=== PATIENT | female | born 1965 | race Hispanic/Latino ===

== ENCOUNTER 2016-11-02 17:01 | Emergency (ER) | payer BC ==
[2016-11-02 17:02] VITALS: BMI 17.7
[2016-11-02] MEDS ORDERED: Sodium Chloride 0.9% 1,000 ML IV ONE (18:03)
--- NOTE | 2016-11-02 18:15 | C.PDOC ---
History Of Present Illness Patient is a 50 y/o female, with PMHx of gastritis, pancreatitis, HIV cd4 550 vl undetectable, that presents to the ED for evaluation of abdominal pain with rectal bleeding that developed last night. Pt states rectal bleeding has resolved, but her abdominal pain still continues. Denies taking pain meds. Patient has been seen here multiple times for recurrent abdominal pain. Pt reports having endoscopy done 3 months ago which showed gastric ulcers, but states she has not followed up with surgical aide since. Otherwise, denies any n/v/d, fever, chills, or any other associated symptoms at this time. Time Seen by Provider: 11/02/16 17:40 Chief Complaint (Nursing): GI Problem History Per: Patient History/Exam Limitations: no limitations Onset/Duration Of Symptoms: Days (1) Current Symptoms Are (Timing): Still Present Amount of Blood Loss: Large Quality Of Discomfort: "Pain" Associated Symptoms: Rectal Bleeding. denies: Nausea, Vomiting, Diarrhea, Hematemesis, Lightheadedness Modifying Factors: None Recent travel outside of the [place]: No Additional History Per: Patient Past Medical History Reviewed: Historical Data, Nursing Documentation, Vital Signs Vital Signs: Last Vital Signs Temp 97.9 F 11/02/16 21:03 Pulse 88 11/02/16 21:03 Resp 20 11/02/16 21:03 BP 152/93 H 11/02/16 21:03 Pulse Ox 100 11/03/16 13:40 - Medical History PMH: Anemia, Anxiety, Bipolar Disorder, Depression, Gastritis, Gastrointestinal Ulcer, Hepatitis (C), HIV, Pancreatitis, Personality Disorder, Chronic Pain ( back pain) Family History: States: Diabetes (grandmother) - Social History Hx Tobacco Use: Yes Hx Alcohol Use: No Hx Substance Use: Yes - Immunization History Hx Tetanus Toxoid Vaccination: Yes Hx Influenza Vaccination: Yes Hx Pneumococcal Vaccination: Yes Review Of Systems Except As Marked, All Systems Reviewed And Found Negative. Constitutional: Negative for: Fever, Chills Gastrointestinal: Positive for: Abdominal Pain, Other (rectal bleeding). Negative for: Nausea, Vomiting, Diarrhea, Constipation Genitourinary: Negative for: Dysuria, Frequency, Hematuria Musculoskeletal: Negative for: Back Pain Physical Exam - Physical Exam Appears: Non-toxic, No Acute Distress Skin: Normal Color, Warm, Dry Head: Atraumatic, Normacephalic Eye(s): bilateral: Normal Inspection, EOMI Neck: Normal ROM, Supple Chest: Symmetrical Cardiovascular: Rhythm Regular Respiratory: Normal Breath Sounds, No Rales, No Rhonchi, No Wheezing Gastrointestinal/Abdominal: Soft, Tenderness (minimal abdominal tenderness), No Guarding, No Rebound Rectal: No Tenderness, No Other (no stool, no blood) Extremity: Normal ROM Neurological/Psych: Oriented x3, Normal Speech, Normal Cognition ED Course And Treatment - Laboratory Results Result Diagrams: 11/02/16 18:46 11/02/16 18:46 O2 Sat by Pulse Oximetry: 100 (on RA) Pulse Ox Interpretation: Normal Progress Note: Labs ordered and reviewed. Patient was treated with IV fluids, Morphine, and Ativan. Medical Decision Making Medical Decision Making: Hgb normal, no active bleeding, abd continues soft / non surgical Pt feeling better but anxious Results and plan discussed with pt dc home donatol, early gi f/u Disposition Counseled Patient/Family Regarding: Diagnosis, Need For Followup - Disposition Referrals: Remy Carrera MD [Medical Doctor] - Disposition: HOME/ ROUTINE Disposition Time: 20:54 Condition: GOOD Additional Instructions: Follow up with your GI doctor this wk Prescriptions: Atropine/Hyoscyamine [] 1 tab PO TID PRN #30 tab PRN Reason: .abd pain Instructions: Abdominal Pain (ED) - Clinical Impression Clinical Impression: Abdominal pain - Scribe Statement The provider has reviewed the documentation as recorded by the Will Boles Provider Attestation: All medical record entries made by the Deepikaibbenita were at my direction and personally dictated by me. I have reviewed the chart and agree that the record accurately reflects my personal performance of the history, physical exam, medical decision making, and the department course for this patient. I have also personally directed, reviewed, and agree with the discharge instructions and disposition.
[2016-11-02 18:50] LABS: BASO % 0.7 % (0.0-2.0); EOS # 0.1 K/uL (0.0-0.7); EOS % 1.7 % (0.0-4.0); HEMATOCRIT 39.5 % (34.0-47.0); LYMPH # 1.6 K/uL (1.0-4.3); LYMPH % 23.8 % (20.0-40.0); MEAN CELL VOLUME 88.2 fL (81.0-99.0); MEAN CORPUSCULAR HGB CONC 31.7 g/dL (33.0-37.0); MEAN PLATELET VOLUME 7.6 fL (7.2-11.7); MONO # 0.6 K/uL (0.0-0.8); MONO % 9.3 % (0.0-10.0); RED CELL DISTRIBUTION WIDTH 19.6 % (11.5-14.5); WHITE BLOOD COUNT 6.7 K/uL (4.8-10.8)
[2016-11-02] MEDS ORDERED: Sodium Chloride 0.9% 1,000 ML ONE (18:50)
[2016-11-02 19:00] LABS: CHLORIDE 102 mmol/L (98-107); POTASSIUM 3.6 mmol/L (3.6-5.2); SODIUM 142 mmol/L (132-148)
[2016-11-02 19:02] LABS: BILIRUBIN,TOTAL 0.3 mg/dL (0.2-1.3); GFR AFRICAN-AMERICAN > 60
[2016-11-02 19:03] LABS: ALB/GLOB RATIO 1.3 (1.0-2.1); ALKALINE PHOSPHATASE 72 U/L (38-126); ALT/SGPT 17 U/L (9-52); AST/SGOT 35 U/L (14-36); BLOOD UREA NITROGEN 11 mg/dL (7-17); CALCIUM 9.6 mg/dl (8.6-10.4); CARBON DIOXIDE 26 mmol/L (22-30); GLUCOSE,RANDOM 87 mg/dL (65-105); TOTAL PROTEIN 8.3 g/dL (6.3-8.3)
[2016-11-02] MEDS ORDERED: Belladonna-Phenobarbital ONE (19:57)
[2016-11-02] MEDS ORDERED: Aluminum Hydroxide/Magnesium Hydroxide Susp (30 mL) ONE (19:57)
[2016-11-02] MEDS ORDERED: Aluminum Hydroxide/Magnesium Hydroxide Susp (30 mL) PO STA (20:04)
[2016-11-02] MEDS ORDERED: Belladonna-Phenobarbital PO STA (20:05)
[2016-11-02 21:05] VITALS: BP 152/93; PULSE 88; RESP 20; TEMP 97.9
[2016-11-03 13:39] VITALS: O2SAT 100
== END 2016-11-02 21:03 | disposition home or self-care (01) ==
LOC: C.ER 17:01
DX: R10.9 Unspecified abdominal pain (principal)
CPT/HCPCS: 80053; 83690; 85025; 86850; 86900; 87040; 96361; 96374; 96375; 99285; G0328; J2060; J2270; J7040

== ENCOUNTER 2016-12-30 15:24 | Emergency (ER) | payer BC ==
[2016-12-30 15:25] VITALS: BMI 17.7
[2016-12-30 15:30] VITALS: BP 127/85; PULSE 97; RESP 18; TEMP 97.4; O2SAT 99
[2016-12-30 16:02] LABS: BASO % 0.4 % (0.0-2.0); EOS # 0.1 K/uL (0.0-0.7); EOS % 0.9 % (0.0-4.0); HEMATOCRIT 37.9 % (34.0-47.0); LYMPH # 1.2 K/uL (1.0-4.3); MEAN CELL VOLUME 88.7 fL (81.0-99.0); MEAN CORPUSCULAR HEMOGLOBIN 29.2 pg (27.0-31.0); MEAN CORPUSCULAR HGB CONC 32.9 g/dL (33.0-37.0); MEAN PLATELET VOLUME 7.2 fL (7.2-11.7); MONO # 0.7 K/uL (0.0-0.8); MONO % 8.7 % (0.0-10.0); NRBC % 0.1 % (0.0-2.0); RED CELL DISTRIBUTION WIDTH 17.6 % (11.5-14.5); WHITE BLOOD COUNT 7.7 K/uL (4.8-10.8)
--- NOTE | 2016-12-30 16:28 | C.PDOC ---
History Of Present Illness 51 year old female presents to the ED with complaints of severe stomach pain and suicidal ideations. Patient notes a history of HIV, Hepatitis C, IBS, stomach ulcers and is using Lexapro. She mentions her stomach pains and symtpoms of vomiting and diarrhea are the typical symptoms experienced with IBS. Patient denies suicidal plan or homicidal ideations. Time Seen by Provider: 12/30/16 15:29 Chief Complaint (Nursing): Psychiatric Evaluation History Per: Patient History/Exam Limitations: no limitations Onset/Duration Of Symptoms: Hrs Current Symptoms Are (Timing): Still Present Suicide/Self Injury Attempted (Context): None Associated Symptoms: Anxiety, Depression, Suicidal Thoughts Involuntary Hold By: None Recent travel outside of the [place]: No Past Medical History Reviewed: Historical Data, Nursing Documentation, Vital Signs Vital Signs: Last Vital Signs Temp 97.4 F L 12/30/16 15:30 Pulse 97 H 12/30/16 15:30 Resp 18 12/30/16 15:30 BP 127/85 12/30/16 15:30 Pulse Ox 99 12/30/16 17:25 - Medical History PMH: Anemia, Anxiety, Bipolar Disorder, Depression, Gastritis, Gastrointestinal Ulcer, Hepatitis (C), HIV, Pancreatitis, Personality Disorder, Chronic Pain ( back pain) Family History: States: Diabetes (grandmother) - Social History Hx Tobacco Use: Yes Hx Alcohol Use: No Hx Substance Use: Yes - Immunization History Hx Tetanus Toxoid Vaccination: Yes Hx Influenza Vaccination: Yes Hx Pneumococcal Vaccination: Yes Review Of Systems Except As Marked, All Systems Reviewed And Found Negative. Constitutional: Negative for: Fever, Chills, Sweats Cardiovascular: Negative for: Chest Pain, Palpitations Respiratory: Negative for: Cough, Shortness of Breath Gastrointestinal: Positive for: Vomiting, Abdominal Pain, Diarrhea Neurological: Negative for: Headache Physical Exam - Physical Exam Additional Physical Exam Comments: Constitutional: No acute distress. Patient is anxious appearing. Head: Normocephalic. Atraumatic. Eyes: PERRL. ENT: Moist mucous membranes. Neck: Supple. Cardiovascular: Regular rate. Radial pulse 2+ bilaterally. Chest: No tenderness. Respiratory: Clear to auscultation bilaterally. GI: Soft. Diffuse abdominal tenderness. Nondistended. Back: No CVA tenderness. Musculoskeletal: No tenderness or swelling of extremities. Left tibia deformity from previous fracture. Skin: No rash. Neurologic: Alert, no focal deficit. ED Course And Treatment - Laboratory Results Result Diagrams: 12/30/16 15:57 12/30/16 15:57 O2 Sat by Pulse Oximetry: 99 (room air ) Medical Decision Making Medical Decision Making: Labs unremarkable. Abdomen remains soft. Abd XR shows nonspecific bowel gas pattern, no obstruction. Dr. Nunn recommends discharge. Disposition - Disposition Disposition: HOME/ ROUTINE Disposition Time: 18:00 Condition: STABLE Prescriptions: Acetaminophen [Tylenol 325mg tab] 2 tab PO Q4H #30 tab Instructions: Irritable Bowel Syndrome (ED) - Clinical Impression Clinical Impression: IBS (irritable bowel syndrome) - Scribe Statement The provider has reviewed the documentation as recorded by the Scribe Yany Nogueira All medical record entries made by the Deepikaibe were at my direction and personally dictated by me. I have reviewed the chart and agree that the record accurately reflects my personal performance of the history, physical exam, medical decision making, and the department course for this patient. I have also personally directed, reviewed, and agree with the discharge instructions and disposition.
[2016-12-30 16:33] LABS: ALCOHOL SERUM < 10 mg/dl (0-10); ALKALINE PHOSPHATASE 91 U/L (38-126); ALT/SGPT 12 U/L (9-52); AST/SGOT 26 U/L (14-36); BILIRUBIN,TOTAL 0.4 mg/dL (0.2-1.3); BLOOD UREA NITROGEN 10 mg/dL (7-17); CALCIUM 9.3 mg/dl (8.6-10.4); CARBON DIOXIDE 28 mmol/L (22-30); CHLORIDE 105 mmol/L (98-107); GFR AFRICAN-AMERICAN > 60; GLUCOSE,RANDOM 71 mg/dL (65-105); POTASSIUM 3.6 mmol/L (3.6-5.2); SODIUM 143 mmol/L (132-148); TOTAL PROTEIN 7.6 g/dL (6.3-8.3)
[2016-12-30 16:57] LABS: RBC URINE 1 /hpf (0-3); URINE BACTERIA RARE (<OCC); URINE BILIRUBIN NEGATIVE (NEGATIVE); URINE BLOOD NEGATIVE (NEGATIVE); URINE COLOR Yellow (YELLOW); URINE GLUCOSE (UA) NORMAL (Normal); URINE KETONE NEGATIVE (NEGATIVE); URINE LEUKOCYTE ESTERASE NEG Leu/uL (Negative); URINE PROTEIN NEGATIVE (NEGATIVE); URINE UROBILINOGEN NORMAL mg/dL (0.2-1.0); WBC URINE 3 /hpf (0-5)
--- NOTE | 2016-12-31 08:37 | RAD ---
HISTORY: abdominal pain COMPARISON: No prior. FINDINGS: BOWEL: Normal. No obstruction. No free air. Inferior vena caval filter noted. BONES: Gross deformity of right hemipelvis with fractures of indeterminate age. Please correlate clinically. Also fracture left inferior pubic ramus and left pubic symphysis. Again, correlate clinically. OTHER FINDINGS: None. IMPRESSION: No evidence of bowel obstruction. Multiple pelvic fractures of age indeterminate. Please correlate clinically.
== END 2016-12-30 18:41 | disposition home or self-care (01) ==
LOC: C.ER 15:24
DX: K58.9 Irritable bowel syndrome, unspecified (principal)
CPT/HCPCS: 74020; 80053; 81001; 83690; 84703; 85025; 99283; G0480

== ENCOUNTER 2017-04-02 11:38 | Emergency (ER) | payer BC ==
[2017-04-02 11:38] VITALS: BMI 17.7
[2017-04-02 11:46] VITALS: TEMP 97.9
[2017-04-02] MEDS ORDERED: Sodium Chloride 0.9% 1,000 ML IV ONE (12:45)
[2017-04-02] MEDS ORDERED: Sodium Chloride 0.9% 1,000 ML ONE (13:04)
[2017-04-02 13:27] LABS: BASO % 0.6 % (0.0-2.0); EOS % 0.2 % (0.0-4.0); HEMATOCRIT 38.2 % (34.0-47.0); LYMPH # 0.8 K/uL (1.0-4.3); LYMPH % 13.9 % (20.0-40.0); MEAN CELL VOLUME 85.6 fL (81.0-99.0); MEAN CORPUSCULAR HGB CONC 32.6 g/dL (33.0-37.0); MEAN PLATELET VOLUME 8.4 fL (7.2-11.7); MONO # 0.3 K/uL (0.0-0.8); MONO % 4.4 % (0.0-10.0); NRBC % 0.1 % (0.0-2.0); RED CELL DISTRIBUTION WIDTH 17.7 % (11.5-14.5)
[2017-04-02 13:34] LABS: CHLORIDE 98 mmol/L (98-107); POTASSIUM 3.4 mmol/L (3.6-5.2); SODIUM 147 mmol/L (132-148)
[2017-04-02 13:36] LABS: BILIRUBIN,TOTAL 0.6 mg/dL (0.2-1.3); GFR AFRICAN-AMERICAN > 60
[2017-04-02 13:37] LABS: ALB/GLOB RATIO 1.2 (1.0-2.1); ALKALINE PHOSPHATASE 88 U/L (38-126); ALT/SGPT 28 U/L (9-52); AST/SGOT 37 U/L (14-36); BLOOD UREA NITROGEN 17 mg/dL (7-17); CALCIUM 10.1 mg/dl (8.6-10.4); CARBON DIOXIDE 31 mmol/L (22-30); GLUCOSE,RANDOM 106 mg/dL (65-105); TOTAL PROTEIN 8.6 g/dL (6.3-8.3)
[2017-04-02 14:06] LABS: RBC URINE 6 /hpf (0-3); URINE BACTERIA RARE (<OCC); URINE BILIRUBIN NEGATIVE (NEGATIVE); URINE BLOOD NEGATIVE (NEGATIVE); URINE COLOR Amber (YELLOW); URINE GLUCOSE (UA) NORMAL (Normal); URINE KETONE TRACE mg/dL (NEGATIVE); URINE LEUKOCYTE ESTERASE NEG Leu/uL (Negative); URINE PROTEIN 2+ mg/dL (NEGATIVE); WBC URINE 2 /hpf (0-5)
--- NOTE | 2017-04-02 14:44 | C.PDOC ---
History Of Present Illness 51 year old female, with PMHx of irritable bowel syndrome, presents to ED for evaluation of crampy abdominal pain associated with nausea, vomiting, and diarrhea which developed today. Notes having similar symptoms in the past. Pt denies fever/chills, rectal bleeding, chest pain, or shortness of breath. Pt is requesting Ativan, notes that she normally takes Xanax for her anxiety. Pt denies feeling depressed, or having SI/HI. Time Seen by Provider: 04/02/17 12:23 Chief Complaint (Nursing): Abdominal Pain History Per: Patient History/Exam Limitations: no limitations Onset/Duration Of Symptoms: Hrs Current Symptoms Are (Timing): Still Present Severity: Moderate Location Of Pain/Discomfort: Diffuse Radiation Of Pain To:: None Quality Of Discomfort: Cramping Associated Symptoms: Nausea, Vomiting, Diarrhea. denies: Loss Of Appetite, Back Pain, Chest Pain, Constipation, Urinary Symptoms Exacerbating Factors: None Alleviating Factors: None Additional History Per: Patient Abnormal Vaginal Bleeding: No Past Medical History Reviewed: Historical Data, Nursing Documentation, Vital Signs Vital Signs: Last Vital Signs Temp 97.9 F 04/02/17 11:43 Pulse 92 H 04/02/17 15:10 Resp 18 04/02/17 15:10 BP 148/92 H 04/02/17 15:10 Pulse Ox 95 04/02/17 15:37 - Medical History PMH: Anemia, Anxiety, Bipolar Disorder, Depression, Gastritis, Gastrointestinal Ulcer, Hepatitis (C), HIV, Pancreatitis, Personality Disorder, Chronic Pain ( back pain) Family History: States: Diabetes (grandmother) - Social History Hx Tobacco Use: Yes Hx Alcohol Use: No Hx Substance Use: Yes - Immunization History Hx Tetanus Toxoid Vaccination: Yes Hx Influenza Vaccination: Yes Hx Pneumococcal Vaccination: Yes Review Of Systems Except As Marked, All Systems Reviewed And Found Negative. Constitutional: Negative for: Fever, Chills Cardiovascular: Negative for: Chest Pain, Palpitations Respiratory: Negative for: Cough, Shortness of Breath Gastrointestinal: Positive for: Nausea, Vomiting, Abdominal Pain, Diarrhea. Negative for: Constipation, Melena, Hematochezia, Hematemesis Genitourinary: Negative for: Dysuria, Frequency, Hematuria Musculoskeletal: Negative for: Back Pain Neurological: Negative for: Headache, Dizziness Psych: Positive for: Anxiety. Negative for: Depression, Suicidal ideation Physical Exam - Physical Exam Appears: Well, Non-toxic, Other (In mild pain, anxious appearing ) Skin: Normal Color, Warm, Dry, No Rash Head: Normacephalic Eye(s): bilateral: Normal Inspection, EOMI Oral Mucosa: Moist Neck: Supple Cardiovascular: Rhythm Regular (mildly tachycardic), No Murmur Respiratory: Normal Breath Sounds, No Rales, No Rhonchi, No Wheezing Gastrointestinal/Abdominal: Bowel Sounds, Soft, Tenderness (mild diffuse TTP), No Guarding, No Rebound, No Other ((-)Norris's (-)McBurney's ) Back: No CVA Tenderness Extremity: Normal ROM Neurological/Psych: Oriented x3 ED Course And Treatment - Laboratory Results Result Diagrams: 04/02/17 13:20 04/02/17 13:20 O2 Sat by Pulse Oximetry: 95 (on RA) Pulse Ox Interpretation: Normal Progress Note: Blood work, UA ordered and reviewed. Pt was given Pepcid IVP, Toradol IVP, Zofran IVP, Ativan IVP, and IV NS bolus. Reevaluation Time: 14:45 Reassessment Condition: Improved (On reassessment, pt reports feeling better and is comfortable being discharged home. On exam, abdomen is soft and nontender. Blood work and UA are WNL, and patient's vitals have improved. She was given Rxs for zofran, bentyl and pepcid, and instructed to follow up with GI within 1 week. Patient understands she should return to ED if symtpoms worsen.) Disposition Counseled Patient/Family Regarding: Studies Performed, Diagnosis, Need For Followup, Rx Given - Disposition Referrals: Remy Carrera MD [Medical Doctor] - Disposition: HOME/ ROUTINE Disposition Time: 14:50 Condition: STABLE Additional Instructions: FOLLOW UP WITH YOUR DOCTOR IN 1-2 DAYS USE MEDICATIONS NEEDED DRINK PLENTY OF CLEAR FLUIDS RETURN TO ER IF SYMPTOMS WORSEN Prescriptions: Dicyclomine [Bentyl] 20 mg PO Q6 PRN #12 tab PRN Reason: ABDOMINAL CRAMPING Famotidine [Pepcid] 20 mg PO BID PRN #15 tab PRN Reason: abdominal Ondansetron [Zofran Odt] 4 mg PO Q8 PRN #15 odt PRN Reason: Nausea/Vomiting Instructions: Acute Nausea and Vomiting (ED), Abdominal Pain (ED) Forms: [facility] (Australian) Print Language: INDONESIAN - Clinical Impression Clinical Impression: Nausea, Vomiting, Diarrhea, Chronic abdominal pain, IBS (irritable bowel syndrome) - Scribe Statement The provider has reviewed the documentation as recorded by the Will Boles All medical record entries made by the Deepikaibbenita were at my direction and personally dictated by me. I have reviewed the chart and agree that the record accurately reflects my personal performance of the history, physical exam, medical decision making, and the department course for this patient. I have also personally directed, reviewed, and agree with the discharge instructions and disposition.
[2017-04-02 15:23] VITALS: BP 148/92; PULSE 92; RESP 18
[2017-04-02 15:29] VITALS: O2SAT 95
== END 2017-04-02 15:10 | disposition home or self-care (01) ==
LOC: C.ER 11:38
DX: K58.0 Irritable bowel syndrome with diarrhea (principal); G89.29 Other chronic pain; R10.9 Unspecified abdominal pain; R11.2 Nausea with vomiting, unspecified; F41.9 Anxiety disorder, unspecified
CPT/HCPCS: 80053; 81001; 83690; 84703; 85025; 96361; 96374; 96375; 99284; G0480; J1885; J2060; J2405; J7040

== ENCOUNTER 2017-04-10 06:44 | Inpatient (IN) | payer BC ==
[2017-04-10 06:44] VITALS: BMI 17.7
--- NOTE | 2017-04-10 07:30 | C.PDOC ---
History Of Present Illness 51 y/o female with PMHx of gastritis and irritable bowel syndrome, presents to ED for evaluation of diffuse abdominal pain associated with nausea and several episodes of diarrhea for the last 3 days. Patient has been here multiple times in the past for similar complaints. She denies vomiting, chest pain, shortness of breath, fever, dysuria/hematurias. Pt also reports feeling anxious, but denies SI/HI. Time Seen by Provider: 04/10/17 07:06 Chief Complaint (Nursing): Abdominal Pain History Per: Patient History/Exam Limitations: no limitations Onset/Duration Of Symptoms: Days (3) Current Symptoms Are (Timing): Still Present Location Of Pain/Discomfort: Diffuse Radiation Of Pain To:: None Quality Of Discomfort: "Pain" Associated Symptoms: Nausea, Diarrhea. denies: Vomiting, Loss Of Appetite, Back Pain, Chest Pain, Constipation, Urinary Symptoms Exacerbating Factors: None Alleviating Factors: None Additional History Per: Patient Abnormal Vaginal Bleeding: No Past Medical History Reviewed: Historical Data, Nursing Documentation, Vital Signs Vital Signs: Last Vital Signs Temp 98.1 F 04/10/17 23:10 Pulse 75 04/11/17 07:30 Resp 22 04/10/17 23:10 BP 132/79 04/10/17 23:10 Pulse Ox 97 04/10/17 23:10 - Medical History PMH: Anemia, Anxiety, Bipolar Disorder, Depression, Gastritis, Gastrointestinal Ulcer, Hepatitis (C), HIV, Pancreatitis, Personality Disorder, Chronic Pain ( back pain) Family History: States: Diabetes (grandmother) - Social History Hx Tobacco Use: Yes Hx Alcohol Use: No Hx Substance Use: Yes - Immunization History Hx Tetanus Toxoid Vaccination: Yes Hx Influenza Vaccination: Yes Hx Pneumococcal Vaccination: Yes Review Of Systems Except As Marked, All Systems Reviewed And Found Negative. Constitutional: Negative for: Fever, Chills Cardiovascular: Negative for: Chest Pain, Palpitations Respiratory: Negative for: Cough, Shortness of Breath Gastrointestinal: Positive for: Nausea, Abdominal Pain, Diarrhea. Negative for : Vomiting Genitourinary: Negative for: Dysuria, Frequency Musculoskeletal: Negative for: Back Pain Neurological: Negative for: Headache Psych: Positive for: Anxiety. Negative for: Suicidal ideation Physical Exam - Physical Exam Appears: Well, Non-toxic, Other (mildly uncomfortable, belching loudly) Skin: Warm, Dry Head: Normacephalic Eye(s): bilateral: Normal Inspection Oral Mucosa: Moist Neck: Supple Cardiovascular: Rhythm Regular Respiratory: Normal Breath Sounds, No Rales, No Rhonchi, No Wheezing Gastrointestinal/Abdominal: Bowel Sounds, Soft, Tenderness (mildly diffuse TTP, greatest in epigastric area ), No Guarding, No Rebound, Other ((-)Norris's, (-) McBurney's) Back: Normal Inspection, No CVA Tenderness Extremity: Normal ROM, No Pedal Edema Neurological/Psych: Oriented x3 ED Course And Treatment - Laboratory Results Result Diagrams: 04/10/17 07:42 04/10/17 07:42 O2 Sat by Pulse Oximetry: 100 (RA) Pulse Ox Interpretation: Normal - CT Scan/US CT ABD/PELVIS Other Rad Studies (CT/US): Read By Radiologist, Radiology Report Reviewed CT/US Interpretation: Accession No. : [id number]. Patient Name / ID : DANIEL HUMPHRIES / [id number]. Exam Date : 04/10/2017 09:36:36 ( Approved ). Study Comment : Sex / Age : F / 51Y. Creator : Syed Koenig. Dictator : Syed Koenig. 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 Approver2 : Report Date : 04/10/2017 11:03:03. My Comment : . PROCEDURE: CT Abdomen and Pelvis with contrast. HISTORY: elevated lipase r/o pancreatitis. COMPARISON: Comparison is made to the previous study dated 01/01/2016. TECHNIQUE: Contrast dose: 100 mL Visipaque 320. Axial and reformatted coronal and sagittal CT images of the abdomen and pelvis were obtained after IV contrast administration. Radiation dose: Total exam DLP = 215.58 mGy-cm. This CT exam was performed using one or more of the following dose reduction techniques: Automated exposure control, adjustment of the mA and/or kV according to patient size, and/or use of iterative reconstruction technique. FINDINGS: LOWER THORAX: There is approximately 1.8 centimeter enhancing structure protruding from the apex of the left ventricle suspicious for aneurysm or pseudoaneurysm of the left ventricle of the heart. This abnormality best seen on image 18 series 3. Otherwise no evidence of acute pathology in the lung bases. LIVER: Mild cardiomegaly is again noted. Mild intrahepatic biliary ductal dilatation is noted. There is low-attenuation lesion at the liver apex measures 5 millimeter again seen. No evidence of mass lesion in the liver. The portal vein is patent. GALLBLADDER AND BILE DUCTS: The gallbladder is mildly distended without evidence of radiodense gallstones or cholecystitis. The common bile duct is normal in size. PANCREAS: There is no evidence of significant peripancreatic inflammatory changes to suggest acute pancreatitis. SPLEEN: Unremarkable. ADRENALS: Unremarkable. No mass. KIDNEYS AND URETERS: Unremarkable. No hydronephrosis. No solid mass. VASCULATURE: IVC filter is seen in place. . No aortic aneurysm. BOWEL: Unremarkable. No obstruction. No gross mural thickening. APPENDIX: Normal appendix. PERITONEUM: Unremarkable. No free fluid. No free air. LYMPH NODES: Unremarkable. No enlarged lymph nodes. BLADDER: Unremarkable. REPRODUCTIVE : Unremarkable. BONES: No acute fracture. OTHER FINDINGS: None. IMPRESSION : No CT evidence of acute pancreatitis. Incidental finding is 1.8 centimeter either aneurysm or pseudoaneurysm protruding from the apex of the left ventricle of the heart. Further assessment is suggested. No CT evidence of acute pathology in the abdomen and pelvis. The above findings were reported to and discussed with the emergency room referring physician at 10:55 a.m. on 04/10/2017 . Progress Note: Blood work, UA, Upreg ordered and reviewed. Patient was given IV Ativan, IV Pepcid, IV Toradol, IV Zofran and IV NS bolus. Patient continued to have pain, IV Morphine ordered. Lipase also elevated- CT scan abd/pelvis ordered and reviewed. - Physician Consult Information Physician Contacted: Jose Augustin Outcome Of Conversation: Discussed patient with Dr. Nancy augustin, he agrees with admission to his service for pancreatitis, intractable abdominal pain/vomiting, and incidental findings on CT scan of ventricular anheurysm/pseudoanheurysm. CT surgeon Dr. Cabrera consult and echo orders entered. Critical Care Time - Critical Care Note Total Time (in mins): 35 Documented critical care: time excludes all time spent performing seperately billable procedures. 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 01/31/2017 1 01/30/2017 ALPRAZOLAM 2 MG TABLET 14.0 7 AP FULLER [id number] [facility] P (5322) 0 [facility] [place] 01/12/2017 1 01/12/2017 ALPRAZOLAM 2 MG TABLET 6.0 3 RE HARMONY [id number] UMR P (5322) 0 [facility] [place] 08/18/2016 1 06/13/2016 CARISOPRODOL 350 MG TABLET 60.0 30 RE [place] [id number] [facility] ( 1969) 2 [facility] [place] 07/22/2016 1 06/13/2016 CARISOPRODOL 350 MG TABLET 60.0 30 RE [place] [id number] [facility] ( 1969) 1 [facility] [place] 06/25/2016 1 06/13/2016 CARISOPRODOL 350 MG TABLET 60.0 30 RE [place] [id number] [facility] ( 1969) 0 [facility] [place] *Pharmacy is created using a combination of pharmacy name and the last four digits of the pharmacy license number. Prescribers 1 / 2 Name Address [facility] Zip Phone MD CARLOS, ARSLAN [address] [facility] [address] [phone] MD MISTY, SOFIA Zambrano [address] [place] [phone] [facility] Zip Phone [facility] [phone] [facility] [address] [phone] [facility] [phone] [facility] [id number] [phone] Disposition - Disposition Disposition: HOSPITALIZED Disposition Time: 11:25 Condition: STABLE - Clinical Impression Clinical Impression: Pancreatitis, Intractable abdominal pain, Intractable vomiting with nausea, Ventricular aneurysm - Scribe Statement The provider has reviewed the documentation as recorded by the Will Augustin All medical record entries made by the Deepikaibbenita were at my direction and personally dictated by me. I have reviewed the chart and agree that the record accurately reflects my personal performance of the history, physical exam, medical decision making, and the department course for this patient. I have also personally directed, reviewed, and agree with the discharge instructions and disposition. Decision To Admit - Pt Status Changed To: Hospital Disposition Of: Inpatient - Admit Certification Admit to Inpatient:: After my assessment, the patient will require hospitalization for at least two midnights. This is because of the severity of symptoms shown, intensity of services needed, and/or the medical risk in this patient being treated as an outpatient. - InPatient: Physician Admission Certification:: see notes - . Bed Request Type: Telemetry Admitting Physician: Jose Augustin Patient Diagnosis: Pancreatitis, Intractable abdominal pain, Intractable vomiting with nausea, Ventricular aneurysm
[2017-04-10] MEDS ORDERED: Sodium Chloride 0.9% 1,000 ML IV ONE (07:34)
[2017-04-10] MEDS ORDERED: Sodium Chloride 0.9% 1,000 ML ONE (07:45)
[2017-04-10 07:48] LABS: BASO % 0.8 % (0.0-2.0); EOS # 0.3 K/uL (0.0-0.7); EOS % 5.7 % (0.0-4.0); HEMATOCRIT 35.5 % (34.0-47.0); LYMPH # 1.4 K/uL (1.0-4.3); LYMPH % 23.1 % (20.0-40.0); MEAN CELL VOLUME 86.5 fL (81.0-99.0); MEAN CORPUSCULAR HEMOGLOBIN 28.4 pg (27.0-31.0); MEAN CORPUSCULAR HGB CONC 32.8 g/dL (33.0-37.0); MEAN PLATELET VOLUME 7.6 fL (7.2-11.7); MONO # 0.5 K/uL (0.0-0.8); MONO % 7.9 % (0.0-10.0); NRBC % 0.1 % (0.0-2.0); RED CELL DISTRIBUTION WIDTH 17.9 % (11.5-14.5)
[2017-04-10 07:56] LABS: CHLORIDE 100 mmol/L (98-107); POTASSIUM 3.4 mmol/L (3.6-5.2); SODIUM 141 mmol/L (132-148)
[2017-04-10 07:58] LABS: BILIRUBIN,TOTAL 0.5 mg/dL (0.2-1.3); GFR AFRICAN-AMERICAN > 60
[2017-04-10 07:59] LABS: ALB/GLOB RATIO 1.3 (1.0-2.1); ALKALINE PHOSPHATASE 66 U/L (38-126); ALT/SGPT 23 U/L (9-52); AST/SGOT 20 U/L (14-36); BLOOD UREA NITROGEN 11 mg/dL (7-17); CALCIUM 8.5 mg/dl (8.6-10.4); CARBON DIOXIDE 23 mmol/L (22-30); GLUCOSE,RANDOM 100 mg/dL (65-105); TOTAL PROTEIN 7.7 g/dL (6.3-8.3)
[2017-04-10 08:11] LABS: RBC URINE 1 /hpf (0-3); URINE BILIRUBIN NEGATIVE (NEGATIVE); URINE BLOOD NEGATIVE (NEGATIVE); URINE COLOR Yellow (YELLOW); URINE GLUCOSE (UA) NORMAL (Normal); URINE KETONE NEGATIVE (NEGATIVE); URINE LEUKOCYTE ESTERASE NEG Leu/uL (Negative); URINE PROTEIN NEGATIVE (NEGATIVE); URINE UROBILINOGEN NORMAL mg/dL (0.2-1.0); WBC URINE 1 /hpf (0-5)
[2017-04-10] MEDS ORDERED: Morphine 4 MG/ML VIAL IV STA (08:35)
[2017-04-10] MEDS ORDERED: Morphine 4 MG/ML VIAL ONE ×2 (08:37→11:33)
[2017-04-10] MEDS ORDERED: Iodixanol 320 mg/ml 150 ml Bottle IV ONE (09:30)
--- NOTE | 2017-04-10 11:04 | CT ---
PROCEDURE: CT Abdomen and Pelvis with contrast HISTORY: elevated lipase r/o pancreatitis COMPARISON: Comparison is made to the previous study dated 01/01/2016 TECHNIQUE: Contrast dose: 100 mL Visipaque 320. Axial and reformatted coronal and sagittal CT images of the abdomen and pelvis were obtained after IV contrast administration. Radiation dose: Total exam DLP = 215.58 mGy-cm. This CT exam was performed using one or more of the following dose reduction techniques: Automated exposure control, adjustment of the mA and/or kV according to patient size, and/or use of iterative reconstruction technique. FINDINGS: LOWER THORAX: There is approximately 1.8 centimeter enhancing structure protruding from the apex of the left ventricle suspicious for aneurysm or pseudoaneurysm of the left ventricle of the heart. This abnormality best seen on image 18 series 3. Otherwise no evidence of acute pathology in the lung bases. LIVER: Mild cardiomegaly is again noted. Mild intrahepatic biliary ductal dilatation is noted. There is low-attenuation lesion at the liver apex measures 5 millimeter again seen. No evidence of mass lesion in the liver. The portal vein is patent. GALLBLADDER AND BILE DUCTS: The gallbladder is mildly distended without evidence of radiodense gallstones or cholecystitis. The common bile duct is normal in size. PANCREAS: There is no evidence of significant peripancreatic inflammatory changes to suggest acute pancreatitis. SPLEEN: Unremarkable. ADRENALS: Unremarkable. No mass. KIDNEYS AND URETERS: Unremarkable. No hydronephrosis. No solid mass. VASCULATURE: IVC filter is seen in place. . No aortic aneurysm. BOWEL: Unremarkable. No obstruction. No gross mural thickening. APPENDIX: Normal appendix. PERITONEUM: Unremarkable. No free fluid. No free air. LYMPH NODES: Unremarkable. No enlarged lymph nodes. BLADDER: Unremarkable. REPRODUCTIVE: Unremarkable. BONES: No acute fracture. OTHER FINDINGS: None. IMPRESSION: No CT evidence of acute pancreatitis. Incidental finding is 1.8 centimeter either aneurysm or pseudoaneurysm protruding from the apex of the left ventricle of the heart. Further assessment is suggested. No CT evidence of acute pathology in the abdomen and pelvis. The above findings were reported to and discussed with the emergency room referring physician at 10:55 a.m. on 04/10/2017 .
--- NOTE | 2017-04-10 12:14 | CP.PCM.CON ---
<John Carbone - Last Filed: 04/10/17 13:03> History of Present Illness - History of Present Illness History of Present Illness: PGY5 GI Fellow Consult Note Patient is a 51yo female with PMHx significant for HIV on Truvada, HCV with undetectable viral load, gallstones, PUD, IBS, COPD, questionable PE/DVT, anxiety, depression with numerous previous suicide attempts, polysubstance abuse history and drug seeking behavior who presented to the ED with abdominal pain. The patient is a very poor historian and unable to provide most of her medical history without prompting. The patient has been seen in the ED for this complaint a number of times, most recently 04/02/17, 8 days [employer]. Patient began to have diffuse, cramping abdominal pains last and this has continued until today when she presented to the ED. When present, pain is 10/10, stabbing/ cramping discomfort lasting for about an hour and resolving spontaneously. Patient cannot recall if symptoms are related to or exacerbated by meals and denies alleviation of pain with defecation. She is unable to tell me if she is currently having diarrhea or constipation, stating her bowel habits seem to fluctuate from day to day. She also admits to a 10lb weight loss in last two months due to poor intake though her weight, as documented, is nearly identical to all previous weights in our EMR. Patient has often had complained of weight loss which seems unsubstantiated by our records. She, too, complains of frequent eructation. She is not using any medications for any of these issues. Denies any melena, hematochezia, fever, chills. She does claim to have had an EGD 6 months ago at [facility] with an ulcer being found but cannot recall a repeat EGD to check healing. She has been using Pantoprazole 40mg PO QAMAC and Carafate daily. At the time of interview, patient is eating a sandwich with cold cuts without issue. PMHx: See HPI PSHx: Tubal ligation, IVC filter placement FHx: Mother - Heroin use Social: H/O polypsubstance abuse - cocaine, PCP, current cannabis use, daily xanax use; 1ppd tobacco use; denies EtOH use Endo: Reports EGD at [facility] 6 months [employer]; EGD/colonoscopy 06/2015 *Primary GI is Dr Jeronimo at [facility] 12 system ROS performed and negative except where stated in HPI Past Patient History - Infectious Disease Hx of Infectious Diseases: None - Past Social History Smoking Status: Heavy Smoker > 10 Cigarettes Daily - CARDIAC Hx Hypertension: No - PULMONARY Hx Asthma: No - NEUROLOGICAL Hx Seizures: No - HEMATOLOGICAL/ONCOLOGICAL Hx Anemia: Yes Hx Human Immunodeficiency Virus (HIV): Yes - MUSCULOSKELETAL/RHEUMATOLOGICAL Hx Falls: No - GASTROINTESTINAL Hx Gastritis: Yes Hx Pancreatitis: Yes - GENITOURINARY/GYNECOLOGICAL Hx Sexually Transmitted Disorders: No - PSYCHIATRIC Hx Anxiety: Yes Hx Bipolar Disorder: Yes Hx Depression: Yes Hx Substance Use: Yes - SURGICAL HISTORY Hx Surgeries: Yes Other/Comment: leg left surgery - ANESTHESIA Hx Anesthesia: Yes Hx Anesthesia Reactions: No Hx Malignant Hyperthermia: No Meds Allergies/Adverse Reactions: Allergies Allergy/AdvReac Type Severity Reaction Status Date / Time No Known Allergies Allergy Verified 04/10/17 07:24 Physical Exam - Constitutional Appears: Non-toxic, No Acute Distress - Eye Exam Eye Exam: EOMI, PERRL - ENT Exam ENT Exam: Mucous Membranes Moist - Respiratory Exam Respiratory Exam: Clear to Auscultation Bilateral. absent: Rales, Rhonchi, Wheezes - Cardiovascular Exam Cardiovascular Exam: RRR, +S1, +S2 - GI/Abdominal Exam GI & Abdominal Exam: Normal Bowel Sounds, Soft. absent: Distended, Firm, Guarding, Organomegaly, Rigid, Tenderness Additional comments: negative Norris sign - Extremities Exam Extremities exam: Positive for: normal inspection. Negative for: pedal edema - Neurological Exam Neurological exam: Alert, Oriented x3 - Psychiatric Exam Psychiatric exam: Anxious, Normal Affect - Skin Skin Exam: Dry, Warm Results - Vital Signs Recent Vital Signs: Last Vital Signs Temp 98.1 F 04/10/17 10:37 Pulse 74 04/10/17 10:37 Resp 20 04/10/17 10:37 BP 145/90 04/10/17 10:37 Pulse Ox 100 04/10/17 11:17 - Labs Result Diagrams: 04/10/17 07:42 04/10/17 07:42 Labs: Laboratory Results - last 24 hr 04/10/17 04/10/17 04/10/17 07:42 07:42 07:50 WBC 6.0 RBC 4.10 Hgb 11.6 Hct 35.5 MCV 86.5 MCH 28.4 MCHC 32.8 L RDW 17.9 H Plt Count 323 MPV 7.6 Neut % (Auto) 62.5 Lymph % (Auto) 23.1 [place] % (Auto) 7.9 Eos % (Auto) 5.7 H Baso % (Auto) 0.8 Neut # 3.8 Lymph # 1.4 [place] # 0.5 Eos # 0.3 Baso # 0.0 Sodium 141 Potassium 3.4 L Chloride 100 Carbon Dioxide 23 Anion Gap 22 H BUN 11 Creatinine 0.6 L Est GFR ( Amer) > 60 Est GFR (Non-Af Amer) > 60 Random Glucose 100 Calcium 8.5 L Total Bilirubin 0.5 AST 20 ALT 23 Alkaline Phosphatase 66 Total Protein 7.7 Albumin 4.4 Globulin 3.3 Albumin/Globulin Ratio 1.3 Lipase 558 H Urine Color Yellow Urine Clarity Hazy Urine pH 7.0 Ur Specific [place] 1.011 Urine Protein Negative Urine Glucose (UA) Normal Urine Ketones Negative Urine Blood Negative Urine Nitrate Negative Urine Bilirubin Negative Urine Urobilinogen Normal Ur Leukocyte Esterase Neg Urine WBC (Auto) 1 Urine RBC (Auto) 1 Ur Squamous Epith Cells 5 Amorphous Sediment Rare H Urine HCG, Qual Negative Assessment & Plan - Assessment and Plan (Free Text) Assessment: Patient is a 51yo female with PMHx significant for HIV on Truvada, HCV with undetectable viral load, gallstones, PUD, IBS, COPD, questionable PE/DVT, anxiety, depression with numerous previous suicide attempts, polysubstance abuse history and drug seeking behavior who presented to the ED with abdominal pain. 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 -Polysubstance abuse -H/O PUD -H/O Gallstones -HIV on HAART -H/O HCV per pt -Anxiety/Depression/Bipolar Plan: -Continue PPI with protonix 40mg PO QAMAC -Add simethicone PRN -Would not check stool for infectious work up at this time as there is no evidence of acute infection and diarrhea seems intermittent at best -Given patient's HIV history, if diarrhea persists, could consider sending for culture and to R/O opportunistic infections -Check Hepatitis serologies for documentation -D/C carafate -Avoid NSAIDs -Isolated elevation in lipase noted - no evidence for acute pancreatitis on examination, history or imaging (CT) -Consider U/S abdomen, R/O gallstones - pain possibly 2/2 biliary colic - questionable if lipasemia could be downtrending from prior obstructive event -Patient eating cold cut sandwich at time of interview - OK to continue diet - recommend low fat diet -Echocardiogram pending given finding on CT scan - woudl benefit from cardiology consultation -Strongly encourage illicit drug use cessation along with tobacco cessation -Patient has had recent endoscopy at [facility] -Will follow clinical course - Date & Time Date: 04/10/17 Time: 13:23 <Kris Pardo - Last Filed: 04/10/17 13:27> Results - Vital Signs Recent Vital Signs: Last Vital Signs Temp 98.1 F 04/10/17 10:37 Pulse 74 04/10/17 10:37 Resp 20 04/10/17 10:37 BP 145/90 04/10/17 10:37 Pulse Ox 100 04/10/17 11:17 - Labs Result Diagrams: 04/10/17 07:42 04/10/17 07:42 Labs: Laboratory Results - last 24 hr 04/10/17 04/10/17 04/10/17 07:42 07:42 07:50 WBC 6.0 RBC 4.10 Hgb 11.6 Hct 35.5 MCV 86.5 MCH 28.4 MCHC 32.8 L RDW 17.9 H Plt Count 323 MPV 7.6 Neut % (Auto) 62.5 Lymph % (Auto) 23.1 [place] % (Auto) 7.9 Eos % (Auto) 5.7 H Baso % (Auto) 0.8 Neut # 3.8 Lymph # 1.4 [place] # 0.5 Eos # 0.3 Baso # 0.0 Sodium 141 Potassium 3.4 L Chloride 100 Carbon Dioxide 23 Anion Gap 22 H BUN 11 Creatinine 0.6 L Est GFR ( Amer) > 60 Est GFR (Non-Af Amer) > 60 Random Glucose 100 Calcium 8.5 L Total Bilirubin 0.5 AST 20 ALT 23 Alkaline Phosphatase 66 Total Protein 7.7 Albumin 4.4 Globulin 3.3 Albumin/Globulin Ratio 1.3 Lipase 558 H Urine Color Yellow Urine Clarity Hazy Urine pH 7.0 Ur Specific [place] 1.011 Urine Protein Negative Urine Glucose (UA) Normal Urine Ketones Negative Urine Blood Negative Urine Nitrate Negative Urine Bilirubin Negative Urine Urobilinogen Normal Ur Leukocyte Esterase Neg Urine WBC (Auto) 1 Urine RBC (Auto) 1 Ur Squamous Epith Cells 5 Amorphous Sediment Rare H Urine HCG, Qual Negative Attending/Attestation - Attestation I have personally seen and examined this patient.: Yes I have fully participated in the care of the patient.: Yes I have reviewed all pertinent clinical information: Yes Notes (Text): 04/10/17 13:24 51 year old female with h/o HIV, HCV, Cholelithiasis, PUD, IBS, COPD, anxiety/ depression admitted with abdominal pain. 1. Abdominal pain 2. Cholelithiasis 3. IBS 4. History of PUD Plan: -labs and CT reviewed -no evidence of pancreatitis on CT, lipase is only mildly elevated, not significant -pain does not appear to be consistent with biliary colic, though prior US showed gallstones -recommend protonix 40 mg daily -supportive measures / pain control / hydration -advance diet as tolerated -await echo re: possibly ventricular aneursym
--- NOTE | 2017-04-10 13:27 | CP.PCM.CON ---
History of Present Illness - History of Present Illness History of Present Illness: General Surgery Consult Note for Dr. Cabrera Consulted for: ventricular aneurysm v psuedoanuerysm on CT Patient is a 51 year old female with pmhx of HIV, Hepatitis C, IBS, PUD, gallstones, COPD, questionable PE/DVT, anxiety, depression with numerous previous suicide attempts, polysubstance abuse history who presented to the ED with abdominal pain. Patient says she has been having this abdominal pain for the past few months, but the pain increased in severity in the last day. The patient says the pain is in the epigastric region of the abdomen and is a cramping pain that comes and goes. At its worst she says the pain is a 10/10. She does not know if the pain is associated with food. Patient says she had about 7 episodes of diarrhea overnight with no blood in the stool. Patient had no episodes of vomiting, but did feel slightly nauseous. Patient says she was diagnosed with an ulcer by EGD she had about 6 months ago at [place]. Patient admits to having lost about 10 pounds in the last two months due to decreased appetite. Patient denies any fevers, chills, shortness of breath, chest pain or palpitations. Currently she says her abdominal pain is very minimal. She is hungry and eating a sandwich. She has not had any diarrhea since this morning. PMHx: HIV, Hepatitis C, IBS, PUD, gallstones, COPD, questionable PE/DVT, anxiety , depression with numerous previous suicide attempts Psurg: tubal ligation, IVC filter, colonscopy in 2014, endoscopy in 2017 Famhx: grandmother- Crohn's disease and breast CA Social: hx of PCP and cocaine, currently admits to marijuana 2 blunts per day and 1/2 pack of cigarettes per day. Denies alcohol use Allergies: NKDA home medications: Xanax 2mg BID, Soma 350 mg BID, HIV medications, Pantoprazole 40 mg dialy, Carafate Review of Systems - Constitutional Constitutional: Weight Loss. absent: Chills, Fever - EENT Eyes: absent: Blurred Vision, Change in Vision Nose/Mouth/Throat: absent: Hoarsness, Sore Throat - Cardiovascular Cardiovascular: absent: Chest Pain, Dyspnea, Leg Edema, Palpitations - Respiratory Respiratory: absent: Cough - Gastrointestinal Gastrointestinal: Abdominal Pain, Belching, Constipation, Cramping, Diarrhea, Nausea. absent: Hematochezia, Vomiting - Genitourinary Genitourinary: absent: Difficulty Urinating - Musculoskeletal Musculoskeletal: absent: Muscle Weakness - Neurological Neurological: absent: Dizziness - Hematologic/Lymphatic Hematologic: absent: Easy Bleeding, Easy Bruising Past Patient History - Infectious Disease Hx of Infectious Diseases: None - Past Social History Smoking Status: Heavy Smoker > 10 Cigarettes Daily - CARDIAC Hx Hypertension: No - PULMONARY Hx Asthma: No - NEUROLOGICAL Hx Seizures: No - HEMATOLOGICAL/ONCOLOGICAL Hx Anemia: Yes Hx Human Immunodeficiency Virus (HIV): Yes - MUSCULOSKELETAL/RHEUMATOLOGICAL Hx Falls: No - GASTROINTESTINAL Hx Gastritis: Yes Hx Pancreatitis: Yes - GENITOURINARY/GYNECOLOGICAL Hx Sexually Transmitted Disorders: No - PSYCHIATRIC Hx Anxiety: Yes Hx Bipolar Disorder: Yes Hx Depression: Yes Hx Substance Use: Yes - SURGICAL HISTORY Hx Surgeries: Yes Other/Comment: leg left surgery - ANESTHESIA Hx Anesthesia: Yes Hx Anesthesia Reactions: No Hx Malignant Hyperthermia: No Meds Allergies/Adverse Reactions: Allergies Allergy/AdvReac Type Severity Reaction Status Date / Time No Known Allergies Allergy Verified 04/10/17 07:24 Physical Exam - Constitutional Appears: Non-toxic, No Acute Distress - Head Exam Head Exam: ATRAUMATIC, NORMAL INSPECTION, NORMOCEPHALIC - Eye Exam Eye Exam: EOMI, Normal appearance - ENT Exam ENT Exam: Mucous Membranes Moist - Respiratory Exam Respiratory Exam: Clear to Auscultation Bilateral, NORMAL BREATHING PATTERN. absent: Rales, Rhonchi, Wheezes, Respiratory Distress, Stridor - Cardiovascular Exam Cardiovascular Exam: REGULAR RHYTHM, RRR. absent: Gallop, Rubs, Systolic Murmur - GI/Abdominal Exam GI & Abdominal Exam: Hyperactive Bowel Sounds, Soft. absent: Distended, Firm, Guarding, Tenderness - Extremities Exam Extremities exam: Positive for: normal inspection. Negative for: pedal edema - Neurological Exam Neurological exam: Alert, Oriented x3 - Psychiatric Exam Psychiatric exam: Normal Affect, Normal Mood Results - Vital Signs Recent Vital Signs: Last Vital Signs Temp 98.1 F 04/10/17 10:37 Pulse 74 04/10/17 10:37 Resp 20 04/10/17 10:37 BP 145/90 04/10/17 10:37 Pulse Ox 100 04/10/17 11:17 - Labs Result Diagrams: 04/10/17 07:42 04/10/17 07:42 Labs: Laboratory Results - last 24 hr 04/10/17 04/10/17 04/10/17 07:42 07:42 07:50 WBC 6.0 RBC 4.10 Hgb 11.6 Hct 35.5 MCV 86.5 MCH 28.4 MCHC 32.8 L RDW 17.9 H Plt Count 323 MPV 7.6 Neut % (Auto) 62.5 Lymph % (Auto) 23.1 [place] % (Auto) 7.9 Eos % (Auto) 5.7 H Baso % (Auto) 0.8 Neut # 3.8 Lymph # 1.4 [place] # 0.5 Eos # 0.3 Baso # 0.0 Sodium 141 Potassium 3.4 L Chloride 100 Carbon Dioxide 23 Anion Gap 22 H BUN 11 Creatinine 0.6 L Est GFR ( Amer) > 60 Est GFR (Non-Af Amer) > 60 Random Glucose 100 Calcium 8.5 L Total Bilirubin 0.5 AST 20 ALT 23 Alkaline Phosphatase 66 Total Protein 7.7 Albumin 4.4 Globulin 3.3 Albumin/Globulin Ratio 1.3 Lipase 558 H Urine Color Yellow Urine Clarity Hazy Urine pH 7.0 Ur Specific [place] 1.011 Urine Protein Negative Urine Glucose (UA) Normal Urine Ketones Negative Urine Blood Negative Urine Nitrate Negative Urine Bilirubin Negative Urine Urobilinogen Normal Ur Leukocyte Esterase Neg Urine WBC (Auto) 1 Urine RBC (Auto) 1 Ur Squamous Epith Cells 5 Amorphous Sediment Rare H Urine HCG, Qual Negative Assessment & Plan - Assessment and Plan (Free Text) Assessment: 51 y/o female with extensive past medical history presents with abdominal pain and diarrhea Plan: -Abdomen/pelvis CT: 1.8 cm either aneurysm or pseudoaneurysm protruding from apex of the left ventricle of the heart -Echo done -no surgical intervention at this time -blood pressure control -avoid exertional activities -follow up with cardiothoracic surgeon as outpatient -continue medical management as per primary d/w Dr. Cabrera
[2017-04-10] MEDS ORDERED: Simethicone 80 mg Chewtab PO PRN (14:20)
--- NOTE | 2017-04-10 15:06 | US ---
HISTORY: abdominal pain - R/O cholelithiasis COMPARISON: None. TECHNIQUE: Sonographic evaluation of the abdomen. FINDINGS: LIVER: Measures cm. Normal echogenicity of the liver parenchyma. No mass. No intrahepatic bile duct dilatation. GALLBLADDER: Mild cholelithiasis. No wall thickening. COMMON BILE DUCT: Measures mm. No stones. No dilatation. PANCREAS: Unremarkable as visualized. No mass. No ductal dilatation. RIGHT KIDNEY: Measures cm. Normal echogenicity. No calculus, mass, or hydronephrosis. LEFT KIDNEY: Measures cm. Normal echogenicity. No calculus, mass, or hydronephrosis. 1 centimeter left interpolar renal cyst. SPLEEN: Normal in size and contour. No mass. AORTA: No aneurysmal dilatation. IVC: Unremarkable. OTHER FINDINGS: None. IMPRESSION: Mild cholelithiasis. No wall thickening. 1 centimeter left renal cyst.
[2017-04-10] MEDS: Simethicone 80 mg Chewtab PO PRN (16:12)
[2017-04-10] MEDS: HYDROmorphone 0.5 mg/0.5 ml ISec IVP PRN (19:38)
[2017-04-10] MEDS ORDERED: Potassium Chloride 20 mEq ER Tab PO STA (19:55)
--- NOTE | 2017-04-10 20:31 | CP.PCM.HP ---
Past Patient History - Infectious Disease Hx of Infectious Diseases: None - Past Medical History & Family History Past Medical History?: Yes - Past Social History Smoking Status: Heavy Smoker > 10 Cigarettes Daily - CARDIAC Hx Hypertension: No - PULMONARY Hx Asthma: No - NEUROLOGICAL Hx Seizures: No - HEMATOLOGICAL/ONCOLOGICAL Hx Anemia: Yes Hx Human Immunodeficiency Virus (HIV): Yes - MUSCULOSKELETAL/RHEUMATOLOGICAL Hx Falls: No - GASTROINTESTINAL Hx Gastritis: Yes Hx Pancreatitis: Yes - GENITOURINARY/GYNECOLOGICAL Hx Sexually Transmitted Disorders: No - PSYCHIATRIC Hx Anxiety: Yes Hx Bipolar Disorder: Yes Hx Depression: Yes Hx Substance Use: Yes - SURGICAL HISTORY Hx Surgeries: Yes Other/Comment: leg left surgery - ANESTHESIA Hx Anesthesia: Yes Hx Anesthesia Reactions: No Hx Malignant Hyperthermia: No Meds Allergies/Adverse Reactions: Allergies Allergy/AdvReac Type Severity Reaction Status Date / Time No Known Allergies Allergy Verified 04/10/17 07:24 Physical Exam - Constitutional Appears: Well - Head Exam Head Exam: ATRAUMATIC, NORMAL INSPECTION, NORMOCEPHALIC - Eye Exam Eye Exam: EOMI, Normal appearance, PERRL Pupil Exam: NORMAL ACCOMODATION, PERRL - ENT Exam ENT Exam: Mucous Membranes Moist, Normal Exam - Neck Exam Neck exam: Positive for: Normal Inspection - Respiratory Exam Respiratory Exam: Decreased Breath Sounds - Cardiovascular Exam Cardiovascular Exam: REGULAR RHYTHM, +S1, +S2 - GI/Abdominal Exam GI & Abdominal Exam: Diminished Bowel Sounds, Soft - Rectal Exam Rectal Exam: Deferred Results - Vital Signs Recent Vital Signs: Last Vital Signs Temp 97.9 F 04/10/17 15:32 Pulse 68 04/10/17 15:32 Resp 20 04/10/17 15:32 BP 147/95 H 04/10/17 15:32 Pulse Ox 97 04/10/17 15:32 - Labs Result Diagrams: 04/10/17 07:42 04/10/17 07:42 Labs: Laboratory Results - last 24 hr 04/10/17 04/10/17 04/10/17 07:42 07:42 07:50 WBC 6.0 RBC 4.10 Hgb 11.6 Hct 35.5 MCV 86.5 MCH 28.4 MCHC 32.8 L RDW 17.9 H Plt Count 323 MPV 7.6 Neut % (Auto) 62.5 Lymph % (Auto) 23.1 [place] % (Auto) 7.9 Eos % (Auto) 5.7 H Baso % (Auto) 0.8 Neut # 3.8 Lymph # 1.4 [place] # 0.5 Eos # 0.3 Baso # 0.0 Sodium 141 Potassium 3.4 L Chloride 100 Carbon Dioxide 23 Anion Gap 22 H BUN 11 Creatinine 0.6 L Est GFR ( Amer) > 60 Est GFR (Non-Af Amer) > 60 Random Glucose 100 Calcium 8.5 L Total Bilirubin 0.5 AST 20 ALT 23 Alkaline Phosphatase 66 Total Protein 7.7 Albumin 4.4 Globulin 3.3 Albumin/Globulin Ratio 1.3 Lipase 558 H Urine Color Yellow Urine Clarity Hazy Urine pH 7.0 Ur Specific [place] 1.011 Urine Protein Negative Urine Glucose (UA) Normal Urine Ketones Negative Urine Blood Negative Urine Nitrate Negative Urine Bilirubin Negative Urine Urobilinogen Normal Ur Leukocyte Esterase Neg Urine WBC (Auto) 1 Urine RBC (Auto) 1 Ur Squamous Epith Cells 5 Amorphous Sediment Rare H Urine HCG, Qual Negative
[2017-04-11 00:49] VITALS: BP 132/79; RESP 22; TEMP 98.1
[2017-04-11] MEDS: HYDROmorphone 0.5 mg/0.5 ml ISec IVP PRN ×2 (02:20→10:00)
[2017-04-11] MEDS: Simethicone 80 mg Chewtab PO PRN ×2 (04:28→10:50)
[2017-04-11] MEDS ORDERED: Pantoprazole 40 mg EC Tab PO SCH (07:30)
[2017-04-11 07:55] VITALS: PULSE 75
--- NOTE | 2017-04-11 14:29 | CP.PCM.PN ---
Subjective - Date & Time of Evaluation Date of Evaluation: 04/11/17 Time of Evaluation: 12:40 - Subjective Subjective: clinically same Objective - Vital Signs/Intake and Output Vital Signs (last 24 hours): Temp Pulse Resp BP Pulse Ox 98.1 F 75 22 132/79 97 04/10/17 23:10 04/11/17 07:30 04/10/17 23:10 04/10/17 23:10 04/10/17 23:10 - Labs Labs: 04/10/17 07:42 04/10/17 07:42 - Constitutional Appears: Well - Head Exam Head Exam: ATRAUMATIC, NORMAL INSPECTION, NORMOCEPHALIC - Eye Exam Eye Exam: EOMI, Normal appearance, PERRL Pupil Exam: NORMAL ACCOMODATION, PERRL - ENT Exam ENT Exam: Mucous Membranes Moist, Normal Exam - Neck Exam Neck Exam: Full ROM, Normal Inspection. absent: Lymphadenopathy - Respiratory Exam Respiratory Exam: Decreased Breath Sounds - Cardiovascular Exam Cardiovascular Exam: REGULAR RHYTHM, +S1, +S2 - GI/Abdominal Exam GI & Abdominal Exam: Soft, Diminished Bowel Sounds - Rectal Exam Rectal Exam: Deferred
--- NOTE | 2017-04-11 14:44 | CP.PCM.PN ---
<RamanaFrederick - Last Filed: 04/11/17 14:40> Subjective - Date & Time of Evaluation Date of Evaluation: 04/11/17 Time of Evaluation: 08:30 - Subjective Subjective: PGY 4 GI fellow Patient seen and examined bedside. Abdominal pain improved significantly. Able to tolerate diet. Patient feels constipated. Labs and diagnostics reviewed. 10 point ROS negative Objective - Vital Signs/Intake and Output Vital Signs (last 24 hours): Temp Pulse Resp BP Pulse Ox 98.1 F 75 22 132/79 97 04/10/17 23:10 04/11/17 07:30 04/10/17 23:10 04/10/17 23:10 04/10/17 23:10 - Labs Labs: 04/10/17 07:42 04/10/17 07:42 - Constitutional Appears: Well, No Acute Distress - Head Exam Head Exam: ATRAUMATIC, NORMOCEPHALIC - Eye Exam Eye Exam: Normal appearance. absent: Periorbital tenderness - ENT Exam ENT Exam: Mucous Membranes Moist, Normal Exam - Neck Exam Neck Exam: Normal Inspection - Respiratory Exam Respiratory Exam: Clear to Ausculation Bilateral, NORMAL BREATHING PATTERN. absent: Rales, Rhonchi, Wheezes, Respiratory Distress - Cardiovascular Exam Cardiovascular Exam: REGULAR RHYTHM, +S1, +S2 - GI/Abdominal Exam GI & Abdominal Exam: Soft, Normal Bowel Sounds. absent: Guarding, Rigid, Tenderness - Extremities Exam Extremities Exam: absent: Joint Swelling, Pedal Edema - Neurological Exam Neurological Exam: Alert, Awake, Oriented x3 - Psychiatric Exam Psychiatric exam: Normal Affect, Normal Mood - Skin Skin Exam: Dry, Intact, Normal Color, Warm Assessment and Plan - Assessment and Plan (Free Text) Assessment: Patient is a 51yo female with PMHx significant for HIV on Truvada, HCV with undetectable viral load, gallstones, PUD, IBS, COPD, questionable PE/DVT, anxiety, depression with numerous previous suicide attempts, polysubstance abuse history and drug seeking behavior who presented to the ED with abdominal pain. 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 -Polysubstance abuse -H/O PUD -H/O Gallstones -HIV on HAART -H/O HCV per pt -Anxiety/Depression/Bipolar Plan: -Continue PPI with protonix 40mg PO QAMAC -Add simethicone PRN -Miralax daily -Would not check stool for infectious work up at this time as there is no evidence of acute infection and diarrhea seems intermittent at best -Given patient's HIV history, if diarrhea persists, could consider sending for culture and to R/O opportunistic infections -Hepatitis serologies negative -OK to continue diet - recommend low fat diet -Strongly encourage illicit drug use cessation along with tobacco cessation, Avoid narcotics -Patient has had recent endoscopy at [facility] -If patient here on thursday, will consider doing EGD but no urgent need D/W Dr. Tripathi <Jagdish Tripathi MD - Last Filed: 04/11/17 18:52> Objective - Vital Signs/Intake and Output Vital Signs (last 24 hours): Temp Pulse Resp BP Pulse Ox 98.1 F 75 22 132/79 97 04/10/17 23:10 04/11/17 07:30 04/10/17 23:10 04/10/17 23:10 04/10/17 23:10 - Medications Medications: Current Medications Polyethylene Glycol (Miralax) 17 gm PO DAILY OSMAR - Labs Labs: 04/10/17 07:42 04/10/17 07:42 Attending/Attestation - Attestation I have personally seen and examined this patient.: Yes I have fully participated in the care of the patient.: Yes I have reviewed all pertinent clinical information, including history, physical exam and plan: Yes Notes (Text): 04/11/17 18:47 Patient seen and examined at bedside. This is a 51 year old female with PMHx significant for HIV on Truvada, HCV with undetectable viral load, gallstones, PUD, IBS, COPD, questionable PE/DVT not on AC, anxiety, depression with numerous previous suicide attempts, polysubstance abuse history and drug seeking behavior who presented to the ED with abdominal pain which is chronic. 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 Continue PPI with protonix 40mg PO QAMAC. Hepatitis serologies negative. Recommend low fat diet as tolerated. Strongly encourage illicit drug use cessation along with tobacco cessation.
[2017-04-11] MEDS ORDERED: POLYETHYLENE GLYCOL 3350 17 GM/Dose PACKET PO SCH (14:45)
--- NOTE | 2017-04-11 14:47 | CARD ---
APPROVED REPORT EXAM: Two-dimensional and M-mode echocardiogram with Doppler and color Doppler. Other Information Quality : GoodRhythm : INDICATION HIV 2D DIMENSIONS IVSd1.0 (0.7-1.1cm)LVDd4.2 (3.9-5.9cm) PWd1.0 (0.7-1.1cm)LVDs2.5 (2.5-4.0cm) FS (%) 40.8 %LVEF (%)72.0 (>50%) M-Mode DIMENSIONS Left Atrium (MM)3.11 (2.5-4.0cm)Aortic Root2.85 (2.2-3.7cm) Aortic Cusp Exc.2.05 (1.5-2.0cm) Mitral Valve MV E Tfqsxqsz05.0cm/sMV A Dvzgpdvm31.3cm/sE/A ratio0.9 TDI E/Lateral E'0.0E/Medial E'0.0 Tricuspid Valve TR Peak Suqkbnmr636pq/sTR Peak Gr.[id number] LEFT VENTRICLE The left ventricle is normal size. There is normal left ventricular wall thickness. The left ventricular function is normal. The left ventricular ejection fraction is within the normal range. No regional wall motion abnormalities noted. The left ventricular diastolic function is normal. No left ventricle thrombus noted on this study. There is no ventricular septal defect visualized. There is no left ventricular aneurysm. There is no mass noted in the left ventricle. RIGHT VENTRICLE The right ventricle is normal size. There is normal right ventricular wall thickness. The right ventricular systolic function is normal. ATRIA The left atrium size is normal. The right atrium size is normal. The interatrial septum is intact with no evidence for an atrial septal defect. AORTIC VALVE The aortic valve is normal in structure and function. No aortic regurgitation is present. There is no aortic valvular stenosis. There is no aortic valvular vegetation. MITRAL VALVE The mitral valve is normal in structure and function. There is no evidence of mitral valve prolapse. There is no mitral valve stenosis. Mitral regurgitation is mild. TRICUSPID VALVE The tricuspid valve is normal in structure and function. There is mild tricuspid regurgitation. Right ventricular systolic pressure is estimated at less than 30 mmHg. There is no tricuspid valve prolapse or vegetation. There is no tricuspid valve stenosis. PULMONIC VALVE The pulmonary valve is normal in structure and function. There is no pulmonic valvular regurgitation. There is no pulmonic valvular stenosis. GREAT VESSELS The aortic root is normal in size. The ascending aorta is normal in size. The pulmonary artery is normal. The IVC is normal in size and collapses >50% with inspiration. PERICARDIAL EFFUSION The pericardium appears normal. There is no pleural effusion. <Conclusion> The left ventricular function is normal. The left ventricular ejection fraction is within the normal range. Mitral regurgitation is mild.
[2017-04-11 22:43] VITALS: O2SAT 100
== END 2017-04-11 14:00 | disposition left against medical advice (07) | DRG 391 ==
LOC: C.ER 06:44 → C.9E 11:25 → C.6T 13:31
PROVIDERS: ADMIT Internal Medicine Nephrology; ATTEND Internal Medicine Nephrology
DX: K29.70 Gastritis, unspecified, without bleeding (principal); B20 Human immunodeficiency virus [HIV] disease; J44.9 Chronic obstructive pulmonary disease, unspecified; F41.9 Anxiety disorder, unspecified; F60.9 Personality disorder, unspecified; G89.29 Other chronic pain; K58.9 Irritable bowel syndrome, unspecified; Z87.11 Personal history of peptic ulcer disease; Z91.5 Personal history of self-harm; F17.210 Nicotine dependence, cigarettes, uncomplicated

== ENCOUNTER 2017-04-16 10:02 | Observation (INO) | payer BC ==
[2017-04-16 10:03] VITALS: BMI 17.7
[2017-04-16 10:07] VITALS: RESP 18
--- NOTE | 2017-04-16 10:20 | C.PDOC ---
History Of Present Illness 51 yo female w/PMHx of HIV ( undetectable viral loads), HCV, Cholelithiasis, PUD , IBS, COPD, anxiety/depression return to ED for re-evaluation of epigastric pain for past few weeks. Pt sts, pain is localized, worse with food intake, (+) nausea. Pt was evaluated in ED multiple times for past 2 weeks, admitted on 04/10 and sign out AMA 1 week ago. Pt sts, had oatmeal today at 5 AM, worsening of pain. Otherwise, pt denies fever, chills, CP, SOB, dyspnea, diaphoresis, palpitation, vomiting, melena, back pain, UTI sx. At the time of evaluation, pt appears anxious, request Ativan " I ran out of my xanax few days ago". Pt was caught smoking multiple times in patient's bathroom. Time Seen by Provider: 04/16/17 10:12 Chief Complaint (Nursing): Abdominal Pain History Per: Patient History/Exam Limitations: no limitations Onset/Duration Of Symptoms: Days Current Symptoms Are (Timing): Still Present Location Of Pain/Discomfort: Epigastric Radiation Of Pain To:: None Quality Of Discomfort: "Pain" Associated Symptoms: Nausea. denies: Fever, Vomiting, Diarrhea Recent travel outside of the [place]: No Past Medical History Reviewed: Historical Data, Nursing Documentation, Vital Signs Vital Signs: Last Vital Signs Temp 97.3 F L 04/16/17 14:06 Pulse 92 H 04/16/17 14:06 Resp 18 04/16/17 14:06 BP 128/87 04/16/17 14:06 Pulse Ox 97 04/16/17 14:06 - Medical History PMH: Anemia, Anxiety, Bipolar Disorder, Depression, Gastritis, Gastrointestinal Ulcer, Hepatitis (C), HIV, Pancreatitis, Personality Disorder, Chronic Pain ( back pain) Family History: States: Diabetes (grandmother) - Social History Hx Tobacco Use: Yes Hx Alcohol Use: No Hx Substance Use: Yes - Immunization History Hx Tetanus Toxoid Vaccination: Yes Hx Influenza Vaccination: Yes Hx Pneumococcal Vaccination: Yes Review Of Systems Except As Marked, All Systems Reviewed And Found Negative. Constitutional: Negative for: Fever, Chills Cardiovascular: Negative for: Chest Pain Respiratory: Negative for: Cough, Shortness of Breath, Wheezing Gastrointestinal: Positive for: Nausea, Abdominal Pain. Negative for: Vomiting , Diarrhea Genitourinary: Negative for: Dysuria Skin: Negative for: Rash Neurological: Negative for: Headache, Dizziness Physical Exam - Physical Exam Appears: Well, Non-toxic, Agitated Skin: Normal Color, Warm, Dry, No Rash Head: Normacephalic Eye(s): bilateral: PERRL Nose: No Flaring, No Discharge Throat: No Drooling Neck: Supple Cardiovascular: Rhythm Regular Respiratory: No Decreased Breath Sounds, No Accessory Muscle Use, No Stridor, No Wheezing Gastrointestinal/Abdominal: Soft, Tenderness (epigastric, moderate), No Distention, No Guarding, No Rebound Back: No CVA Tenderness Extremity: Normal ROM, No Pedal Edema, No Deformity, No Swelling Neurological/Psych: Oriented x3, Normal Speech ED Course And Treatment - Laboratory Results Result Diagrams: 04/16/17 11:22 04/16/17 11:22 ECG: Interpreted By Me, Viewed By Me (and ED attending) ECG Interpretation: No Changes From Prior Interpretation Of ECG: SR@81/min, NAD, no acute T wave or ST-T changes. O2 Sat by Pulse Oximetry: 100 Pulse Ox Interpretation: Normal ED OBSERVATION Discharge: Yes Date of observation admission: 04/16/17 Time of observation admission: 11:00 - Observation admission statement Patient is placed on observation because of need: for additional diagnostics to rule-out acute/life threatening conditio - Goals of Observation Goals of Observation: Resolution of symptoms - Progress Note Progress Note: 04/16/17 records from multiple previous records review, pt had multiple imaging of abdomen and pelvis, last one was 04/07/17 without acute intra-abdominal pathology. AT 12:40, pt still c/o epigastric pain. Blood work review and appears baseline compare to previous visit. EKG- normal. Case discussed with ED attending, recommend Dilaudid PO now with re-eval. At 13:46, as per RN, "pt pulled her IV out and request discharge papers". Pt is ambulatory in Ed with stable gait, not in any apparent distress. Afebrile, hemodynamicalys table. non-toxic. Abd: benign, (-) guarding, (-) rebound, (-) localized tenderness. Neuorlogicaly intact. On discharge pt request Rx: Xanax. Pt has clinical findings c/w abdominal pain, likely chronic, drug seeking behaviour. Pt ref. to fu with PMD, GI, Pain management in 1-2 days for re-eavl and further tx. Disposition - Disposition Disposition: HOME/ ROUTINE Disposition Time: 13:53 Condition: STABLE - Clinical Impression Clinical Impression: Chronic abdominal pain - PA / PATIENT CARE SPECIALIST / Resident Statement / has reviewed & agrees with the documentation as recorded.
[2017-04-16] MEDS ORDERED: Sodium Chloride 0.9% 1,000 ML IV ONE (10:49)
[2017-04-16 11:30] LABS: BASO % 0.4 % (0.0-2.0); EOS # 0.2 K/uL (0.0-0.7); EOS % 3.6 % (0.0-4.0); HEMATOCRIT 33.6 % (34.0-47.0); LYMPH # 1.1 K/uL (1.0-4.3); LYMPH % 15.4 % (20.0-40.0); MEAN CELL VOLUME 86.6 fL (81.0-99.0); MEAN CORPUSCULAR HEMOGLOBIN 27.9 pg (27.0-31.0); MEAN CORPUSCULAR HGB CONC 32.2 g/dL (33.0-37.0); MEAN PLATELET VOLUME 7.5 fL (7.2-11.7); MONO # 0.4 K/uL (0.0-0.8); MONO % 6.2 % (0.0-10.0); RED CELL DISTRIBUTION WIDTH 18.3 % (11.5-14.5); WHITE BLOOD COUNT 6.9 K/uL (4.8-10.8)
[2017-04-16 11:37] LABS: CHLORIDE 103 mmol/L (98-107)
[2017-04-16 11:38] LABS: POTASSIUM 4.1 mmol/L (3.6-5.2); SODIUM 138 mmol/L (132-148)
[2017-04-16 11:39] LABS: AMYLASE 99 U/L (30-110); GFR AFRICAN-AMERICAN > 60
[2017-04-16 11:40] LABS: ALB/GLOB RATIO 1.2 (1.0-2.1); ALKALINE PHOSPHATASE 67 U/L (38-126); ALT/SGPT 23 U/L (9-52); AST/SGOT 22 U/L (14-36); BILIRUBIN,TOTAL 0.5 mg/dL (0.2-1.3); BLOOD UREA NITROGEN 23 mg/dL (7-17); CALCIUM 8.9 mg/dl (8.6-10.4); CARBON DIOXIDE 25 mmol/L (22-30); GLUCOSE,RANDOM 73 mg/dL (65-105)
[2017-04-16 11:44] LABS: RBC URINE 1 /hpf (0-3); URINE BACTERIA RARE (<OCC); URINE BILIRUBIN NEGATIVE (NEGATIVE); URINE BLOOD NEGATIVE (NEGATIVE); URINE COLOR Yellow (YELLOW); URINE GLUCOSE (UA) NORMAL (Normal); URINE KETONE TRACE mg/dL (NEGATIVE); URINE LEUKOCYTE ESTERASE NEG Leu/uL (Negative); URINE PROTEIN NEGATIVE (NEGATIVE); URINE UROBILINOGEN NORMAL mg/dL (0.2-1.0); WBC URINE 1 /hpf (0-5)
[2017-04-16 14:07] VITALS: BP 128/87; PULSE 92; TEMP 97.3
[2017-04-16 17:52] VITALS: O2SAT 100
--- NOTE | 2017-04-18 10:50 | CARD ---
APPROVED REPORT EKG Measurement Heart [id number] PA [id number] <Conclusion> Normal sinus rhythm Normal ECG
== END 2017-04-16 13:53 | disposition home or self-care (01) ==
LOC: C.ER 10:02 → C.9OBSV 11:00
PROVIDERS: ADMIT Emergency Medicine; ATTEND Emergency Medicine
DX: K58.9 Irritable bowel syndrome, unspecified (principal); F60.9 Personality disorder, unspecified; F31.9 Bipolar disorder, unspecified; B20 Human immunodeficiency virus [HIV] disease; J44.9 Chronic obstructive pulmonary disease, unspecified; F17.210 Nicotine dependence, cigarettes, uncomplicated
CPT/HCPCS: 80053; 81001; 82150; 83690; 84703; 85025; 96360; 96374; C9113; G0378; J1885; J2060; J2405; J7040

== ENCOUNTER 2017-05-10 10:16 | Emergency (ER) | payer BC ==
[2017-05-10 10:17] VITALS: BMI 17.7
[2017-05-10 10:27] VITALS: TEMP 98.2
[2017-05-10] MEDS ORDERED: Sodium Chloride 0.9% 1,000 ML IV ONE (10:49)
[2017-05-10] MEDS ORDERED: Sodium Chloride 0.9% 1,000 ML ONE (11:04)
[2017-05-10 11:15] LABS: CHLORIDE 102 mmol/L (98-107)
[2017-05-10 11:16] LABS: POTASSIUM 3.8 mmol/L (3.6-5.2); SODIUM 137 mmol/L (132-148)
[2017-05-10 11:17] LABS: RBC URINE 1 /hpf (0-3); URINE BILIRUBIN NEGATIVE (NEGATIVE); URINE BLOOD NEGATIVE (NEGATIVE); URINE COLOR Yellow (YELLOW); URINE GLUCOSE (UA) NORMAL (Normal); URINE KETONE NEGATIVE (NEGATIVE); URINE LEUKOCYTE ESTERASE NEG Leu/uL (Negative); URINE PROTEIN NEGATIVE (NEGATIVE); URINE UROBILINOGEN NORMAL mg/dL (0.2-1.0); WBC URINE < 1 /hpf (0-5)
[2017-05-10 11:18] LABS: BASO % 0.5 % (0.0-2.0); EOS # 0.2 K/uL (0.0-0.7); EOS % 4.1 % (0.0-4.0); HEMATOCRIT 34.4 % (34.0-47.0); LYMPH # 1.7 K/uL (1.0-4.3); LYMPH % 29.8 % (20.0-40.0); MEAN CELL VOLUME 84.8 fL (81.0-99.0); MEAN CORPUSCULAR HEMOGLOBIN 26.9 pg (27.0-31.0); MEAN CORPUSCULAR HGB CONC 31.7 g/dL (33.0-37.0); MEAN PLATELET VOLUME 7.8 fL (7.2-11.7); MONO # 0.5 K/uL (0.0-0.8); MONO % 8.3 % (0.0-10.0); RED CELL DISTRIBUTION WIDTH 19.1 % (11.5-14.5); WHITE BLOOD COUNT 5.7 K/uL (4.8-10.8)
[2017-05-10 11:19] LABS: ALB/GLOB RATIO 1.4 (1.0-2.1); ALKALINE PHOSPHATASE 69 U/L (38-126); ALT/SGPT 27 U/L (9-52); AMYLASE 95 U/L (30-110); AST/SGOT 29 U/L (14-36); BILIRUBIN,TOTAL 0.7 mg/dL (0.2-1.3); BLOOD UREA NITROGEN 20 mg/dL (7-17); CALCIUM 9.3 mg/dl (8.6-10.4); CARBON DIOXIDE 23 mmol/L (22-30); GFR AFRICAN-AMERICAN > 60; GLUCOSE,RANDOM 129 mg/dL (65-105); TOTAL PROTEIN 7.4 g/dL (6.3-8.3)
[2017-05-10] MEDS ORDERED: Iohexol 350mg/ml 100 ML ONE (11:35)
--- NOTE | 2017-05-10 12:48 | C.PDOC ---
History Of Present Illness 51 year old female, whose PMHx includes pancreatitis, gastritis,and gastrointestinal ulcers, presents to the ED for evaluation of abdominal pain which began around 3 days ago. Patient states she was admitted on 04/10 for similar complaints and states she signed out against medical advice. Patient also reports increased anxiety, stating she did not take her Xanax this morning. Patient is requesting Ativan and denies fever, chills, nausea. Time Seen by Provider: 05/10/17 10:31 Chief Complaint (Nursing): Abdominal Pain History Per: Patient History/Exam Limitations: no limitations Onset/Duration Of Symptoms: Days Current Symptoms Are (Timing): Still Present Location Of Pain/Discomfort: Epigastric Quality Of Discomfort: "Pain" Associated Symptoms: denies: Fever, Chills, Nausea Additional History Per: Patient Abnormal Vaginal Bleeding: No Past Medical History Reviewed: Historical Data, Nursing Documentation, Vital Signs Vital Signs: Last Vital Signs Temp 98.2 F 05/10/17 10:23 Pulse 92 H 05/10/17 12:45 Resp 18 05/10/17 12:45 BP 118/78 05/10/17 12:45 Pulse Ox 99 05/10/17 13:36 - Medical History PMH: Anemia, Anxiety, Bipolar Disorder, Depression, Gastritis, Gastrointestinal Ulcer, Hepatitis (C), HIV, Pancreatitis, Personality Disorder, Chronic Pain ( back pain) Denies: Asthma, Diabetes, HTN, Seizures, Sexually Transmitted Disease Surgical History: No Surg Hx Family History: States: Diabetes (grandmother) - Social History Hx Tobacco Use: Yes Hx Alcohol Use: No Hx Substance Use: Yes - Immunization History Hx Tetanus Toxoid Vaccination: Yes Hx Influenza Vaccination: Yes Hx Pneumococcal Vaccination: Yes Review Of Systems Constitutional: Negative for: Fever, Chills Physical Exam - Physical Exam Appears: Non-toxic, Other (anxious, uncomfortable ) Skin: Normal Color, Warm, Dry Head: Atraumatic, Normacephalic Eye(s): bilateral: Normal Inspection Oral Mucosa: Moist Neck: Supple Chest: Symmetrical, No Deformity, No Tenderness Cardiovascular: Rhythm Regular, No Murmur Respiratory: Normal Breath Sounds, No Rales, No Rhonchi, No Wheezing Gastrointestinal/Abdominal: Soft, Tenderness (epigastric ), No Guarding, No Rebound Extremity: Normal ROM, Capillary Refill (less than 2 seconds ) Neurological/Psych: Oriented x3, Normal Speech, Normal Cognition ED Course And Treatment - Laboratory Results Result Diagrams: 05/10/17 11:04 05/10/17 11:04 O2 Sat by Pulse Oximetry: 99 (on RA) Pulse Ox Interpretation: Normal - CT Scan/US CT A/P Other Rad Studies (CT/US): Interpreted By Me, Read By Radiologist, Radiology Report Reviewed CT/US Interpretation: CT abdomen and pelvis. History: Epigastric abdominal pain. History of pancreatitis. Comparison: CT dated 04/10/2017. Technique: Multiple contiguous axial images were performed through the abdomen and pelvis with the use of intravenous contrast. Subsequently, sagittal and coronal reformatted images were obtained. This CT exam was performed using one or more of the following dose reduction techniques: Automated exposure control, adjustment of the mA and/or kV according to patient size, and/or use of iterative reconstruction technique. Findings: Atelectasis at the lung bases. 2 millimeter subpleural nodule at the lateral aspect of the left lower lobe. Again identified is a 1.8 centimeter enhancing structure protruding from the apex of the left ventricle concerning for an aneurysm or pseudoaneurysm of the left ventricle of the heart. This abnormality is best seen end series 3, image 24. Mild cardiomegaly. Punctate hypodensity at the dome of the liver measuring 6 millimeters, too small to adequately characterize. Mild intrahepatic biliary ductal dilatation. Prominent common bile duct. Cholelithiasis. IVC filter in place. Heterogeneous pancreas with some mild prominence of the pancreatic duct. No gross peripancreatic fat stranding or fluid. Spleen and adrenals are preserved. Bilateral kidneys and urinary bladder grossly preserved. Small 1.1 centimeter hypoattenuated lesion in the midpole of the right kidney, indeterminate. Heterogeneous uterus and bilateral adnexa. Fecal retention in the right hemicolon. Underdistention and or mild thickening of the sigmoid colon. Mild gastric wall thickening. Appendix not well identified. Calcification and plaque within the aorta. Few shotty para- aortic and mesenteric lymph nodes. Degenerative changes in the visualized osseous structures. Chronic fracture deformity of the right iliac bone. Chronic fracture deformity of the right superior and inferior pubic bones with prominent heterotopic bone formation. Chronic fracture deformity of the left inferior pubic bone. Impression: 1. Cholelithiasis. Mild intrahepatic biliary ductal dilatation. Prominent common bile duct. 2. Heterogeneous pancreas with some mild prominence of the pancreatic duct. No gross peripancreatic fat stranding or fluid. 3. Incidental note is made of in a 1.8 centimeter aneurysm or pseudoaneurysm protruding from the apex of the heart. Further assessment is suggested. 4. Small 1.1 centimeter hypoattenuated lesion in the midpole of the right kidney, indeterminate. 5. Fecal retention in the right hemicolon. Underdistention and or mild thickening of the sigmoid colon. Mild gastric wall thickening. 6. Degenerative changes in the visualized osseous structures. Chronic fracture deformity of the right iliac bone. Chronic fracture deformity of the right superior and inferior pubic bones with prominent heterotopic bone formation. Chronic fracture deformity of the left inferior pubic bone. Additional findings as above. Medical Decision Making Medical Decision Making: Impression: 51 year old female with epigastric abdominal pain Plan: * bloodwork * urinalysis * CT A/P * Ativan IVP * Benadrly IVP * Morphine IVp * Pepcid IVP * Toradol IVP * IV Fluids * reassess and disposition Prior Records Reviewed: Patient has been evaluated in this ED several times for similar complaints. Patient underwent hospital admission on 04/10/17. Progress: Ativan IVP, Pepcid IVP, Toradol IVP, and IV Fluids administered. Bloodwork, UA, and CT A/P ordered and reviewed. No acute changes, no acute pancreatitis. Labs unchanged, no leukocytosis or other sig abnormality. UDS positive for PCP, benzo , cannabis. Patient continued to complain of pain, Morphine and Benadryl ordered. On re-eval patient was resting comfortably in no distress. She is requesting more pain meds and Rx for ativan. I explained to patient her pain is chronic and have treated her acute symptoms. She does not meet admission criteria. She is stable for discharge. Patient instructed to follow up with GI. Disposition Counseled Patient/Family Regarding: Diagnosis, Need For Followup, Rx Given - Disposition Disposition: HOME/ ROUTINE Disposition Time: 13:34 Condition: STABLE Additional Instructions: Please follow up with your GI doctor for further evaluation Instructions: Acute Abdominal Pain (DC) Forms: [employer] (Paraguayan) - POA Present On Arrival: None - Clinical Impression Clinical Impression: Chronic abdominal pain - PA / TATTOOER / Resident Statement MD/DO has reviewed & agrees with the documentation as recorded. - Scribe Statement The provider has reviewed the documentation as recorded by the Scribe (Yasmin Boles) All medical record entries made by the Scribe were at my direction and personally dictated by me. I have reviewed the chart and agree that the record accurately reflects my personal performance of the history, physical exam, medical decision making, and the department course for this patient. I have also personally directed, reviewed, and agree with the discharge instructions and disposition.
[2017-05-10 12:53] VITALS: BP 118/78; PULSE 92; RESP 18; O2SAT 99
[2017-05-10] MEDS ORDERED: DiphenhydrAMINE 50 mg/ml Inj IVP STA (12:54)
[2017-05-10] MEDS ORDERED: DiphenhydrAMINE 50 mg/ml Inj ONE (13:03)
[2017-05-10] MEDS ORDERED: Morphine 4 MG/ML VIAL ONE (13:03)
--- NOTE | 2017-05-10 13:13 | CT ---
CT abdomen and pelvis History: Epigastric abdominal pain. History of pancreatitis. Comparison: CT dated 04/10/2017 Technique: Multiple contiguous axial images were performed through the abdomen and pelvis with the use of intravenous contrast. Subsequently, sagittal and coronal reformatted images were obtained. This CT exam was performed using one or more of the following dose reduction techniques: Automated exposure control, adjustment of the mA and/or kV according to patient size, and/or use of iterative reconstruction technique. Findings: Atelectasis at the lung bases. 2 millimeter subpleural nodule at the lateral aspect of the left lower lobe. Again identified is a 1.8 centimeter enhancing structure protruding from the apex of the left ventricle concerning for an aneurysm or pseudoaneurysm of the left ventricle of the heart. This abnormality is best seen end series 3, image 24. Mild cardiomegaly. Punctate hypodensity at the dome of the liver measuring 6 millimeters, too small to adequately characterize. Mild intrahepatic biliary ductal dilatation. Prominent common bile duct. Cholelithiasis. IVC filter in place. Heterogeneous pancreas with some mild prominence of the pancreatic duct. No gross peripancreatic fat stranding or fluid. Spleen and adrenals are preserved. Bilateral kidneys and urinary bladder grossly preserved. Small 1.1 centimeter hypoattenuated lesion in the midpole of the right kidney, indeterminate. Heterogeneous uterus and bilateral adnexa. Fecal retention in the right hemicolon. Underdistention and or mild thickening of the sigmoid colon. Mild gastric wall thickening. Appendix not well identified. Calcification and plaque within the aorta. Few shotty para-aortic and mesenteric lymph nodes. Degenerative changes in the visualized osseous structures. Chronic fracture deformity of the right iliac bone. Chronic fracture deformity of the right superior and inferior pubic bones with prominent heterotopic bone formation. Chronic fracture deformity of the left inferior pubic bone. Impression: 1. Cholelithiasis. Mild intrahepatic biliary ductal dilatation. Prominent common bile duct. 2. Heterogeneous pancreas with some mild prominence of the pancreatic duct. No gross peripancreatic fat stranding or fluid. 3. Incidental note is made of in a 1.8 centimeter aneurysm or pseudoaneurysm protruding from the apex of the heart. Further assessment is suggested. 4. Small 1.1 centimeter hypoattenuated lesion in the midpole of the right kidney, indeterminate. 5. Fecal retention in the right hemicolon. Underdistention and or mild thickening of the sigmoid colon. Mild gastric wall thickening. 6. Degenerative changes in the visualized osseous structures. Chronic fracture deformity of the right iliac bone. Chronic fracture deformity of the right superior and inferior pubic bones with prominent heterotopic bone formation. Chronic fracture deformity of the left inferior pubic bone. Additional findings as above.
== END 2017-05-10 13:51 | disposition home or self-care (01) ==
LOC: C.ER 10:16
DX: G89.29 Other chronic pain (principal); R10.13 Epigastric pain
CPT/HCPCS: 74177; 80053; 81001; 82150; 83690; 85025; 87086; 96361; 96374; 96375; 99284; G0480; J1200; J1885; J2060; J2270; J7040; Q9967

== ENCOUNTER 2017-06-06 06:38 | Inpatient (IN) | payer BC ==
[2017-06-06 06:38] VITALS: BMI 17.7
--- NOTE | 2017-06-06 07:29 | C.PDOC ---
History Of Present Illness 51 y/o female presents to ED with complaints of recurrent low abdominal pain with associated diarrhea and constipation since last night. Patient states " Just like last time" and reports she is compliant with medication. Patient denies fever, nausea, vomiting or any other complaints at this time. Patient is requesting medication for anxiety and pain. RECUR ABD PAIN SINCE LAST NIGHT. LOWER ABD "JUST LIKE LAST TIME". DENIES NV FEVER. +DIARRHEA AND CONSTIPATION DUE TO IBS. COMPLIANT W MEDS. REQUESTING MEDS FOR ANXIETY AND PAIN. PMHx significant for CHOLELITHIASIS, HIV on Truvada, HCV with undetectable viral load, gallstones, PUD, IBS, COPD, questionable PE/DVT, anxiety, depression with numerous previous suicide attempts, polysubstance abuse history and drug seeking behavior EXAM NONTOXIC NAD HEENT ANICTERIC MMM ABD SOFT NT NO R/G NO JAUNDICE GOOD TURGOR PSYCH NOTED TO HAVE LABILE AFFECT FROM ANXIOUS AND CRYING TO CALM, COOPERATIVE. NO ACUTE INTOX REMAINDER NEG MDM PT WELL KNOWN TO THIS HOSPITAL, MULT PRIOR SX AND ADMISSION FOR SIM SX. PRIOR RECORDS REVIEWED, SP CT 03/2017 AND 04/2017. PT ADVISED WILL BE GIVEN PO PAIN MEDS ONLY IN ACCORDANCE W DEPT PAIN POLICY. Time Seen by Provider: 06/06/17 07:24 Chief Complaint (Nursing): Abdominal Pain History Per: Patient History/Exam Limitations: no limitations Onset/Duration Of Symptoms: Days Current Symptoms Are (Timing): Still Present Location Of Pain/Discomfort: Suprapubic Past Medical History Reviewed: Historical Data, Nursing Documentation, Vital Signs Vital Signs: Last Vital Signs Temp 98.6 F 06/06/17 11:19 Pulse 89 06/06/17 11:19 Resp 16 06/06/17 11:19 BP 139/95 H 06/06/17 11:19 Pulse Ox 100 06/06/17 12:08 - Medical History PMH: Anemia, Anxiety, Bipolar Disorder, Depression, Gastritis, Gastrointestinal Ulcer, Hepatitis (C), HIV, Pancreatitis, Personality Disorder, Chronic Pain ( back pain) Surgical History: No Surg Hx Family History: States: Diabetes (grandmother) - Social History Hx Tobacco Use: Yes Hx Alcohol Use: No Hx Substance Use: Yes - Immunization History Hx Tetanus Toxoid Vaccination: Yes Hx Influenza Vaccination: Yes Hx Pneumococcal Vaccination: Yes Review Of Systems Constitutional: Negative for: Fever, Chills Gastrointestinal: Positive for: Abdominal Pain, Diarrhea, Constipation. Negative for: Nausea, Vomiting Musculoskeletal: Negative for: Back Pain Skin: Negative for: Rash Physical Exam - Physical Exam Appears: Non-toxic, No Acute Distress Skin: Warm, Dry, No Rash, No Jaundice, Other (Good Turgor) Head: Atraumatic, Normacephalic Eye(s): bilateral: Normal Inspection Oral Mucosa: Moist Neck: Normal ROM, Supple Chest: Symmetrical Cardiovascular: Rhythm Regular Gastrointestinal/Abdominal: Soft, No Tenderness, No Guarding, No Rebound Extremity: Normal ROM, Capillary Refill (<2 seconds) Neurological/Psych: Oriented x3, Normal Speech, Other (Labile affect from anxious and crying to calm, Cooperative (-)acute intoxication ) ED Course And Treatment - Laboratory Results Result Diagrams: 06/06/17 07:59 06/06/17 07:59 Lab Interpretation: Abnormal Interpretation Of Abnormal: ELEV LIPASE COMPARED TO PRIOR O2 Sat by Pulse Oximetry: 100 (RA) Pulse Ox Interpretation: Normal Progress - Re-Evaluation Re-evaluation Note: 06/06/17 10:04 PT ARRIVED FROM US SLEEPING NAD. NOW CO RECUR ABD PAIN, VOMITING. US REPORT PENDING. WILL DOSE ANTIEMETIC 06/06/17 10:56 NONCPH PMD D/W DR CINDY L[address] GRANT WRITER WILL ADMIT. CONSULT SURG GRANT WRITER 06/06/17 10:57 D/W DR HUGHES SURG RES WILL EVAL 06/06/17 12:09 PER SURGERY PATIENT IS ALLOWED TO BE ON LOW FAT DIET - Data Reviewed Data Reviewed: Lab, Diagnostic imaging, Old records Medical Decision Making Medical Decision Making: Prior Records Reviewed: PT WELL KNOWN TO THIS HOSPITAL, MULT PRIOR SX AND ADMISSION FOR SIM SX. PRIOR RECORDS REVIEWED, SP CT 03/2017 AND 04/2017. PT ADVISED WILL BE GIVEN PO PAIN MEDS ONLY IN ACCORDANCE W DEPT PAIN POLICY. Disposition Counseled Patient/Family Regarding: Studies Performed, Diagnosis - Disposition Disposition: HOSPITALIZED Disposition Time: 10:56 Condition: STABLE - POA Present On Arrival: None - Clinical Impression Clinical Impression: Intractable abdominal pain, Chronic abdominal pain, Pancreatitis - Scribe Statement The provider has reviewed the documentation as recorded by the Will Hall All medical record entries made by the Will were at my direction and personally dictated by me. I have reviewed the chart and agree that the record accurately reflects my personal performance of the history, physical exam, medical decision making, and the department course for this patient. I have also personally directed, reviewed, and agree with the discharge instructions and disposition. Decision To Admit - Pt Status Changed To: Hospital Disposition Of: Inpatient - Admit Certification Admit to Inpatient:: After my assessment, the patient will require hospitalization for at least two midnights. This is because of the severity of symptoms shown, intensity of services needed, and/or the medical risk in this patient being treated as an outpatient. - InPatient: Physician Admission Certification:: SEE NOTE - . Bed Request Type: Regular Admitting Physician: Karoline Mcclain Patient Diagnosis: Intractable abdominal pain, Chronic abdominal pain, Pancreatitis
[2017-06-06] MEDS ORDERED: Lactated Ringer's 1,000 ML IV STA (07:52)
[2017-06-06] MEDS ORDERED: Lactated Ringer's 1,000 ML ONE (07:58)
[2017-06-06 08:14] LABS: BASO % 0.5 % (0.0-2.0); EOS # 0.1 K/uL (0.0-0.7); EOS % 1.6 % (0.0-4.0); HEMATOCRIT 40.5 % (34.0-47.0); LYMPH % 18.7 % (20.0-40.0); MEAN CELL VOLUME 83.2 fL (81.0-99.0); MEAN CORPUSCULAR HEMOGLOBIN 26.4 pg (27.0-31.0); MEAN CORPUSCULAR HGB CONC 31.7 g/dL (33.0-37.0); MEAN PLATELET VOLUME 8.5 fL (7.2-11.7); MONO # 0.2 K/uL (0.0-0.8); MONO % 3.6 % (0.0-10.0); NRBC % 0.1 % (0.0-2.0); RED CELL DISTRIBUTION WIDTH 19.1 % (11.5-14.5); WHITE BLOOD COUNT 5.2 K/uL (4.8-10.8)
[2017-06-06 08:19] LABS: BILIRUBIN,TOTAL 1.1 mg/dL (0.2-1.3); CALCIUM 8.9 mg/dl (8.6-10.4); GFR AFRICAN-AMERICAN > 60; GLUCOSE,RANDOM 100 mg/dL (65-105)
[2017-06-06 08:20] LABS: ALB/GLOB RATIO 1.2 (1.0-2.1); ALKALINE PHOSPHATASE 77 U/L (38-126); ALT/SGPT 31 U/L (9-52); AST/SGOT 46 U/L (14-36); BLOOD UREA NITROGEN 17 mg/dL (7-17); CARBON DIOXIDE 24 mmol/L (22-30); CHLORIDE 101 mmol/L (98-107); POTASSIUM 5.1 mmol/L (3.6-5.2); SODIUM 138 mmol/L (132-148); TOTAL PROTEIN 9.5 g/dL (6.3-8.3)
--- NOTE | 2017-06-06 10:21 | US ---
HISTORY: Abdominal pain. Rule out acute cholecystitis. COMPARISON: Comparison made with prior study 04/10/2017. TECHNIQUE: Sonographic evaluation of the right upper quadrant of the abdomen. FINDINGS: LIVER: The liver measures approximately 17 cm cm in length. Liver demonstrates smooth contour and normal echogenicity of the liver parenchyma. No mass. No intrahepatic bile duct dilatation. GALLBLADDER: Re- demonstrated is a shadowing intraluminal gallbladder calculus. . Questionable additional gallbladder polyp No evidence of wall edema or pericholecystic fluid collection. Sonographic Onrris's sign elicited by the technologist a during this procedure. COMMON BILE DUCT: Measures 5.6 mm. No stones. No dilatation. PANCREAS: Unremarkable as visualized. No mass. No ductal dilatation. RIGHT KIDNEY: Measures 10.7 x 3.9 x 4.6 cm in length. Normal echogenicity. No calculus, mass, or hydronephrosis. AORTA: No aneurysmal dilatation. IVC: Unremarkable. OTHER FINDINGS: None . IMPRESSION: Cholelithiasis. Questionable intraluminal gallbladder polyp. Positive sonographic Norris sign not as per technologist notation. The
--- NOTE | 2017-06-06 11:17 | CP.PCM.CON ---
History of Present Illness - History of Present Illness History of Present Illness: General Sx: Dr Cavanaugh Pt is a 51F with PMHx of gallstones, HIV on Truvada, HCV with undetectable viral load, PUD, IBS, COPD, anxiety, and depression with numerous previous suicide attempts, polysubstance abuse history and drug seeking behavior as per EMR. Pt presents to ED with ~24 hours of lower quadrant pain accompanied by alternating diarrhea and constipation. Pt reports she has been increasingly constipated and has been taking Miralax for the past 48 hours. Her pain is consistent with previous IBS exacerbations. She denies any nausea or vomiting, fevers or chills. Abdominal pain has never been present in the RUQ. Pt denies any post-prandial association. Pt reports she continues to use Xanax as prescribed and smokes marijuana daily. Review of Systems - Review of Systems All systems: reviewed and no additional remarkable complaints except (as per hpi ) Past Patient History - Infectious Disease Hx of Infectious Diseases: None - Past Medical History & Family History Past Medical History?: Yes - Past Social History Smoking Status: Heavy Smoker > 10 Cigarettes Daily - CARDIAC Hx Hypertension: No - PULMONARY Hx Asthma: No - NEUROLOGICAL Hx Seizures: No - HEMATOLOGICAL/ONCOLOGICAL Hx Anemia: Yes Hx Human Immunodeficiency Virus (HIV): Yes - MUSCULOSKELETAL/RHEUMATOLOGICAL Hx Falls: No - GASTROINTESTINAL Hx Gastritis: Yes Hx Pancreatitis: Yes - GENITOURINARY/GYNECOLOGICAL Hx Sexually Transmitted Disorders: No - PSYCHIATRIC Hx Anxiety: Yes Hx Bipolar Disorder: Yes Hx Depression: Yes Hx Substance Use: Yes - SURGICAL HISTORY Hx Surgeries: Yes Other/Comment: leg left surgery - ANESTHESIA Hx Anesthesia: Yes Hx Anesthesia Reactions: No Hx Malignant Hyperthermia: No Meds Allergies/Adverse Reactions: Allergies Allergy/AdvReac Type Severity Reaction Status Date / Time No Known Allergies Allergy Verified 05/10/17 10:22 - Medications Medications: Current Medications Lactated Ringer's (Lactated Ringer's) 1,000 mls @ 250 mls/hr IV .Q4H STA Stop: 06/06/17 11:51 Last Admin: 06/06/17 08:01 Dose: 250 mls/hr Physical Exam - Constitutional Appears: Non-toxic, No Acute Distress - ENT Exam ENT Exam: Mucous Membranes Moist - Respiratory Exam Respiratory Exam: absent: Accessory Muscle Use, Respiratory Distress - Cardiovascular Exam Cardiovascular Exam: REGULAR RHYTHM. absent: Tachycardia - GI/Abdominal Exam GI & Abdominal Exam: Normal Bowel Sounds, Soft, Tenderness (LLQ but minimal). absent: Distended, Firm, Guarding, Hernia, Rigid Additional comments: -Norris's, no RUQ pain noted - Extremities Exam Extremities exam: Negative for: pedal edema - Neurological Exam Neurological exam: Alert, Oriented x3 - Psychiatric Exam Psychiatric exam: Flat Affect - Skin Skin Exam: Normal Color Additional comments: no jaundice Results - Vital Signs Recent Vital Signs: Last Vital Signs Temp 97 F L 06/06/17 06:49 Pulse 87 06/06/17 06:49 Resp 16 06/06/17 06:49 BP 146/93 H 06/06/17 06:49 Pulse Ox 100 06/06/17 10:58 - Labs Result Diagrams: 06/06/17 07:59 06/06/17 07:59 Labs: Laboratory Results - last 24 hr 06/06/17 06/06/17 07:59 07:59 WBC 5.2 RBC 4.86 Hgb 12.8 Hct 40.5 MCV 83.2 MCH 26.4 L MCHC 31.7 L RDW 19.1 H Plt Count 370 MPV 8.5 Neut % (Auto) 75.6 H Lymph % (Auto) 18.7 L Meeker % (Auto) 3.6 Eos % (Auto) 1.6 Baso % (Auto) 0.5 Neut # 3.9 Lymph # 1.0 Meeker # 0.2 Eos # 0.1 Baso # 0.0 Sodium 138 Potassium 5.1 Chloride 101 Carbon Dioxide 24 Anion Gap 18 BUN 17 Creatinine 0.6 L Est GFR ( Amer) > 60 Est GFR (Non-Af Amer) > 60 Random Glucose 100 Calcium 8.9 Total Bilirubin 1.1 AST 46 H D ALT 31 Alkaline Phosphatase 77 Total Protein 9.5 H Albumin 5.1 H Globulin 4.4 H Albumin/Globulin Ratio 1.2 Lipase 427 H Assessment & Plan - Assessment and Plan (Free Text) Assessment: 51F with abdominal pain likely 2/2 IBS Plan: pain unlikely biliary in nature OK to trial on low-fat diet recommend GI counseling on IBS diet will cont to follow d/w Dr Mao Portillo, PGY3
[2017-06-06] MEDS: Dextrose 5%/0.45% NS 1,000 ML IV SCH (17:30)
[2017-06-06] MEDS: Pantoprazole 40 mg EC Tab PO SCH (17:33)
[2017-06-06] MEDS: EXCEDRIN PO SCH (18:48)
[2017-06-07] MEDS: Dextrose 5%/0.45% NS 1,000 ML IV SCH ×3 (03:00→15:04)
[2017-06-07] MEDS: EXCEDRIN PO SCH ×2 (06:49→06:52)
[2017-06-07] MEDS: EXCEDRIN PO PRN ×2 (06:53→17:35)
[2017-06-07] MEDS: Pantoprazole 40 mg EC Tab PO SCH (09:16)
[2017-06-07] MEDS ORDERED: Emtricitabine-Tenofovir 200 mg-300 mg Tab PO SCH (10:00)
[2017-06-07 10:09] LABS: BASO % 0.6 % (0.0-2.0); EOS # 0.2 K/uL (0.0-0.7); EOS % 4.1 % (0.0-4.0); HEMATOCRIT 29.1 % (34.0-47.0); LYMPH # 1.7 K/uL (1.0-4.3); LYMPH % 38.4 % (20.0-40.0); MEAN CELL VOLUME 82.5 fL (81.0-99.0); MEAN CORPUSCULAR HEMOGLOBIN 26.6 pg (27.0-31.0); MEAN CORPUSCULAR HGB CONC 32.2 g/dL (33.0-37.0); MEAN PLATELET VOLUME 7.5 fL (7.2-11.7); MONO # 0.5 K/uL (0.0-0.8); MONO % 10.4 % (0.0-10.0); RED CELL DISTRIBUTION WIDTH 18.7 % (11.5-14.5); WHITE BLOOD COUNT 4.3 K/uL (4.8-10.8)
[2017-06-07 10:18] LABS: INR 1.2
[2017-06-07 10:40] LABS: ALB/GLOB RATIO 1.3 (1.0-2.1); ALKALINE PHOSPHATASE 52 U/L (38-126); ALT/SGPT 24 U/L (9-52); AMYLASE 134 U/L (30-110); AST/SGOT 28 U/L (14-36); BILIRUBIN,TOTAL 0.5 mg/dL (0.2-1.3); BLOOD UREA NITROGEN 13 mg/dL (7-17); CALCIUM 8.1 mg/dl (8.6-10.4); CARBON DIOXIDE 26 mmol/L (22-30); CHLORIDE 102 mmol/L (98-107); GFR AFRICAN-AMERICAN > 60; GLUCOSE,RANDOM 92 mg/dL (65-105); POTASSIUM 4.1 mmol/L (3.6-5.2); SODIUM 133 mmol/L (132-148); TOTAL PROTEIN 5.9 g/dL (6.3-8.3)
[2017-06-07 10:53] LABS: CARCINOEMBRYONIC ANTIGEN 3.4 ng/mL (0-3.0)
--- NOTE | 2017-06-07 12:48 | PN ---
LOCATION: [facility], bed A. SUBJECTIVE: This is a 51-year-old female, seen and examined initially for GI consultation on 06/06/2017, re-examined again today with recurrent abdominal pain but no reported active bleeding. The patient also have history of cholelithiasis as well as HIV with reported hepatitis C viral infection before. Yesterday ultrasound done, report seen, indicative of cholelithiasis with possible gallbladder polyp. The entire chart is reviewed including but not limited to the most recent lab and radiology study results, current and the previous medication list, current and the previous medical events as well as allergy to medication list and today's lab is still pending. PHYSICAL EXAMINATION: GENERAL: A 51-year-old female. VITAL SIGNS: Afebrile with pulse of 74, respiratory rate 20 to 22, blood pressure 134/86. HEENT: Showed pale, dry oral mucoid membrane. Nonicteric sclerae. LUNGS: Few scattered crepitation, decreased air entry at bases. HEART: Positive S1 and S2. ABDOMEN: Soft. Bowel sounds are present. No mass or organomegaly. No rebound tenderness or guarding, but mid epigastric as well as slight right upper quadrant tenderness. EXTREMITIES: Without edema, clubbing or cyanosis. NEUROLOGIC: No reported new neurological focal deficits, sensory or motor. IMPRESSION: 1. Cholelithiasis. 2. Known history of human immunodeficiency virus. 3. Known history of hepatitis C viral infection by history. 4. Recurrent pancreatitis before. 5. Depression with bipolar disorder by history. 6. Peptic ulcer disease by history. SUGGESTIONS: 1. Continue current management. 2. MRCP. 3. Surgical evaluation. Bibi He MD cc: Bibi He MD
[2017-06-08] MEDS: Dextrose 5%/0.45% NS 1,000 ML IV SCH ×4 (01:04→21:32)
[2017-06-08] MEDS: EXCEDRIN PO PRN ×2 (06:23→21:06)
[2017-06-08] MEDS: Pantoprazole 40 mg EC Tab PO SCH (09:32)
--- NOTE | 2017-06-08 09:38 | CON ---
DATE: 06/06/2017 LOCATION: 651, bed Marsha Steve was called for GI consultation by the admitting medical team. The patient was seen and examined on 06/06/2017 as requested by the admitting medical staff. The entire chart was reviewed including but not limited to the most recent lab and radiology study results, current and the previous medication list, current and the previous medical events, allergies to medication list as well as all the available current and previous medical records. Case discussed with the staff at length. HISTORY OF PRESENT ILLNESS: This is a 51-year-old female who has previous past medical history who was admitted to the hospital with main complaint of recurrent abdominal pain with period of constipation and diarrhea, dyspepsia was intermittent. Nausea and vomiting, rare. No reported active bleeding, chest pain or significant episodes of shortness of breath. PAST MEDICAL HISTORY: Including, but not limited to, 1. Cholelithiasis. 2. HIV. 3. Peptic ulcer disease. 4. Hepatitis C virus infection. 5. COPD with bronchitis. 6. Severe anxiety syndrome with depression before and reported attempted suicides. 7. Substance abuse and drug seeking behavior by history. CURRENT MEDICATIONS: Medication lists were reviewed. ALLERGIES TO MEDICATION: UNCLEAR. SOCIAL HISTORY: Positive for cigarette smoking substance abuse. FAMILY HISTORY: Unrelated to specific GI disorder. Apparently, the patient had been admitted to the hospital before and previous times was almost with the same complaint. After being admitted to the hospital, blood workup showed normal CBC, normal SMA-7, but low creatinine. Radiology study from previous admission showed evidence of cholelithiasis. PHYSICAL EXAMINATION GENERAL: A 51-year-old female. VITAL SIGNS: Afebrile with pulse of 92, respiratory rate of 18-20, blood pressure 30/82. HEENT: Showed pale, dry oral mucous membrane. Mildly, nonicteric sclerae. LYMPH NODES: No lymphadenitis or lymphadenopathy. LUNGS: Few scattered crepitation with decreased air entry at the bases. HEART: Positive S1 and S2 with increased rate. ABDOMEN: Soft. Bowel sounds are present with mid epigastric and right upper quadrant tenderness. No mass or organomegaly. No rebound tenderness or guarding. RECTAL: The patient refused. EXTREMITIES: Without significant edema, clubbing or cyanosis. NEUROLOGIC: No reported new neurological deficits, sensory or motor. IMPRESSION: 1. Cholelithiasis with recurrent episodes of cholecystitis. 2. Multiple complicated past medical history including, but not limited to hepatitis C viral infection, drug abuse, bipolar disorder, depression with severe anxiety syndrome. 3. Human immunodeficiency virus by history with chronic obstructive pulmonary disease and peptic ulcer disease. SUGGESTIONS: 1. Agree with your plan. 2. Proton pump inhibitor. 3. Flagyl IV. 4. Surgical evaluation for potential cholecystectomy. 5. Further recommendations to follow. Thank you for letting me participate in your patient's case management. Bibi He MD cc: Bibi He MD
[2017-06-08 12:02] LABS: BASO % 0.6 % (0.0-2.0); EOS # 0.2 K/uL (0.0-0.7); EOS % 4.2 % (0.0-4.0); HEMATOCRIT 31.1 % (34.0-47.0); LYMPH # 1.3 K/uL (1.0-4.3); LYMPH % 31.5 % (20.0-40.0); MEAN CELL VOLUME 82.8 fL (81.0-99.0); MEAN CORPUSCULAR HEMOGLOBIN 25.7 pg (27.0-31.0); MEAN PLATELET VOLUME 8.2 fL (7.2-11.7); MONO # 0.5 K/uL (0.0-0.8); MONO % 12.7 % (0.0-10.0); RED CELL DISTRIBUTION WIDTH 18.7 % (11.5-14.5)
[2017-06-08 12:48] LABS: ALKALINE PHOSPHATASE 53 U/L (38-126); ALT/SGPT 28 U/L (9-52); AST/SGOT 23 U/L (14-36); BILIRUBIN,TOTAL 0.6 mg/dL (0.2-1.3); BLOOD UREA NITROGEN 15 mg/dL (7-17); CALCIUM 7.9 mg/dl (8.6-10.4); CARBON DIOXIDE 25 mmol/L (22-30); CHLORIDE 101 mmol/L (98-107); GFR AFRICAN-AMERICAN > 60; GLUCOSE,RANDOM 82 mg/dL (65-105); POTASSIUM 3.8 mmol/L (3.6-5.2); SODIUM 134 mmol/L (132-148); TOTAL PROTEIN 6.1 g/dL (6.3-8.3)
[2017-06-08 13:13] LABS: ALB/GLOB RATIO 1.3 (1.0-2.1)
--- NOTE | 2017-06-08 14:30 | PN ---
LOCATION: [facility], bed A. SUBJECTIVE: This is a 51-year-old female with intermittent period of complaint of abdominal pain without reported active bleeding. The entire chart is reviewed including but not limited to the most recent lab and radiology study results, current and the previous medication list, current and the previous medical events. Case discussed with the staff on the floor at length. Most recent lab results showed mild elevation of PT to 12.9 with low BUN and low calcium as per yesterday with low total protein and low albumin. Her amylase is still elevated to 134. Lipase improved to 320 with increase CEA level to 3.4. The patient was previously seen by Dr. Cavanaugh for possible cholecystectomy. PHYSICAL EXAMINATION: GENERAL: A 51-year-old female. VITAL SIGNS: Afebrile with pulse of 70, respiratory rate 20 to 22, blood pressure 106/62. HEENT: Showed pale, dry oral mucoid membrane. Nonicteric sclerae. LUNGS: Few scattered crepitation, decreased air entry at bases. HEART: Positive S1 and S2. ABDOMEN: Soft. Bowel sounds are present. No mass or organomegaly. No rebound tenderness or guarding, but slight midepigastric and right upper quadrant tenderness. EXTREMITIES: Without significant clubbing, cyanosis, or edema. NEUROLOGIC: No reported new focal neurological deficits, sensory or motor. IMPRESSION: 1. Cholelithiasis. 2. Known history of hepatitis C viral infection. 3. Recurrent acute pancreatitis, slightly improving, no evidence of biliary pancreatitis. 4. Known history of bipolar disorder and depression. 5. Re-exacerbation of peptic ulcer disease. 6. Known history of human immunodeficiency virus. SUGGESTIONS: 1. Again, the patient may need MRCP. 2. Surgical followup for potential cholecystectomy. 3. Further recommendation to follow. Bibi He MD cc: Bibi He MD
[2017-06-08] MEDS ORDERED: Magnesium Hydroxide Susp 30 ml UD PO ONE (15:54)
--- NOTE | 2017-06-08 16:48 | CP.PCM.PN ---
Subjective - Date & Time of Evaluation Date of Evaluation: 06/08/17 Time of Evaluation: 10:00 - Subjective Subjective: PGY3 on medicine Dr. Mcclain service: Pt seen and examined at bedside this morning. Pt complains of constipation for 3 days and LLQ pain. Pt has been taking Miralax without relief. No other complaints at this time. Per chart review pt had history of drug seeking behavior. Objective - Vital Signs/Intake and Output Vital Signs (last 24 hours): Temp Pulse Resp BP Pulse Ox 98.1 F 72 20 110/77 98 06/08/17 15:16 06/08/17 15:16 06/08/17 15:16 06/08/17 15:16 06/08/17 15:16 Intake and Output: 06/08/17 06/08/17 06:59 18:59 Intake Total 1050 Balance 1050 - Medications Medications: Current Medications Alprazolam (Xanax) 2 mg PO Q12 [facility] Last Admin: 06/08/17 09:33 Dose: 2 mg Baclofen (Lioresal) 10 mg PO Q12 [facility] Last Admin: 06/08/17 09:32 Dose: 10 mg Emtricitabine/Tenofovir (Truvada 200 Mg-300 Mg) 1 tab PO DAILY [facility] Fosamprenavir Calcium (Lexiva) 1,400 mg PO Q12 [facility] Last Admin: 06/08/17 09:32 Dose: 1,400 mg Home Med (Patient's Own Medication) 1 tab PO Q6 PRN PRN Reason: Headache Last Admin: 06/08/17 06:23 Dose: 1 tab Hydromorphone HCl (Dilaudid) 2 mg PO Q4 PRN Last Admin: 06/08/17 04:46 Dose: 2 mg Dextrose/Sodium Chloride (Dextrose 5%/0.45% Ns 1000 Ml) 1,000 mls @ 100 mls/hr IV .Q10H [facility] Last Admin: 06/08/17 09:35 Dose: Not Given Metoclopramide HCl (Reglan) 10 mg IVP Q6 PRN PRN Reason: Nausea/Vomiting Last Admin: 06/07/17 17:34 Dose: 10 mg Pantoprazole Sodium (Protonix Ec Tab) 40 mg PO DAILY [facility] Last Admin: 06/08/17 09:32 Dose: 40 mg - Labs Labs: 06/08/17 11:49 06/08/17 11:49 PT 12.9 SECONDS (9.7-12.2) H 06/07/17 10:03 INR 1.2 06/07/17 10:03 APTT 29 SECONDS (21-34) 06/07/17 10:03 - Constitutional Appears: Non-toxic, No Acute Distress - Head Exam Head Exam: NORMOCEPHALIC - Eye Exam Eye Exam: Normal appearance Pupil Exam: NORMAL ACCOMODATION - ENT Exam ENT Exam: Mucous Membranes Moist - Respiratory Exam Respiratory Exam: Clear to Ausculation Bilateral, NORMAL BREATHING PATTERN. absent: Wheezes - Cardiovascular Exam Cardiovascular Exam: REGULAR RHYTHM, +S1, +S2. absent: Gallop, Rubs - GI/Abdominal Exam GI & Abdominal Exam: Soft, Tenderness (LLQ, +Norris), Normal Bowel Sounds - Neurological Exam Neurological Exam: Alert, Awake, Oriented x3 - Psychiatric Exam Psychiatric exam: Normal Mood - Skin Skin Exam: Intact Assessment and Plan - Assessment and Plan (Free Text) Assessment: Abdominal pain Pt has known hx of cholelithiasis and IBS. GI Dr. Sidhu consulted, help appreciated. Surgery Dr. Cavanaugh consulted, help appreciated. Ultrasound abdomen showed cholelithiasis with quesitonalbe gallbladder polyp with +ultrasound Norris's. LFT and lipase trending down. Dilaudid 2mg PO q4 PRN. Reglan 10mg IV q6 PRN. Milk of mag given once for constipation. F/U recommendations. HIV Continue home med Truvada. Prophylactic measure Protonix, SCD. Management as per Dr. Mcclain
--- NOTE | 2017-06-08 18:09 | CP.PCM.PN ---
Subjective - Date & Time of Evaluation Date of Evaluation: 06/08/17 Time of Evaluation: 18:07 - Subjective Subjective: Surgery: Dr. Cavanaugh Pt seen and examined. Pt has complaints of diffuse intermittent abd pain. Accompanied w. occasional N/V. Objective - Vital Signs/Intake and Output Vital Signs (last 24 hours): Temp Pulse Resp BP Pulse Ox 98.1 F 72 20 110/77 98 06/08/17 15:16 06/08/17 15:16 06/08/17 15:16 06/08/17 15:16 06/08/17 15:16 Intake and Output: 06/08/17 06/08/17 06:59 18:59 Intake Total 1050 Balance 1050 - Medications Medications: Current Medications Alprazolam (Xanax) 2 mg PO Q12 [facility] Last Admin: 06/08/17 09:33 Dose: 2 mg Baclofen (Lioresal) 10 mg PO Q12 [facility] Last Admin: 06/08/17 09:32 Dose: 10 mg Emtricitabine/Tenofovir (Truvada 200 Mg-300 Mg) 1 tab PO DAILY [facility] Fosamprenavir Calcium (Lexiva) 1,400 mg PO Q12 [facility] Last Admin: 06/08/17 09:32 Dose: 1,400 mg Home Med (Patient's Own Medication) 1 tab PO Q6 PRN PRN Reason: Headache Last Admin: 06/08/17 06:23 Dose: 1 tab Hydromorphone HCl (Dilaudid) 2 mg PO Q4 PRN Last Admin: 06/08/17 17:48 Dose: 2 mg Dextrose/Sodium Chloride (Dextrose 5%/0.45% Ns 1000 Ml) 1,000 mls @ 100 mls/hr IV .Q10H [facility] Last Admin: 06/08/17 09:35 Dose: Not Given Metoclopramide HCl (Reglan) 10 mg IVP Q6 PRN PRN Reason: Nausea/Vomiting Last Admin: 06/07/17 17:34 Dose: 10 mg Pantoprazole Sodium (Protonix Ec Tab) 40 mg PO DAILY [facility] Last Admin: 06/08/17 09:32 Dose: 40 mg - Labs Labs: 06/08/17 11:49 06/08/17 11:49 PT 12.9 SECONDS (9.7-12.2) H 06/07/17 10:03 INR 1.2 06/07/17 10:03 APTT 29 SECONDS (21-34) 06/07/17 10:03 - Constitutional Appears: Non-toxic, No Acute Distress - Head Exam Head Exam: ATRAUMATIC, NORMOCEPHALIC - Eye Exam Eye Exam: EOMI - ENT Exam ENT Exam: Mucous Membranes Moist - Neck Exam Neck Exam: Full ROM - Respiratory Exam Respiratory Exam: NORMAL BREATHING PATTERN. absent: Accessory Muscle Use, Respiratory Distress - GI/Abdominal Exam GI & Abdominal Exam: Soft, Tenderness (diffuse). absent: Distended, Firm, Guarding, Rigid, Rebound - Extremities Exam Extremities Exam: absent: Calf Tenderness, Pedal Edema - Neurological Exam Neurological Exam: Alert, Awake, Oriented x3 Assessment and Plan - Assessment and Plan (Free Text) Assessment: 51F w. abd pain -U/S: gallstones and gallbladder polyp -LFTs WNL -c/w pain meds -c/w low fat diet -further recommendations per Dr. Cavanaugh -adrian d/w attending Zemaitis PGY3
[2017-06-09 07:18] LABS: BASO % 0.6 % (0.0-2.0); EOS # 0.3 K/uL (0.0-0.7); EOS % 5.6 % (0.0-4.0); HEMATOCRIT 32.2 % (34.0-47.0); LYMPH # 1.3 K/uL (1.0-4.3); LYMPH % 28.2 % (20.0-40.0); MEAN CELL VOLUME 82.6 fL (81.0-99.0); MEAN CORPUSCULAR HEMOGLOBIN 26.5 pg (27.0-31.0); MEAN CORPUSCULAR HGB CONC 32.1 g/dL (33.0-37.0); MEAN PLATELET VOLUME 7.8 fL (7.2-11.7); MONO # 0.5 K/uL (0.0-0.8); RED CELL DISTRIBUTION WIDTH 18.4 % (11.5-14.5); WHITE BLOOD COUNT 4.7 K/uL (4.8-10.8)
[2017-06-09 07:50] LABS: ALB/GLOB RATIO 1.4 (1.0-2.1); ALKALINE PHOSPHATASE 63 U/L (38-126); ALT/SGPT 27 U/L (9-52); AST/SGOT 25 U/L (14-36); BILIRUBIN,TOTAL 0.5 mg/dL (0.2-1.3); BLOOD UREA NITROGEN 17 mg/dL (7-17); CALCIUM 8.1 mg/dl (8.6-10.4); CARBON DIOXIDE 28 mmol/L (22-30); CHLORIDE 101 mmol/L (98-107); GFR AFRICAN-AMERICAN > 60; GLUCOSE,RANDOM 89 mg/dL (65-105); POTASSIUM 4.2 mmol/L (3.6-5.2); SODIUM 136 mmol/L (132-148); TOTAL PROTEIN 6.5 g/dL (6.3-8.3)
[2017-06-09] MEDS: Dextrose 5%/0.45% NS 1,000 ML IV SCH (08:30)
--- NOTE | 2017-06-09 10:03 | CP.PCM.PN ---
Subjective - Date & Time of Evaluation Date of Evaluation: 06/09/17 Time of Evaluation: 10:00 - Subjective Subjective: PGY3 on medicine Dr. Mcclain service: Pt not seen. Currently in OR for lap irish. Objective - Vital Signs/Intake and Output Vital Signs (last 24 hours): Temp Pulse Resp BP Pulse Ox 98.6 F 85 20 127/80 97 06/09/17 08:10 06/09/17 08:10 06/09/17 08:10 06/09/17 08:10 06/09/17 08:10 - Medications Medications: Current Medications Alprazolam (Xanax) 2 mg PO Q12 [facility] Last Admin: 06/09/17 08:30 Dose: 2 mg Baclofen (Lioresal) 10 mg PO Q12 [facility] Last Admin: 06/08/17 21:07 Dose: 10 mg Emtricitabine/Tenofovir (Truvada 200 Mg-300 Mg) 1 tab PO DAILY [facility] Fosamprenavir Calcium (Lexiva) 1,400 mg PO Q12 [facility] Last Admin: 06/08/17 21:07 Dose: 1,400 mg Home Med (Patient's Own Medication) 1 tab PO Q6 PRN PRN Reason: Headache Last Admin: 06/08/17 21:06 Dose: 1 tab Hydromorphone HCl (Dilaudid) 2 mg PO Q4 PRN Last Admin: 06/09/17 04:46 Dose: 2 mg Dextrose/Sodium Chloride (Dextrose 5%/0.45% Ns 1000 Ml) 1,000 mls @ 100 mls/hr IV .Q10H [facility] Last Admin: 06/09/17 08:30 Dose: 100 mls/hr Metoclopramide HCl (Reglan) 10 mg IVP Q6 PRN PRN Reason: Nausea/Vomiting Last Admin: 06/07/17 17:34 Dose: 10 mg Pantoprazole Sodium (Protonix Ec Tab) 40 mg PO DAILY [facility] Last Admin: 06/08/17 09:32 Dose: 40 mg - Labs Labs: 06/09/17 07:08 06/09/17 07:08 PT 12.9 SECONDS (9.7-12.2) H 06/07/17 10:03 INR 1.2 06/07/17 10:03 APTT 29 SECONDS (21-34) 11/26/17 10:03 Assessment and Plan - Assessment and Plan (Free Text) Assessment: Abdominal pain Pt has known hx of cholelithiasis and IBS. GI Dr. Sidhu consulted, help appreciated, no intervention at this point. Surgery Dr. Cavanaugh consulted, help appreciated. Ultrasound abdomen showed cholelithiasis with questionable gallbladder polyp with +ultrasound Norris's. LFT and lipase trending down. Dilaudid 2mg PO q4 PRN. Reglan 10mg IV q6 PRN. Milk of mag given once for constipation. Cholelithiasis POD#0 lap irish. Management as per surgery. HIV Continue home med Truvada. Prophylactic measure Protonix, SCD. Management as per Dr. Mcclain
[2017-06-09] MEDS ORDERED: ceFAZolin IV 1 gm in Dextrose 1 GM/50 ML BAG IVPB ONE (10:38)
[2017-06-09] MEDS ORDERED: Propofol 10 mg/ml Inj (20 ML) ONE (10:50)
[2017-06-09] MEDS ORDERED: Lactated Ringer's 1,000 ML IV ONE ×2 (10:50→15:00)
[2017-06-09] MEDS ORDERED: Midazolam 2 MG/2 ML VIAL ONE (10:50)
[2017-06-09] MEDS ORDERED: Rocuronium 10 mg/ml (5 ml) ONE (10:53)
[2017-06-09] MEDS ORDERED: Succinylcholine Chloride 20 mg/ml Syr (5 ml) IV ONE (10:53)
--- NOTE | 2017-06-09 10:58 | RAD ---
HISTORY: pre-op COMPARISON: Chest radiograph dated 04/23/2016. FINDINGS: LUNGS: No active pulmonary disease. PLEURA: No significant pleural effusion identified, no pneumothorax apparent. CARDIOVASCULAR: Normal. OSSEOUS STRUCTURES: Stable mild dextro convex thoracic spinal curvature. VISUALIZED UPPER ABDOMEN: Normal. OTHER FINDINGS: Partially imaged inferior vena cava filter. IMPRESSION: No active disease.
[2017-06-09] MEDS ORDERED: Neostigmine Methylsulfate 3mg/3ml Syringe IV ONE (11:31)
[2017-06-09] MEDS ORDERED: Morphine 4 MG/ML VIAL ONE ×2 (11:57→12:22)
--- NOTE | 2017-06-09 12:26 | PCM.SURG1 ---
Surgeon's Initial Post Op Note - Surgeon's Notes Surgeon: Dr. Cavanaugh Parking Line Painter: Edu WOODSONY1, Link HSIEH Type of Anesthesia: General Endo Pre-Operative Diagnosis: Biliary colic, Cholecystitis Operative Findings: see operative report Post-Operative Diagnosis: Biliary colic, Cholecystitis Operation Performed: Laparoscopic cholecystectomy Specimen/Specimens Removed: Gallbladder Estimated Blood Loss: EBL {In ML}: 5 Blood Products Given: N/A Drains Used: No Drains Post-Op Condition: Good Date of Surgery/Procedure: 06/09/17 Time of Surgery/Procedure: 10:45
[2017-06-09] MEDS: HYDROmorphone 0.5 mg/0.5 ml ISec IVP PRN ×4 (12:45→14:32)
[2017-06-09] MEDS ORDERED: Midazolam 2 MG/2 ML VIAL IVP ONE (14:56)
[2017-06-09] MEDS: EXCEDRIN PO PRN (16:45)
[2017-06-09] MEDS: Pantoprazole 40 mg EC Tab PO SCH (16:49)
[2017-06-09 16:56] VITALS: RESP 20
--- NOTE | 2017-06-09 17:39 | PN ---
LOCATION: [facility], bed A. SUBJECTIVE: This is a 51-year-old female, seen and examined in rounds without significant reported nausea and vomiting. The patient is scheduled for lap cholecystectomy today. Most recent lab results showed low hemoglobin 10.3, low hematocrit 32.2, low white blood cells 4.7 with normal platelet count with low calcium 8.1 with reported elevated lipase and amylase before. PHYSICAL EXAMINATION: GENERAL: A 51-year-old female. VITAL SIGNS: Afebrile with pulse of 82, respiratory rate 20 to 22 with blood pressure of 130/76. HEENT: Showed pale, dry oral mucoid membrane. Nonicteric sclerae. LUNGS: Few scattered crepitation, decreased air entry at bases. HEART: Positive S1 and S2. ABDOMEN: Soft. Bowel sounds are present. No mass or organomegaly. No rebound tenderness or guarding. EXTREMITIES: Without edema, clubbing or cyanosis. NEUROLOGIC: No reported new focal neurological deficits, sensory or motor. IMPRESSION: 1. Cholelithiasis. 2. Known history of hepatitis C viral infection. 3. Human immunodeficiency virus by history. 4. Known history of depression with bipolar disorder. 5. Peptic ulcer disease by history. SUGGESTIONS: 1. Agree with your plan. 2. We will follow up with you post-surgically as the patient is scheduled for lap cholecystectomy. Bibi He MD cc: Bibi He MD
[2017-06-10] MEDS: Dextrose 5%/0.45% NS 1,000 ML IV SCH (05:04)
[2017-06-10 08:28] LABS: BASO % 0.2 % (0.0-2.0); EOS % 0.3 % (0.0-4.0); MONO # 0.8 K/uL (0.0-0.8); RED CELL DISTRIBUTION WIDTH 18.9 % (11.5-14.5)
[2017-06-10 08:35] LABS: HEMATOCRIT 31.9 % (34.0-47.0); LYMPH # 1.4 K/uL (1.0-4.3); LYMPH % 16.6 % (20.0-40.0); MEAN CORPUSCULAR HEMOGLOBIN 26.1 pg (27.0-31.0); MEAN CORPUSCULAR HGB CONC 31.5 g/dL (33.0-37.0); MEAN PLATELET VOLUME 8.3 fL (7.2-11.7); MONO % 9.5 % (0.0-10.0)
[2017-06-10 08:38] LABS: ALB/GLOB RATIO 1.2 (1.0-2.1); ALKALINE PHOSPHATASE 68 U/L (38-126); ALT/SGPT 64 U/L (9-52); AST/SGOT 70 U/L (14-36); BILIRUBIN,TOTAL 0.6 mg/dL (0.2-1.3); BLOOD UREA NITROGEN 16 mg/dL (7-17); CALCIUM 8.3 mg/dl (8.6-10.4); CARBON DIOXIDE 26 mmol/L (22-30); CHLORIDE 101 mmol/L (98-107); GFR AFRICAN-AMERICAN > 60; GLUCOSE,RANDOM 96 mg/dL (65-105); POTASSIUM 3.7 mmol/L (3.6-5.2); SODIUM 136 mmol/L (132-148); TOTAL PROTEIN 6.9 g/dL (6.3-8.3); WHITE BLOOD COUNT 8.3 K/uL (4.8-10.8)
--- NOTE | 2017-06-10 08:55 | CP.PCM.PN ---
Subjective - Date & Time of Evaluation Date of Evaluation: 06/10/17 Time of Evaluation: 09:40 - Subjective Subjective: Dr. Mcclain note: Patient is a 51 year old female with a history of HIV is here s/p cholecystectomy that was preformed yesterday. Patient is complaining of abdominal pain and reports no bowel movement or passing gas. She is able to walk well but says her pain is not controlled. She denies fever or chills. Objective - Vital Signs/Intake and Output Vital Signs (last 24 hours): Temp Pulse Resp BP Pulse Ox 97.7 F 71 20 124/72 99 06/10/17 07:00 06/10/17 07:00 06/10/17 07:00 06/10/17 07:00 06/10/17 07:00 Intake and Output: 06/10/17 06/10/17 06:59 18:59 Intake Total 1000 Balance 1000 - Medications Medications: Current Medications Alprazolam (Xanax) 2 mg PO Q12 [facility] Last Admin: 06/09/17 19:48 Dose: 2 mg Baclofen (Lioresal) 10 mg PO Q12 [facility] Last Admin: 06/09/17 21:44 Dose: 10 mg Emtricitabine/Tenofovir (Truvada 200 Mg-300 Mg) 1 tab PO DAILY [facility] Fosamprenavir Calcium (Lexiva) 1,400 mg PO Q12 [facility] Last Admin: 06/09/17 21:44 Dose: 1,400 mg Home Med (Patient's Own Medication) 1 tab PO Q6 PRN PRN Reason: Headache Last Admin: 06/09/17 16:45 Dose: 1 tab Hydromorphone HCl (Dilaudid) 2 mg PO Q4 PRN Last Admin: 06/10/17 08:40 Dose: 2 mg Metoclopramide HCl (Reglan) 10 mg IVP Q6 PRN PRN Reason: Nausea/Vomiting Last Admin: 06/07/17 17:34 Dose: 10 mg Pantoprazole Sodium (Protonix Ec Tab) 40 mg PO DAILY [facility] Last Admin: 06/09/17 16:49 Dose: 40 mg - Labs Labs: 06/10/17 08:03 06/10/17 08:03 PT 12.9 SECONDS (9.7-12.2) H 06/07/17 10:03 INR 1.2 06/07/17 10:03 APTT 29 SECONDS (21-34) 06/07/17 10:03 - Constitutional Appears: Non-toxic, No Acute Distress - Respiratory Exam Respiratory Exam: Clear to Ausculation Bilateral. absent: Rales, Rhonchi, Wheezes - Cardiovascular Exam Cardiovascular Exam: REGULAR RHYTHM, RRR, +S1, +S2. absent: Gallop, Rubs - GI/Abdominal Exam GI & Abdominal Exam: Soft, Tenderness, Normal Bowel Sounds Additional comments: no signs of infection, dressing over where the laporscopic procedure was preformed. - Extremities Exam Extremities Exam: Normal Inspection. absent: Pedal Edema - Back Exam Back Exam: NORMAL INSPECTION - Psychiatric Exam Psychiatric exam: Normal Affect, Normal Mood - Skin Skin Exam: Normal Color Assessment and Plan - Assessment and Plan (Free Text) Assessment: Abdominal pain 06/10: S/P cholecystectomy, continue Dilauded, Toradol added as well Reglan as needed for nausea, will most likely discharge tomorrow if stable and able to tolerate diet. Pt has known hx of cholelithiasis and IBS. GI Dr. Sidhu consulted, help appreciated, no intervention at this point. Surgery Dr. Cavanaugh consulted, help appreciated. Ultrasound abdomen showed cholelithiasis with questionable gallbladder polyp with +ultrasound Norris's. LFT and lipase trending down. Dilaudid 2mg PO q4 PRN. Reglan 10mg IV q6 PRN. Milk of mag given once for constipation. Cholelithiasis 06/10: POD day 1, management per Surgery team. POD#0 lap irish. Management as per surgery. HIV Continue home med Truvada. Prophylactic measure Protonix, SCD. Management as per Dr. Mcclain
[2017-06-10] MEDS: Pantoprazole 40 mg EC Tab PO SCH (09:45)
--- NOTE | 2017-06-10 12:08 | CP.PCM.PN ---
Subjective - Date & Time of Evaluation Date of Evaluation: 06/10/17 Time of Evaluation: 12:05 - Subjective Subjective: Surgery: Dr. Cavanaugh Pt seen and examined. She states that last night following surgery, her pain was significantly improved. However, this morning she states that the pain was much worse. She has decreased appetite, but denies N/V. No F/C. Objective - Vital Signs/Intake and Output Vital Signs (last 24 hours): Temp Pulse Resp BP Pulse Ox 97.7 F 71 20 124/72 99 06/10/17 07:00 06/10/17 07:00 06/10/17 07:00 06/10/17 07:00 06/10/17 07:00 Intake and Output: 06/10/17 06/10/17 06:59 18:59 Intake Total 1000 Balance 1000 - Medications Medications: Current Medications Alprazolam (Xanax) [address] [facility] Last Admin: 06/10/17 09:45 Dose: 2 mg Baclofen (Lioresal) [address] [facility] Last Admin: 06/10/17 09:45 Dose: 10 mg Emtricitabine/Tenofovir (Truvada 200 Mg-300 Mg) [address] [facility] Fosamprenavir Calcium (Lexiva) 1,[address] [facility] Last Admin: 06/10/17 10:07 Dose: 1,400 mg Home Med (Patient's Own Medication) 1 tab PO Q6 PRN PRN Reason: Headache Last Admin: 06/09/17 16:45 Dose: 1 tab Hydromorphone HCl (Dilaudid) 2 mg PO Q4 PRN Last Admin: 06/10/17 08:40 Dose: 2 mg Metoclopramide HCl (Reglan) 10 mg IVP Q6 PRN PRN Reason: Nausea/Vomiting Last Admin: 06/07/17 17:34 Dose: 10 mg Pantoprazole Sodium (Protonix Ec Tab) 40 mg PO DAILY [facility] Last Admin: 06/10/17 09:45 Dose: 40 mg - Labs Labs: 06/10/17 08:03 06/10/17 08:03 PT 12.9 SECONDS (9.7-12.2) H 06/07/17 10:03 INR 1.2 06/07/17 10:03 APTT 29 SECONDS (21-34) 06/07/17 10:03 - Constitutional Appears: Non-toxic, No Acute Distress - Head Exam Head Exam: ATRAUMATIC, NORMOCEPHALIC - Eye Exam Eye Exam: EOMI. absent: Scleral icterus - ENT Exam ENT Exam: Mucous Membranes Moist - Neck Exam Neck Exam: Full ROM - Respiratory Exam Respiratory Exam: NORMAL BREATHING PATTERN. absent: Accessory Muscle Use, Respiratory Distress - GI/Abdominal Exam GI & Abdominal Exam: Soft, Tenderness (willian-incisional ). absent: Distended, Firm, Guarding, Rigid, Rebound - Extremities Exam Extremities Exam: absent: Calf Tenderness, Pedal Edema - Neurological Exam Neurological Exam: Alert, Awake, Oriented x3 - Psychiatric Exam Psychiatric exam: Normal Affect, Normal Mood - Skin Skin Exam: Dry, Normal Color, Warm Assessment and Plan - Assessment and Plan (Free Text) Assessment: 51F w. biliary colic, s/p lap irish, POD#1 -continue w. pain management, will start toradol in addition to dilaudid -PT ordered -encourage OOB to chair and IS use -DVT prophylaxis -if tolerating diet and pain improved, pt clear for D/C from surgical standpoint -d/w attending Zemaitis PGY3
--- NOTE | 2017-06-10 12:15 | PN ---
DATE: LOCATION: [facility], bed A. SUBJECTIVE: This is a 51 years old female, seen and examined in rounds without significant clinical changes or reported active bleeding, was status post lap cholecystectomy done by Dr. Cavanaugh yesterday. The patient is awake, alert, oriented. The entire chart is reviewed including but not limited to the most recent lab and radiology study results, current and the previous medication list, current and the previous medical events. Case discussed with the staff at length. Today's labs showed hemoglobin of 10.1, hematocrit 31.9 with low indices with increased AST to 70, ALT increased to 64 post surgically. PHYSICAL EXAMINATION: GENERAL: A 51 years old female. VITAL SIGNS: Afebrile with pulse of 70, respiratory rate 20 to 22, blood pressure 180/70. The patient is ambulating. HEENT: Showed pale dry oral mucous membrane. Nonicteric sclerae. HEART: Positive S1 and S2. LUNGS: Few scattered mild crepitation. Breathing sounds are present bilaterally. ABDOMEN: Soft with clean dressing. Bowel sounds are present, but hypoactive with slight generalized tenderness. No mass or organomegaly. EXTREMITIES: Without significant clubbing, cyanosis or edema. NEUROLOGIC: No reported new neurological deficits, sensory or motor. IMPRESSION: 1. Cholelithiasis with status post cholecystitis with mildly elevated liver function test. 2. Known history of hepatitis C viral infection. 3. Human immunodeficiency virus by history. 4. Peptic ulcer disease by history. 5. Known history of bipolar disorder with depression. SUGGESTION: 1. Continue current management. 2. Repeat H and H with blood transfusion only as needed. Keep hemoglobin around 10 gram percent. 3. IV antibiotics. 4. Further recommendation to follow. Bibi He MD
[2017-06-10] MEDS: Enoxaparin 30 mg Syringe SC SCH (13:15)
--- NOTE | 2017-06-10 14:50 | CP.PCM.PN ---
Objective - Vital Signs/Intake and Output Vital Signs (last 24 hours): Temp Pulse Resp BP Pulse Ox 97.7 F 71 20 124/72 99 06/10/17 07:00 06/10/17 07:00 06/10/17 07:00 06/10/17 07:00 06/10/17 07:00 Intake and Output: 06/10/17 06/10/17 06:59 18:59 Intake Total 1000 Balance 1000 - Medications Medications: Current Medications Alprazolam (Xanax) 2 mg PO Q12 [facility] Last Admin: 06/10/17 09:45 Dose: 2 mg Baclofen (Lioresal) 10 mg PO Q12 [facility] Last Admin: 06/10/17 09:45 Dose: 10 mg Emtricitabine/Tenofovir (Truvada 200 Mg-300 Mg) 1 tab PO DAILY [facility] Enoxaparin Sodium (Lovenox) 30 mg SC DAILY [facility] Last Admin: 06/10/17 13:15 Dose: 30 mg Fosamprenavir Calcium (Lexiva) 1,400 mg PO Q12 [facility] Last Admin: 06/10/17 10:07 Dose: 1,400 mg Home Med (Patient's Own Medication) 1 tab PO Q6 PRN PRN Reason: Headache Last Admin: 06/09/17 16:45 Dose: 1 tab Hydromorphone HCl (Dilaudid) 2 mg PO Q4 PRN PRN Reason: Pain, severe (8-10) Last Admin: 06/10/17 14:10 Dose: 2 mg Ketorolac Tromethamine (Toradol) 30 mg IVP Q6 PRN PRN Reason: Pain, moderate (4-7) Last Admin: 06/10/17 12:31 Dose: 30 mg Metoclopramide HCl (Reglan) 10 mg IVP Q6 PRN PRN Reason: Nausea/Vomiting Last Admin: 06/07/17 17:34 Dose: 10 mg Pantoprazole Sodium (Protonix Ec Tab) 40 mg PO DAILY [facility] Last Admin: 06/10/17 09:45 Dose: 40 mg - Labs Labs: 06/10/17 08:03 06/10/17 08:03 PT 12.9 SECONDS (9.7-12.2) H 06/07/17 10:03 INR 1.2 06/07/17 10:03 APTT 29 SECONDS (21-34) 06/07/17 10:03
--- NOTE | 2017-06-10 18:17 | CP.PCM.CON ---
History of Present Illness - History of Present Illness History of Present Illness: INFECTIOUS DISEASE CONSULT; HPI; 51-year-old female with past medical history off HIV for more than 15 years, on Truvada 200/300MG ONE TABLET DAILY and Lexiva 700 MG, 2 TABLETS TWICE A DAY, hepatitis C with undetectable viral load, history of gallstones, IBS, PUD, COPD , anxiety and depression with history of polysubstance abuse and numerous previous suicide attempts and drug seeking behavior who presented to [facility] with abdominal pains. Patient was found to have acute cholecystitis and presently postop s/p laparoscopic cholecystectomy on 06/09/17. Infectious disease consultation requested by Dr. VALENTINO FOR HAART therapy. Patient is well-known to me from my office.her last viral load was < 20 copies per mL/and her CD4 count is more than 700.Patient is very noncompliant ABOUT HER APPOINTMENTS AT THE OFFICE. Patient C/O POST OPTIVE abdominal pain.patient presently on Toradol IV and Xanax 2 mg by mouth twice a day for anxiety problems. PATIENT DENIES ANY SHORTNESS OF BREATH OR COUGH. DENIES ANY NAUSEA VOMITING AT PRESENT.PATIENT DENIES ANY FEVER OR CHILLS. PMH: Anemia, Anxiety, Bipolar Disorder, Depression, Gastritis, Gastrointestinal Ulcer, Hepatitis (C), HIV, Pancreatitis, Personality Disorder, Chronic Pain ( back pain) Surgical History: No Surg Hx Family History: States: Diabetes (grandmother) - Social History Hx Tobacco Use: Yes Hx Alcohol Use: No Hx Substance Use: Yes,USES MARIJUANA EVERY DAY - Immunization History Hx Tetanus Toxoid Vaccination: Yes Hx Influenza Vaccination: Yes Hx Pneumococcal Vaccination: Yes ALLERGY; NKA. MEDS; SEE MARS. ON TRUVADA 200/300 MG 1 TABLET EVERY 24 HOURLY. ON LEXIVA 700 MG, 2 CAPSULES BY MOUTH TWICE A DAY. Review of Systems - Constitutional Constitutional: absent: Chills, Fever - EENT Eyes: absent: Change in Vision, Floaters Nose/Mouth/Throat: absent: Mouth Lesions, Mouth Pain - Breasts Breasts: absent: Mass, Nipple Discharge - Cardiovascular Cardiovascular: absent: Chest Pain, Dyspnea, Pedal Edema - Respiratory Respiratory: absent: Cough, Hemoptysis - Gastrointestinal Gastrointestinal: Abdominal Pain (POSTOPERATIVE LAPAROSCOPIC CHOLECYSTECTOMY.), Constipation. absent: Diarrhea, Nausea, Vomiting - Genitourinary Genitourinary: absent: Dysuria, Hematuria, Urinary Hesitance - Neurological Neurological: absent: Dizziness, Headaches - Psychiatric Psychiatric: Anxiety, Depression - Hematologic/Lymphatic Hematologic: As Per HPI. absent: Easy Bleeding, Easy Bruising, Lymphadenopathy Past Patient History - Infectious Disease Hx of Infectious Diseases: None - Past Medical History & Family History Past Medical History?: Yes - Past Social History Smoking Status: Light Smoker < 10 Cigarettes Daily - CARDIAC Hx Cardiac Disorders: Yes Hx Hypertension: Yes Other/Comment: "Aneurism on my heart" - PULMONARY Hx Respiratory Disorders: Yes Hx Asthma: No Hx Chronic Obstructive Pulmonary Disease (COPD): Yes - NEUROLOGICAL Hx Neurological Disorder: Yes Hx Migraine: Yes Hx Seizures: No - HEENT Hx HEENT Problems: No - RENAL Hx Chronic Kidney Disease: No - ENDOCRINE/METABOLIC Hx Endocrine Disorders: No - HEMATOLOGICAL/ONCOLOGICAL Hx Blood Disorders: Yes Hx Anemia: Yes Hx Hepatitis C: Yes Hx Human Immunodeficiency Virus (HIV): Yes - INTEGUMENTARY Hx Dermatological Problems: No - MUSCULOSKELETAL/RHEUMATOLOGICAL Hx Musculoskeletal Disorders: Yes Hx Falls: Yes (1 fall in the last 3 mos) Hx Fractures: Yes (2009 Left hip, pelvis, leg) - GASTROINTESTINAL Hx Gastrointestinal Disorders: Yes Hx Gastritis: Yes Hx Irritable Bowel: Yes Hx Pancreatitis: Yes Hx Ulcer: Yes (stomach ulcer) - GENITOURINARY/GYNECOLOGICAL Hx Genitourinary Disorders: No Hx Sexually Transmitted Disorders: No - PSYCHIATRIC Hx Substance Use: Yes - SURGICAL HISTORY Hx Surgeries: Yes Other/Comment: leg left surgery - ANESTHESIA Hx Anesthesia: Yes Hx Anesthesia Reactions: No Hx Malignant Hyperthermia: No Meds Home Medications: Home Medication List Medication Instructions Recorded Confirmed Type ALPRAZolam [Xanax] 2 mg PO Q12 tab 06/10/17 Rx Emtricitabine/Tenofovir Diso 1 tab PO DAILY tab 06/10/17 Rx [Truvada 200 MG-300 MG] Allergies/Adverse Reactions: Allergies Allergy/AdvReac Type Severity Reaction Status Date / Time No Known Allergies Allergy Verified 05/10/17 10:22 - Medications Medications: Current Medications Alprazolam (Xanax) 2 mg PO Q12 [facility] Last Admin: 06/10/17 09:45 Dose: 2 mg Baclofen (Lioresal) 10 mg PO Q12 [facility] Last Admin: 06/10/17 09:45 Dose: 10 mg Emtricitabine/Tenofovir (Truvada 200 Mg-300 Mg) 1 tab PO DAILY [facility] Enoxaparin Sodium (Lovenox) 30 mg SC DAILY [facility] Last Admin: 06/10/17 13:15 Dose: 30 mg Fosamprenavir Calcium (Lexiva) 1,400 mg PO Q12 [facility] Last Admin: 06/10/17 10:07 Dose: 1,400 mg Home Med (Patient's Own Medication) 1 tab PO Q6 PRN PRN Reason: Headache Last Admin: 06/09/17 16:45 Dose: 1 tab Hydromorphone HCl (Dilaudid) 2 mg PO Q4 PRN PRN Reason: Pain, severe (8-10) Last Admin: 06/10/17 14:10 Dose: 2 mg Ketorolac Tromethamine (Toradol) 30 mg IVP Q6 PRN PRN Reason: Pain, moderate (4-7) Last Admin: 06/10/17 12:31 Dose: 30 mg Metoclopramide HCl (Reglan) 10 mg IVP Q6 PRN PRN Reason: Nausea/Vomiting Last Admin: 06/07/17 17:34 Dose: 10 mg Pantoprazole Sodium (Protonix Ec Tab) 40 mg PO DAILY [facility] Last Admin: 06/10/17 09:45 Dose: 40 mg Physical Exam - Constitutional Appears: No Acute Distress - Head Exam Head Exam: NORMAL INSPECTION - Eye Exam Eye Exam: EOMI, PERRL - ENT Exam ENT Exam: Normal Oropharynx - Neck Exam Neck exam: Positive for: Normal Inspection - Respiratory Exam Respiratory Exam: Clear to Auscultation Bilateral - Cardiovascular Exam Cardiovascular Exam: REGULAR RHYTHM, +S1, +S2 - GI/Abdominal Exam GI & Abdominal Exam: Hyperactive Bowel Sounds, Soft, Tenderness (RIGHT UPPER QUADRANT/EPIGASTRIC.) - Extremities Exam Extremities exam: Positive for: normal capillary refill, pedal pulses present. Negative for: calf tenderness, pedal edema - Neurological Exam Neurological exam: Alert, CN II-XII Intact, Oriented x3 - Psychiatric Exam Psychiatric exam: Normal Mood - Skin Skin Exam: Normal Color, Warm Results - Vital Signs Recent Vital Signs: Last Vital Signs Temp 97.7 F 06/10/17 07:00 Pulse 71 06/10/17 07:00 Resp 20 06/10/17 07:00 BP 124/72 06/10/17 07:00 Pulse Ox 99 06/10/17 07:00 - Labs Result Diagrams: 06/10/17 08:03 06/10/17 08:03 Labs: Laboratory Results - last 24 hr 06/10/17 06/10/17 08:03 08:03 WBC 8.3 D RBC 3.85 Hgb 10.1 L Hct 31.9 L MCV 83.0 MCH 26.1 L MCHC 31.5 L RDW 18.9 H Plt Count 292 MPV 8.3 Neut % (Auto) 73.4 Lymph % (Auto) 16.6 L Grand % (Auto) 9.5 Eos % (Auto) 0.3 Baso % (Auto) 0.2 Neut # 6.1 Lymph # 1.4 Grand # 0.8 Eos # 0.0 Baso # 0.0 Sodium 136 Potassium 3.7 Chloride 101 Carbon Dioxide 26 Anion Gap 13 BUN 16 Creatinine 0.7 Est GFR ( Amer) > 60 Est GFR (Non-Af Amer) > 60 Random Glucose 96 Calcium 8.3 L Total Bilirubin 0.6 AST 70 H D ALT 64 H D Alkaline Phosphatase 68 Total Protein 6.9 Albumin 3.8 Globulin 3.1 Albumin/Globulin Ratio 1.2 - Imaging and Cardiology Chest x-ray Status: Report reviewed by me (06/09/17 NO ACTIVE DISEASE.) Assessment & Plan (1) Status post laparoscopic cholecystectomy Assessment and Plan: POSTOP DAY 1; LAPAROSCOPIC CHOLECYSTECTOMY 06/09/17. DR VASQUES SURGEON ON THE CASE. ANALGESICS PER ATTENDING. Status: Acute (2) Abdominal pain Assessment and Plan: C/O POSTOPERATIVE PAIN. PATIENT ON TORADOL IV Status: Acute (3) HIV positive Assessment and Plan: PATIENT TO CONTINUE ON TRUVADA 200/300MG ,ONE TABLET BY MOUTH ONCE DAILY. PATIENT ON LEXIVA 700 MG 2 TABLETS BY MOUTH TWICE A DAY. WILL FOLLOW HIV-1-RNA QUANTITATIVE LEVELS. LYMPOCYTES SUBSET STUDIES. Status: Acute (4) Hepatitis C Assessment and Plan: CHECK HCV -RNA PCR QUANTITATIVE LEVELS. F/U LFTS . Status: Acute (5) Anxiety Assessment and Plan: PER PMD . PATIENT ON XANAX 2 MG BY MOUTH TWICE A DAY Status: Acute
[2017-06-10] MEDS: Emtricitabine-Tenofovir 200 mg-300 mg Tab PO SCH (18:27)
[2017-06-10] MEDS: EXCEDRIN PO PRN (21:05)
--- NOTE | 2017-06-11 00:27 | OP ---
PROCEDURE DATE: 06/09/2017 SURGEON: Rose Mary Cavanaugh MD MORTGAGE LOAN ASSISTANT: Dr. Sorensen. TYPE OF ANESTHESIA: General. PREOPERATIVE DIAGNOSES: Cholelithiasis and biliary colic. POSTOPERATIVE DIAGNOSES: Cholelithiasis and biliary colic. PROCEDURE: Laparoscopic cholecystectomy. DESCRIPTION OF PROCEDURE: With the patient in the supine position under adequate general anesthesia, the abdomen was prepped and draped in the usual sterile manner. Veress needle puncture was performed at the umbilicus with insufflation to 15 cm water pressure of CO2, and a 10 mm laparoscopic trocar was inserted via an infraumbilical incision. Under direct vision, additional trocars were inserted in the epigastrium and right costal margin. The gallbladder was visualized. It was not acutely inflamed. The gallbladder fundus was grasped and elevated. Omental adhesions to the body of the gallbladder were taken down to expose the infundibulum, which was grasped and retracted laterally. The cystic duct was dissected and cleared down towards the junction with the common bile duct. The cystic duct was then triply clipped and divided. The cystic artery was similarly identified and anterior and posterior branches were dissected and then triply clipped and divided. The gallbladder was dissected free of the liver bed using electrocautery. The liver bed was inspected for hemostasis and the dissection was completed. The gallbladder was placed in a specimen retrieval bag and removed via the umbilical port site. The right upper quadrant was irrigated and suctioned. Pneumoperitoneum was released and the trocars were removed. The umbilical port site was closed with a [id number] fascial suture of 0 Vicryl. All incisions were closed with 4-0 Monocryl subcuticular sutures and Steri-Strips. Dry sterile dressings were applied. The patient tolerated the procedure well and transferred to the recovery room in stable condition. Estimated blood loss for the procedure was 10 mL. Rose Mary Cavanaugh MD [facility]
[2017-06-11 07:38] LABS: BASO % 0.9 % (0.0-2.0); EOS # 0.1 K/uL (0.0-0.7); EOS % 2.7 % (0.0-4.0); LYMPH # 0.9 K/uL (1.0-4.3); LYMPH % 25.7 % (20.0-40.0); MEAN PLATELET VOLUME 8.1 fL (7.2-11.7); MONO # 0.2 K/uL (0.0-0.8); MONO % 5.4 % (0.0-10.0); RED CELL DISTRIBUTION WIDTH 18.8 % (11.5-14.5)
[2017-06-11 07:46] LABS: HEMATOCRIT 30.9 % (34.0-47.0); MEAN CELL VOLUME 82.7 fL (81.0-99.0); MEAN CORPUSCULAR HEMOGLOBIN 26.3 pg (27.0-31.0); MEAN CORPUSCULAR HGB CONC 31.9 g/dL (33.0-37.0); WHITE BLOOD COUNT 3.5 K/uL (4.8-10.8)
[2017-06-11 08:28] VITALS: BP 136/95; PULSE 86; TEMP 97.7; O2SAT 100
[2017-06-11 08:28] LABS: ALB/GLOB RATIO 1.3 (1.0-2.1); ALKALINE PHOSPHATASE 61 U/L (38-126); ALT/SGPT 65 U/L (9-52); AST/SGOT 52 U/L (14-36); BILIRUBIN,DIRECT 0.5 mg/dL (0.0-0.4); BILIRUBIN,TOTAL 0.5 mg/dL (0.2-1.3); BLOOD UREA NITROGEN 20 mg/dL (7-17); CALCIUM 8.1 mg/dl (8.6-10.4); CARBON DIOXIDE 27 mmol/L (22-30); CHLORIDE 101 mmol/L (98-107); GFR AFRICAN-AMERICAN > 60; GLUCOSE,RANDOM 77 mg/dL (65-105); POTASSIUM 4.5 mmol/L (3.6-5.2); SODIUM 139 mmol/L (132-148); TOTAL PROTEIN 6.4 g/dL (6.3-8.3)
--- NOTE | 2017-06-11 09:02 | CP.PCM.PN ---
Subjective - Date & Time of Evaluation Date of Evaluation: 06/11/17 Time of Evaluation: 06:55 - Subjective Subjective: General Surgery Note for Dr. Cavanaugh Patient seen and examined at bedside. no acute event overnight. Patient complaining of pain but states it has improved. Patient tolerating diet and having BM. Patient denies fever/chills, nausea/vomiting. Patient clear to go home. Objective - Vital Signs/Intake and Output Vital Signs (last 24 hours): Temp Pulse Resp BP Pulse Ox 97.7 F 86 20 136/95 H 100 06/11/17 08:27 06/11/17 08:27 06/11/17 08:27 06/11/17 08:27 06/11/17 08:27 Intake and Output: 06/11/17 06/11/17 06:59 18:59 Intake Total 800 Balance 800 - Medications Medications: Current Medications Alprazolam (Xanax) 2 mg PO Q12 [facility] Last Admin: 06/10/17 21:05 Dose: 2 mg Baclofen (Lioresal) 10 mg PO Q12 [facility] Last Admin: 06/10/17 21:05 Dose: 10 mg Emtricitabine/Tenofovir (Truvada 200 Mg-300 Mg) 1 tab PO DAILY [facility] Last Admin: 06/10/17 18:27 Dose: 1 tab Enoxaparin Sodium (Lovenox) 30 mg SC DAILY [facility] Last Admin: 06/10/17 13:15 Dose: 30 mg Fosamprenavir Calcium (Lexiva) 1,400 mg PO Q12 [facility] Last Admin: 06/10/17 21:05 Dose: 1,400 mg Home Med (Patient's Own Medication) 1 tab PO Q6 PRN PRN Reason: Headache Last Admin: 06/10/17 21:05 Dose: 1 tab Hydromorphone HCl (Dilaudid) 2 mg PO Q4 PRN PRN Reason: Pain, severe (8-10) Last Admin: 06/11/17 04:09 Dose: 2 mg Ketorolac Tromethamine (Toradol) 30 mg IVP Q6 PRN PRN Reason: Pain, moderate (4-7) Last Admin: 06/11/17 07:40 Dose: 30 mg Metoclopramide HCl (Reglan) 10 mg IVP Q6 PRN PRN Reason: Nausea/Vomiting Last Admin: 06/07/17 17:34 Dose: 10 mg Pantoprazole Sodium (Protonix Ec Tab) 40 mg PO DAILY [facility] Last Admin: 06/10/17 09:45 Dose: 40 mg - Labs Labs: 06/11/17 07:07 06/11/17 07:07 PT 12.9 SECONDS (9.7-12.2) H 06/07/17 10:03 INR 1.2 06/07/17 10:03 APTT 29 SECONDS (21-34) 06/07/17 10:03 - Constitutional Appears: No Acute Distress - Head Exam Head Exam: ATRAUMATIC, NORMOCEPHALIC - Eye Exam Eye Exam: Normal appearance - ENT Exam ENT Exam: Mucous Membranes Moist - Respiratory Exam Respiratory Exam: NORMAL BREATHING PATTERN - Cardiovascular Exam Cardiovascular Exam: REGULAR RHYTHM - GI/Abdominal Exam GI & Abdominal Exam: Soft, Tenderness (incision sites). absent: Distended, Firm , Guarding, Rigid, Rebound - Neurological Exam Neurological Exam: Alert, Awake, Oriented x3 - Psychiatric Exam Psychiatric exam: Normal Affect, Normal Mood - Skin Skin Exam: Dry, Intact, Normal Color, Warm Assessment and Plan - Assessment and Plan (Free Text) Plan: 51F with biliary colic s/p laparoscopic cholecystectomy POD#2 -Patient clear to go home from surgical standpoint -Follow-up as outpatient with Dr. Cavanaugh in 1-2 weeks -Discussed with Dr. Mao Sorensen PGY1
[2017-06-11] MEDS: Pantoprazole 40 mg EC Tab PO SCH (09:11)
[2017-06-11] MEDS: Emtricitabine-Tenofovir 200 mg-300 mg Tab PO SCH (09:12)
[2017-06-11] MEDS: Enoxaparin 30 mg Syringe SC SCH (09:12)
[2017-06-11] MEDS: EXCEDRIN PO PRN (09:12)
--- NOTE | 2017-06-11 13:07 | PN ---
DATE: LOCATION: [facility] bed A. SUBJECTIVE: This is a 51 years old female seen early in rounds with complaint of post-surgical abdominal pain. The entire chart is reviewed including, but not limited to the most recent lab and radiology study results, current and the previous medication list, current and the previous medical events. No reported active bleeding. The most recent lab results today showed white blood cells low of 3.5 with dropped hemoglobin to 9.9, hematocrit 30.9 with low indices, but normal platelet count with increased BUN 20, normal creatinine, low calcium 8.1 with slightly elevated AST 52, ALT 65. PHYSICAL EXAMINATION: GENERAL: A 51 years old female, still complaining of abdominal pain. VITAL SIGNS: Afebrile with pulse of 82, respiratory rate 20 to 22, blood pressure 132/88. HEENT: Show mildly pale, dry oral mucous membrane. Nonicteric sclerae. LUNGS: Few scattered crepitation. Decreased air entry at bases. HEART: Positive S1 and S2. ABDOMEN: Soft, bowel sounds are present. No mass or organomegaly, no rebound tenderness or guarding. Bowel sounds are hypoactive. EXTREMITIES: Without significant edema, clubbing, or cyanosis. NEUROLOGIC: No reported new neurological deficits, sensory or motor. IMPRESSION: 1. Cholelithiasis with status post laparoscopic cholecystectomy. 2. Re-exacerbation of peptic ulcer disease. 3. Known history of, but not limited to human immunodeficiency virus positive, hepatitis C viral infection, severe anxiety syndrome as well as bipolar disorder with depression. SUGGESTIONS: 1. Continue current management. 2. Pain management consultation. 3. No aggressive GI workup in the meantime. Further recommendations to follow. Bibi He MD
--- NOTE | 2017-06-11 15:15 | CP.PCM.PN ---
Subjective - Date & Time of Evaluation Date of Evaluation: 06/11/17 Time of Evaluation: 10:00 - Subjective Subjective: PGY3 on medicine Dr. Mcclain service: Pt seen and examined at bedside this morning. Pt reports passing gas and tolerating diet. Will DC today and instructed her to follow up with ID, surgery as well as her PMD. Objective - Vital Signs/Intake and Output Vital Signs (last 24 hours): Temp Pulse Resp BP Pulse Ox 97.7 F 86 20 136/95 H 100 06/11/17 08:27 06/11/17 08:27 06/11/17 08:27 06/11/17 08:27 06/11/17 08:27 Intake and Output: 06/11/17 06/11/17 06:59 18:59 Intake Total 800 350 Balance 800 350 - Labs Labs: 06/11/17 07:07 06/11/17 07:07 PT 12.9 SECONDS (9.7-12.2) H 06/07/17 10:03 INR 1.2 06/07/17 10:03 APTT 29 SECONDS (21-34) 06/07/17 10:03 - Constitutional Appears: Non-toxic, No Acute Distress - Head Exam Head Exam: NORMOCEPHALIC - Eye Exam Eye Exam: Normal appearance - ENT Exam ENT Exam: Mucous Membranes Moist - Respiratory Exam Respiratory Exam: Clear to Ausculation Bilateral, NORMAL BREATHING PATTERN. absent: Wheezes - Cardiovascular Exam Cardiovascular Exam: REGULAR RHYTHM, +S1, +S2. absent: Gallop, Rubs - GI/Abdominal Exam GI & Abdominal Exam: Soft, Normal Bowel Sounds Additional comments: abdominal dressing c/d/i - Neurological Exam Neurological Exam: Alert, Awake - Psychiatric Exam Psychiatric exam: Normal Mood - Skin Skin Exam: Intact Assessment and Plan - Assessment and Plan (Free Text) Assessment: Abdominal pain 06/11: POD#2 s/p cholecystectomy. Will DC home today with Percocet 5/325mg PO q4 PRN for severe pain #10. Pt instructed to make appointment and follow up with the specialists and PMD within 1-2 weeks after DC. Pt verbalized understanding. 06/10: S/P cholecystectomy, continue Dilauded, Toradol added as well Reglan as needed for nausea, will most likely discharge tomorrow if stable and able to tolerate diet. Pt has known hx of cholelithiasis and IBS. GI Dr. Sidhu consulted, help appreciated, no intervention at this point. Surgery Dr. Cavanaugh consulted, help appreciated. Ultrasound abdomen showed cholelithiasis with questionable gallbladder polyp with +ultrasound Norris's. LFT and lipase trending down. Dilaudid 2mg PO q4 PRN. Reglan 10mg IV q6 PRN. Milk of mag given once for constipation. Cholelithiasis See above. HIV Continue home med Truvada. Outpatient follow up with Dr. Rangel.
== END 2017-06-11 12:13 | disposition home or self-care (01) | DRG 417 ==
LOC: C.ER 06:38 → C.9E 10:58 → C.6T 14:46
PROVIDERS: ADMIT Internal Medicine Pulmonary Disease; ATTEND Internal Medicine Pulmonary Disease
PROC: 0FT44ZZ Resection of Gallbladder, Percutaneous Endoscopic Approach (ICD-10-PCS; principal; 2017-06-09 17:15)
DX: K80.12 Calculus of gallbladder with acute and chronic cholecystitis without obstruction (principal); K85.90 Acute pancreatitis without necrosis or infection, unspecified; B20 Human immunodeficiency virus [HIV] disease; K86.1 Other chronic pancreatitis; F12.90 Cannabis use, unspecified, uncomplicated; B19.20 Unspecified viral hepatitis C without hepatic coma; F31.9 Bipolar disorder, unspecified; F41.9 Anxiety disorder, unspecified; F60.9 Personality disorder, unspecified; G89.18 Other acute postprocedural pain; G89.29 Other chronic pain; I10 Essential (primary) hypertension; J44.9 Chronic obstructive pulmonary disease, unspecified; K27.9 Peptic ulcer, site unspecified, unspecified as acute or chronic, without hemorrhage or perforation; K58.2 Mixed irritable bowel syndrome; K82.4 Cholesterolosis of gallbladder; F17.210 Nicotine dependence, cigarettes, uncomplicated; Z87.11 Personal history of peptic ulcer disease; Z91.19 Patient's noncompliance with other medical treatment and regimen; Z91.5 Personal history of self-harm

== ENCOUNTER 2017-08-23 14:52 | Emergency (ER) | payer BC ==
[2017-08-23 14:52] VITALS: BMI 17.7
[2017-08-23] MEDS ORDERED: Sodium Chloride 0.9% 1,000 ML IV ONE (18:21)
--- NOTE | 2017-08-23 18:30 | C.PDOC ---
History Of Present Illness Kristel Sanchez is a 51 year old female, whose past medical history includes HTN, HIV, COPD, depression, substance abuse, and bowel removal (4 months ago) , who presents to the emergency department complaining of diffuse lower abdominal pain since two days ago. Patient reports having episodes of vomiting and diarrhea. She states that she is s/p cholecystectomy 05/2017 and is unsure if this pain is related. Additionally, she reports not being able to tolerate her Ativan PO and it was last taken today at 6AM. she normally takes it TID and is concerned that she may be withdrawing. Patient denies chest pain, shortness of breath, headache, fever, chills, cough, dysuria, hematuria, frequency, flank pain, or other complaints. Time Seen by Provider: 08/23/17 18:15 Chief Complaint (Nursing): Abdominal Pain History Per: Patient History/Exam Limitations: no limitations Onset/Duration Of Symptoms: Days (2) Current Symptoms Are (Timing): Still Present Location Of Pain/Discomfort: Diffuse (lower abdomen ) Radiation Of Pain To:: None Quality Of Discomfort: Unable To Describe Associated Symptoms: Nausea, Vomiting, Diarrhea. denies: Fever, Chills Exacerbating Factors: None Recent travel outside of the [place]: No Past Medical History Reviewed: Historical Data, Nursing Documentation, Vital Signs Vital Signs: Last Vital Signs Temp 98.4 F 08/23/17 19:30 Pulse 76 08/23/17 23:04 Resp 19 08/23/17 23:04 BP 131/85 08/23/17 23:04 Pulse Ox 99 08/23/17 23:04 - Medical History PMH: Anemia, Anxiety, Bipolar Disorder, COPD, Depression, Fractures (2009 Left hip, pelvis, leg), Gastritis, Gastrointestinal Ulcer, Hepatitis (C), HIV, HTN, Migraine, Pancreatitis, Personality Disorder, Chronic Pain (back pain) Denies: Asthma, Diabetes, Chronic Kidney Disease, Seizures, Sexually Transmitted Disease Surgical History: Cholecystectomy - [facility] Procedures RESECTION OF GALLBLADDER, PERCUTANEOUS ENDOSCOPIC APPROACH (06/06/17) Family History: States: Diabetes (grandmother) - Social History Hx Tobacco Use: Yes Hx Alcohol Use: Yes Hx Substance Use: Yes - Immunization History Hx Tetanus Toxoid Vaccination: Yes Hx Influenza Vaccination: Yes Hx Pneumococcal Vaccination: Yes Review Of Systems Constitutional: Negative for: Fever, Chills Cardiovascular: Negative for: Chest Pain Respiratory: Negative for: Cough, Shortness of Breath Gastrointestinal: Positive for: Nausea, Vomiting, Abdominal Pain, Diarrhea Genitourinary: Negative for: Dysuria, Frequency Skin: Negative for: Rash Neurological: Negative for: Weakness, Headache, Dizziness Psych: Negative for: Anxiety Physical Exam - Physical Exam Appears: Well, Non-toxic, In Acute Distress Skin: Normal Color, Warm, Dry Head: Atraumatic, Normacephalic Eye(s): bilateral: Normal Inspection, PERRL, EOMI Nose: Normal Oral Mucosa: Dry Cardiovascular: Rhythm Regular, No Murmur Respiratory: Normal Breath Sounds, No Decreased Breath Sounds, No Rales, No Rhonchi, No Wheezing Gastrointestinal/Abdominal: No Normal Exam, Bowel Sounds (quiet), No Tenderness , Distention (mildly), No Guarding, No Rebound Extremity: Normal ROM Neurological/Psych: Oriented x3, Normal Speech, Normal Cognition, Normal Cranial Nerves, Normal Motor, Normal Sensation, Normal Reflexes ED Course And Treatment - Laboratory Results Result Diagrams: 08/23/17 19:30 08/23/17 19:30 Lab Interpretation: Abnormal (Lipase 370) O2 Sat by Pulse Oximetry: 97 (room air) Pulse Ox Interpretation: Normal - CT Scan/US CT abdomen and pelvis Other Rad Studies (CT/US): Read By Radiologist, Radiology Report Reviewed CT/US Interpretation: Accession No. : [id number]. Patient Name / ID : DANIEL HUMPHRIES / [id number]. Exam Date : 08/23/2017 23:49:33 ( Approved ). Study Comment : Sex / Age : F / 51Y. Creator : SHANTA LINARES. Dictator : Senior Warehouse Clerk : Network Security Engineer : SHANTA LINARES. Approver2 : Report Date : 08/24/2017 00:37:00. My Comment : . [facility] Division of Radiology. [address] [place] [address]. Tel. no. . . . Patient Name: KRISTEL SANCHEZ . Pt. Address: [address] [place] [address] Rec # : [id number]. [place] [address]: Lizandro PANIAGUA,Selene Guzmán. Pt Order Location: [facility] : 1965 Female Age: 51 Order #: [id number]. Reason for exam: abdominal pain. . . . . . CT Scan. . . ABD PELVIS PO IV CONTRAST Exam Date: . . This imaging exam was performed at [facility]. EXAM: CT Abdomen and Pelvis With Intravenous Contrast. . EXAM DATE/TIME: 08/23/2017 9:45 PM. . CLINICAL HISTORY: 51 years old, female; Pain; Abdominal pain; Prior surgery ; Surgery type: Gallbladder removable; Patient HX: 05-10-17 images sent. . TECHNIQUE: Axial computed tomography images of the abdomen and pelvis with intravenous. contrast. All CT scans at this facility use one or more dose reduction. techniques, viz.: automated exposure control; ma/kV adjustment per patient size. (including targeted exams where dose is matched to indication; i.e. head); or. iterative reconstruction technique. Coronal and sagittal reformatted images were created and reviewed. . CONTRAST: 100 mL of [id number] administered intravenously. . COMPARISON: CT - ABD PELVIS IV CONTRAST ONLY 2017-05-10 11:51. . FINDINGS: Lower thorax: Heart size is normal. 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 There is a small hiatal hernia. There is no focal. consolidation. There tiny nodular opacities at the right base. There is minimal. nodular pleural thickening. . ABDOMEN: Liver: There continues to be a tiny low attenuation lesion in the dome of. the liver too small to characterize. Gallbladder and bile ducts: Gallbladder is absent. Common duct is dilated. There is mild intrahepatic biliary ductal dilatation. Pancreas: unremarkable. Spleen: unremarkable. Adrenals: unremarkable. Kidneys and ureters: There are tiny low-attenuation renal lesions too small. to accurately characterize, possibly cysts.Kidneys and ureters are otherwise. unremarkable. Stomach and bowel: Stomach is partially distended with contrast and air. Rotation is normal. There is contrast throughout the small bowel. There is no. obstruction. Terminal ileum is unremarkable. Appendix is not visualized. There. is no pericecal inflammation. There is contrast air and stool in much of the. colon. Appendix: See stomach and bowel. . PELVIS: Bladder: Bladder is almost empty. Reproductive: Uterus is unremarkable There are no adnexal masses. . ABDOMEN and PELVIS: Intraperitoneal space: There is no free air or free fluid. Bones/joints: There are old bilateral ischial and pubic fractures. There is. an old right iliac fracture. There are old healed rib fractures. Soft tissues: There is a small umbilical hernia. Vasculature: An IVC filter is in place.There are vascular calcifications. There are multiple phleboliths. Lymph nodes: There is no pathologic adenopathy. . IMPRESSION: Interval cholecystectomy with continued mild intra-and extrahepatic biliary. ductal dilatation; no acute solid visceral abnormality; multiple old pelvic. 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 but no CT findings to suggest acute appendicitis. . . . . . . . Dictated By: Shanta Linares MD., MD. Dictated Date/Time: 08/24/1736. Signed By: Shanta Linares MD. Date Signed: 08/24/1736. Transcribed By: [facility]. Transcribe Date/Time: 08/24/1736. EUNICE/JUAN DAVID Progress Note: Patient treated with IV Morphine and PO Ativan. 9:00 She continues to c/o diffuse abdominal pain. She has not been vomiting. IV Toradol ordered and hospitalist paged. Reevaluation Time: 00:50 Reassessment Condition: Improved - Physician Consult Information Time Consulting Physician Contacted: 21:06 Medical Decision Making Medical Decision Making: Impression: 51 y/o female with mildly distended abdomen and quiet bowel sounds c/o of diffused lower abdomen pain with n/v/d for 2 days Plan: -- Labs -- Ativan, Zofran, and Sodium Chloride -- Reassess and disposition Disposition Counseled Patient/Family Regarding: Studies Performed, Diagnosis, Need For Followup, Rx Given - Disposition Referrals: Remy Carrera MD [Medical Doctor] - Disposition: HOME/ ROUTINE Disposition Time: 00:51 Condition: IMPROVED Prescriptions: Dicyclomine [Bentyl] 20 mg PO QID PRN #20 tab PRN Reason: Pain, Moderate (4-7) Instructions: Abdominal Pain (ED) Forms: [employer] ([place]) - Clinical Impression Clinical Impression: Abdominal pain, IBS (irritable bowel syndrome), Hepatitis C - Scribe Statement The provider has reviewed the documentation as recorded by the Scribe Scribe Attestation: uJana Gifford MD Scribe Attestation: All medical record entries made by the Scribe were at my direction and personally dictated by me. I have reviewed the chart and agree that the record accurately reflects my personal performance of the history, physical exam, medical decision making, and the department course for this patient. I have also personally directed, reviewed, and agree with the discharge instructions and disposition.
[2017-08-23] MEDS ORDERED: Sodium Chloride 0.9% 1,000 ML ONE (19:20)
[2017-08-23 19:51] LABS: BASO % 0.7 % (0.0-2.0); EOS % 0.7 % (0.0-4.0); HEMOGLOBIN 10.9 g/dL (11.0-16.0); LYMPH # 1.7 K/uL (1.0-4.3); LYMPH % 31.6 % (20.0-40.0); MEAN CELL VOLUME 79.7 fL (81.0-99.0); MEAN CORPUSCULAR HEMOGLOBIN 25.1 pg (27.0-31.0); MEAN CORPUSCULAR HGB CONC 31.5 g/dL (33.0-37.0); MEAN PLATELET VOLUME 8.2 fL (7.2-11.7); MONO # 0.5 K/uL (0.0-0.8); MONO % 8.8 % (0.0-10.0); NEUT # 3.2 K/uL (1.8-7.0); NEUT % 58.2 % (50.0-75.0); RBC 4.35 Mil/uL (3.80-5.20); RED CELL DISTRIBUTION WIDTH 21.1 % (11.5-14.5); WHITE BLOOD COUNT 5.5 K/uL (4.8-10.8)
[2017-08-23 19:53] LABS: ALBUMIN 4.3 g/dL (3.5-5.0); ALT/SGPT 19 U/L (9-52); AST/SGOT 28 U/L (14-36); BLOOD UREA NITROGEN 17 mg/dL (7-17); CALCIUM 8.7 mg/dl (8.6-10.4); GFR AFRICAN-AMERICAN > 60; GFR NON-AFRICAN AMERICAN > 60; LIPASE 370 U/L (23-300)
[2017-08-23 20:59] LABS: SQUAMOUS EPITHIAL 3 /hpf (0-5); URINE BILIRUBIN NEGATIVE (NEGATIVE); URINE BLOOD NEGATIVE (NEGATIVE); URINE CLARITY Clear (Clear); URINE COLOR Yellow (YELLOW); URINE GLUCOSE (UA) NORMAL (Normal); URINE LEUKOCYTE ESTERASE NEG Leu/uL (Negative); URINE NITRATE NEGATIVE (NEGATIVE); URINE PROTEIN NEGATIVE (NEGATIVE); URINE UROBILINOGEN NORMAL mg/dL (0.2-1.0)
[2017-08-23] MEDS ORDERED: Iohexol 240 (50 ml) PO ONE (21:47)
[2017-08-23] MEDS ORDERED: Iohexol 240 (50 ml) ONE (22:06)
--- NOTE | 2017-08-24 00:38 | CT ---
EXAM: CT Abdomen and Pelvis With Intravenous Contrast EXAM DATE/TIME: 08/23/2017 9:45 PM CLINICAL HISTORY: 51 years old, female; Pain; Abdominal pain; Prior surgery; Surgery type: Gallbladder removable; Patient HX: 05-10-17 images sent TECHNIQUE: Axial computed tomography images of the abdomen and pelvis with intravenous contrast. All CT scans at this facility use one or more dose reduction techniques, viz.: automated exposure control; ma/kV adjustment per patient size (including targeted exams where dose is matched to indication; i.e. head); or iterative reconstruction technique. Coronal and sagittal reformatted images were created and reviewed. CONTRAST: 100 mL of [id number] administered intravenously. COMPARISON: CT - ABD PELVIS IV CONTRAST ONLY 2017-05-10 11:51 FINDINGS: Lower thorax: Heart size is normal. There is a left apical aneurysm versus pseudoaneurysm, unchanged. There is a small hiatal hernia. There is no focal consolidation. There tiny nodular opacities at the right base. There is minimal nodular pleural thickening. ABDOMEN: Liver: There continues to be a tiny low attenuation lesion in the dome of the liver too small to characterize. Gallbladder and bile ducts: Gallbladder is absent. Common duct is dilated. There is mild intrahepatic biliary ductal dilatation. Pancreas: unremarkable Spleen: unremarkable Adrenals: unremarkable Kidneys and ureters: There are tiny low-attenuation renal lesions too small to accurately characterize, possibly cysts.Kidneys and ureters are otherwise unremarkable. Stomach and bowel: Stomach is partially distended with contrast and air. Rotation is normal. There is contrast throughout the small bowel. There is no obstruction. Terminal ileum is unremarkable. Appendix is not visualized. There is no pericecal inflammation. There is contrast air and stool in much of the colon. Appendix: See stomach and bowel PELVIS: Bladder: Bladder is almost empty. Reproductive: Uterus is unremarkable There are no adnexal masses. ABDOMEN and PELVIS: Intraperitoneal space: There is no free air or free fluid. Bones/joints: There are old bilateral ischial and pubic fractures. There is an old right iliac fracture. There are old healed rib fractures Soft tissues: There is a small umbilical hernia Vasculature: An IVC filter is in place.There are vascular calcifications. There are multiple phleboliths. Lymph nodes: There is no pathologic adenopathy. 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
[2017-08-24 00:52] VITALS: O2SAT 97
[2017-08-24 01:08] VITALS: BP 112/66; PULSE 99; RESP 20; TEMP 98
== END 2017-08-24 01:09 | disposition home or self-care (01) ==
LOC: C.ER 14:52
DX: K58.9 Irritable bowel syndrome, unspecified (principal); B19.20 Unspecified viral hepatitis C without hepatic coma; R10.30 Lower abdominal pain, unspecified; I10 Essential (primary) hypertension; J44.9 Chronic obstructive pulmonary disease, unspecified; Z87.891 Personal history of nicotine dependence
CPT/HCPCS: 74177; 80053; 81001; 83690; 85025; 96374; 96375; 99285; J1885; J2270; J2405; J7040; Q9966

== ENCOUNTER 2017-08-26 16:40 | Emergency (ER) | payer BC ==
[2017-08-26 16:41] VITALS: BMI 17.7
[2017-08-26 16:57] VITALS: O2SAT 100
[2017-08-26] MEDS ORDERED: Sodium Chloride 0.9% 1,000 ML IV ONE (17:29)
[2017-08-26] MEDS ORDERED: Sodium Chloride 0.9% 1,000 ML ONE (17:53)
--- NOTE | 2017-08-26 18:09 | C.PDOC ---
History Of Present Illness 51 y/o female with history of chronic abdominal pain, IBS, chronic pancreatitis presents to ED with complaints of persistent abdominal pain with associated decreased appetite. Patient was seen 3 days ago for similar symptoms. Patient was seen at [facility] comfortable on her phone and when physician or nurse walk by patient begins to cry and say she is in pain. Patient admits to no follow up as she was instructed and denies fever, chills, nausea, vomiting or any other complaints at this time. She states that she did not take her Xanax this morning and is requesting medication for anxiety and pain. She has had multiple ED visits with similar complaints. Time Seen by Provider: 08/26/17 17:04 Chief Complaint (Nursing): Abdominal Pain History Per: Patient History/Exam Limitations: no limitations Onset/Duration Of Symptoms: Days Current Symptoms Are (Timing): Still Present Location Of Pain/Discomfort: Diffuse Past Medical History Reviewed: Historical Data, Nursing Documentation, Vital Signs Vital Signs: Last Vital Signs Temp 97.4 F L 08/26/17 16:56 Pulse 84 08/26/17 16:56 Resp 18 08/26/17 16:56 BP 145/90 08/26/17 16:56 Pulse Ox 100 08/26/17 19:17 - Medical History PMH: Anemia, Anxiety, Bipolar Disorder, COPD, Depression, Fractures (2010 Left hip, pelvis, leg), Gastritis, Gastrointestinal Ulcer, Hepatitis (C), HIV, HTN, Migraine, Pancreatitis, Personality Disorder, Chronic Pain (back pain) Surgical History: Cholecystectomy - [facility] Procedures RESECTION OF GALLBLADDER, PERCUTANEOUS ENDOSCOPIC APPROACH (06/06/17) Family History: States: Diabetes (grandmother) - Social History Hx Tobacco Use: Yes Hx Alcohol Use: Yes Hx Substance Use: Yes - Immunization History Hx Tetanus Toxoid Vaccination: Yes Hx Influenza Vaccination: Yes Hx Pneumococcal Vaccination: Yes Review Of Systems Constitutional: Negative for: Fever, Chills Gastrointestinal: Positive for: Abdominal Pain. Negative for: Nausea, Vomiting Musculoskeletal: Negative for: Back Pain Skin: Negative for: Rash Physical Exam - Physical Exam Appears: Non-toxic, Other (Patient crying in pain and requesting medication but is seen lying quietly when passing the room.) Skin: Warm, Dry, No Rash Head: Atraumatic, Normacephalic Oral Mucosa: Moist Neck: Normal ROM, Supple Chest: Symmetrical Cardiovascular: Rhythm Regular Respiratory: Normal Breath Sounds, No Rales, No Rhonchi, No Wheezing Gastrointestinal/Abdominal: Bowel Sounds, Soft, No Tenderness, No Guarding, No Rebound Back: No CVA Tenderness Neurological/Psych: Oriented x3 ED Course And Treatment - Laboratory Results Result Diagrams: 08/26/17 18:13 08/26/17 18:13 Lab Interpretation: No Changes Compared To Prior Results (except that lipase is now normal) O2 Sat by Pulse Oximetry: 100 (RA) Pulse Ox Interpretation: Normal Reevaluation Time: 19:23 Reassessment Condition: Improved (Patient is still asking for medication but appears comfortable.) Disposition Counseled Patient/Family Regarding: Studies Performed, Diagnosis, Need For Followup - Disposition Referrals: Remy Carrera MD [Medical Doctor] - Disposition: HOME/ ROUTINE Disposition Time: 19:33 Condition: STABLE Instructions: Chronic Pain (ED) Forms: [employer] (Citizen Of [place]) - Clinical Impression Clinical Impression: Chronic abdominal pain - Scribe Statement The provider has reviewed the documentation as recorded by the Deepikaibbenita Hall All medical record entries made by the Deepikaibbenita were at my direction and personally dictated by me. I have reviewed the chart and agree that the record accurately reflects my personal performance of the history, physical exam, medical decision making, and the department course for this patient. I have also personally directed, reviewed, and agree with the discharge instructions and disposition.
[2017-08-26 18:16] LABS: BASO # 0.1 K/uL (0.0-0.2); BASO % 1.4 % (0.0-2.0); EOS # 0.1 K/uL (0.0-0.7); EOS % 1.9 % (0.0-4.0); HEMOGLOBIN 9.8 g/dL (11.0-16.0); LYMPH # 1.6 K/uL (1.0-4.3); LYMPH % 27.9 % (20.0-40.0); MEAN CELL VOLUME 81.1 fL (81.0-99.0); MEAN CORPUSCULAR HEMOGLOBIN 25.4 pg (27.0-31.0); MEAN CORPUSCULAR HGB CONC 31.3 g/dL (33.0-37.0); MEAN PLATELET VOLUME 8.1 fL (7.2-11.7); MONO # 0.5 K/uL (0.0-0.8); MONO % 8.4 % (0.0-10.0); NEUT # 3.5 K/uL (1.8-7.0); NEUT % 60.4 % (50.0-75.0); NRBC % 0.1 % (0.0-2.0); RBC 3.85 Mil/uL (3.80-5.20); RED CELL DISTRIBUTION WIDTH 21.5 % (11.5-14.5); WHITE BLOOD COUNT 5.8 K/uL (4.8-10.8)
[2017-08-26 18:29] LABS: ALB/GLOB RATIO 1.1 (1.0-2.1); ALT/SGPT 20 U/L (9-52); AST/SGOT 24 U/L (14-36); BLOOD UREA NITROGEN 21 mg/dL (7-17); CALCIUM 8.5 mg/dl (8.6-10.4); GFR AFRICAN-AMERICAN > 60; GFR NON-AFRICAN AMERICAN > 60; LIPASE 140 U/L (23-300)
[2017-08-26 19:44] VITALS: BP 99/67; PULSE 85; RESP 20; TEMP 97.8
[2017-08-26 20:13] LABS: SQUAMOUS EPITHIAL 11 /hpf (0-5); URINE BACTERIA RARE (<OCC); URINE BILIRUBIN NEGATIVE (NEGATIVE); URINE BLOOD NEGATIVE (NEGATIVE); URINE CALCIUM OXALATE CRYSTALS MOD /hpf (<OCC); URINE CLARITY Hazy (Clear); URINE COLOR Yellow (YELLOW); URINE GLUCOSE (UA) NORMAL (Normal); URINE LEUKOCYTE ESTERASE NEG Leu/uL (Negative); URINE NITRATE NEGATIVE (NEGATIVE); URINE PROTEIN NEGATIVE (NEGATIVE)
== END 2017-08-26 19:40 | disposition home or self-care (01) ==
LOC: C.ER 16:40
DX: G89.29 Other chronic pain (principal); R10.9 Unspecified abdominal pain; I10 Essential (primary) hypertension; Z87.891 Personal history of nicotine dependence
CPT/HCPCS: 80053; 81001; 83690; 85025; 96361; 96372; 96374; 96375; 99284; J0500; J1885; J2405; J7040

== ENCOUNTER 2017-08-29 14:56 | Inpatient (IN) | payer BC ==
[2017-08-29 14:56] VITALS: BMI 17.7
--- NOTE | 2017-08-29 15:32 | C.PDOC ---
History Of Present Illness 51 years old female presents to ED with complaints of reoccurring abdominal pain associated with nausea and vomiting that began 2 days ago. Patient states last bowel movement was today. Patient states the symptoms "came back like last time." She has had multiple recent ER visits for abdominal pain, benzodiazepines, and narcotic seeking behavior. Patient had a CT done 08/23 with no acute findings. Patient's PMHx is significant for Cholelithiasis, HIV on Truvada, HCV, with undetectable viral load, gallstones, PUD, IBS, COPD, questionable PE/DVT, anxiety, depression with neumerous previous suicide attempts, polysubstance abuse history and drug seeking behavior. CO RECUR ABD PAIN X 2 DAYS. +NV. LAST BM TODAY. "CAME BACK LIKE LAST TIME". MULT RECENT ER VISITS FOR ABD PAIN, BZ AND NARCOTIC SEEKING BEHAVIOR. CT 08/23 NO ACTUTE FINDINGS. PMHx significant for CHOLELITHIASIS, HIV on Truvada, HCV with undetectable viral load, gallstones, PUD, IBS, COPD, questionable PE/DVT, anxiety, depression with numerous previous suicide attempts, polysubstance abuse history and drug seeking behavior EXAM NAD APPEARS COMFORTABLE NAD WHEN PT UNAWARE OF BEING OBSERVED HEENT ANICTERIC MMM ABD SOFT NT NO R/G NO JAUNDICE GOOD TURGOR PSYCH NOTED TO HAVE LABILE AFFECT FROM ANXIOUS AND CRYING TO CALM, COOPERATIVE. NO ACUTE INTOX REMAINDER NEG MDM PT WELL KNOWN TO THIS HOSPITAL, MULT PRIOR SX AND ADMISSION FOR SIM SX. PRIOR RECORDS REVIEWED, SP CT 03/2017 AND 04/2017. PT ADVISED WILL BE GIVEN PO PAIN MEDS ONLY IN ACCORDANCE W DEPT PAIN POLICY. Time Seen by Provider: 08/29/17 15:28 Chief Complaint (Nursing): Abdominal Pain History Per: Patient History/Exam Limitations: no limitations Onset/Duration Of Symptoms: Days (2) Current Symptoms Are (Timing): Still Present Location Of Pain/Discomfort: Diffuse Quality Of Discomfort: Unable To Describe Associated Symptoms: Nausea, Vomiting. denies: Fever, Chills Exacerbating Factors: None Alleviating Factors: None Recent travel outside of the [place]: No Abnormal Vaginal Bleeding: No Past Medical History Reviewed: Historical Data, Nursing Documentation, Vital Signs Vital Signs: Last Vital Signs Temp 97.8 F 08/29/17 15:10 Pulse 76 02/17/18 16:58 Resp 16 08/29/17 16:58 BP 155/92 H 08/29/17 16:58 Pulse Ox 99 08/29/17 16:58 - Medical History PMH: Anemia, Anxiety, Bipolar Disorder, COPD, Depression, Fractures (2010 Left hip, pelvis, leg), Gastritis, Gastrointestinal Ulcer, Hepatitis (C), HIV, HTN, Migraine, Pancreatitis, Personality Disorder, Chronic Pain (back pain) Surgical History: Cholecystectomy - [facility] Procedures RESECTION OF GALLBLADDER, PERCUTANEOUS ENDOSCOPIC APPROACH (06/06/17) Family History: States: Diabetes (grandmother) - Social History Hx Tobacco Use: Yes Hx Alcohol Use: Yes Hx Substance Use: Yes - Immunization History Hx Tetanus Toxoid Vaccination: Yes Hx Influenza Vaccination: Yes Hx Pneumococcal Vaccination: Yes Review Of Systems Constitutional: Negative for: Fever, Chills Cardiovascular: Negative for: Chest Pain Respiratory: Negative for: Cough Gastrointestinal: Positive for: Nausea, Vomiting, Abdominal Pain Genitourinary: Negative for: Dysuria, Frequency, Hematuria Neurological: Negative for: Weakness, Numbness Physical Exam - Physical Exam Appears: Well, Non-toxic, No Acute Distress, Other (Comfortable; no acute distress when patient is unaware of being observed ) Skin: Normal Color, Warm, Dry, No Jaundice, Other (good turgor) Head: Atraumatic, Normacephalic Eye(s): bilateral: Normal Inspection, PERRL Ear(s): Bilateral: Normal Nose: Normal Oral Mucosa: Moist Neck: Supple Chest: Symmetrical, No Tenderness Cardiovascular: Rhythm Regular Respiratory: Normal Breath Sounds, No Decreased Breath Sounds, No Rales, No Rhonchi, No Wheezing Gastrointestinal/Abdominal: Soft, No Tenderness, No Guarding, No Rebound Extremity: Normal ROM, No Pedal Edema Neurological/Psych: Oriented x3, Normal Speech, Normal Cognition ED Course And Treatment - Laboratory Results Result Diagrams: 08/29/17 16:00 08/29/17 16:00 O2 Sat by Pulse Oximetry: 100 (RA) Pulse Ox Interpretation: Normal Progress - Re-Evaluation Re-evaluation Note: 08/29/17 17:24 REQUESTING ADDL PAIN MEDS. 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 Ordered blood work. Psych noted to have labile affect from anxious and crying to calm, cooperative. No acute intoxication. Disposition Counseled Patient/Family Regarding: Studies Performed, Diagnosis - Disposition Disposition: HOSPITALIZED Disposition Time: 17:25 Condition: STABLE Forms: [employer] ([place]) - POA Present On Arrival: None - Clinical Impression Clinical Impression: HIV positive, Intractable abdominal pain, Pancreatitis, Chronic abdominal pain - Scribe Statement The provider has reviewed the documentation as recorded by the Deepikaibbenita Stoddard All medical record entries made by the Scribe were at my direction and personally dictated by me. I have reviewed the chart and agree that the record accurately reflects my personal performance of the history, physical exam, medical decision making, and the department course for this patient. I have also personally directed, reviewed, and agree with the discharge instructions and disposition. Decision To Admit - Pt Status Changed To: Hospital Disposition Of: Inpatient - Admit Certification Admit to Inpatient:: After my assessment, the patient will require hospitalization for at least two midnights. This is because of the severity of symptoms shown, intensity of services needed, and/or the medical risk in this patient being treated as an outpatient. - InPatient: Physician Admission Certification:: SEE NOTE - . Bed Request Type: Regular Admitting Physician: Jose Boles Patient Diagnosis: HIV positive, Intractable abdominal pain, Pancreatitis, Chronic abdominal pain
[2017-08-29 16:04] LABS: BASO # 0.1 K/uL (0.0-0.2); BASO % 1.1 % (0.0-2.0); EOS # 0.1 K/uL (0.0-0.7); EOS % 0.8 % (0.0-4.0); LYMPH # 1.8 K/uL (1.0-4.3); LYMPH % 26.1 % (20.0-40.0); MEAN CELL VOLUME 81.2 fL (81.0-99.0); MEAN CORPUSCULAR HEMOGLOBIN 25.6 pg (27.0-31.0); MEAN CORPUSCULAR HGB CONC 31.6 g/dL (33.0-37.0); MEAN PLATELET VOLUME 8.3 fL (7.2-11.7); MONO # 0.5 K/uL (0.0-0.8); MONO % 7.5 % (0.0-10.0); NEUT # 4.5 K/uL (1.8-7.0); NEUT % 64.5 % (50.0-75.0); NRBC % 0.1 % (0.0-2.0); RBC 4.68 Mil/uL (3.80-5.20); RED CELL DISTRIBUTION WIDTH 22.1 % (11.5-14.5)
[2017-08-29 16:19] LABS: ALB/GLOB RATIO 1.1 (1.0-2.1); ALBUMIN 4.9 g/dL (3.5-5.0); ALT/SGPT 26 U/L (9-52); AST/SGOT 50 U/L (14-36); BLOOD UREA NITROGEN 15 mg/dL (7-17); CALCIUM 10.4 mg/dl (8.6-10.4); GFR AFRICAN-AMERICAN > 60; GFR NON-AFRICAN AMERICAN > 60; LIPASE 578 U/L (23-300)
[2017-08-29] MEDS: Sodium Chloride 0.9% 1,000 ML IV SCH (17:46)
--- NOTE | 2017-08-29 18:12 | CP.PCM.HP ---
Past Patient History - Infectious Disease Hx of Infectious Diseases: None - Past Medical History & Family History Past Medical History?: Yes - Past Social History Smoking Status: Light Smoker < 10 Cigarettes Daily - CARDIAC Hx Hypertension: Yes - PULMONARY Hx Chronic Obstructive Pulmonary Disease (COPD): Yes - NEUROLOGICAL Hx Migraine: Yes - HEENT Hx HEENT Problems: No - RENAL Hx Chronic Kidney Disease: No - ENDOCRINE/METABOLIC Hx Endocrine Disorders: No - HEMATOLOGICAL/ONCOLOGICAL Hx Anemia: Yes Hx Human Immunodeficiency Virus (HIV): Yes - INTEGUMENTARY Hx Dermatological Problems: No - MUSCULOSKELETAL/RHEUMATOLOGICAL Hx Fractures: Yes (2009 Left hip, pelvis, leg) - GASTROINTESTINAL Hx Gastritis: Yes Hx Pancreatitis: Yes - GENITOURINARY/GYNECOLOGICAL Hx Sexually Transmitted Disorders: No - PSYCHIATRIC Hx Anxiety: Yes Hx Bipolar Disorder: Yes Hx Depression: Yes Hx Substance Use: Yes - SURGICAL HISTORY Hx Cholecystectomy: Yes - ANESTHESIA Hx Anesthesia: Yes Hx Anesthesia Reactions: No Hx Malignant Hyperthermia: No Meds Allergies/Adverse Reactions: Allergies Allergy/AdvReac Type Severity Reaction Status Date / Time No Known Allergies Allergy Verified 08/29/17 15:14 Physical Exam - Constitutional Appears: Well - Head Exam Head Exam: ATRAUMATIC, NORMAL INSPECTION, NORMOCEPHALIC - Eye Exam Eye Exam: EOMI, Normal appearance, PERRL Pupil Exam: NORMAL ACCOMODATION, PERRL - ENT Exam ENT Exam: Mucous Membranes Moist, Normal Exam - Neck Exam Neck exam: Positive for: Normal Inspection - Respiratory Exam Respiratory Exam: Decreased Breath Sounds - Cardiovascular Exam Cardiovascular Exam: REGULAR RHYTHM, +S1, +S2 - GI/Abdominal Exam GI & Abdominal Exam: Diminished Bowel Sounds, Soft - Rectal Exam Rectal Exam: Deferred Results - Vital Signs Recent Vital Signs: Last Vital Signs Temp 97.8 F 08/29/17 15:10 Pulse 81 08/29/17 17:54 Resp 16 08/29/17 17:54 BP 137/102 H 08/29/17 17:54 Pulse Ox 98 08/29/17 17:54 - Labs Result Diagrams: 08/29/17 16:00 08/29/17 16:00 Labs: Laboratory Results - last 24 hr 08/29/17 08/29/17 16:00 16:00 WBC 7.0 RBC 4.68 Hgb 12.0 D Hct 38.0 MCV 81.2 MCH 25.6 L MCHC 31.6 L RDW 22.1 H Plt Count 363 MPV 8.3 Neut % (Auto) 64.5 Lymph % (Auto) 26.1 [place] % (Auto) 7.5 Eos % (Auto) 0.8 Baso % (Auto) 1.1 Neut # (Auto) 4.5 Lymph # (Auto) 1.8 [place] # (Auto) 0.5 Eos # (Auto) 0.1 Baso # (Auto) 0.1 Sodium 139 Potassium 3.3 L Chloride 96 L Carbon Dioxide 29 Anion Gap 17 BUN 15 Creatinine 0.8 Est GFR ( Amer) > 60 Est GFR (Non-Af Amer) > 60 Random Glucose 93 Calcium 10.4 Total Bilirubin 0.6 AST 50 H D ALT 26 Alkaline Phosphatase 87 Total Protein 9.4 H Albumin 4.9 Globulin 4.5 H Albumin/Globulin Ratio 1.1 Lipase 578 H
[2017-08-29 19:16] LABS: AMYLASE 141 U/L (30-110)
[2017-08-29] MEDS ORDERED: Morphine 4 MG/ML VIAL ONE (19:53)
[2017-08-30] MEDS ORDERED: ACETAMINOPHEN PO SCH
[2017-08-30] MEDS ORDERED: [UNRECOGNIZED DRUG - OTHER] PO SCH
[2017-08-30] MEDS ORDERED: CAFFEINE PO SCH
[2017-08-30] MEDS ORDERED: ASPIRIN PO SCH
[2017-08-30] MEDS: Sodium Chloride 0.9% 1,000 ML IV SCH ×3 (04:19→13:05)
[2017-08-30 04:21] VITALS: RESP 20
[2017-08-30 08:54] LABS: BASO % 0.7 % (0.0-2.0); EOS # 0.2 K/uL (0.0-0.7); EOS % 3.4 % (0.0-4.0); HEMOGLOBIN 10.7 g/dL (11.0-16.0); LYMPH # 1.5 K/uL (1.0-4.3); LYMPH % 33.2 % (20.0-40.0); MEAN CELL VOLUME 80.9 fL (81.0-99.0); MEAN CORPUSCULAR HEMOGLOBIN 25.9 pg (27.0-31.0); MEAN PLATELET VOLUME 8.4 fL (7.2-11.7); MONO # 0.5 K/uL (0.0-0.8); MONO % 10.7 % (0.0-10.0); NEUT # 2.3 K/uL (1.8-7.0); RBC 4.11 Mil/uL (3.80-5.20); RED CELL DISTRIBUTION WIDTH 21.1 % (11.5-14.5); WHITE BLOOD COUNT 4.4 K/uL (4.8-10.8)
[2017-08-30 09:18] LABS: ALB/GLOB RATIO 1.1 (1.0-2.1); ALBUMIN 4.2 g/dL (3.5-5.0); ALT/SGPT 40 U/L (9-52); AMYLASE 407 U/L (30-110); AST/SGOT 58 U/L (14-36); BLOOD UREA NITROGEN 16 mg/dL (7-17); CALCIUM 8.8 mg/dl (8.6-10.4); GFR AFRICAN-AMERICAN > 60; GFR NON-AFRICAN AMERICAN > 60
[2017-08-30 09:42] LABS: LIPASE 3452 U/L (23-300)
[2017-08-30] MEDS ORDERED: Home Med 1 UNIT (Emtricitabine/Tenofovir (Tdf) [Truvada 100 Mg-150 Mg Tablet] 1 EACH) PO SCH (10:00)
[2017-08-30] MEDS ORDERED: Emtricitabine-Tenofovir 200 mg-300 mg Tab PO SCH (10:00)
[2017-08-30] MEDS: Enoxaparin 40 mg Syringe SC SCH (10:47)
[2017-08-30] MEDS: Morphine 4 MG/ML VIAL IVP PRN ×2 (12:35→21:49)
--- NOTE | 2017-08-30 13:03 | CP.PCM.CON ---
<Claudia Randle - Last Filed: 08/30/17 13:06> History of Present Illness - History of Present Illness History of Present Illness: PGY4 GI Fellow Consult Note Patient is a 51yo female with PMHx significant for HIV on Truvada, HCV with undetectable viral load, PUD, IBS, COPD, anxiety, depression with numerous previous suicide attempts, polysubstance abuse history and drug seeking behavior who presented to the ED with abdominal pain. The patient has been seen in the ED for this complaint a number of times, she reports diffuse, cramping abdominal pain 04/21, stabbing/cramping discomfort lasting for about an hour and resolving spontaneously. On prior visits pt was found to have gallstones and had a cholecystectomy 05/2017. Denies any melena, hematochezia, fever, chills. Pt reports he would like to eat regular food today. ROS: A 12pt ROS was negative except as above PMHx: See HPI PSHx: Tubal ligation, IVC filter placement FHx: Mother - Heroin use Social: H/O polypsubstance abuse - cocaine, PCP, current cannabis use, daily xanax use; 1ppd tobacco use; denies EtOH use Endo: Reports EGD at [facility] 12 months [employer]; EGD/colonoscopy 06/2015 *Primary GI is Dr Jeronimo at [facility] Past Patient History - Infectious Disease Hx of Infectious Diseases: None - Past Medical History & Family History Past Medical History?: Yes - Past Social History Smoking Status: Light Smoker < 10 Cigarettes Daily - CARDIAC Hx Hypertension: Yes - PULMONARY Hx Chronic Obstructive Pulmonary Disease (COPD): Yes - NEUROLOGICAL Hx Migraine: Yes - HEENT Hx HEENT Problems: No - RENAL Hx Chronic Kidney Disease: No - ENDOCRINE/METABOLIC Hx Endocrine Disorders: No - HEMATOLOGICAL/ONCOLOGICAL Hx Anemia: Yes Hx Human Immunodeficiency Virus (HIV): Yes - INTEGUMENTARY Hx Dermatological Problems: No - MUSCULOSKELETAL/RHEUMATOLOGICAL Hx Falls: No Hx Fractures: Yes (2009 Left hip, pelvis, leg) - GASTROINTESTINAL Hx Gastritis: Yes Hx Pancreatitis: Yes - GENITOURINARY/GYNECOLOGICAL Hx Sexually Transmitted Disorders: No - PSYCHIATRIC Hx Anxiety: Yes Hx Bipolar Disorder: Yes Hx Depression: Yes Hx Substance Use: Yes - SURGICAL HISTORY Hx Cholecystectomy: Yes - ANESTHESIA Hx Anesthesia: Yes Hx Anesthesia Reactions: No Hx Malignant Hyperthermia: No Meds Allergies/Adverse Reactions: Allergies Allergy/AdvReac Type Severity Reaction Status Date / Time No Known Allergies Allergy Verified 08/29/17 15:14 - Medications Medications: Current Medications Enoxaparin Sodium (Lovenox) 40 mg SC DAILY [facility] Last Admin: 08/30/17 10:47 Dose: 40 mg Sodium Chloride (Sodium Chloride 0.9%) 1,000 mls @ 100 mls/hr IV .Q10H [facility] Last Admin: 08/30/17 10:48 Dose: 100 mls/hr Ketorolac Tromethamine (Toradol) 30 mg IVP Q4 PRN PRN Reason: Pain, moderate (4-7) Last Admin: 08/30/17 10:46 Dose: 30 mg Lorazepam (Ativan) 1 mg IVP Q8H PRN PRN Reason: Anxiety Last Admin: 08/30/17 12:36 Dose: 1 mg Morphine Sulfate (Morphine) 2 mg IVP Q8 PRN PRN Reason: Pain, severe (8-10) Last Admin: 08/30/17 12:35 Dose: 2 mg Ondansetron HCl (Zofran Inj) 4 mg IVP Q8 PRN PRN Reason: Nausea/Vomiting Pantoprazole Sodium (Protonix Inj) 40 mg IVP DAILY [facility] Last Admin: 08/30/17 10:46 Dose: 40 mg Physical Exam - Constitutional Appears: Non-toxic, No Acute Distress - Head Exam Head Exam: ATRAUMATIC, NORMAL INSPECTION, NORMOCEPHALIC - Eye Exam Eye Exam: EOMI, Normal appearance - ENT Exam ENT Exam: Mucous Membranes Moist, Normal Exam - Neck Exam Neck exam: Positive for: Normal Inspection - Respiratory Exam Respiratory Exam: Clear to Auscultation Bilateral, NORMAL BREATHING PATTERN - Cardiovascular Exam Cardiovascular Exam: REGULAR RHYTHM - GI/Abdominal Exam GI & Abdominal Exam: Normal Bowel Sounds, Soft, Tenderness. absent: Distended, Firm, Organomegaly - Extremities Exam Extremities exam: Positive for: full ROM, normal inspection - Neurological Exam Neurological exam: Alert, Oriented x3 - Psychiatric Exam Psychiatric exam: Anxious - Skin Skin Exam: Cyanosis, Dry, Intact, Normal Color, Warm Results - Vital Signs Recent Vital Signs: Last Vital Signs Temp 97.5 F L 08/30/17 08:34 Pulse 84 08/30/17 08:34 Resp 20 08/30/17 08:34 BP 137/89 08/30/17 08:34 Pulse Ox 100 08/30/17 08:34 - Labs Result Diagrams: 08/30/17 08:34 08/30/17 08:34 Labs: Laboratory Results - last 24 hr 08/29/17 08/29/17 08/30/17 16:00 16:00 08:34 WBC 7.0 4.4 L RBC 4.68 4.11 Hgb 12.0 D 10.7 L Hct 38.0 33.3 L MCV 81.2 80.9 L MCH 25.6 L 25.9 L MCHC 31.6 L 32.0 L RDW 22.1 H 21.1 H Plt Count 363 336 MPV 8.3 8.4 Neut % (Auto) 64.5 52.0 Lymph % (Auto) 26.1 33.2 [place] % (Auto) 7.5 10.7 H Eos % (Auto) 0.8 3.4 Baso % (Auto) 1.1 0.7 Neut # (Auto) 4.5 2.3 Lymph # (Auto) 1.8 1.5 [place] # (Auto) 0.5 0.5 Eos # (Auto) 0.1 0.2 Baso # (Auto) 0.1 0.0 Sodium 139 Potassium 3.3 L Chloride 96 L Carbon Dioxide 29 Anion Gap 17 BUN 15 Creatinine 0.8 Est GFR ( Amer) > 60 Est GFR (Non-Af Amer) > 60 Random Glucose 93 Calcium 10.4 Total Bilirubin 0.6 AST 50 H D ALT 26 Alkaline Phosphatase 87 Total Protein 9.4 H Albumin 4.9 Globulin 4.5 H Albumin/Globulin Ratio 1.1 Amylase 141 H Lipase 578 H 08/30/17 08:34 WBC RBC Hgb Hct MCV MCH MCHC RDW Plt Count MPV Neut % (Auto) Lymph % (Auto) [place] % (Auto) Eos % (Auto) Baso % (Auto) Neut # (Auto) Lymph # (Auto) [place] # (Auto) Eos # (Auto) Baso # (Auto) Sodium 139 Potassium 3.1 L Chloride 101 Carbon Dioxide 25 Anion Gap 16 BUN 16 Creatinine 0.7 Est GFR ( Amer) > 60 Est GFR (Non-Af Amer) > 60 Random Glucose 92 Calcium 8.8 Total Bilirubin 0.3 AST 58 H ALT 40 Alkaline Phosphatase 127 H D Total Protein 8.0 Albumin 4.2 Globulin 3.8 Albumin/Globulin Ratio 1.1 Amylase 407 H D Lipase 3452 H Assessment & Plan - Assessment and Plan (Free Text) Assessment: 51 year old female with pmhx of HIV, HCV, Cholelithiasis s/p cholecystectomy, PUD, IBS, COPD, anxiety/depression admitted with abdominal pain. 1. Abdominal pain 2. IBS 3. History of PUD Plan: -Continue supportive care with anti-emetics, avoid narcotics with hx of drug seeking behavior -labs and CT reviewed with no evidence of pancreatitis on CT, lipase mildly elevated -s/p cholecystectomy -protonix 40 mg daily -IVF hydration -advance diet as tolerated -Please call with any questions or concerns <Kris Pardo - Last Filed: 08/30/17 14:38> Meds - Medications Medications: Current Medications Enoxaparin Sodium (Lovenox) 40 mg SC DAILY [facility] Last Admin: 08/30/17 10:47 Dose: 40 mg Sodium Chloride (Sodium Chloride 0.9%) 1,000 mls @ 100 mls/hr IV .Q10H [facility] Last Admin: 08/30/17 13:05 Dose: Not Given Ketorolac Tromethamine (Toradol) 30 mg IVP Q4 PRN PRN Reason: Pain, moderate (4-7) Last Admin: 08/30/17 10:46 Dose: 30 mg Lorazepam (Ativan) 1 mg IVP Q8H PRN PRN Reason: Anxiety Last Admin: 08/30/17 12:36 Dose: 1 mg Morphine Sulfate (Morphine) 2 mg IVP Q8 PRN PRN Reason: Pain, severe (8-10) Last Admin: 08/30/17 12:35 Dose: 2 mg Ondansetron HCl (Zofran Inj) 4 mg IVP Q8 PRN PRN Reason: Nausea/Vomiting Pantoprazole Sodium (Protonix Inj) 40 mg IVP DAILY [facility] Last Admin: 08/30/17 10:46 Dose: 40 mg Results - Vital Signs Recent Vital Signs: Last Vital Signs Temp 97.5 F L 08/30/17 08:34 Pulse 84 08/30/17 08:34 Resp 20 08/30/17 08:34 BP 137/89 08/30/17 08:34 Pulse Ox 100 08/30/17 08:34 - Labs Result Diagrams: 08/30/17 08:34 08/30/17 08:34 Labs: Laboratory Results - last 24 hr 08/29/17 08/29/17 08/30/17 16:00 16:00 08:34 WBC 7.0 4.4 L RBC 4.68 4.11 Hgb 12.0 D 10.7 L Hct 38.0 33.3 L MCV 81.2 80.9 L MCH 25.6 L 25.9 L MCHC 31.6 L 32.0 L RDW 22.1 H 21.1 H Plt Count 363 336 MPV 8.3 8.4 Neut % (Auto) 64.5 52.0 Lymph % (Auto) 26.1 33.2 [place] % (Auto) 7.5 10.7 H Eos % (Auto) 0.8 3.4 Baso % (Auto) 1.1 0.7 Neut # (Auto) 4.5 2.3 Lymph # (Auto) 1.8 1.5 [place] # (Auto) 0.5 0.5 Eos # (Auto) 0.1 0.2 Baso # (Auto) 0.1 0.0 Sodium 139 Potassium 3.3 L Chloride 96 L Carbon Dioxide 29 Anion Gap 17 BUN 15 Creatinine 0.8 Est GFR ( Amer) > 60 Est GFR (Non-Af Amer) > 60 Random Glucose 93 Calcium 10.4 Total Bilirubin 0.6 AST 50 H D ALT 26 Alkaline Phosphatase 87 Total Protein 9.4 H Albumin 4.9 Globulin 4.5 H Albumin/Globulin Ratio 1.1 Amylase 141 H Lipase 578 H 08/30/17 08:34 WBC RBC Hgb Hct MCV MCH MCHC RDW Plt Count MPV Neut % (Auto) Lymph % (Auto) [place] % (Auto) Eos % (Auto) Baso % (Auto) Neut # (Auto) Lymph # (Auto) [place] # (Auto) Eos # (Auto) Baso # (Auto) Sodium 139 Potassium 3.1 L Chloride 101 Carbon Dioxide 25 Anion Gap 16 BUN 16 Creatinine 0.7 Est GFR ( Amer) > 60 Est GFR (Non-Af Amer) > 60 Random Glucose 92 Calcium 8.8 Total Bilirubin 0.3 AST 58 H ALT 40 Alkaline Phosphatase 127 H D Total Protein 8.0 Albumin 4.2 Globulin 3.8 Albumin/Globulin Ratio 1.1 Amylase 407 H D Lipase 3452 H Attending/Attestation - Attestation I have personally seen and examined this patient.: Yes I have fully participated in the care of the patient.: Yes I have reviewed all pertinent clinical information: Yes Notes (Text): 08/30/17 14:37 51 year old female with h/o HIV, HCV, PUD, IBS, COPD admitted with abdominal pain. 1. Abdominal pain 2. Irritable bowel syndrome Plan: -patient doesn't really meet criteria for acute pancreatitis -in addition, she has demonstrated some drug seeking behavior -would avoid narcotics -labs/CT otherwise unremarkable -diet as tolerated -continue daily PPI will sign off
--- NOTE | 2017-08-30 13:47 | CP.PCM.PN ---
Subjective - Date & Time of Evaluation Date of Evaluation: 08/30/17 Time of Evaluation: 09:20 - Subjective Subjective: clinically same Objective - Vital Signs/Intake and Output Vital Signs (last 24 hours): Temp Pulse Resp BP Pulse Ox 97.5 F L 84 20 137/89 100 08/30/17 08:34 08/30/17 08:34 08/30/17 08:34 08/30/17 08:34 08/30/17 08:34 Intake and Output: 08/30/17 08/30/17 06:59 18:59 Intake Total 500 Balance 500 - Medications Medications: Current Medications Enoxaparin Sodium (Lovenox) 40 mg SC DAILY [facility] Last Admin: 08/30/17 10:47 Dose: 40 mg Sodium Chloride (Sodium Chloride 0.9%) 1,000 mls @ 100 mls/hr IV .Q10H [facility] Last Admin: 08/30/17 13:05 Dose: Not Given Ketorolac Tromethamine (Toradol) 30 mg IVP Q4 PRN PRN Reason: Pain, moderate (4-7) Last Admin: 08/30/17 10:46 Dose: 30 mg Lorazepam (Ativan) 1 mg IVP Q8H PRN PRN Reason: Anxiety Last Admin: 08/30/17 12:36 Dose: 1 mg Morphine Sulfate (Morphine) 2 mg IVP Q8 PRN PRN Reason: Pain, severe (8-10) Last Admin: 08/30/17 12:35 Dose: 2 mg Ondansetron HCl (Zofran Inj) 4 mg IVP Q8 PRN PRN Reason: Nausea/Vomiting Pantoprazole Sodium (Protonix Inj) 40 mg IVP DAILY [facility] Last Admin: 08/30/17 10:46 Dose: 40 mg - Labs Labs: 08/30/17 08:34 08/30/17 08:34 - Constitutional Appears: Well - Head Exam Head Exam: ATRAUMATIC, NORMAL INSPECTION, NORMOCEPHALIC - Eye Exam Eye Exam: EOMI, Normal appearance, PERRL Pupil Exam: NORMAL ACCOMODATION, PERRL - ENT Exam ENT Exam: Mucous Membranes Moist, Normal Exam - Neck Exam Neck Exam: Full ROM, Normal Inspection. absent: Lymphadenopathy - Respiratory Exam Respiratory Exam: Decreased Breath Sounds - Cardiovascular Exam Cardiovascular Exam: REGULAR RHYTHM, +S1, +S2 - GI/Abdominal Exam GI & Abdominal Exam: Soft, Diminished Bowel Sounds - Rectal Exam Rectal Exam: Deferred
[2017-08-30] MEDS: Potassium Chloride 20 mEq ER Tab PO SCH ×2 (19:19→21:48)
[2017-08-31] MEDS: Sodium Chloride 0.9% 1,000 ML IV SCH ×2 (04:35→11:13)
[2017-08-31 08:38] VITALS: BP 134/77; PULSE 98; TEMP 97.4; O2SAT 97
[2017-08-31] MEDS: Morphine 4 MG/ML VIAL IVP PRN (09:01)
--- NOTE | 2017-08-31 11:21 | CP.PCM.PN ---
Subjective - Date & Time of Evaluation Date of Evaluation: 08/31/17 Time of Evaluation: 11:00 - Subjective Subjective: PROGRESS NOTE. Attending: DR ALFARO Pt seen and examined at bedside. Pt asking for xanax. Psych consulted. No fevers, chills, vomiting, some diarrhea. Some minimal pain. Objective - Vital Signs/Intake and Output Vital Signs (last 24 hours): Temp Pulse Resp BP Pulse Ox 97.4 F L 98 H 20 134/77 97 08/31/17 08:37 08/31/17 08:37 08/31/17 08:37 08/31/17 08:37 08/31/17 08:37 Intake and Output: 08/31/17 08/31/17 06:59 18:59 Intake Total 1650 Balance 1650 - Medications Medications: Current Medications Enoxaparin Sodium (Lovenox) 40 mg SC DAILY [facility] Last Admin: 08/30/17 10:47 Dose: 40 mg Sodium Chloride (Sodium Chloride 0.9%) 1,000 mls @ 100 mls/hr IV .Q10H [facility] Last Admin: 08/31/17 11:13 Dose: Not Given Ketorolac Tromethamine (Toradol) 30 mg IVP Q4 PRN PRN Reason: Pain, moderate (4-7) Last Admin: 08/31/17 11:12 Dose: 30 mg Lactulose (Enulose) 20 gm PO Q8H PRN PRN Reason: Constipation Last Admin: 08/30/17 17:48 Dose: 20 gm Lorazepam (Ativan) 1 mg IVP Q8H PRN PRN Reason: Anxiety Last Admin: 08/31/17 06:41 Dose: 1 mg Morphine Sulfate (Morphine) 2 mg IVP Q8 PRN PRN Reason: Pain, severe (8-10) Last Admin: 08/31/17 09:01 Dose: 2 mg Ondansetron HCl (Zofran Inj) 4 mg IVP Q8 PRN PRN Reason: Nausea/Vomiting Last Admin: 08/30/17 19:19 Dose: 4 mg Pantoprazole Sodium (Protonix Inj) 40 mg IVP DAILY [facility] Last Admin: 08/31/17 11:12 Dose: 40 mg - Labs Labs: 08/30/17 08:34 08/30/17 08:34 - Constitutional Appears: Non-toxic, No Acute Distress - Head Exam Head Exam: ATRAUMATIC, NORMAL INSPECTION, NORMOCEPHALIC - Eye Exam Eye Exam: EOMI - ENT Exam ENT Exam: Mucous Membranes Moist - Neck Exam Neck Exam: Full ROM, Normal Inspection - Respiratory Exam Respiratory Exam: NORMAL BREATHING PATTERN - Cardiovascular Exam Cardiovascular Exam: +S1, +S2 - GI/Abdominal Exam GI & Abdominal Exam: Soft, Normal Bowel Sounds. absent: Tenderness - Extremities Exam Extremities Exam: Full ROM, Normal Inspection - Neurological Exam Neurological Exam: Alert, Awake, Oriented x3 - Psychiatric Exam Psychiatric exam: Flat Affect - Skin Skin Exam: Dry, Intact, Normal Color, Warm Assessment and Plan - Assessment and Plan (Free Text) Assessment: This is a 51 yo female with 1. Abdominal pain -does not meet criteria for acute pancreatitis -GI consult. recs appreciated. -toradol for pain -morphine for pain -continue zofran for nausea -IV NS -imaging does not show acute panc. 2. Xanax addiction -psych consult. recs appreciated. -avoid narcotics if possible 3. hx of HIV -continue to monitor 4. hx of hep C -continue to monitor -GI consult. recs appreciated 5. hx of anxiety/depression -psych consult. recs appreciated. 3. GI/DVT ppx -continue lovenox -continue protonix discussed with DR. Alfaro
[2017-08-31] MEDS ORDERED: Enoxaparin 60 mg Syringe SC SCH (11:30)
[2017-08-31] MEDS: Enoxaparin 40 mg Syringe SC SCH (12:24)
--- NOTE | 2017-08-31 17:11 | CP.PCM.PN ---
Subjective - Date & Time of Evaluation Date of Evaluation: 08/31/17 Time of Evaluation: 09:20 - Subjective Subjective: clinically same Objective - Vital Signs/Intake and Output Vital Signs (last 24 hours): Temp Pulse Resp BP Pulse Ox 97.4 F L 98 H 20 134/77 97 08/31/17 08:37 08/31/17 08:37 08/31/17 08:37 08/31/17 08:37 08/31/17 08:37 Intake and Output: 08/31/17 08/31/17 06:59 18:59 Intake Total 1650 500 Balance 1650 500 - Medications Medications: Current Medications Enoxaparin Sodium (Lovenox) 40 mg SC DAILY [facility] Last Admin: 08/31/17 12:02 Dose: 40 mg Sodium Chloride (Sodium Chloride 0.9%) 1,000 mls @ 100 mls/hr IV .Q10H [facility] Last Admin: 08/31/17 11:13 Dose: Not Given Ketorolac Tromethamine (Toradol) 30 mg IVP Q4 PRN PRN Reason: Pain, moderate (4-7) Last Admin: 08/31/17 11:12 Dose: 30 mg Lactulose (Enulose) 20 gm PO Q8H PRN PRN Reason: Constipation Last Admin: 08/30/17 17:48 Dose: 20 gm Lorazepam (Ativan) 1 mg IVP Q8H PRN PRN Reason: Anxiety Last Admin: 08/31/17 16:22 Dose: 1 mg Morphine Sulfate (Morphine) 2 mg IVP Q8 PRN PRN Reason: Pain, severe (8-10) Last Admin: 08/31/17 09:01 Dose: 2 mg Ondansetron HCl (Zofran Inj) 4 mg IVP Q8 PRN PRN Reason: Nausea/Vomiting Last Admin: 08/30/17 19:19 Dose: 4 mg Pantoprazole Sodium (Protonix Inj) 40 mg IVP DAILY [facility] Last Admin: 08/31/17 11:12 Dose: 40 mg - Labs Labs: 08/30/17 08:34 08/30/17 08:34 - Constitutional Appears: Well - Head Exam Head Exam: ATRAUMATIC, NORMAL INSPECTION, NORMOCEPHALIC - Eye Exam Eye Exam: EOMI, Normal appearance, PERRL Pupil Exam: NORMAL ACCOMODATION, PERRL - ENT Exam ENT Exam: Mucous Membranes Moist, Normal Exam - Neck Exam Neck Exam: Full ROM, Normal Inspection. absent: Lymphadenopathy - Respiratory Exam Respiratory Exam: Decreased Breath Sounds - Cardiovascular Exam Cardiovascular Exam: REGULAR RHYTHM, +S1, +S2 - GI/Abdominal Exam GI & Abdominal Exam: Soft, Diminished Bowel Sounds - Rectal Exam Rectal Exam: Deferred
--- NOTE | 2017-08-31 18:12 | CP.PCM.PN ---
Subjective - Date & Time of Evaluation Date of Evaluation: 08/31/17 Time of Evaluation: 18:12 - Subjective Subjective: Alert, ambulating, no acute pain, NAD. Objective - Vital Signs/Intake and Output Vital Signs (last 24 hours): Temp Pulse Resp BP Pulse Ox 97.4 F L 98 H 20 134/77 97 08/31/17 08:37 08/31/17 08:37 08/31/17 08:37 08/31/17 08:37 08/31/17 08:37 Intake and Output: 08/31/17 08/31/17 06:59 18:59 Intake Total 1650 500 Balance 1650 500 - Labs Labs: 08/30/17 08:34 08/30/17 08:34 Assessment and Plan - Assessment and Plan (Free Text) Assessment: Patient admitted with pancreatitis, alert, oriented, able to tolerate diet now. Patient demanding to be discharged today. Discussed with DR Nancy Boles, plan to discharge home today. Advised to follow up with PMD as needed.
[2017-09-01] MEDS ORDERED: Enoxaparin 40 mg Syringe SC SCH (10:00)
== END 2017-08-31 17:43 | disposition home or self-care (01) | DRG 391 ==
LOC: C.ER 14:56 → C.9E 17:26 → C.3T 08-30 01:53
PROVIDERS: ADMIT Internal Medicine Nephrology; ATTEND Internal Medicine Nephrology
DX: R10.9 Unspecified abdominal pain (principal); F13.20 Sedative, hypnotic or anxiolytic dependence, uncomplicated; B20 Human immunodeficiency virus [HIV] disease; G89.29 Other chronic pain; K58.9 Irritable bowel syndrome, unspecified; F12.90 Cannabis use, unspecified, uncomplicated; I10 Essential (primary) hypertension; J44.9 Chronic obstructive pulmonary disease, unspecified; F31.9 Bipolar disorder, unspecified; F41.9 Anxiety disorder, unspecified; F60.9 Personality disorder, unspecified; F17.210 Nicotine dependence, cigarettes, uncomplicated; Z76.5 Malingerer [conscious simulation]; Z87.11 Personal history of peptic ulcer disease; Z90.49 Acquired absence of other specified parts of digestive tract; Z91.5 Personal history of self-harm

== ENCOUNTER 2017-09-15 01:04 | Inpatient (IN) | payer BC ==
[2017-09-15 01:26] VITALS: BMI 19.7
[2017-09-15] MEDS ORDERED: Dextrose 50% VIAL Inj (50 ml) IV ONE ×3 (01:27→04:20)
[2017-09-15] MEDS ORDERED: Iodixanol 320 mg/ml 150 ml Bottle IV ONE (01:37)
[2017-09-15] MEDS ORDERED: Dextrose 50% SYRINGE Inj (50 ml) IV STA ×3 (01:40→07:36)
--- NOTE | 2017-09-15 01:43 | C.PDOC ---
History Of Present Illness 51 year old female brought in to the ER by family member after being found lethargic and with slurred speech since 16:00. Patient's checked up on her again at 23:00 and found her to have increased slurred speech. Patient currently complaining of a headache and dizziness; denies ETOH intake, nausea, or vomiting. Chief Complaint (Nursing): Altered Mental Status History Per: Patient, Family History/Exam Limitations: None Onset/Duration Of Symptoms: Hrs Onset Of Symptoms: Other (16:00) Current Symptoms Are (Timing): Still Present Exacerbating Factor(s): Unknown Speech Is: Slurred Recent travel outside of the [facility]: No Associated Symptoms: Headache, Other (Dizziness). denies: Fever, Chills, Chest Pain, Neck Pain, Back Pain Past Medical History Reviewed: Historical Data, Nursing Documentation, Vital Signs Vital Signs: Last Vital Signs Temp 98.4 F 09/15/17 01:26 Pulse 62 09/15/17 01:26 Resp 18 09/15/17 01:26 BP 113/53 L 09/15/17 01:26 Pulse Ox 99 09/15/17 01:42 - Medical History PMH: Anemia, Anxiety, Bipolar Disorder, COPD, Depression, Fractures (2010 Left hip, pelvis, leg), Gastritis, Gastrointestinal Ulcer, Hepatitis (C), HIV, HTN, Migraine, Pancreatitis, Personality Disorder, Chronic Pain (back pain) Surgical History: Cholecystectomy - [facility] Procedures RESECTION OF GALLBLADDER, PERCUTANEOUS ENDOSCOPIC APPROACH (06/06/17) Family History: States: Diabetes (grandmother) - Social History Hx Tobacco Use: Yes Hx Alcohol Use: Yes Hx Substance Use: Yes - Immunization History Hx Tetanus Toxoid Vaccination: Yes Hx Influenza Vaccination: Yes Hx Pneumococcal Vaccination: Yes Review Of Systems Constitutional: Negative for: Fever, Chills Cardiovascular: Negative for: Chest Pain, Palpitations Respiratory: Negative for: Shortness of Breath Gastrointestinal: Negative for: Nausea, Vomiting Genitourinary: Negative for: Dysuria, Hematuria Musculoskeletal: Negative for: Neck Pain, Shoulder Pain, Arm Pain Neurological: Positive for: Headache, Dizziness, Other (Slurred speech). Negative for: Weakness, Numbness Physical Exam - Physical Exam Appears: Other (Alert, conscious) Skin: Normal Color, Warm, Dry Head: Atraumatic, Normacephalic Eye(s): bilateral: Normal Inspection, PERRL, EOMI Oral Mucosa: Moist Neck: Normal, Supple Chest: Symmetrical, No Tenderness Cardiovascular: Rhythm Regular Respiratory: Normal Breath Sounds, No Rales, No Rhonchi, No Wheezing Gastrointestinal/Abdominal: Soft, No Tenderness Extremity: Normal ROM (x4) Neurological/Psych: Oriented x3, Normal Speech, Normal Motor, Normal Sensation ED Course And Treatment O2 Sat by Pulse Oximetry: 99 (Room air) Pulse Ox Interpretation: Normal Progress Note: Blood work, EKG, CXR, CT head ordered. D50 administered. Disposition - Disposition Referrals: Non [facility] Provider, [Primary Care Provider] - Forms: [employer] (Spanish) - Scribe Statement The provider has reviewed the documentation as recorded by the Scribbenita Lewis All medical record entries made by the Scribe were at my direction and personally dictated by me. I have reviewed the chart and agree that the record accurately reflects my personal performance of the history, physical exam, medical decision making, and the department course for this patient. I have also personally directed, reviewed, and agree with the discharge instructions and disposition.
--- NOTE | 2017-09-15 01:44 | C.PDOC ---
History Of Present Illness 51 year old female brought in to the ER by family member after being found lethargic and with slurred speech since 16:00. Patient's checked up on her again at 23:00 and found her to have increased slurred speech. Patient currently complaining of a headache and dizziness; denies ETOH intake, nausea, or vomiting. Chief Complaint (Nursing): Altered Mental Status History Per: Patient, Family History/Exam Limitations: None Onset/Duration Of Symptoms: Hrs Onset Of Symptoms: Other (16:00) Current Symptoms Are (Timing): Still Present Exacerbating Factor(s): Unknown Speech Is: Slurred Recent travel outside of the [facility]: No Associated Symptoms: Headache, Other (Dizziness). denies: Fever, Chills, Chest Pain, Neck Pain, Back Pain, Vomiting Past Medical History Reviewed: Historical Data, Nursing Documentation, Vital Signs Vital Signs: Last Vital Signs Temp 98.4 F 09/15/17 01:26 Pulse 60 09/15/17 03:26 Resp 20 09/15/17 03:26 BP 94/61 L 09/15/17 03:26 Pulse Ox 99 09/15/17 04:33 - Medical History PMH: Anemia, Anxiety, Bipolar Disorder, COPD, Depression, Fractures (2010 Left hip, pelvis, leg), Gastritis, Gastrointestinal Ulcer, Hepatitis (C), HIV, HTN, Migraine, Pancreatitis, Personality Disorder, Chronic Pain (back pain) Surgical History: Cholecystectomy - [facility] Procedures RESECTION OF GALLBLADDER, PERCUTANEOUS ENDOSCOPIC APPROACH (06/06/17) Family History: States: Diabetes (grandmother) - Social History Hx Tobacco Use: Yes Hx Alcohol Use: Yes Hx Substance Use: Yes - Immunization History Hx Tetanus Toxoid Vaccination: Yes Hx Influenza Vaccination: Yes Hx Pneumococcal Vaccination: Yes Review Of Systems Constitutional: Negative for: Fever, Chills Cardiovascular: Negative for: Chest Pain, Palpitations Respiratory: Negative for: Shortness of Breath Gastrointestinal: Negative for: Nausea, Vomiting Genitourinary: Negative for: Dysuria, Hematuria Musculoskeletal: Negative for: Neck Pain, Shoulder Pain, Arm Pain Neurological: Positive for: Change in Speech, Headache, Dizziness Physical Exam - Physical Exam Appears: Non-toxic, No Acute Distress Skin: Normal Color, Warm, Dry Head: Atraumatic, Normacephalic Eye(s): bilateral: Normal Inspection, PERRL, EOMI Oral Mucosa: Moist Neck: Normal, Supple Chest: Symmetrical, No Tenderness Cardiovascular: Rhythm Regular Respiratory: Normal Breath Sounds, No Rales, No Rhonchi, No Wheezing Gastrointestinal/Abdominal: Soft, No Tenderness Back: No CVA Tenderness, No Vertebral Tenderness, No Paraspinal Tenderness Extremity: Normal ROM (x4) Neurological/Psych: Oriented x3, Normal Speech, Normal Motor, Normal Sensation Gait: Steady ED Course And Treatment - Laboratory Results Result Diagrams: 09/15/17 01:40 09/15/17 03:17 ECG: Interpreted By Me, Viewed By Me ECG Rhythm: Sinus Rhythm ECG Interpretation: No Acute Changes Interpretation Of ECG: Sinus rhythm, prolonged QT interval, abnormal tracings Rate From EC O2 Sat by Pulse Oximetry: 99 (Room air) Pulse Ox Interpretation: Normal - Radiology CXR: Interpreted by Me, Viewed By Me CXR Interpretation: Yes: No Acute Disease. No: Infiltrates, Cardiomegaly Progress Note: Blood work, EKG, CXR, CT head ordered. D50 administered. NIHSS Stroke Scale - Date/Time Evaluation Performed Date Performed: 09/15/17 Time Performed: 01:44 When Was NIHSS Performed: Baseline - How Severe is the Stoke Level of Consciousness: 0=Alert LOC to Questions: 0=Both comments correct LOC to commands: 0=Obeys both correctly Best Gaze: 0=Normal Visual: 0=No visual loss Facial: 0=Normal Motor Arm - Left: 0=No drift Motor Arm - Right: 0=No drift Motor Leg - Left: 0=No drift Motor Leg - Right: 0=No drift Limb Ataxia: 0=Absent Sensory: 0=Normal Best Language: 0=No aphasia Dysarthia: 0=Normal articulation (alert, conscious after iv dextrose) Extinction & Inattention (Neglect): 0=Normal, no object Score: 0 Severity Of Stroke: 0= No Stroke Disposition Discussed With : Jose Boles Counseled Patient/Family Regarding: Studies Performed, Diagnosis - Disposition Referrals: Non [facility] Provider, [Primary Care Provider] - Disposition: HOSPITALIZED Disposition Time: 04:28 Condition: STABLE Forms: [facility] ([place] Islander) - POA Present On Arrival: None - Clinical Impression Clinical Impression: Nondiabetic hypoglycemia, Multiple episodes of hypoglycemia - Scribe Statement The provider has reviewed the documentation as recorded by the Scribe Hussein Lewis All medical record entries made by the Scribe were at my direction and personally dictated by me. I have reviewed the chart and agree that the record accurately reflects my personal performance of the history, physical exam, medical decision making, and the department course for this patient. I have also personally directed, reviewed, and agree with the discharge instructions and disposition.
[2017-09-15 01:45] LABS: BASO % 0.5 % (0.0-2.0); EOS # 0.1 K/uL (0.0-0.7); EOS % 0.8 % (0.0-4.0); HEMOGLOBIN 11.3 g/dL (11.0-16.0); LYMPH # 0.9 K/uL (1.0-4.3); MEAN CELL VOLUME 80.1 fL (81.0-99.0); MEAN CORPUSCULAR HGB CONC 32.5 g/dL (33.0-37.0); MEAN PLATELET VOLUME 7.8 fL (7.2-11.7); MONO # 0.5 K/uL (0.0-0.8); MONO % 6.2 % (0.0-10.0); NEUT % 80.5 % (50.0-75.0); NRBC % 0.1 % (0.0-2.0); RBC 4.36 Mil/uL (3.80-5.20); RED CELL DISTRIBUTION WIDTH 21.2 % (11.5-14.5); WHITE BLOOD COUNT 7.5 K/uL (4.8-10.8)
[2017-09-15] MEDS ORDERED: Dextrose 50% SYRINGE Inj (50 ml) IVP STA ×2 (02:22→08:12)
[2017-09-15] MEDS ORDERED: Dextrose 5%/0.9% NS 1,000 ML IV ONE ×3 (02:23→11:30)
--- NOTE | 2017-09-15 02:34 | CT ---
EXAM: CT Head Without Intravenous Contrast EXAM DATE/TIME: 09/15/2017 1:26 AM CLINICAL HISTORY: 51 years old, female; Pain; Headache and other: Possible overdose; Additional info: Code stroke TECHNIQUE: Axial computed tomography images of the head/brain without intravenous contrast. All CT scans at this facility use one or more dose reduction techniques, viz.: automated exposure control; ma/kV adjustment per patient size (including targeted exams where dose is matched to indication; i.e. head); or iterative reconstruction technique. Coronal and sagittal reformatted images were created and reviewed. COMPARISON: No relevant prior studies available. FINDINGS: BRAIN: Focal areas of low density in the basal ganglia bilaterally, most compatible with old/chronic lacunar infarcts. Areas of low density in the periventricular white matter bilaterally, most likely representing mild chronic small vessel ischemic changes. No significant acute abnormality identified. No acute hemorrhage seen within the brain. No acute extra-axial fluid collections visualized. No evidence of significant mass effect within the brain. No CT findings to suggest an acute, large territorial infarct, however, small or early acute infarcts may not be visible on CT. VENTRICLES: No evidence of significant hydrocephalus. BONES/JOINTS: No acute fractures or other acute bony abnormality noted. SOFT TISSUES: No acute abnormality of the visualized soft tissues is seen. SINUSES: Visualized paranasal sinuses appear clear. MASTOID AIR CELLS: Mastoid air cells appear clear. IMPRESSION: - No acute findings seen within the brain. - See above for remaining findings.
[2017-09-15 02:48] LABS: PROTHROMBIN TIME 11.6 SECONDS (9.7-12.2)
--- NOTE | 2017-09-15 03:02 | CT ---
EXAM: CT Head With Intravenous Contrast CT Neck With Intravenous Contrast EXAM DATE/TIME: 09/15/2017 1:58 AM CLINICAL HISTORY: 51 years old, female; Signs and symptoms; Speech disturbance; Additional info: Slurred speech TECHNIQUE: Axial computed tomography images of the head and neck with intravenous contrast during the arterial phase of contrast enhancement. All CT scans at this facility use one or more dose reduction techniques, viz.: automated exposure control; ma/kV adjustment per patient size (including targeted exams where dose is matched to indication; i.e. head); or iterative reconstruction technique. All CT scans at this facility use one or more dose reduction techniques, viz.: automated exposure control; ma/kV adjustment per patient size (including targeted exams where dose is matched to indication; i.e. head); or iterative reconstruction technique. Coronal and sagittal reformatted images were created and reviewed. CONTRAST: 100 mL of [id number] administered intravenously. COMPARISON: Recent head CT. FINDINGS: HEAD: RIGHT ANTERIOR CEREBRAL ARTERY: No evidence of occlusion. No aneurysm visualized. RIGHT MIDDLE CEREBRAL ARTERY: No evidence of occlusion. No aneurysm visualized. RIGHT POSTERIOR CEREBRAL ARTERY: No evidence of occlusion. No aneurysm visualized. LEFT ANTERIOR CEREBRAL ARTERY: No evidence of occlusion. No aneurysm visualized. LEFT MIDDLE CEREBRAL ARTERY: No evidence of occlusion. No aneurysm visualized. 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 No evidence of occlusion. BASILAR ARTERY: Basilar artery is small in size. No evidence of occlusion. No aneurysm visualized. NECK: RIGHT COMMON CAROTID ARTERY: No evidence of occlusion or significant stenosis. No evidence of dissection. RIGHT INTERNAL CAROTID ARTERY: Small amount of calcified plaque in the right proximal internal carotid artery, causing a less than 10% stenosis. No evidence of occlusion. No evidence of aortic dissection. Negative. RIGHT EXTERNAL CAROTID ARTERY: No evidence of occlusion. RIGHT VERTEBRAL ARTERY: Right vertebral artery is not seen in the neck diffusely, below the C1-2 level. Above the C1-2 level, there is enhancement of the right vertebral artery, but the vessel is tiny/diminutive in size. LEFT COMMON CAROTID ARTERY: No evidence of occlusion or significant stenosis. No evidence of dissection. LEFT INTERNAL CAROTID ARTERY: Atherosclerotic calcification of the cavernous segment of the intracranial left internal carotid artery. No evidence of occlusion. No evidence of significant left internal carotid artery stenosis in the neck. LEFT EXTERNAL CAROTID ARTERY: No evidence of occlusion. LEFT VERTEBRAL ARTERY: No evidence of occlusion or significant stenosis. No evidence of dissection. HEAD and NECK: BONES/JOINTS: No acute bony abnormality identified. SOFT TISSUES: No acute abnormality of the visualized soft tissues seen. CAROTID STENOSIS REFERENCE USING NASCET CRITERIA: % ICA stenosis = (1 - narrowest ICA diameter/diameter of distal cervical ICA) x 100. Mild - <50% stenosis. Moderate - 50-69% stenosis. Severe - 70-94% stenosis. Near occlusion - 95-99% stenosis. Occluded - 100% stenosis. IMPRESSION: - Absent enhancement of the right vertebral artery diffusely in the neck, below the C1-2 level. This could could be due to congenital aplasia/hypoplasia versus chronic diffuse occlusion. There is enhancement of the distal right vertebral artery, above the C1-2 level, although this vessel is tiny in size. - Findings compatible with a mild (less than 50%) stenosis of the right internal carotid artery. - No evidence of occlusion of the major intracranial arteries. - See above for remaining findings.
[2017-09-15 03:03] LABS: HDL CHOLESTEROL 42 mg/dL (30-70); LIPASE 157 U/L (23-300)
[2017-09-15 03:11] LABS: ALB/GLOB RATIO 1.3 (1.0-2.1); ALBUMIN 3.9 g/dL (3.5-5.0); ALT/SGPT 45 U/L (9-52); AST/SGOT 33 U/L (14-36); BLOOD UREA NITROGEN 22 mg/dL (7-17); CALCIUM 8.4 mg/dl (8.6-10.4); GFR AFRICAN-AMERICAN > 60; GFR NON-AFRICAN AMERICAN > 60
[2017-09-15 03:13] LABS: LDL CHOLESTEROL 46 mg/dL (0-129)
[2017-09-15 04:29] LABS: SQUAMOUS EPITHIAL 5 /hpf (0-5); URINE BILIRUBIN NEGATIVE (NEGATIVE); URINE BLOOD NEGATIVE (NEGATIVE); URINE CLARITY Hazy (Clear); URINE COLOR Yellow (YELLOW); URINE GLUCOSE (UA) 2+ mg/dL (Normal); URINE LEUKOCYTE ESTERASE NEG Leu/uL (Negative); URINE PROTEIN NEGATIVE (NEGATIVE); URINE UROBILINOGEN NORMAL mg/dL (0.2-1.0)
[2017-09-15] MEDS ORDERED: ASPIRIN PO SCH ×2 (06:00→12:00)
[2017-09-15] MEDS ORDERED: [UNRECOGNIZED DRUG - OTHER] PO SCH ×2 (06:00→12:00)
[2017-09-15] MEDS ORDERED: CAFFEINE PO SCH ×2 (06:00→12:00)
[2017-09-15] MEDS ORDERED: ACETAMINOPHEN PO SCH ×2 (06:00→12:00)
--- NOTE | 2017-09-15 08:17 | RAD ---
HISTORY: Code Stroke COMPARISON: 06/09/2017. FINDINGS: LUNGS: The lungs are well inflated and clear. PLEURA: No significant pleural effusion identified, no pneumothorax apparent. CARDIOVASCULAR: Normal. OSSEOUS STRUCTURES: No significant abnormalities. VISUALIZED UPPER ABDOMEN: Normal. OTHER FINDINGS: None. IMPRESSION: No active pulmonary disease.
[2017-09-15] MEDS ORDERED: HYDROmorphone 1 mg/ml ISec IVP STA (09:16)
[2017-09-15] MEDS ORDERED: HYDROmorphone 1 mg/ml ISec ONE (09:22)
[2017-09-15] MEDS ORDERED: Glucagon Recombinant 1 mg Inj IV STA (09:31)
[2017-09-15] MEDS ORDERED: Home Med 1 UNIT (Emtricitabine/Tenofovir (Tdf) [Truvada 100 Mg-150 Mg Tablet] 1 EACH) PO SCH ×2 (10:00)
[2017-09-15] MEDS: Pantoprazole 40 mg EC Tab PO SCH (11:06)
[2017-09-15] MEDS: Enoxaparin 40 mg Syringe SC SCH (11:10)
[2017-09-15] MEDS: Emtricitabine-Tenofovir 200 mg-300 mg Tab PO SCH (11:10)
--- NOTE | 2017-09-15 14:24 | CP.PCM.CON ---
History of Present Illness - History of Present Illness History of Present Illness: 51 y/o female with pmx of multiple suicide ideation presents to [facility] found to be drowsy and hypoglycemic. Patient stated that she took her 's diabetic medications. Patient denies any abdominal pain, denies any chest pain , denies any blurri vision. Past Patient History - Infectious Disease Hx of Infectious Diseases: None - Past Medical History & Family History Past Medical History?: Yes - Past Social History Smoking Status: Light Smoker < 10 Cigarettes Daily - CARDIAC Hx Hypertension: No - PULMONARY Hx Chronic Obstructive Pulmonary Disease (COPD): Yes - NEUROLOGICAL Hx Migraine: Yes - HEENT Hx HEENT Problems: No - RENAL Hx Chronic Kidney Disease: No - ENDOCRINE/METABOLIC Hx Endocrine Disorders: No - HEMATOLOGICAL/ONCOLOGICAL Hx Anemia: Yes Hx Hepatitis C: Yes Hx Human Immunodeficiency Virus (HIV): Yes - INTEGUMENTARY Hx Dermatological Problems: No - MUSCULOSKELETAL/RHEUMATOLOGICAL Hx Falls: Yes Hx Fractures: Yes (2009 Left hip, pelvis, leg) - GASTROINTESTINAL Hx Gastritis: Yes Hx Pancreatitis: Yes - GENITOURINARY/GYNECOLOGICAL Hx Sexually Transmitted Disorders: No - PSYCHIATRIC Hx Anxiety: Yes Hx Bipolar Disorder: Yes Hx Depression: Yes Hx Substance Use: Yes - SURGICAL HISTORY Hx Cholecystectomy: Yes - ANESTHESIA Hx Anesthesia: Yes Hx Anesthesia Reactions: No Hx Malignant Hyperthermia: No Has any member of the family had a problem w/ anesthesia?: No Meds Allergies/Adverse Reactions: Allergies Allergy/AdvReac Type Severity Reaction Status Date / Time No Known Allergies Allergy Verified 09/15/17 01:25 - Medications Medications: Current Medications Alprazolam (Xanax) 2 mg PO Q12 [facility] Last Admin: 09/15/17 10:37 Dose: 2 mg Aspirin (Ecotrin) 81 mg PO DAILY [facility] Last Admin: 09/15/17 11:00 Dose: 81 mg Emtricitabine/Tenofovir (Truvada 200 Mg-300 Mg) 1 tab PO DAILY [facility] PRN Reason: Protocol Last Admin: 09/15/17 11:10 Dose: 1 tab Enoxaparin Sodium (Lovenox) 40 mg SC DAILY [facility] Last Admin: 09/15/17 11:10 Dose: 40 mg Fosamprenavir Calcium (Lexiva) 1,400 mg PO Q12 [facility] PRN Reason: Protocol Last Admin: 09/15/17 11:02 Dose: 1,400 mg Hydrocortisone Sodium Succinate (Solu-Cortef) 100 mg IV Q8H [facility] Last Admin: 09/15/17 13:15 Dose: 100 mg Dextrose (Dextrose 10% In Water) 1,000 mls @ 50 mls/hr IV .Q20H ONE Stop: 09/15/17 23:45 Last Admin: 09/15/17 03:51 Dose: 50 mls/hr Dextrose/Sodium Chloride (Dextrose 5%/0.9% Ns 1000 Ml) 1,000 mls @ 150 mls/hr IV .Q6H40M ONE Stop: 09/15/17 18:09 Last Admin: 09/15/17 11:35 Dose: 150 mls/hr Ketorolac Tromethamine (Toradol) 30 mg IM Q8 PRN PRN Reason: Pain, Mild (1-3) Last Admin: 09/15/17 13:27 Dose: 30 mg Octreotide Acetate (Sandostatin) 100 mcg IV Q6H [facility] Last Admin: 09/15/17 12:31 Dose: 100 mcg Pantoprazole Sodium (Protonix Ec Tab) 40 mg PO DAILY [facility] Last Admin: 09/15/17 11:06 Dose: 40 mg Physical Exam - Head Exam Head Exam: ATRAUMATIC, NORMAL INSPECTION, NORMOCEPHALIC - Eye Exam Eye Exam: EOMI - ENT Exam ENT Exam: Mucous Membranes Moist - Neck Exam Neck exam: Positive for: Normal Inspection - Respiratory Exam Respiratory Exam: Clear to Auscultation Bilateral, NORMAL BREATHING PATTERN - Cardiovascular Exam Cardiovascular Exam: REGULAR RHYTHM, +S1, +S2 - GI/Abdominal Exam GI & Abdominal Exam: Normal Bowel Sounds - Extremities Exam Extremities exam: Positive for: normal inspection Results - Vital Signs Recent Vital Signs: Last Vital Signs Temp 98 F 09/15/17 06:43 Pulse 105 H 09/15/17 09:39 Resp 18 09/15/17 09:39 BP 136/91 H 09/15/17 09:39 Pulse Ox 100 09/15/17 09:39 - Labs Result Diagrams: 09/15/17 01:40 09/15/17 03:17 Labs: Laboratory Results - last 24 hr 09/15/17 09/15/17 09/15/17 01:22 01:26 01:40 WBC 7.5 D RBC 4.36 Hgb 11.3 Hct 34.9 MCV 80.1 L MCH 26.0 L MCHC 32.5 L RDW 21.2 H Plt Count 286 MPV 7.8 Neut % (Auto) 80.5 H Lymph % (Auto) 12.0 L [place] % (Auto) 6.2 Eos % (Auto) 0.8 Baso % (Auto) 0.5 Neut # (Auto) 6.0 Lymph # (Auto) 0.9 L [place] # (Auto) 0.5 Eos # (Auto) 0.1 Baso # (Auto) 0.0 PT INR APTT Sodium Potassium Chloride Carbon Dioxide Anion Gap BUN Creatinine Est GFR ( Amer) Est GFR (Non-Af Amer) POC Glucose (mg/dL) < 20 L* < 20 L* Random Glucose Hemoglobin A1c Calcium Total Bilirubin AST ALT Alkaline Phosphatase Troponin I Total Protein Albumin Globulin Albumin/Globulin Ratio Triglycerides Cholesterol LDL Cholesterol Direct HDL Cholesterol Lipase Urine Color Urine Clarity Urine pH Ur Specific [place] Urine Protein Urine Glucose (UA) Urine Ketones Urine Blood Urine Nitrate Urine Bilirubin Urine Urobilinogen Ur Leukocyte Esterase Urine WBC (Auto) Urine RBC (Auto) Ur Squamous Epith Cells Urine HCG, Qual Alcohol, Quantitative Blood Type Antibody Screen 09/15/17 09/15/17 09/15/17 01:40 02:21 02:36 WBC RBC Hgb Hct MCV MCH MCHC RDW Plt Count MPV Neut % (Auto) Lymph % (Auto) [place] % (Auto) Eos % (Auto) Baso % (Auto) Neut # (Auto) Lymph # (Auto) [place] # (Auto) Eos # (Auto) Baso # (Auto) PT 11.6 INR 1.0 APTT 27 Sodium Potassium Chloride Carbon Dioxide Anion Gap BUN Creatinine Est GFR ( Amer) Est GFR (Non-Af Amer) POC Glucose (mg/dL) 40 L Random Glucose Hemoglobin A1c 5.4 Calcium Total Bilirubin AST ALT Alkaline Phosphatase Troponin I Total Protein Albumin Globulin Albumin/Globulin Ratio Triglycerides Cholesterol LDL Cholesterol Direct HDL Cholesterol Lipase Urine Color Urine Clarity Urine pH Ur Specific [place] Urine Protein Urine Glucose (UA) Urine Ketones Urine Blood Urine Nitrate Urine Bilirubin Urine Urobilinogen Ur Leukocyte Esterase Urine WBC (Auto) Urine RBC (Auto) Ur Squamous Epith Cells Urine HCG, Qual Alcohol, Quantitative Blood Type Antibody Screen 09/15/17 09/15/17 09/15/17 02:36 02:36 02:36 WBC RBC Hgb Hct MCV MCH MCHC RDW Plt Count MPV Neut % (Auto) Lymph % (Auto) [place] % (Auto) Eos % (Auto) Baso % (Auto) Neut # (Auto) Lymph # (Auto) [place] # (Auto) Eos # (Auto) Baso # (Auto) PT INR APTT Sodium 138 Potassium 3.4 L Chloride 99 Carbon Dioxide 24 Anion Gap 19 BUN 22 H Creatinine 0.7 Est GFR ( Amer) > 60 Est GFR (Non-Af Amer) > 60 POC Glucose (mg/dL) Random Glucose 481 H* D Hemoglobin A1c Calcium 8.4 L Total Bilirubin 0.2 AST 33 ALT 45 Alkaline Phosphatase 104 Troponin I < 0.0120 Total Protein 6.8 Albumin 3.9 Globulin 2.9 Albumin/Globulin Ratio 1.3 Triglycerides 75 Cholesterol 110 LDL Cholesterol Direct 46 HDL Cholesterol 42 Lipase 157 Urine Color Urine Clarity Urine pH Ur Specific [place] Urine Protein Urine Glucose (UA) Urine Ketones Urine Blood Urine Nitrate Urine Bilirubin Urine Urobilinogen Ur Leukocyte Esterase Urine WBC (Auto) Urine RBC (Auto) Ur Squamous Epith Cells Urine HCG, Qual Alcohol, Quantitative < 10 Blood Type O POSITIVE Antibody Screen Negative 09/15/17 09/15/17 09/15/17 02:57 03:17 03:44 WBC RBC Hgb Hct MCV MCH MCHC RDW Plt Count MPV Neut % (Auto) Lymph % (Auto) [place] % (Auto) Eos % (Auto) Baso % (Auto) Neut # (Auto) Lymph # (Auto) [place] # (Auto) Eos # (Auto) Baso # (Auto) PT INR APTT Sodium Potassium Chloride Carbon Dioxide Anion Gap BUN Creatinine Est GFR ( Amer) Est GFR (Non-Af Amer) POC Glucose (mg/dL) 74 31 L* Random Glucose 27 L* D Hemoglobin A1c Calcium Total Bilirubin AST ALT Alkaline Phosphatase Troponin I Total Protein Albumin Globulin Albumin/Globulin Ratio Triglycerides Cholesterol LDL Cholesterol Direct HDL Cholesterol Lipase Urine Color Urine Clarity Urine pH Ur Specific [place] Urine Protein Urine Glucose (UA) Urine Ketones Urine Blood Urine Nitrate Urine Bilirubin Urine Urobilinogen Ur Leukocyte Esterase Urine WBC (Auto) Urine RBC (Auto) Ur Squamous Epith Cells Urine HCG, Qual Alcohol, Quantitative Blood Type Antibody Screen 09/15/17 09/15/17 09/15/17 04:16 04:19 04:20 WBC RBC Hgb Hct MCV MCH MCHC RDW Plt Count MPV Neut % (Auto) Lymph % (Auto) [place] % (Auto) Eos % (Auto) Baso % (Auto) Neut # (Auto) Lymph # (Auto) [place] # (Auto) Eos # (Auto) Baso # (Auto) PT INR APTT Sodium Potassium Chloride Carbon Dioxide Anion Gap BUN Creatinine Est GFR ( Amer) Est GFR (Non-Af Amer) POC Glucose (mg/dL) < 20 L* Random Glucose Hemoglobin A1c Calcium Total Bilirubin AST ALT Alkaline Phosphatase Troponin I Total Protein Albumin Globulin Albumin/Globulin Ratio Triglycerides Cholesterol LDL Cholesterol Direct HDL Cholesterol Lipase Urine Color Yellow Urine Clarity Hazy Urine pH 6.0 Ur Specific [place] > 1.060 H Urine Protein Negative Urine Glucose (UA) 2+ H Urine Ketones Negative Urine Blood Negative Urine Nitrate Negative Urine Bilirubin Negative Urine Urobilinogen Normal Ur Leukocyte Esterase Neg Urine WBC (Auto) 1 Urine RBC (Auto) 2 Ur Squamous Epith Cells 5 Urine HCG, Qual Negative Alcohol, Quantitative Blood Type Antibody Screen 09/15/17 09/15/17 09/15/17 04:20 05:04 06:03 WBC RBC Hgb Hct MCV MCH MCHC RDW Plt Count MPV Neut % (Auto) Lymph % (Auto) [place] % (Auto) Eos % (Auto) Baso % (Auto) Neut # (Auto) Lymph # (Auto) [place] # (Auto) Eos # (Auto) Baso # (Auto) PT INR APTT Sodium Potassium Chloride Carbon Dioxide Anion Gap BUN Creatinine Est GFR ( Amer) Est GFR (Non-Af Amer) POC Glucose (mg/dL) 72 71 34 L* Random Glucose Hemoglobin A1c Calcium Total Bilirubin AST ALT Alkaline Phosphatase Troponin I Total Protein Albumin Globulin Albumin/Globulin Ratio Triglycerides Cholesterol LDL Cholesterol Direct HDL Cholesterol Lipase Urine Color Urine Clarity Urine pH Ur Specific [place] Urine Protein Urine Glucose (UA) Urine Ketones Urine Blood Urine Nitrate Urine Bilirubin Urine Urobilinogen Ur Leukocyte Esterase Urine WBC (Auto) Urine RBC (Auto) Ur Squamous Epith Cells Urine HCG, Qual Alcohol, Quantitative Blood Type Antibody Screen 09/15/17 09/15/17 09/15/17 07:30 07:30 08:03 WBC RBC Hgb Hct MCV MCH MCHC RDW Plt Count MPV Neut % (Auto) Lymph % (Auto) [place] % (Auto) Eos % (Auto) Baso % (Auto) Neut # (Auto) Lymph # (Auto) [place] # (Auto) Eos # (Auto) Baso # (Auto) PT INR APTT Sodium Potassium Chloride Carbon Dioxide Anion Gap BUN Creatinine Est GFR ( Amer) Est GFR (Non-Af Amer) POC Glucose (mg/dL) 24 L* 23 L* 42 L Random Glucose Hemoglobin A1c Calcium Total Bilirubin AST ALT Alkaline Phosphatase Troponin I Total Protein Albumin Globulin Albumin/Globulin Ratio Triglycerides Cholesterol LDL Cholesterol Direct HDL Cholesterol Lipase Urine Color Urine Clarity Urine pH Ur Specific [place] Urine Protein Urine Glucose (UA) Urine Ketones Urine Blood Urine Nitrate Urine Bilirubin Urine Urobilinogen Ur Leukocyte Esterase Urine WBC (Auto) Urine RBC (Auto) Ur Squamous Epith Cells Urine HCG, Qual Alcohol, Quantitative Blood Type Antibody Screen 09/15/17 09/15/17 09/15/17 08:06 09:01 09:03 WBC RBC Hgb Hct MCV MCH MCHC RDW Plt Count MPV Neut % (Auto) Lymph % (Auto) [place] % (Auto) Eos % (Auto) Baso % (Auto) Neut # (Auto) Lymph # (Auto) [place] # (Auto) Eos # (Auto) Baso # (Auto) PT INR APTT Sodium Potassium Chloride Carbon Dioxide Anion Gap BUN Creatinine Est GFR ( Amer) Est GFR (Non-Af Amer) POC Glucose (mg/dL) 40 L 59 L 54 L Random Glucose Hemoglobin A1c Calcium Total Bilirubin AST ALT Alkaline Phosphatase Troponin I Total Protein Albumin Globulin Albumin/Globulin Ratio Triglycerides Cholesterol LDL Cholesterol Direct HDL Cholesterol Lipase Urine Color Urine Clarity Urine pH Ur Specific [place] Urine Protein Urine Glucose (UA) Urine Ketones Urine Blood Urine Nitrate Urine Bilirubin Urine Urobilinogen Ur Leukocyte Esterase Urine WBC (Auto) Urine RBC (Auto) Ur Squamous Epith Cells Urine HCG, Qual Alcohol, Quantitative Blood Type Antibody Screen 09/15/17 09/15/17 09/15/17 09:36 11:00 11:25 WBC RBC Hgb Hct MCV MCH MCHC RDW Plt Count MPV Neut % (Auto) Lymph % (Auto) [place] % (Auto) Eos % (Auto) Baso % (Auto) Neut # (Auto) Lymph # (Auto) [place] # (Auto) Eos # (Auto) Baso # (Auto) PT INR APTT Sodium Potassium Chloride Carbon Dioxide Anion Gap BUN Creatinine Est GFR ( Amer) Est GFR (Non-Af Amer) POC Glucose (mg/dL) 45 L 73 73 Random Glucose Hemoglobin A1c Calcium Total Bilirubin AST ALT Alkaline Phosphatase Troponin I Total Protein Albumin Globulin Albumin/Globulin Ratio Triglycerides Cholesterol LDL Cholesterol Direct HDL Cholesterol Lipase Urine Color Urine Clarity Urine pH Ur Specific [place] Urine Protein Urine Glucose (UA) Urine Ketones Urine Blood Urine Nitrate Urine Bilirubin Urine Urobilinogen Ur Leukocyte Esterase Urine WBC (Auto) Urine RBC (Auto) Ur Squamous Epith Cells Urine HCG, Qual Alcohol, Quantitative Blood Type Antibody Screen 09/15/17 12:17 WBC RBC Hgb Hct MCV MCH MCHC RDW Plt Count MPV Neut % (Auto) Lymph % (Auto) [place] % (Auto) Eos % (Auto) Baso % (Auto) Neut # (Auto) Lymph # (Auto) [place] # (Auto) Eos # (Auto) Baso # (Auto) PT INR APTT Sodium Potassium Chloride Carbon Dioxide Anion Gap BUN Creatinine Est GFR ( Amer) Est GFR (Non-Af Amer) POC Glucose (mg/dL) 124 H Random Glucose Hemoglobin A1c Calcium Total Bilirubin AST ALT Alkaline Phosphatase Troponin I Total Protein Albumin Globulin Albumin/Globulin Ratio Triglycerides Cholesterol LDL Cholesterol Direct HDL Cholesterol Lipase Urine Color Urine Clarity Urine pH Ur Specific [place] Urine Protein Urine Glucose (UA) Urine Ketones Urine Blood Urine Nitrate Urine Bilirubin Urine Urobilinogen Ur Leukocyte Esterase Urine WBC (Auto) Urine RBC (Auto) Ur Squamous Epith Cells Urine HCG, Qual Alcohol, Quantitative Blood Type Antibody Screen Assessment & Plan - Assessment and Plan (Free Text) Assessment: Hypoglyecmia: 2nd possible sulfolniuria, start octreotide 50 mcg q6hrs, continue D5 at 150 ml/hr. Patient encouraged to continue oral diet, check BGM q4hrs, d50 push PRN BGM < 60 -Suicidal ideation: consider 1:1 -continue hydrocortisone 100 mg q8hrs and titrate -patient states that she takes 6 mg of xanax at home and self describes herself as a xanax addict: obtain psych eval , utox durg screen serum and start librium 50 mg q8hrs -please obtain patient's other medications -continue dvt ppx Patient remains hemodynamically stable. Please check and replace all electrolytes Please call ICU if patient's clinical status worsens - Date & Time Date: 09/15/17 Time: 11:00
--- NOTE | 2017-09-15 16:12 | CP.PCM.CON ---
History of Present Illness - History of Present Illness History of Present Illness: PGY-1 Neurology consult note for Dr. Lopez Reason for consult: AMS This is a 51 year old female with PMHx HIV, HCV, PUD, IBS, COPD, Anxiety, Depression with multiple suicide attempts, polysubstance abuse who presented to the hospital with altered mental status. Per review of documentation, patient's daughter found her mother lethargic around 16:00 yesterday, and the found her around 23:00-23:30 yesterday and brought her to the hospital. On arrival, patient's blood glucose was found to be 26. Per patient, she ingested her 's diabetes medication which she cannot recall the name of. Patient reports feeling weak with headache. Patient denies tremors, paresthesias. PMHx: As per HPI PSHx: Tubal ligation, IVC filter placement, cholecystectomy Allergies: NKA Social: Patient admitted to 1 ppd tobacco use and xanax abuse. She takes 4 mg total daily but will sometimes take more if she feels ill. Per review of EMR, patient also known to take cocaine, PCP, marijuana. Denies alcohol. Unemployed. Review of Systems - Constitutional Constitutional: Weakness. absent: Chills, Fever - EENT Eyes: absent: Change in Vision Ears: absent: Decreased Hearing Nose/Mouth/Throat: absent: Nasal Congestion - Cardiovascular Cardiovascular: absent: Chest Pain - Respiratory Respiratory: absent: Dyspnea - Gastrointestinal Gastrointestinal: Abdominal Pain (chronic from IBS per patient) - Genitourinary Genitourinary: absent: Dysuria - Musculoskeletal Musculoskeletal: absent: Numbness, Tingling - Integumentary Integumentary: absent: Rash - Neurological Neurological: Headaches, Weakness. absent: Dizziness, Paresthesias, Tremor - Psychiatric Psychiatric: Anxiety - Endocrine Endocrine: absent: Palpitations Past Patient History - Infectious Disease Hx of Infectious Diseases: None - Past Medical History & Family History Past Medical History?: Yes - Past Social History Smoking Status: Light Smoker < 10 Cigarettes Daily - CARDIAC Hx Hypertension: No - PULMONARY Hx Chronic Obstructive Pulmonary Disease (COPD): Yes - NEUROLOGICAL Hx Migraine: Yes - HEENT Hx HEENT Problems: No - RENAL Hx Chronic Kidney Disease: No - ENDOCRINE/METABOLIC Hx Endocrine Disorders: No - HEMATOLOGICAL/ONCOLOGICAL Hx Anemia: Yes Hx Hepatitis C: Yes Hx Human Immunodeficiency Virus (HIV): Yes - INTEGUMENTARY Hx Dermatological Problems: No - MUSCULOSKELETAL/RHEUMATOLOGICAL Hx Falls: Yes Hx Fractures: Yes (2009 Left hip, pelvis, leg) - GASTROINTESTINAL Hx Gastritis: Yes Hx Pancreatitis: Yes - GENITOURINARY/GYNECOLOGICAL Hx Sexually Transmitted Disorders: No - PSYCHIATRIC Hx Anxiety: Yes Hx Bipolar Disorder: Yes Hx Depression: Yes Hx Substance Use: Yes - SURGICAL HISTORY Hx Cholecystectomy: Yes - ANESTHESIA Hx Anesthesia: Yes Hx Anesthesia Reactions: No Hx Malignant Hyperthermia: No Has any member of the family had a problem w/ anesthesia?: No Meds Allergies/Adverse Reactions: Allergies Allergy/AdvReac Type Severity Reaction Status Date / Time No Known Allergies Allergy Verified 09/15/17 01:25 - Medications Medications: Current Medications Alprazolam (Xanax) 2 mg PO Q12 [facility] Last Admin: 09/15/17 10:37 Dose: 2 mg Aspirin (Ecotrin) 81 mg PO DAILY [facility] Last Admin: 09/15/17 11:00 Dose: 81 mg Emtricitabine/Tenofovir (Truvada 200 Mg-300 Mg) 1 tab PO DAILY [facility] PRN Reason: Protocol Last Admin: 09/15/17 11:10 Dose: 1 tab Enoxaparin Sodium (Lovenox) 40 mg SC DAILY [facility] Last Admin: 09/15/17 11:10 Dose: 40 mg Fosamprenavir Calcium (Lexiva) 1,400 mg PO Q12 [facility] PRN Reason: Protocol Last Admin: 09/15/17 11:02 Dose: 1,400 mg Hydrocortisone Sodium Succinate (Solu-Cortef) 100 mg IV Q8H [facility] Last Admin: 09/15/17 13:15 Dose: 100 mg Dextrose (Dextrose 10% In Water) 1,000 mls @ 50 mls/hr IV .Q20H ONE Stop: 09/15/17 23:45 Last Admin: 09/15/17 03:51 Dose: 50 mls/hr Dextrose/Sodium Chloride (Dextrose 5%/0.9% Ns 1000 Ml) 1,000 mls @ 150 mls/hr IV .Q6H40M ONE Stop: 09/15/17 18:09 Last Admin: 09/15/17 11:35 Dose: 150 mls/hr Ketorolac Tromethamine (Toradol) 30 mg IM Q8 PRN PRN Reason: Pain, Mild (1-3) Last Admin: 09/15/17 13:27 Dose: 30 mg Octreotide Acetate (Sandostatin) 100 mcg IV Q6H [facility] Last Admin: 09/15/17 12:31 Dose: 100 mcg Pantoprazole Sodium (Protonix Ec Tab) 40 mg PO DAILY [facility] Last Admin: 09/15/17 11:06 Dose: 40 mg Physical Exam - Constitutional Appears: No Acute Distress, Chronically Ill - Head Exam Head Exam: ATRAUMATIC, NORMOCEPHALIC - Eye Exam Eye Exam: EOMI, PERRL - ENT Exam ENT Exam: Mucous Membranes Moist - Respiratory Exam Respiratory Exam: Clear to Auscultation Bilateral, NORMAL BREATHING PATTERN. absent: Rales, Rhonchi, Wheezes - Cardiovascular Exam Cardiovascular Exam: REGULAR RHYTHM, +S1, +S2 - GI/Abdominal Exam GI & Abdominal Exam: Normal Bowel Sounds, Soft. absent: Distended, Tenderness - Extremities Exam Extremities exam: Negative for: pedal edema, tenderness - Neurological Exam Neurological exam: Alert, CN II-XII Intact, Oriented x3 Additional comments: Patient had a normal, non-focal neurologic exam. Gait was normal. No pronator drift. Normal finger-nose test. Muscle strength symmetrical bilaterally. - Psychiatric Exam Psychiatric exam: Anxious, Depressed - Skin Skin Exam: Dry, Warm Results - Vital Signs Recent Vital Signs: Last Vital Signs Temp 97.9 F 09/15/17 15:00 Pulse 87 09/15/17 15:00 Resp 18 09/15/17 15:00 BP 142/91 H 09/15/17 15:00 Pulse Ox 97 09/15/17 15:00 - Labs Result Diagrams: 09/15/17 01:40 09/15/17 03:17 Labs: Laboratory Results - last 24 hr 09/15/17 09/15/17 09/15/17 01:22 01:26 01:40 WBC 7.5 D RBC 4.36 Hgb 11.3 Hct 34.9 MCV 80.1 L MCH 26.0 L MCHC 32.5 L RDW 21.2 H Plt Count 286 MPV 7.8 Neut % (Auto) 80.5 H Lymph % (Auto) 12.[address] [place] % (Auto) 6.2 Eos % (Auto) 0.8 Baso % (Auto) 0.5 Neut # (Auto) 6.0 Lymph # (Auto) 0.[address] [place] # (Auto) 0.5 Eos # (Auto) 0.1 Baso # (Auto) 0.0 PT INR APTT Sodium Potassium Chloride Carbon Dioxide Anion Gap BUN Creatinine Est GFR ( Amer) Est GFR (Non-Af Amer) POC Glucose (mg/dL) < 20 L* < 20 L* Random Glucose Hemoglobin A1c Calcium Total Bilirubin AST ALT Alkaline Phosphatase Troponin I Total Protein Albumin Globulin Albumin/Globulin Ratio Triglycerides Cholesterol LDL Cholesterol Direct HDL Cholesterol Lipase Urine Color Urine Clarity Urine pH Ur Specific [place] Urine Protein Urine Glucose (UA) Urine Ketones Urine Blood Urine Nitrate Urine Bilirubin Urine Urobilinogen Ur Leukocyte Esterase Urine WBC (Auto) Urine RBC (Auto) Ur Squamous Epith Cells Urine HCG, Qual Alcohol, Quantitative Blood Type Antibody Screen 09/15/17 09/15/17 09/15/17 01:40 02:21 02:36 WBC RBC Hgb Hct MCV MCH MCHC RDW Plt Count MPV Neut % (Auto) Lymph % (Auto) [place] % (Auto) Eos % (Auto) Baso % (Auto) Neut # (Auto) Lymph # (Auto) [place] # (Auto) Eos # (Auto) Baso # (Auto) PT 11.6 INR 1.0 APTT 27 Sodium Potassium Chloride Carbon Dioxide Anion Gap BUN Creatinine Est GFR ( Amer) Est GFR (Non-Af Amer) POC Glucose (mg/dL) 40 L Random Glucose Hemoglobin A1c 5.4 Calcium Total Bilirubin AST ALT Alkaline Phosphatase Troponin I Total Protein Albumin Globulin Albumin/Globulin Ratio Triglycerides Cholesterol LDL Cholesterol Direct HDL Cholesterol Lipase Urine Color Urine Clarity Urine pH Ur Specific [place] Urine Protein Urine Glucose (UA) Urine Ketones Urine Blood Urine Nitrate Urine Bilirubin Urine Urobilinogen Ur Leukocyte Esterase Urine WBC (Auto) Urine RBC (Auto) Ur Squamous Epith Cells Urine HCG, Qual Alcohol, Quantitative Blood Type Antibody Screen 09/15/17 09/15/17 09/15/17 02:36 02:36 02:36 WBC RBC Hgb Hct MCV MCH MCHC RDW Plt Count MPV Neut % (Auto) Lymph % (Auto) [place] % (Auto) Eos % (Auto) Baso % (Auto) Neut # (Auto) Lymph # (Auto) [place] # (Auto) Eos # (Auto) Baso # (Auto) PT INR APTT Sodium 138 Potassium 3.4 L Chloride 99 Carbon Dioxide 24 Anion Gap 19 BUN 22 H Creatinine 0.7 Est GFR ( Amer) > 60 Est GFR (Non-Af Amer) > 60 POC Glucose (mg/dL) Random Glucose 481 H* D Hemoglobin A1c Calcium 8.4 L Total Bilirubin 0.2 AST 33 ALT 45 Alkaline Phosphatase 104 Troponin I < 0.0120 Total Protein 6.8 Albumin 3.9 Globulin 2.9 Albumin/Globulin Ratio 1.3 Triglycerides 75 Cholesterol 110 LDL Cholesterol Direct 46 HDL Cholesterol 42 Lipase 157 Urine Color Urine Clarity Urine pH Ur Specific [place] Urine Protein Urine Glucose (UA) Urine Ketones Urine Blood Urine Nitrate Urine Bilirubin Urine Urobilinogen Ur Leukocyte Esterase Urine WBC (Auto) Urine RBC (Auto) Ur Squamous Epith Cells Urine HCG, Qual Alcohol, Quantitative < 10 Blood Type O POSITIVE Antibody Screen Negative 09/15/17 09/15/17 09/15/17 02:57 03:17 03:44 WBC RBC Hgb Hct MCV MCH MCHC RDW Plt Count MPV Neut % (Auto) Lymph % (Auto) [place] % (Auto) Eos % (Auto) Baso % (Auto) Neut # (Auto) Lymph # (Auto) [place] # (Auto) Eos # (Auto) Baso # (Auto) PT INR APTT Sodium Potassium Chloride Carbon Dioxide Anion Gap BUN Creatinine Est GFR ( Amer) Est GFR (Non-Af Amer) POC Glucose (mg/dL) 74 31 L* Random Glucose 27 L* D Hemoglobin A1c Calcium Total Bilirubin AST ALT Alkaline Phosphatase Troponin I Total Protein Albumin Globulin Albumin/Globulin Ratio Triglycerides Cholesterol LDL Cholesterol Direct HDL Cholesterol Lipase Urine Color Urine Clarity Urine pH Ur Specific [place] Urine Protein Urine Glucose (UA) Urine Ketones Urine Blood Urine Nitrate Urine Bilirubin Urine Urobilinogen Ur Leukocyte Esterase Urine WBC (Auto) Urine RBC (Auto) Ur Squamous Epith Cells Urine HCG, Qual Alcohol, Quantitative Blood Type Antibody Screen 09/15/17 09/15/17 09/15/17 04:16 04:19 04:20 WBC RBC Hgb Hct MCV MCH MCHC RDW Plt Count MPV Neut % (Auto) Lymph % (Auto) [place] % (Auto) Eos % (Auto) Baso % (Auto) Neut # (Auto) Lymph # (Auto) [place] # (Auto) Eos # (Auto) Baso # (Auto) PT INR APTT Sodium Potassium Chloride Carbon Dioxide Anion Gap BUN Creatinine Est GFR ( Amer) Est GFR (Non-Af Amer) POC Glucose (mg/dL) < 20 L* Random Glucose Hemoglobin A1c Calcium Total Bilirubin AST ALT Alkaline Phosphatase Troponin I Total Protein Albumin Globulin Albumin/Globulin Ratio Triglycerides Cholesterol LDL Cholesterol Direct HDL Cholesterol Lipase Urine Color Yellow Urine Clarity Hazy Urine pH 6.0 Ur Specific [place] > 1.060 H Urine Protein Negative Urine Glucose (UA) 2+ H Urine Ketones Negative Urine Blood Negative Urine Nitrate Negative Urine Bilirubin Negative Urine Urobilinogen Normal Ur Leukocyte Esterase Neg Urine WBC (Auto) 1 Urine RBC (Auto) 2 Ur Squamous Epith Cells 5 Urine HCG, Qual Negative Alcohol, Quantitative Blood Type Antibody Screen 09/15/17 09/15/17 09/15/17 04:20 05:04 06:03 WBC RBC Hgb Hct MCV MCH MCHC RDW Plt Count MPV Neut % (Auto) Lymph % (Auto) [place] % (Auto) Eos % (Auto) Baso % (Auto) Neut # (Auto) Lymph # (Auto) [place] # (Auto) Eos # (Auto) Baso # (Auto) PT INR APTT Sodium Potassium Chloride Carbon Dioxide Anion Gap BUN Creatinine Est GFR ( Amer) Est GFR (Non-Af Amer) POC Glucose (mg/dL) 72 71 34 L* Random Glucose Hemoglobin A1c Calcium Total Bilirubin AST ALT Alkaline Phosphatase Troponin I Total Protein Albumin Globulin Albumin/Globulin Ratio Triglycerides Cholesterol LDL Cholesterol Direct HDL Cholesterol Lipase Urine Color Urine Clarity Urine pH Ur Specific [place] Urine Protein Urine Glucose (UA) Urine Ketones Urine Blood Urine Nitrate Urine Bilirubin Urine Urobilinogen Ur Leukocyte Esterase Urine WBC (Auto) Urine RBC (Auto) Ur Squamous Epith Cells Urine HCG, Qual Alcohol, Quantitative Blood Type Antibody Screen 09/15/17 09/15/17 09/15/17 07:30 07:30 08:03 WBC RBC Hgb Hct MCV MCH MCHC RDW Plt Count MPV Neut % (Auto) Lymph % (Auto) [place] % (Auto) Eos % (Auto) Baso % (Auto) Neut # (Auto) Lymph # (Auto) [place] # (Auto) Eos # (Auto) Baso # (Auto) PT INR APTT Sodium Potassium Chloride Carbon Dioxide Anion Gap BUN Creatinine Est GFR ( Amer) Est GFR (Non-Af Amer) POC Glucose (mg/dL) 24 L* 23 L* 42 L Random Glucose Hemoglobin A1c Calcium Total Bilirubin AST ALT Alkaline Phosphatase Troponin I Total Protein Albumin Globulin Albumin/Globulin Ratio Triglycerides Cholesterol LDL Cholesterol Direct HDL Cholesterol Lipase Urine Color Urine Clarity Urine pH Ur Specific [place] Urine Protein Urine Glucose (UA) Urine Ketones Urine Blood Urine Nitrate Urine Bilirubin Urine Urobilinogen Ur Leukocyte Esterase Urine WBC (Auto) Urine RBC (Auto) Ur Squamous Epith Cells Urine HCG, Qual Alcohol, Quantitative Blood Type Antibody Screen 09/15/17 09/15/17 09/15/17 08:06 09:01 09:03 WBC RBC Hgb Hct MCV MCH MCHC RDW Plt Count MPV Neut % (Auto) Lymph % (Auto) [place] % (Auto) Eos % (Auto) Baso % (Auto) Neut # (Auto) Lymph # (Auto) [place] # (Auto) Eos # (Auto) Baso # (Auto) PT INR APTT Sodium Potassium Chloride Carbon Dioxide Anion Gap BUN Creatinine Est GFR ( Amer) Est GFR (Non-Af Amer) POC Glucose (mg/dL) 40 L 59 L 54 L Random Glucose Hemoglobin A1c Calcium Total Bilirubin AST ALT Alkaline Phosphatase Troponin I Total Protein Albumin Globulin Albumin/Globulin Ratio Triglycerides Cholesterol LDL Cholesterol Direct HDL Cholesterol Lipase Urine Color Urine Clarity Urine pH Ur Specific [place] Urine Protein Urine Glucose (UA) Urine Ketones Urine Blood Urine Nitrate Urine Bilirubin Urine Urobilinogen Ur Leukocyte Esterase Urine WBC (Auto) Urine RBC (Auto) Ur Squamous Epith Cells Urine HCG, Qual Alcohol, Quantitative Blood Type Antibody Screen 09/15/17 09/15/17 09/15/17 09:36 11:00 11:25 WBC RBC Hgb Hct MCV MCH MCHC RDW Plt Count MPV Neut % (Auto) Lymph % (Auto) [place] % (Auto) Eos % (Auto) Baso % (Auto) Neut # (Auto) Lymph # (Auto) [place] # (Auto) Eos # (Auto) Baso # (Auto) PT INR APTT Sodium Potassium Chloride Carbon Dioxide Anion Gap BUN Creatinine Est GFR ( Amer) Est GFR (Non-Af Amer) POC Glucose (mg/dL) 45 L 73 73 Random Glucose Hemoglobin A1c Calcium Total Bilirubin AST ALT Alkaline Phosphatase Troponin I Total Protein Albumin Globulin Albumin/Globulin Ratio Triglycerides Cholesterol LDL Cholesterol Direct HDL Cholesterol Lipase Urine Color Urine Clarity Urine pH Ur Specific [place] Urine Protein Urine Glucose (UA) Urine Ketones Urine Blood Urine Nitrate Urine Bilirubin Urine Urobilinogen Ur Leukocyte Esterase Urine WBC (Auto) Urine RBC (Auto) Ur Squamous Epith Cells Urine HCG, Qual Alcohol, Quantitative Blood Type Antibody Screen 09/15/17 09/15/17 12:17 14:54 WBC RBC Hgb Hct MCV MCH MCHC RDW Plt Count MPV Neut % (Auto) Lymph % (Auto) [place] % (Auto) Eos % (Auto) Baso % (Auto) Neut # (Auto) Lymph # (Auto) [place] # (Auto) Eos # (Auto) Baso # (Auto) PT INR APTT Sodium Potassium Chloride Carbon Dioxide Anion Gap BUN Creatinine Est GFR ( Amer) Est GFR (Non-Af Amer) POC Glucose (mg/dL) 124 H 298 H Random Glucose Hemoglobin A1c Calcium Total Bilirubin AST ALT Alkaline Phosphatase Troponin I Total Protein Albumin Globulin Albumin/Globulin Ratio Triglycerides Cholesterol LDL Cholesterol Direct HDL Cholesterol Lipase Urine Color Urine Clarity Urine pH Ur Specific [place] Urine Protein Urine Glucose (UA) Urine Ketones Urine Blood Urine Nitrate Urine Bilirubin Urine Urobilinogen Ur Leukocyte Esterase Urine WBC (Auto) Urine RBC (Auto) Ur Squamous Epith Cells Urine HCG, Qual Alcohol, Quantitative Blood Type Antibody Screen Assessment & Plan - Assessment and Plan (Free Text) Assessment: This is a 51 year old female with PMHx HIV, HCV, PUD, IBS, COPD, Anxiety, Depression with multiple suicide attempts, polysubstance abuse who presented to the hospital with altered mental status. AMS likely due to hypoglycemia on admission. Plan: Altered Mental Status Patient had altered mental status on initial presentation due to hypoglycemia with glucose at 26. Patient no longer with altered mental status. Maintain normal blood glucose and continue monitoring. Patient had a non-focal neurologic exam. Patient is neurologically stable at this time. Please re-consult prn. Patient seen and discussed with Dr. Lopez
--- NOTE | 2017-09-15 20:17 | CP.PCM.HP ---
Past Patient History - Infectious Disease Hx of Infectious Diseases: None - Past Medical History & Family History Past Medical History?: Yes - Past Social History Smoking Status: Light Smoker < 10 Cigarettes Daily - CARDIAC Hx Hypertension: No - PULMONARY Hx Chronic Obstructive Pulmonary Disease (COPD): Yes - NEUROLOGICAL Hx Migraine: Yes - HEENT Hx HEENT Problems: No - RENAL Hx Chronic Kidney Disease: No - ENDOCRINE/METABOLIC Hx Endocrine Disorders: No - HEMATOLOGICAL/ONCOLOGICAL Hx Anemia: Yes Hx Hepatitis C: Yes Hx Human Immunodeficiency Virus (HIV): Yes - INTEGUMENTARY Hx Dermatological Problems: No - MUSCULOSKELETAL/RHEUMATOLOGICAL Hx Falls: Yes Hx Fractures: Yes (2009 Left hip, pelvis, leg) - GASTROINTESTINAL Hx Gastritis: Yes Hx Pancreatitis: Yes - GENITOURINARY/GYNECOLOGICAL Hx Sexually Transmitted Disorders: No - PSYCHIATRIC Hx Anxiety: Yes Hx Bipolar Disorder: Yes Hx Depression: Yes Hx Substance Use: Yes - SURGICAL HISTORY Hx Cholecystectomy: Yes - ANESTHESIA Hx Anesthesia: Yes Hx Anesthesia Reactions: No Hx Malignant Hyperthermia: No Has any member of the family had a problem w/ anesthesia?: No Meds Allergies/Adverse Reactions: Allergies Allergy/AdvReac Type Severity Reaction Status Date / Time No Known Allergies Allergy Verified 09/15/17 01:25 Results - Vital Signs Recent Vital Signs: Last Vital Signs Temp 98 F 09/15/17 17:53 Pulse 86 09/15/17 17:53 Resp 20 09/15/17 17:53 BP 130/78 09/15/17 18:53 Pulse Ox 95 09/15/17 17:53 - Labs Result Diagrams: 09/15/17 01:40 09/15/17 03:17 Labs: Laboratory Results - last 24 hr 09/15/17 09/15/17 09/15/17 01:22 01:26 01:40 WBC 7.5 D RBC 4.36 Hgb 11.3 Hct 34.9 MCV 80.1 L MCH 26.0 L MCHC 32.5 L RDW 21.2 H Plt Count 286 MPV 7.8 Neut % (Auto) 80.5 H Lymph % (Auto) 12.0 L [place] % (Auto) 6.2 Eos % (Auto) 0.8 Baso % (Auto) 0.5 Neut # (Auto) 6.0 Lymph # (Auto) 0.9 L [place] # (Auto) 0.5 Eos # (Auto) 0.1 Baso # (Auto) 0.0 PT INR APTT Sodium Potassium Chloride Carbon Dioxide Anion Gap BUN Creatinine Est GFR ( Amer) Est GFR (Non-Af Amer) POC Glucose (mg/dL) < 20 L* < 20 L* Random Glucose Hemoglobin A1c Calcium Total Bilirubin AST ALT Alkaline Phosphatase Troponin I Total Protein Albumin Globulin Albumin/Globulin Ratio Triglycerides Cholesterol LDL Cholesterol Direct HDL Cholesterol Lipase Urine Color Urine Clarity Urine pH Ur Specific [place] Urine Protein Urine Glucose (UA) Urine Ketones Urine Blood Urine Nitrate Urine Bilirubin Urine Urobilinogen Ur Leukocyte Esterase Urine WBC (Auto) Urine RBC (Auto) Ur Squamous Epith Cells Urine HCG, Qual Alcohol, Quantitative Blood Type Antibody Screen 09/15/17 09/15/17 09/15/17 01:40 02:21 02:36 WBC RBC Hgb Hct MCV MCH MCHC RDW Plt Count MPV Neut % (Auto) Lymph % (Auto) [place] % (Auto) Eos % (Auto) Baso % (Auto) Neut # (Auto) Lymph # (Auto) [place] # (Auto) Eos # (Auto) Baso # (Auto) PT 11.6 INR 1.0 APTT 27 Sodium Potassium Chloride Carbon Dioxide Anion Gap BUN Creatinine Est GFR ( Amer) Est GFR (Non-Af Amer) POC Glucose (mg/dL) 40 L Random Glucose Hemoglobin A1c 5.4 Calcium Total Bilirubin AST ALT Alkaline Phosphatase Troponin I Total Protein Albumin Globulin Albumin/Globulin Ratio Triglycerides Cholesterol LDL Cholesterol Direct HDL Cholesterol Lipase Urine Color Urine Clarity Urine pH Ur Specific [place] Urine Protein Urine Glucose (UA) Urine Ketones Urine Blood Urine Nitrate Urine Bilirubin Urine Urobilinogen Ur Leukocyte Esterase Urine WBC (Auto) Urine RBC (Auto) Ur Squamous Epith Cells Urine HCG, Qual Alcohol, Quantitative Blood Type Antibody Screen 09/15/17 09/15/17 09/15/17 02:36 02:36 02:36 WBC RBC Hgb Hct MCV MCH MCHC RDW Plt Count MPV Neut % (Auto) Lymph % (Auto) [place] % (Auto) Eos % (Auto) Baso % (Auto) Neut # (Auto) Lymph # (Auto) [place] # (Auto) Eos # (Auto) Baso # (Auto) PT INR APTT Sodium 138 Potassium 3.4 L Chloride 99 Carbon Dioxide 24 Anion Gap 19 BUN 22 H Creatinine 0.7 Est GFR ( Amer) > 60 Est GFR (Non-Af Amer) > 60 POC Glucose (mg/dL) Random Glucose 481 H* D Hemoglobin A1c Calcium 8.4 L Total Bilirubin 0.2 AST 33 ALT 45 Alkaline Phosphatase 104 Troponin I < 0.0120 Total Protein 6.8 Albumin 3.9 Globulin 2.9 Albumin/Globulin Ratio 1.3 Triglycerides 75 Cholesterol 110 LDL Cholesterol Direct 46 HDL Cholesterol 42 Lipase 157 Urine Color Urine Clarity Urine pH Ur Specific [place] Urine Protein Urine Glucose (UA) Urine Ketones Urine Blood Urine Nitrate Urine Bilirubin Urine Urobilinogen Ur Leukocyte Esterase Urine WBC (Auto) Urine RBC (Auto) Ur Squamous Epith Cells Urine HCG, Qual Alcohol, Quantitative < 10 Blood Type O POSITIVE Antibody Screen Negative 09/15/17 09/15/17 09/15/17 02:57 03:17 03:44 WBC RBC Hgb Hct MCV MCH MCHC RDW Plt Count MPV Neut % (Auto) Lymph % (Auto) [place] % (Auto) Eos % (Auto) Baso % (Auto) Neut # (Auto) Lymph # (Auto) [place] # (Auto) Eos # (Auto) Baso # (Auto) PT INR APTT Sodium Potassium Chloride Carbon Dioxide Anion Gap BUN Creatinine Est GFR ( Amer) Est GFR (Non-Af Amer) POC Glucose (mg/dL) 74 31 L* Random Glucose 27 L* D Hemoglobin A1c Calcium Total Bilirubin AST ALT Alkaline Phosphatase Troponin I Total Protein Albumin Globulin Albumin/Globulin Ratio Triglycerides Cholesterol LDL Cholesterol Direct HDL Cholesterol Lipase Urine Color Urine Clarity Urine pH Ur Specific [place] Urine Protein Urine Glucose (UA) Urine Ketones Urine Blood Urine Nitrate Urine Bilirubin Urine Urobilinogen Ur Leukocyte Esterase Urine WBC (Auto) Urine RBC (Auto) Ur Squamous Epith Cells Urine HCG, Qual Alcohol, Quantitative Blood Type Antibody Screen 09/15/17 09/15/17 09/15/17 04:16 04:19 04:20 WBC RBC Hgb Hct MCV MCH MCHC RDW Plt Count MPV Neut % (Auto) Lymph % (Auto) [place] % (Auto) Eos % (Auto) Baso % (Auto) Neut # (Auto) Lymph # (Auto) [place] # (Auto) Eos # (Auto) Baso # (Auto) PT INR APTT Sodium Potassium Chloride Carbon Dioxide Anion Gap BUN Creatinine Est GFR ( Amer) Est GFR (Non-Af Amer) POC Glucose (mg/dL) < 20 L* Random Glucose Hemoglobin A1c Calcium Total Bilirubin AST ALT Alkaline Phosphatase Troponin I Total Protein Albumin Globulin Albumin/Globulin Ratio Triglycerides Cholesterol LDL Cholesterol Direct HDL Cholesterol Lipase Urine Color Yellow Urine Clarity Hazy Urine pH 6.0 Ur Specific [place] > 1.060 H Urine Protein Negative Urine Glucose (UA) 2+ H Urine Ketones Negative Urine Blood Negative Urine Nitrate Negative Urine Bilirubin Negative Urine Urobilinogen Normal Ur Leukocyte Esterase Neg Urine WBC (Auto) 1 Urine RBC (Auto) 2 Ur Squamous Epith Cells 5 Urine HCG, Qual Negative Alcohol, Quantitative Blood Type Antibody Screen 09/15/17 09/15/17 09/15/17 04:20 05:04 06:03 WBC RBC Hgb Hct MCV MCH MCHC RDW Plt Count MPV Neut % (Auto) Lymph % (Auto) [place] % (Auto) Eos % (Auto) Baso % (Auto) Neut # (Auto) Lymph # (Auto) [place] # (Auto) Eos # (Auto) Baso # (Auto) PT INR APTT Sodium Potassium Chloride Carbon Dioxide Anion Gap BUN Creatinine Est GFR ( Amer) Est GFR (Non-Af Amer) POC Glucose (mg/dL) 72 71 34 L* Random Glucose Hemoglobin A1c Calcium Total Bilirubin AST ALT Alkaline Phosphatase Troponin I Total Protein Albumin Globulin Albumin/Globulin Ratio Triglycerides Cholesterol LDL Cholesterol Direct HDL Cholesterol Lipase Urine Color Urine Clarity Urine pH Ur Specific [place] Urine Protein Urine Glucose (UA) Urine Ketones Urine Blood Urine Nitrate Urine Bilirubin Urine Urobilinogen Ur Leukocyte Esterase Urine WBC (Auto) Urine RBC (Auto) Ur Squamous Epith Cells Urine HCG, Qual Alcohol, Quantitative Blood Type Antibody Screen 09/15/17 09/15/17 09/15/17 07:30 07:30 08:03 WBC RBC Hgb Hct MCV MCH MCHC RDW Plt Count MPV Neut % (Auto) Lymph % (Auto) [place] % (Auto) Eos % (Auto) Baso % (Auto) Neut # (Auto) Lymph # (Auto) [place] # (Auto) Eos # (Auto) Baso # (Auto) PT INR APTT Sodium Potassium Chloride Carbon Dioxide Anion Gap BUN Creatinine Est GFR ( Amer) Est GFR (Non-Af Amer) POC Glucose (mg/dL) 24 L* 23 L* 42 L Random Glucose Hemoglobin A1c Calcium Total Bilirubin AST ALT Alkaline Phosphatase Troponin I Total Protein Albumin Globulin Albumin/Globulin Ratio Triglycerides Cholesterol LDL Cholesterol Direct HDL Cholesterol Lipase Urine Color Urine Clarity Urine pH Ur Specific [place] Urine Protein Urine Glucose (UA) Urine Ketones Urine Blood Urine Nitrate Urine Bilirubin Urine Urobilinogen Ur Leukocyte Esterase Urine WBC (Auto) Urine RBC (Auto) Ur Squamous Epith Cells Urine HCG, Qual Alcohol, Quantitative Blood Type Antibody Screen 09/15/17 09/15/17 09/15/17 08:06 09:01 09:03 WBC RBC Hgb Hct MCV MCH MCHC RDW Plt Count MPV Neut % (Auto) Lymph % (Auto) [place] % (Auto) Eos % (Auto) Baso % (Auto) Neut # (Auto) Lymph # (Auto) [place] # (Auto) Eos # (Auto) Baso # (Auto) PT INR APTT Sodium Potassium Chloride Carbon Dioxide Anion Gap BUN Creatinine Est GFR ( Amer) Est GFR (Non-Af Amer) POC Glucose (mg/dL) 40 L 59 L 54 L Random Glucose Hemoglobin A1c Calcium Total Bilirubin AST ALT Alkaline Phosphatase Troponin I Total Protein Albumin Globulin Albumin/Globulin Ratio Triglycerides Cholesterol LDL Cholesterol Direct HDL Cholesterol Lipase Urine Color Urine Clarity Urine pH Ur Specific [place] Urine Protein Urine Glucose (UA) Urine Ketones Urine Blood Urine Nitrate Urine Bilirubin Urine Urobilinogen Ur Leukocyte Esterase Urine WBC (Auto) Urine RBC (Auto) Ur Squamous Epith Cells Urine HCG, Qual Alcohol, Quantitative Blood Type Antibody Screen 09/15/17 09/15/17 09/15/17 09:36 11:00 11:25 WBC RBC Hgb Hct MCV MCH MCHC RDW Plt Count MPV Neut % (Auto) Lymph % (Auto) [place] % (Auto) Eos % (Auto) Baso % (Auto) Neut # (Auto) Lymph # (Auto) [place] # (Auto) Eos # (Auto) Baso # (Auto) PT INR APTT Sodium Potassium Chloride Carbon Dioxide Anion Gap BUN Creatinine Est GFR ( Amer) Est GFR (Non-Af Amer) POC Glucose (mg/dL) 45 L 73 73 Random Glucose Hemoglobin A1c Calcium Total Bilirubin AST ALT Alkaline Phosphatase Troponin I Total Protein Albumin Globulin Albumin/Globulin Ratio Triglycerides Cholesterol LDL Cholesterol Direct HDL Cholesterol Lipase Urine Color Urine Clarity Urine pH Ur Specific [place] Urine Protein Urine Glucose (UA) Urine Ketones Urine Blood Urine Nitrate Urine Bilirubin Urine Urobilinogen Ur Leukocyte Esterase Urine WBC (Auto) Urine RBC (Auto) Ur Squamous Epith Cells Urine HCG, Qual Alcohol, Quantitative Blood Type Antibody Screen 09/15/17 09/15/17 09/15/17 12:17 14:54 17:09 WBC RBC Hgb Hct MCV MCH MCHC RDW Plt Count MPV Neut % (Auto) Lymph % (Auto) [place] % (Auto) Eos % (Auto) Baso % (Auto) Neut # (Auto) Lymph # (Auto) [place] # (Auto) Eos # (Auto) Baso # (Auto) PT INR APTT Sodium Potassium Chloride Carbon Dioxide Anion Gap BUN Creatinine Est GFR ( Amer) Est GFR (Non-Af Amer) POC Glucose (mg/dL) 124 H 298 H 313 H Random Glucose Hemoglobin A1c Calcium Total Bilirubin AST ALT Alkaline Phosphatase Troponin I Total Protein Albumin Globulin Albumin/Globulin Ratio Triglycerides Cholesterol LDL Cholesterol Direct HDL Cholesterol Lipase Urine Color Urine Clarity Urine pH Ur Specific [place] Urine Protein Urine Glucose (UA) Urine Ketones Urine Blood Urine Nitrate Urine Bilirubin Urine Urobilinogen Ur Leukocyte Esterase Urine WBC (Auto) Urine RBC (Auto) Ur Squamous Epith Cells Urine HCG, Qual Alcohol, Quantitative Blood Type Antibody Screen Assessment & Plan - Assessment and Plan (Free Text) Plan: Patient continues to have a low blood sugar which is better now patient request Toradol Patient sugar is better now is 313 Labs seen Potassium supplemented Lipase 157 Patient continues to have abdominal pain Follow-up with psych doctor Follow-up with the GI doctor Follow-up with the neurologist Medications reviewed Continue same
[2017-09-16] MEDS ORDERED: Lactated Ringer's 1,000 ML IV ONE (08:46)
[2017-09-16] MEDS ORDERED: Midazolam 2 MG/2 ML VIAL ONE (08:48)
[2017-09-16] MEDS ORDERED: Propofol 10 mg/ml Inj (20 ML) ONE (08:49)
[2017-09-16] MEDS: Emtricitabine-Tenofovir 200 mg-300 mg Tab PO SCH (10:09)
[2017-09-16] MEDS: Enoxaparin 40 mg Syringe SC SCH (10:09)
[2017-09-16] MEDS: Pantoprazole 40 mg EC Tab PO SCH ×2 (10:10→17:06)
--- NOTE | 2017-09-16 10:27 | CP.PCM.CON ---
<Jass Anaya - Last Filed: 09/16/17 10:24> History of Present Illness - History of Present Illness History of Present Illness: Initial GI Consult Note - Gretta Anaya PGY2 cc: abdominal pain HPI: Patient is a 51yo female with history of HIV on Truvada, HCV with undetectable viral load, gallstones, PUD, IBS, COPD, anxiety, depression with numerous previous suicide attempts, polysubstance abuse and drug seeking behavior who presented to the ED with altered mental status. Patient reported that she had ingested her husbands diabetic medications and thereafter felt lethargic. Per chart, she was found confused and altered by her who subsequently brought her to the ED and she was found to be severely hypoglycemic. She was given multiple administrations of D50 and started on D5W IVF. On evaluation, patient was alert and oriented and reported that she had been having epigastric abdominal pain that radiated into her back for approximately the past 3 months. She reported that the pain was intermittent and associated with diarrhea for the last month. No alleviating or exacerbating factors. Reportedly, abstinence from food did not improve the abdominal pain. Per records, patient has had numerous visits to the ED with complaints of abdominal pain with poor outpatient followup and is noted to be an unreliable historian. She denied fevers, chills, cough, focal weakness, numbness, tingling. 12point ROS as per HPI above otherwise negative PMHx: as stated above PSHx: Cholecystectomy (05/29), IVC filter placement, tubal ligation Allergies: NKDA Social hx: H/O polypsubstance abuse - cocaine, PCP, current cannabis use, daily xanax use; 1ppd tobacco use; denies EtOH use Family Hx: Mother - Heroin use Endo: Reports EGD at [facility] ~13 months ago; EGD/colonoscopy 06/[address] Jeronimo at [facility] Past Patient History - Infectious Disease Hx of Infectious Diseases: None - Past Medical History & Family History Past Medical History?: Yes - Past Social History Smoking Status: Light Smoker < 10 Cigarettes Daily - CARDIAC Hx Hypertension: No - PULMONARY Hx Chronic Obstructive Pulmonary Disease (COPD): Yes - NEUROLOGICAL Hx Migraine: Yes - HEENT Hx HEENT Problems: No - RENAL Hx Chronic Kidney Disease: No - ENDOCRINE/METABOLIC Hx Endocrine Disorders: No - HEMATOLOGICAL/ONCOLOGICAL Hx Anemia: Yes Hx Hepatitis C: Yes Hx Human Immunodeficiency Virus (HIV): Yes - INTEGUMENTARY Hx Dermatological Problems: No - MUSCULOSKELETAL/RHEUMATOLOGICAL Hx Falls: Yes Hx Fractures: Yes (2010 Left hip, pelvis, leg) - GASTROINTESTINAL Hx Gastritis: Yes Hx Pancreatitis: Yes - GENITOURINARY/GYNECOLOGICAL Hx Sexually Transmitted Disorders: No - PSYCHIATRIC Hx Anxiety: Yes Hx Bipolar Disorder: Yes Hx Depression: Yes Hx Substance Use: Yes - SURGICAL HISTORY Hx Cholecystectomy: Yes - ANESTHESIA Hx Anesthesia: Yes Hx Anesthesia Reactions: No Hx Malignant Hyperthermia: No Has any member of the family had a problem w/ anesthesia?: No Meds Allergies/Adverse Reactions: Allergies Allergy/AdvReac Type Severity Reaction Status Date / Time No Known Allergies Allergy Verified 09/15/17 01:25 - Medications Medications: Current Medications Alprazolam (Xanax) 2 mg PO Q12 [facility] Last Admin: 09/16/17 10:08 Dose: 2 mg Aspirin (Ecotrin) 81 mg PO DAILY [facility] Last Admin: 09/16/17 10:10 Dose: 81 mg Emtricitabine/Tenofovir (Truvada 200 Mg-300 Mg) 1 tab PO DAILY [facility] PRN Reason: Protocol Last Admin: 09/16/17 10:09 Dose: 1 tab Enoxaparin Sodium (Lovenox) 40 mg SC DAILY [facility] Last Admin: 09/16/17 10:09 Dose: 40 mg Fosamprenavir Calcium (Lexiva) 1,400 mg PO Q12 [facility] PRN Reason: Protocol Last Admin: 09/16/17 10:09 Dose: 1,400 mg Hydrocortisone Sodium Succinate (Solu-Cortef) 100 mg IV Q8H [facility] Last Admin: 09/16/17 05:46 Dose: Not Given Dextrose (Dextrose 5% In Water 1000 Ml) 1,000 mls @ 75 mls/hr IV .[id number] [facility] Last Admin: 09/15/17 21:16 Dose: 75 mls/hr Ketorolac Tromethamine (Toradol) 30 mg IM Q8 PRN PRN Reason: Pain, Mild (1-3) Last Admin: 09/16/17 10:10 Dose: 30 mg Octreotide Acetate (Sandostatin) 100 mcg IV Q6H [facility] Last Admin: 09/16/17 05:17 Dose: 100 mcg Pantoprazole Sodium (Protonix Ec Tab) 40 mg PO DAILY [facility] Last Admin: 09/16/17 10:10 Dose: 40 mg Physical Exam - Constitutional Appears: Unkempt, Older Than Stated Age, Chronically Ill - Head Exam Head Exam: ATRAUMATIC, NORMOCEPHALIC - Eye Exam Eye Exam: EOMI Pupil Exam: PERRL - Respiratory Exam Respiratory Exam: absent: Rales, Rhonchi, Wheezes - Cardiovascular Exam Cardiovascular Exam: +S1, +S2. absent: Gallop, Rubs - GI/Abdominal Exam GI & Abdominal Exam: Soft, Tenderness (mild tenderness to palpation in the epigastric region). absent: Distended, Firm, Guarding - Neurological Exam Neurological exam: Alert, Oriented x3 - Psychiatric Exam Psychiatric exam: Anxious - Skin Skin Exam: Dry, Intact, Normal Color, Warm Results - Vital Signs Recent Vital Signs: Last Vital Signs Temp 97.5 F L 09/16/17 08:51 Pulse 73 09/16/17 08:51 Resp 18 09/16/17 08:51 BP 135/87 09/16/17 08:51 Pulse Ox 100 09/16/17 08:51 - Labs Result Diagrams: 09/15/17 01:40 09/15/17 03:17 Labs: Laboratory Results - last 24 hr 09/15/17 09/15/17 09/15/17 11:00 11:25 12:17 POC Glucose (mg/dL) 73 73 124 H 09/15/17 09/15/17 09/15/17 14:54 17:09 20:59 POC Glucose (mg/dL) 298 H 313 H 198 H 09/16/17 09/16/17 02:07 05:59 POC Glucose (mg/dL) 215 H 157 H Assessment & Plan - Assessment and Plan (Free Text) Plan: 51yo female with history of HIV on Truvada, HCV with undetectable viral load, gallstones, PUD, IBS, COPD, anxiety, depression with numerous previous suicide attempts, polysubstance abuse and drug seeking behavior presents to the ED with altered mental status secondary to hypoglycemia due to medication overdose. GI consulted for evaluation of abdominal pain. 1. Epigastric abdominal pain 2. Peptic ulcer disease 3. Hypoglycemia 4. Polysubstance abuse 5. Hx of HCV with undetectable viral load 6. Hx of HIV on truvada -EGD performed today revealed gastritis, gastric ulcer and retained gastric contents (refer to full report) -EGD biopsies pending -Continue protonix 40mg ACAB -Advance diet as tolerated -Lipase within normal limits -Continue current medical management for hypoglycemia as per primary team Patient seen and case discussed/reviewed with attending, Dr. Canela <Isac Canela - Last Filed: 09/16/17 13:13> Meds - Medications Medications: Current Medications Alprazolam (Xanax) 2 mg PO Q12 [facility] Last Admin: 09/16/17 10:08 Dose: 2 mg Aspirin (Ecotrin) 81 mg PO DAILY [facility] Last Admin: 09/16/17 10:10 Dose: 81 mg Emtricitabine/Tenofovir (Truvada 200 Mg-300 Mg) 1 tab PO DAILY [facility] PRN Reason: Protocol Last Admin: 09/16/17 10:09 Dose: 1 tab Enoxaparin Sodium (Lovenox) 40 mg SC DAILY [facility] Last Admin: 09/16/17 10:09 Dose: 40 mg Fosamprenavir Calcium (Lexiva) 1,400 mg PO Q12 [facility] PRN Reason: Protocol Last Admin: 09/16/17 10:09 Dose: 1,400 mg Hydrocortisone Sodium Succinate (Solu-Cortef) 100 mg IV Q8H [facility] Last Admin: 09/16/17 05:46 Dose: Not Given Dextrose (Dextrose 5% In Water 1000 Ml) 1,000 mls @ 75 mls/hr IV .[id number] [facility] Last Admin: 09/15/17 21:16 Dose: 75 mls/hr Ketorolac Tromethamine (Toradol) 30 mg IM Q8 PRN PRN Reason: Pain, Mild (1-3) Last Admin: 09/16/17 10:10 Dose: 30 mg Octreotide Acetate (Sandostatin) 100 mcg IV Q6H [facility] Last Admin: 09/16/17 05:17 Dose: 100 mcg Pantoprazole Sodium (Protonix Ec Tab) 40 mg PO BID [facility] Results - Vital Signs Recent Vital Signs: Last Vital Signs Temp 98 F 09/16/17 09:10 Pulse 66 09/16/17 09:40 Resp 16 09/16/17 09:40 BP 141/94 H 09/16/17 09:40 Pulse Ox 100 09/16/17 09:40 - Labs Result Diagrams: 09/15/17 01:40 09/15/17 03:17 Labs: Laboratory Results - last 24 hr 09/15/17 09/15/17 09/15/17 14:54 17:09 20:59 POC Glucose (mg/dL) 298 H 313 H 198 H 09/16/17 09/16/17 09/16/17 02:07 05:59 11:40 POC Glucose (mg/dL) 215 H 157 H 103 Attending/Attestation - Attestation I have personally seen and examined this patient.: Yes I have fully participated in the care of the patient.: Yes I have reviewed all pertinent clinical information: Yes Notes (Text): 09/16/17 13:03 I have seen and examined patient with GI fellow. Agree with above documentation with the following additions. In brief, this is a 51 year old female with history of HIV, HCV, polysubstance abuse, PUD, COPD, depression who initially presented to hospital with altered mental status after apparent suicide attempt in taking husbands diabetic medication. GI called for evaluation of abdominal pain. She describes sharp epigastric abdominal pain which is 10/10, radiates to back, and is worse after meal consumption for the past 3 months. For the past one month she also describes loose bowel movements , though has been told this is related to underlying irritable bowel syndrome. She denies vomiting, fever/chills, weight loss, NSAID use, or rectal bleeding. She follows with a private deputy director of public works as an outpatient and apparently claims to have had a normal EGD 13 months ago and a colonoscopy 2 years ago. Additional physical examination: Abdomen: no palpable hepato/splenomegaly HIV HCV Polysubstance abuse COPD Depression AMS - resolved Abdominal pain, h/o PUD - NPO - Continue with PPI therapy - CT imaging from last month reviewed by me showing no focal pancreatic abnormalities - Given recurrent hospital admissions with complaint of abdominal pain, plan for EGD for further evaluation today to rule out recurrent peptic ulcer disease - Further management pending results of endoscopic evaluation
--- NOTE | 2017-09-16 18:30 | PCM.PSYCH ---
Initial Psychiatric Evaluation - Initial Psychiatric Evaluation Type of Admission: Voluntary Legal Status: Capacity Chief Complaint (in patient's own words): I was feeling depressed.' History of Present Illness and Precipitating Events: Patient is a 51 yo female with history of HIV on Truvada, HCV with undetectable viral load, gallstones, PUD, IBS, COPD, anxiety, depression with numerous previous suicide attempts, polysubstance abuse and drug seeking behavior who presented to the ED with altered mental status. Patient reported that she had ingested her husbands diabetic medications and thereafter felt lethargic. Per chart, she was found confused and altered by her who subsequently brought her to the ED and she was found to be severely hypoglycemic. She was given multiple administrations of D50 and started on D5W IVF. The patient was consulted today. Patient reports depressed mood and at times feelings of hopelessness and helplessness. She also reports irritability and agitation at times. She reports history of multiple suicide attempts in the past. She also reports of being at [facility], psychiatric unit in the past. She reports that she is partially compliant with her medications. She denies any auditory or visual hallucinations or any psychotic symptoms. PMHx: IV on Truvada, HCV with undetectable viral load, gallstones, PUD, IBS, COPD, PSHx: Cholecystectomy (05/29), IVC filter placement, tubal ligation Allergies: NKDA Social hx: H/O polypsubstance abuse - cocaine, PCP, current cannabis use, daily xanax use; 1ppd tobacco use; denies EtOH use Family Hx: Mother - Heroin use Endo: Reports EGD at [facility] ~13 months ago; EGD/colonoscopy 06/[address] Jeronimo at [facility] Current Medications: Active Medications Generic Name Dose Route Start Last Admin Trade Name Freq PRN Reason Stop Dose Admin Alprazolam 2 mg 09/15/17 10:09/16/17 10:08 Xanax PO 2 mg Q12 OSMAR Administration Aspirin 81 mg 09/15/17 10:09/16/17 10:10 Ecotrin PO 81 mg DAILY OSMAR Administration Emtricitabine/Tenofovir 1 tab 09/15/17 10:09/16/17 10:09 Truvada 200 Mg-300 Mg PO 1 tab DAILY OSMAR Administration Protocol Enoxaparin Sodium 40 mg 09/15/17 10:00 09/16/17 10:09 Lovenox SC 40 mg DAILY OSMAR Administration Fosamprenavir Calcium 1,400 mg 09/15/17 10:00 09/16/17 10:09 Lexiva PO 1,400 mg Q12 OSMAR Administration Protocol Hydrocortisone Sodium Succinate 100 mg 09/15/17 13:00 09/16/17 13:56 Solu-Cortef IV 100 mg Q8H OSMAR Administration Dextrose 1,000 mls @ 75 mls/hr 09/15/17 22:00 09/15/17 21:16 Dextrose 5% In Water 1000 Ml IV 75 mls/hr .[id number] OSMAR Administration Ketorolac Tromethamine 30 mg 09/16/17 17:50 Toradol IVP Q8H PRN Pain, moderate (4-7) Pantoprazole Sodium 40 mg 09/16/17 18:00 09/16/17 17:06 Protonix Ec Tab PO 40 mg BID OSMAR Administration Past Psychiatric History - Past Psychiatric History Previous Treatment History: Inpatient Pertinent Medical Hx (Current Medical&Sleep Prob, Allergies): Allergies Allergy/AdvReac Type Severity Reaction Status Date / Time No Known Allergies Allergy Verified 09/15/17 01:25 Alprazolam [Xanax] 2 mg PO Q12 10/14/15 Aspirin/Acetaminophen/Caffeine [Excedrin Extra Strength Caplet] 1 each PO Q6 Emtricitabine/Tenofovir (Tdf) [Truvada 100 mg-150 mg Tablet] 1 each PO DAILY Fosamprenavir Calcium [Lexiva] 1,400 mg PO Q12 04/10/17 Emtricitabine/Tenofovir Diso [Truvada 200 MG-300 MG] 1 tab PO DAILY tab Review of Systems - Review of Systems All systems: reviewed and no additional remarkable complaints except - Psychiatric Psychiatric: Anxiety, Irritability, Suicidal Ideation Mental Status Examination - Personal Presentation Personal Presentation: Looks stated age - Affect Affect: Constricted, Depressed - Motor Activity Motor Activity: Psychomotor Retardation - Reliability in Providing Information Reliability in Providing Information: Poor, due to altered mood - Speech Speech: Organized - Mood Mood: Depressed, Anxious - Formal Thought Process Formal Thought Process: No Impairment - Obsessions/Compulsions Obsessions: No Compulsions: No - Cognitive Functions Orientation: Person, Place, Situation, Time Sensorium: Alert Attention/Concentration: Attentive Abstract Thinking: Tolstoy Estimate of Intelligence: Below average Judgement: Imparied, as evidence by: Poor judgement, Imparied, as evidence by: Lack of insight into illness - Risk Risk: Suicidal, Diminished functioning - Strength & Assets Inventory Strength & Assets Inventory: Family support DSM 5 DX - DSM 5 DSM 5 Diagnosis: Bipolar disorder depressed severe without psychotic features Sedative/hypnotic use disorder severe Opiate use disorder severe - Recommended/Plan of Treatment Treatment Recommendations and Plan of Treatment: Psychoeducation Supportive therapy, group therapy, individual therapy Ativan 1 mg PO Q6hr PRN Depakote 250 mg by mouth twice a day Trazodone 50 mg by mouth daily at bedtime Patient to admit at 5 E for stabilization. - Smoking Cessation Smoking Cessation Initiated: No
--- NOTE | 2017-09-16 18:38 | CP.PCM.PN ---
Subjective - Date & Time of Evaluation Date of Evaluation: 09/16/17 Objective - Vital Signs/Intake and Output Vital Signs (last 24 hours): Temp Pulse Resp BP Pulse Ox 98 F 66 16 141/94 H 100 09/16/17 09:10 09/16/17 09:40 09/16/17 09:40 09/16/17 09:40 09/16/17 09:40 - Medications Medications: Current Medications Alprazolam (Xanax) 2 mg PO Q12 [facility] Last Admin: 09/16/17 10:08 Dose: 2 mg Aspirin (Ecotrin) 81 mg PO DAILY [facility] Last Admin: 09/16/17 10:10 Dose: 81 mg Emtricitabine/Tenofovir (Truvada 200 Mg-300 Mg) 1 tab PO DAILY [facility] PRN Reason: Protocol Last Admin: 09/16/17 10:09 Dose: 1 tab Enoxaparin Sodium (Lovenox) 40 mg SC DAILY [facility] Last Admin: 09/16/17 10:09 Dose: 40 mg Fosamprenavir Calcium (Lexiva) 1,400 mg PO Q12 [facility] PRN Reason: Protocol Last Admin: 09/16/17 10:09 Dose: 1,400 mg Gabapentin (Neurontin) 100 mg PO TID [facility] Hydrocortisone Sodium Succinate (Solu-Cortef) 100 mg IV Q8H [facility] Last Admin: 09/16/17 13:56 Dose: 100 mg Dextrose (Dextrose 5% In Water 1000 Ml) 1,000 mls @ 75 mls/hr IV .[id number] [facility] Last Admin: 09/15/17 21:16 Dose: 75 mls/hr Ketorolac Tromethamine (Toradol) 30 mg IVP Q8H PRN PRN Reason: Pain, moderate (4-7) Mirtazapine (Remeron) 15 mg PO HS [facility] Pantoprazole Sodium (Protonix Ec Tab) 40 mg PO BID [facility] Last Admin: 09/16/17 17:06 Dose: 40 mg Trazodone HCl (Desyrel) 50 mg PO HS [facility] - Labs Labs: 09/15/17 01:40 09/15/17 03:17 PT 11.6 SECONDS (9.7-12.2) 09/15/17 02:36 INR 1.0 09/15/17 02:36 APTT 27 SECONDS (21-34) 09/15/17 02:36 Assessment and Plan - Assessment and Plan (Free Text) Plan: Patient complains of pain at the gull ulcer site Status post a GI doctor Patient will be transferred to the floor once cleared by medicine most likely will transfer to a psych floor Patient is on HIV medications Patient going to be seen by ID also
--- NOTE | 2017-09-17 07:24 | CP.PCM.PN ---
<Jass Anaya - Last Filed: 09/17/17 09:17> Subjective - Date & Time of Evaluation Date of Evaluation: 09/17/17 Time of Evaluation: 07:21 - Subjective Subjective: GI progress note - Gretta Anaya PGY2 Patient seen and examined at bedside this morning. No acute overnight events or new complaints reported this morning. Patient stated that her abdominal pain was significantly improved compared to yesterday. Tolerating diet well with no issues. Denied diarrhea, constipation, fever, chills, cough. 12point ROS as per above otherwise negative. Objective - Vital Signs/Intake and Output Vital Signs (last 24 hours): Temp Pulse Resp BP Pulse Ox 98 F 78 18 108/63 97 09/16/17 20:30 09/16/17 23:00 09/16/17 20:30 09/16/17 20:30 09/16/17 20:30 - Medications Medications: Current Medications Alprazolam (Xanax) 2 mg PO Q12 [facility] Last Admin: 09/16/17 21:10 Dose: 2 mg Aspirin (Ecotrin) 81 mg PO DAILY [facility] Last Admin: 09/16/17 10:10 Dose: 81 mg Emtricitabine/Tenofovir (Truvada 200 Mg-300 Mg) 1 tab PO DAILY [facility] PRN Reason: Protocol Last Admin: 09/16/17 10:09 Dose: 1 tab Enoxaparin Sodium (Lovenox) 40 mg SC DAILY [facility] Last Admin: 09/16/17 10:09 Dose: 40 mg Fosamprenavir Calcium (Lexiva) 1,400 mg PO Q12 [facility] PRN Reason: Protocol Last Admin: 09/16/17 21:10 Dose: 1,400 mg Gabapentin (Neurontin) 100 mg PO TID [facility] Hydrocortisone Sodium Succinate (Solu-Cortef) 100 mg IV Q8H [facility] Last Admin: 09/17/17 04:45 Dose: 100 mg Dextrose (Dextrose 5% In Water 1000 Ml) 1,000 mls @ 75 mls/hr IV .[id number] [facility] Last Admin: 09/17/17 04:44 Dose: Not Given Ketorolac Tromethamine (Toradol) 30 mg IVP Q8H PRN PRN Reason: Pain, moderate (4-7) Mirtazapine (Remeron) 15 mg PO HS [facility] Last Admin: 09/16/17 21:10 Dose: 15 mg Pantoprazole Sodium (Protonix Ec Tab) 40 mg PO BID [facility] Last Admin: 09/16/17 17:06 Dose: 40 mg Trazodone HCl (Desyrel) 50 mg PO HS [facility] Last Admin: 09/16/17 21:10 Dose: 50 mg - Labs Labs: 09/15/17 01:40 09/15/17 03:17 PT 11.6 SECONDS (9.7-12.2) 09/15/17 02:36 INR 1.0 09/15/17 02:36 APTT 27 SECONDS (21-34) 09/15/17 02:36 - Constitutional Appears: No Acute Distress, Unkempt, Older Than Stated Age - Head Exam Head Exam: ATRAUMATIC, NORMOCEPHALIC - Eye Exam Eye Exam: EOMI Pupil Exam: PERRL - ENT Exam ENT Exam: Mucous Membranes Moist - Respiratory Exam Respiratory Exam: absent: Rales, Rhonchi, Wheezes - Cardiovascular Exam Cardiovascular Exam: +S1, +S2. absent: Gallop, Rubs - GI/Abdominal Exam GI & Abdominal Exam: Soft. absent: Distended, Firm, Guarding, Rigid, Tenderness , Rebound - Neurological Exam Neurological Exam: Alert, Awake, CN II-XII Intact, Oriented x3 - Psychiatric Exam Psychiatric exam: Normal Affect, Normal Mood - Skin Skin Exam: Dry, Intact, Normal Color, Warm Assessment and Plan - Assessment and Plan (Free Text) Plan: 51yo female with history of HIV on Truvada, HCV with undetectable viral load, gallstones, PUD, IBS, COPD, anxiety, depression with numerous previous suicide attempts, polysubstance abuse and drug seeking behavior presents to the ED with altered mental status secondary to hypoglycemia due to medication overdose. GI consulted for evaluation of abdominal pain. 1. Epigastric abdominal pain 2. Peptic ulcer disease 3. Altered mental status secondary to Hypoglycemia - resolved 4. Polysubstance abuse 5. Hx of HCV with undetectable viral load 6. Hx of HIV on truvada -EGD revealed gastritis, gastric ulcer and retained gastric contents (refer to full report) -Continue protonix 40mg daily -Tolerating diet without adverse events -Lipase within normal limits -No further GI intervention anticipated at this time, we will sign off this case , please re-consult as deemed necessary. Thank you for this consult. Patient seen and case discussed/reviewed with attending, Dr. Canela <Isac Canela - Last Filed: 09/17/17 09:49> Objective - Vital Signs/Intake and Output Vital Signs (last 24 hours): Temp Pulse Resp BP Pulse Ox 98.8 F 75 18 130/86 95 09/17/17 07:05 09/17/17 08:15 09/17/17 07:05 09/17/17 07:05 09/17/17 07:05 - Medications Medications: Current Medications Alprazolam (Xanax) 2 mg PO Q12 [facility] Last Admin: 09/17/17 09:26 Dose: 2 mg Aspirin (Ecotrin) 81 mg PO DAILY [facility] Last Admin: 09/17/17 09:26 Dose: 81 mg Emtricitabine/Tenofovir (Truvada 200 Mg-300 Mg) 1 tab PO DAILY [facility] PRN Reason: Protocol Last Admin: 09/17/17 09:27 Dose: 1 tab Enoxaparin Sodium (Lovenox) 40 mg SC DAILY [facility] Last Admin: 09/17/17 09:29 Dose: Not Given Fosamprenavir Calcium (Lexiva) 1,400 mg PO Q12 [facility] PRN Reason: Protocol Last Admin: 09/17/17 09:27 Dose: 1,400 mg Gabapentin (Neurontin) 100 mg PO TID [facility] Last Admin: 09/17/17 09:26 Dose: 100 mg Hydrocortisone Sodium Succinate (Solu-Cortef) 100 mg IV Q8H [facility] Last Admin: 09/17/17 04:45 Dose: 100 mg Dextrose (Dextrose 5% In Water 1000 Ml) 1,000 mls @ 75 mls/hr IV .[id number] [facility] Last Admin: 09/17/17 04:44 Dose: Not Given Ketorolac Tromethamine (Toradol) 30 mg IVP Q8H PRN PRN Reason: Pain, moderate (4-7) Last Admin: 09/17/17 07:29 Dose: 30 mg Mirtazapine (Remeron) 15 mg PO HS [facility] Last Admin: 09/16/17 21:10 Dose: 15 mg Pantoprazole Sodium (Protonix Ec Tab) 40 mg PO BID [facility] Last Admin: 09/17/17 09:27 Dose: 40 mg Trazodone HCl (Desyrel) 50 mg PO HS [facility] Last Admin: 09/16/17 21:10 Dose: 50 mg - Labs Labs: 09/15/17 01:40 09/15/17 03:17 PT 11.6 SECONDS (9.7-12.2) 09/15/17 02:36 INR 1.0 09/15/17 02:36 APTT 27 SECONDS (21-34) 09/15/17 02:36 Attending/Attestation - Attestation I have personally seen and examined this patient.: Yes I have fully participated in the care of the patient.: Yes I have reviewed all pertinent clinical information, including history, physical exam and plan: Yes Notes (Text): 09/17/17 09:44 I have seen and examined patient with GI fellow and hospitalist medical director. She is seen resting in bed comfortably, no acute events overnight. She continues to endorse mild post prandial abdominal pain, though improved compared to prior. She denies nausea, vomiting, diarrhea, fever/chills. Tolerating PO diet without difficulty. HIV on HAART HCV COPD Abdominal pain - s/p EGD showing gastric ulcer, retained food content Depression Polysubstance abuse, AMS - Diet as tolerated - Continue with PPI therapy - Awaiting biopsy results from EGD - Following hospital discharge, patient will follow up with primary GI physician - Patient currently awaiting transfer to psychiatric unit for ongoing care. No further planned GI intervention, will sign off case. Please reconsult as necessary, thank you.
[2017-09-17 07:33] LABS: BARBITURATES, UR NEGATIVE (NEGATIVE); OPIATES, UR NEGATIVE (NEGATIVE); PHENCYCLIDINE, UR NEGATIVE (NEGATIVE)
[2017-09-17 07:54] LABS: BENZODIAZEPINES, UR POSITIVE (NEGATIVE)
[2017-09-17] MEDS: Pantoprazole 40 mg EC Tab PO SCH ×2 (09:27→17:31)
[2017-09-17] MEDS: Emtricitabine-Tenofovir 200 mg-300 mg Tab PO SCH (09:27)
[2017-09-17] MEDS: Enoxaparin 40 mg Syringe SC SCH (09:29)
--- NOTE | 2017-09-17 11:42 | CP.PCM.PN ---
Subjective - Date & Time of Evaluation Date of Evaluation: 09/17/17 Time of Evaluation: 11:39 - Subjective Subjective: PATIENT WAS ADMITTED FOR HYPOGLYCEMIA AAOX3; DENIES CHEST PAIN OR SOB Objective - Vital Signs/Intake and Output Vital Signs (last 24 hours): Temp Pulse Resp BP Pulse Ox 98.8 F 75 18 130/86 95 09/17/17 07:05 09/17/17 08:15 09/17/17 07:05 09/17/17 07:05 09/17/17 07:05 - Medications Medications: Current Medications Alprazolam (Xanax) 2 mg PO Q12 [facility] Last Admin: 09/17/17 09:26 Dose: 2 mg Aspirin (Ecotrin) 81 mg PO DAILY [facility] Last Admin: 09/17/17 09:26 Dose: 81 mg Emtricitabine/Tenofovir (Truvada 200 Mg-300 Mg) 1 tab PO DAILY [facility] PRN Reason: Protocol Last Admin: 09/17/17 09:27 Dose: 1 tab Enoxaparin Sodium (Lovenox) 40 mg SC DAILY [facility] Last Admin: 09/17/17 09:29 Dose: Not Given Fosamprenavir Calcium (Lexiva) 1,400 mg PO Q12 [facility] PRN Reason: Protocol Last Admin: 09/17/17 09:27 Dose: 1,400 mg Gabapentin (Neurontin) 100 mg PO TID [facility] Last Admin: 09/17/17 09:26 Dose: 100 mg Hydrocortisone Sodium Succinate (Solu-Cortef) 100 mg IV Q8H [facility] Last Admin: 09/17/17 04:45 Dose: 100 mg Dextrose (Dextrose 5% In Water 1000 Ml) 1,000 mls @ 75 mls/hr IV .[id number] [facility] Last Admin: 09/17/17 04:44 Dose: Not Given Ketorolac Tromethamine (Toradol) 30 mg IVP Q8H PRN PRN Reason: Pain, moderate (4-7) Last Admin: 09/17/17 07:29 Dose: 30 mg Mirtazapine (Remeron) 15 mg PO HS [facility] Last Admin: 09/16/17 21:10 Dose: 15 mg Pantoprazole Sodium (Protonix Ec Tab) 40 mg PO BID [facility] Last Admin: 09/17/17 09:27 Dose: 40 mg Trazodone HCl (Desyrel) 50 mg PO HS [facility] Last Admin: 09/16/17 21:10 Dose: 50 mg - Labs Labs: 09/15/17 01:40 09/15/17 03:17 PT 11.6 SECONDS (9.7-12.2) 09/15/17 02:36 INR 1.0 09/15/17 02:36 APTT 27 SECONDS (21-34) 09/15/17 02:36 Assessment and Plan - Assessment and Plan (Free Text) Assessment: SEEN AND EXAMINED BY MICROFICHE CAMERA OPERATOR AND DR WHITTAKER PATIENT AGREE TO GO TO THE [facility]ICAL [facility] CLEAR MEDICALLY BY DR FULLER AND DR DE ANDA DISCUSS WITH PMD WHO AGREE AND CLEAR PATIENT FOR TRANSFER NO SIGN OF DISTRESS NOTED
--- NOTE | 2017-09-17 12:44 | PCM.BM ---
<Mariah Romero - Last Filed: 09/17/17 12:42> Treatment Plan Problems - Problems identified on initial assessmt Suicidal Ideation Date Initiated: 09/17/17 Time Initiated: 12:43 Assessment reference: NA Status: Monitor Treatment assets and liabiliti Patient Assests: cooperative Patient Liabilities: medical problems - Milieu Protocol Maintain good personal hygiene: every shift Encourage regular showers, every shift Remind patient to perform daily oral care, every shift Assist patient to perform ADL's Maintain personal safety: every shift Educate patient to report safety concerns to staff, every shift Monitor environment for contraband/sharps Medication safety: Monitor for expected outcome, potential side effects: every shift, Assess barriers to learning: every shift, Assess readiness for medication education: every shift <Quang Garcia - Last Filed: 09/18/17 10:52> - Diagnosis (1) Bipolar disorder, current episode depressed, severe, without psychotic features Status: Acute Interventions: 09/18/17 10:52 * Assess/adjust medications daily and /or as needed * See patient on an individual basis 7x/week to assess level of manic behaviors and stability * Discuss risks, benefits, side effects and alternatives of medications * <Bessie Gonzales - Last Filed: 09/18/17 11:28> Family Contact Family involvement: Famliy/SO not involved - Goals for Treatment Patient goals for treatment: "I need a psychiatrist." Discharge/Continuing Care - Education Needs Education Needs: Patient Medication, Patient Coping Skills - Discharge Discharge Criteria: Tolerates medication w/o severe side effects, Reduction of target symptoms Discharge to:: Home - Treatment Team Participation Discussed with Family/SO: No Was Patient/Family/SO present at Treatment Team Meeting: Yes
--- NOTE | 2017-09-17 13:46 | PCM.PYCHPN ---
Psychiatric Progress Note - Psychiatric Progress Note Patient seen today, length of contact: 15 min Patient Chief Complaint: I'm feeling depressed Problems Identified/Issues Discussed: Patient seen and evaluated, chart reviewed and discussed with the nurse. Patient reports irritability and agitation. However she appears depressed and isolated. She still reporting at times feelings of hopelessness and helplessness. She agreed to sign in to the psychiatric unit. She started taking medications and denies side effects. She needs more time for stabilization. Supportive therapy and psychoeducation were given Medication Change: Yes (Start Seroquel) Medical Record Reviewed: Yes Mental Status Examination - Cognitive Function Orientation: Person, Place, Situation, Time Memory: Intact Attention: WNL Concentration: Poor Association: WNL Fund of Knowledge: Poor - Mood Mood: Depressed, Anxious - Affect Affect: Constricted - Speech Speech: Appropriate - Formal Thought Process Formal Thought Process: No Impairment - Suicidal Ideation Suicidal Ideation: No - Homicidal Ideation Homicidal Ideation: No Goal/Treatment Plan - Goal/Treatment Plan Need for Continued Stay: Severe depression anxiety, Severe functional impairment Progress Toward Problem(s) and Goals/Treatment Plan: Bipolar disorder depressed severe without psychotic features Sedative/hypnotic use disorder severe Opiate use disorder severe Psychoeducation Supportive therapy, group therapy, individual therapy Xanax 1 mg 3 times a day when necessary Seroquel 200 mg by mouth daily at bedtime Remeron 30 mg by mouth daily at bedtime Ativan 1 mg PO Q6hr PRN d/c Depakote 250 mg by mouth twice a day HIV Continue prescribed medications IBD Continue prescribed medications Back Pian Continue prescribed medications - Smoking Cessation Smoking Cessation Initiated: No
--- NOTE | 2017-09-17 17:55 | CARD ---
APPROVED REPORT EKG Measurement Heart [id number] <Conclusion> Sinus rhythm with occasional premature ventricular complexes Prolonged QT Abnormal ECG
[2017-09-18] MEDS: Pantoprazole 40 mg EC Tab PO SCH ×2 (09:42→17:02)
[2017-09-18] MEDS: Emtricitabine-Tenofovir 200 mg-300 mg Tab PO SCH (09:43)
--- NOTE | 2017-09-18 10:52 | PCM.PYCHPN ---
Psychiatric Progress Note - Psychiatric Progress Note Patient seen today, length of contact: 15 min Patient Chief Complaint: I'm feeling a little better Problems Identified/Issues Discussed: Patient seen and evaluated, chart reviewed and discussed with the nurse. As per staff, patient is complaining of back pain, however she appears brighter than before. Patient reports some improvement in her mood and reports some improvement in her feelings of hopelessness and helplessness. She reports some improvement in her sleep and agitation. She is taking medications and denies side effects. Symptoms are improving but she needs more time for stabilization. Supportive therapy and psychoeducation were given Medication Change: Yes (Increase Seroquel) Medical Record Reviewed: Yes Mental Status Examination - Cognitive Function Orientation: Person, Place, Situation, Time Memory: Intact Attention: WNL Concentration: Poor Association: WNL Fund of Knowledge: Poor - Mood Mood: Depressed, Anxious - Affect Affect: Constricted - Speech Speech: Soft - Formal Thought Process Formal Thought Process: No Impairment - Suicidal Ideation Suicidal Ideation: No - Homicidal Ideation Homicidal Ideation: No Goal/Treatment Plan - Goal/Treatment Plan Need for Continued Stay: Severe depression anxiety, Severe functional impairment Progress Toward Problem(s) and Goals/Treatment Plan: Bipolar disorder depressed severe without psychotic features Sedative/hypnotic use disorder severe Opiate use disorder severe Psychoeducation Supportive therapy, group therapy, individual therapy Xanax 1 mg 3 times a day when necessary Seroquel 300 mg by mouth daily at bedtime Remeron 30 mg by mouth daily at bedtime Ativan 1 mg PO Q6hr PRN Seroquel 50 mg po daily HIV Continue prescribed medications IBD Continue prescribed medications Back Pian Continue prescribed medications - Smoking Cessation Smoking Cessation Initiated: No
[2017-09-19] MEDS: Emtricitabine-Tenofovir 200 mg-300 mg Tab PO SCH (09:17)
[2017-09-19] MEDS: Pantoprazole 40 mg EC Tab PO SCH ×2 (09:20→17:28)
[2017-09-20] MEDS: Pantoprazole 40 mg EC Tab PO SCH ×2 (09:02→18:00)
[2017-09-20] MEDS: Emtricitabine-Tenofovir 200 mg-300 mg Tab PO SCH (09:04)
[2017-09-21 08:34] VITALS: O2SAT 99
[2017-09-21] MEDS: Pantoprazole 40 mg EC Tab PO SCH ×2 (11:02→17:10)
[2017-09-21] MEDS: Emtricitabine-Tenofovir 200 mg-300 mg Tab PO SCH (11:03)
--- NOTE | 2017-09-21 13:54 | PCM.PYCHPN ---
Psychiatric Progress Note - Psychiatric Progress Note Patient seen today, length of contact: 15 minutes Patient Chief Complaint: "I'm doing okay" Problems Identified/Issues Discussed: The pt is seen, chart reviewed, case discussed with staff. The pt is compliant with medications and reports no side-effects. Symptoms improving and patient needs more time to stabilize. After care discussed, support and psychoeducation given. At the time of evaluation, patient denied any delusions, auditory or visual hallucinations, suicidal ideations or homicidal ideations. Medical Problems: HIV Diabetes mellitus Diagnostic Results: Reviewed DSM 5 Symptoms Update: Improving with treatment Medication Change: No Medical Record Reviewed: Yes Mental Status Examination - Cognitive Function Orientation: Person, Place, Situation, Time Memory: Intact Attention: WNL Concentration: WNL Association: WN Fund of Knowledge: [facility] Decription of patient's judgement and insights: Fair - Mood Mood: Neutral - Affect Affect: Other (Appropriate) - Speech Speech: Soft - Formal Thought Process Formal Thought Process: No Impairment Psychotic Thoughts and Behaviors: None - Suicidal Ideation Suicidal Ideation: No - Homicidal Ideation Homicidal Ideation: No Goal/Treatment Plan - Goal/Treatment Plan Need for Continued Stay: Remain at risks for inpatient hospitalization, Discharge may exacerbated symptoms, Severe functional impairment Progress Toward Problem(s) and Goals/Treatment Plan: Continue medications Support and psychoeducation daily Attend groups and activities daily Patient will go to [facility] for follow-up care after discharge from the hospital Estimated Date of D/C: 09/22/17 - Smoking Cessation Smoking Cessation Initiated: No
[2017-09-22 09:19] VITALS: BP 134/85; PULSE 92; RESP 20; TEMP 97.4
[2017-09-22] MEDS: Emtricitabine-Tenofovir 200 mg-300 mg Tab PO SCH (09:46)
[2017-09-22] MEDS: Pantoprazole 40 mg EC Tab PO SCH (09:47)
--- NOTE | 2017-09-23 14:30 | PCM.PYCHDC ---
Mental Status Examination - Mental Status Examination Orientation: Person, Place, Situation, Time Memory: Intact Mood: Neutral Affect: Other (Appropriate) Speech: Appropriate Attention: WNL Concentration: WNL Association: WNL Fund of Knowledge: WNL Formal Thought Process: No Impairment Description of patient's judgement and insight: Fair Psychotic Thoughts and Behaviors: None Suicidal Ideation: No Current Homicidal Ideation?: No Discharge Summary - Discharge Note Reason for Hospitalization: Bipolar disorder Opiate use disorder Anxiolytics use disorder Laboratory Data: Reviewed Consultations:: List each consultation separately and include: 1. Reason for request. 2. Findings. 3. Follow-up Summary of Hospital Course include:: 1. Description of specific treatment plan utilized for patients during their course of treatmen. 2. Summarize the time- course for resolution of acute symptoms and/or regressed behaviors. 3. Describe issues identified and worked on during hospitalization. 4. Describe medication utilized. 5. Describe medical problems identified and treated. 6. Reassessment of suicide risk Summary of Hospital Course: Patient is a 51 yo female with history of HIV on Truvada, HCV with undetectable viral load, gallstones, PUD, IBS, COPD, anxiety, depression with numerous previous suicide attempts, polysubstance abuse and drug seeking behavior who presented to the ED with altered mental status. Patient reported that she had ingested her husbands diabetic medications and thereafter felt lethargic. Per chart, she was found confused and altered by her who subsequently brought her to the ED and she was found to be severely hypoglycemic. She was given multiple administrations of D50 and started on D5W IVF. The patient was consulted today. Patient reports depressed mood and at times feelings of hopelessness and helplessness. She also reports irritability and agitation at times. She reports history of multiple suicide attempts in the past. She also reports of being at [facility], psychiatric unit in the past. She reports that she is partially compliant with her medications. She denies any auditory or visual hallucinations or any psychotic symptoms. PMHx: IV on Truvada, HCV with undetectable viral load, gallstones, PUD, IBS, COPD, During her stay in the hospital patient was treated with Seroquel, mirtazapine, gabapentin, active medications and other when necessary medications. Patient started feeling better with treatment and was ready for discharge. At the time of evaluation and discharge, patient was awake alert oriented 3, had no delusions, no auditory or visual hallucinations, no suicidal ideations or homicidal ideations. Patient was discharged in a stable condition. Patient will have follow-up at [facility] after discharge from the hospital. - Final Diagnosis (DSM 5) Condition upon Discharge: STABLE Disposition: HOME/ ROUTINE Follow-up Treatment Plan: Patient will go to [facility] for follow-up care after discharge from the hospital Prescriptions/Medication Reconciliation: Fosamprenavir Calcium [Lexiva] 1,400 mg PO Q12 #60 tab Gabapentin [Neurontin] 300 mg PO TID #90 cap Mirtazapine [Remeron] 30 mg PO HS #30 tab Pantoprazole [Protonix EC Tab] 40 mg PO BID #30 ect QUEtiapine [Seroquel] 300 mg PO HS #30 tab QUEtiapine [SEROquel] 50 mg PO DAILY #30 tab - Smoking Cessation Smoking Cessation Medication prescribed: No - Antipsychotic Medications Pt discharged on 2 or more routine antipsychotic medications: No
== END 2017-09-22 11:54 | disposition home or self-care (01) | DRG 918 ==
LOC: C.ER 01:04 → SUPCPDRO 01:04 → C.9E 04:33 → C.3T 13:50 → C.9E 13:53 → C.5S 16:57 → C.5E 09-17 11:45
PROVIDERS: ADMIT Psychiatry & Neurology Psychiatry; ATTEND Psychiatry & Neurology Psychiatry
PROC: HZ59ZZZ Individual Psychotherapy for Substance Abuse Treatment, Supportive (ICD-10-PCS; 2017-09-16)
PROC: HZ56ZZZ Individual Psychotherapy for Substance Abuse Treatment, Psychoeducation (ICD-10-PCS; 2017-09-16)
PROC: HZ42ZZZ Group Counseling for Substance Abuse Treatment, Cognitive-Behavioral (ICD-10-PCS; 2017-09-16)
PROC: HZ46ZZZ Group Counseling for Substance Abuse Treatment, Psychoeducation (ICD-10-PCS; 2017-09-16)
PROC: GZHZZZZ Group Psychotherapy (ICD-10-PCS; 2017-09-16)
PROC: GZ58ZZZ Individual Psychotherapy, Cognitive-Behavioral (ICD-10-PCS; 2017-09-16)
PROC: GZ56ZZZ Individual Psychotherapy, Supportive (ICD-10-PCS; 2017-09-16)
PROC: 0DB98ZX Excision of Duodenum, Via Natural or Artificial Opening Endoscopic, Diagnostic (ICD-10-PCS; 2017-09-16)
PROC: 0DB68ZX Excision of Stomach, Via Natural or Artificial Opening Endoscopic, Diagnostic (ICD-10-PCS; 2017-09-16)
PROC: HZ52ZZZ Individual Psychotherapy for Substance Abuse Treatment, Cognitive-Behavioral (ICD-10-PCS; principal; 2017-09-16 08:54)
DX: T38.3X2A Poisoning by insulin and oral hypoglycemic [antidiabetic] drugs, intentional self-harm, initial encounter (principal); R45.851 Suicidal ideations; E16.0 Drug-induced hypoglycemia without coma; F11.20 Opioid dependence, uncomplicated; F13.20 Sedative, hypnotic or anxiolytic dependence, uncomplicated; F31.4 Bipolar disorder, current episode depressed, severe, without psychotic features; B19.20 Unspecified viral hepatitis C without hepatic coma; F41.9 Anxiety disorder, unspecified; J44.9 Chronic obstructive pulmonary disease, unspecified; Z21 Asymptomatic human immunodeficiency virus [HIV] infection status; I10 Essential (primary) hypertension; G43.909 Migraine, unspecified, not intractable, without status migrainosus; F60.9 Personality disorder, unspecified; G89.29 Other chronic pain; M54.9 Dorsalgia, unspecified; F17.210 Nicotine dependence, cigarettes, uncomplicated; R41.82 Altered mental status, unspecified; K25.9 Gastric ulcer, unspecified as acute or chronic, without hemorrhage or perforation; K58.9 Irritable bowel syndrome, unspecified; Z90.49 Acquired absence of other specified parts of digestive tract; Z76.5 Malingerer [conscious simulation]

== ENCOUNTER 2017-10-01 12:28 | Emergency (ER) | payer BC ==
[2017-10-01 12:29] VITALS: BMI 19.7
[2017-10-01 12:50] VITALS: RESP 18
[2017-10-01] MEDS ORDERED: Sodium Chloride 0.9% 1,000 ML IV ONE (13:15)
[2017-10-01 13:46] LABS: BASO # 0.1 K/uL (0.0-0.2); BASO % 2.1 % (0.0-2.0); EOS # 0.2 K/uL (0.0-0.7); EOS % 4.8 % (0.0-4.0); HEMOGLOBIN 9.3 g/dL (11.0-16.0); LYMPH # 1.1 K/uL (1.0-4.3); LYMPH % 31.6 % (20.0-40.0); MEAN CELL VOLUME 80.2 fL (81.0-99.0); MEAN CORPUSCULAR HEMOGLOBIN 25.3 pg (27.0-31.0); MEAN CORPUSCULAR HGB CONC 31.6 g/dL (33.0-37.0); MEAN PLATELET VOLUME 7.6 fL (7.2-11.7); MONO # 0.3 K/uL (0.0-0.8); MONO % 7.5 % (0.0-10.0); NEUT # 1.8 K/uL (1.8-7.0); RBC 3.66 Mil/uL (3.80-5.20); RED CELL DISTRIBUTION WIDTH 22.4 % (11.5-14.5); WHITE BLOOD COUNT 3.4 K/uL (4.8-10.8)
[2017-10-01] MEDS ORDERED: Sodium Chloride 0.9% 1,000 ML ONE (13:47)
[2017-10-01 13:53] LABS: HCG,QUALITATIVE URINE NEGATIVE (NEGATIVE)
[2017-10-01 13:55] LABS: SQUAMOUS EPITHIAL 7 /hpf (0-5); URINE BILIRUBIN NEGATIVE (NEGATIVE); URINE BLOOD 3+ (NEGATIVE); URINE CLARITY Hazy (Clear); URINE COLOR Yellow (YELLOW); URINE GLUCOSE (UA) NORMAL (Normal); URINE LEUKOCYTE ESTERASE NEG Leu/uL (Negative); URINE PROTEIN 1+ mg/dL (NEGATIVE)
[2017-10-01 14:01] LABS: ALB/GLOB RATIO 1.1 (1.0-2.1); AST/SGOT 28 U/L (14-36); BLOOD UREA NITROGEN 18 mg/dL (7-17); GFR AFRICAN-AMERICAN > 60; GFR NON-AFRICAN AMERICAN > 60; LIPASE 121 U/L (23-300)
[2017-10-01 14:21] LABS: ALT/SGPT 25 U/L (9-52); CALCIUM 7.9 mg/dl (8.6-10.4)
[2017-10-01] MEDS ORDERED: Iodixanol 320 MG/ML 100 ML BOTTLE IV ONE (14:50)
--- NOTE | 2017-10-01 15:15 | C.PDOC ---
History Of Present Illness 51 y/o female w/PMHx of chronic abdominal pain, IBS, chronic pancreatitis presents to ED for evaluation of LLQ abdominal pain for past 3 days. Patient admits, " noted my stool in dark brown now". patient reports, " I have to watch what I eat to eliminate pain". Otherwise, patient denies fever, chills, recent illness, headache, dizziness, neck pain, CP, SOB, dyspnea, dipahoresis, palpitation, nausea, vomiting, hematemesis, diarrhea, melena, back pain, UTI sx. After my evlauation, pt immediately requesting Ativan for anxiety. Previous ED records review, She has had multiple ED visits with similar complaints. Time Seen by Provider: 10/01/17 12:53 Chief Complaint (Nursing): Abdominal Pain History Per: Patient Past Medical History Reviewed: Historical Data, Nursing Documentation, Vital Signs Vital Signs: Last Vital Signs Temp 97.8 F 10/01/17 12:47 Pulse 105 H 10/01/17 12:47 Resp 18 10/01/17 12:47 BP 114/70 10/01/17 12:47 Pulse Ox 96 10/01/17 16:13 - Medical History PMH: Anemia, Anxiety, Bipolar Disorder, COPD, Depression, Fractures (2010 Left hip, pelvis, leg), Gastritis, Gastrointestinal Ulcer, Hepatitis (C), HIV, Migraine, Pancreatitis, Personality Disorder, Chronic Pain (back pain) Denies: Asthma, HTN, Chronic Kidney Disease, Seizures, Sexually Transmitted Disease Surgical History: Cholecystectomy - [facility] Procedures EXCISION OF DUODENUM, ENDO, DIAGN (09/15/17) EXCISION OF STOMACH, ENDO, DIAGN (09/15/17) GROUP FASHION CONSULTANT SALES FOR SUBSTANCE ABUSE TREATMENT, PSYCHOEDUCATION (09/15/17) GROUP FASHION CONSULTANT SALES FOR SUBSTANCE ABUSE, COGNITIVE BEHAVIORAL (09/15/17) GROUP PSYCHOTHERAPY (09/15/17) INDIV PSYCHOTHERAPY FOR SUBSTANCE ABUSE TREATMENT, SUPPORT (09/15/17) INDIV PSYCHOTHERAPY FOR SUBSTANCE ABUSE, COGNITIV BEHAVIORAL (09/15/17) INDIV PSYCHOTHERAPY FOR SUBSTANCE ABUSE, PSYCHOEDUCATION (09/15/17) INDIVIDUAL PSYCHOTHERAPY, COGNITIVE-BEHAVIORAL (09/15/17) INDIVIDUAL PSYCHOTHERAPY, SUPPORTIVE (09/15/17) RESECTION OF GALLBLADDER, PERCUTANEOUS ENDOSCOPIC APPROACH (06/06/17) Family History: States: Diabetes (grandmother) - Social History Hx Tobacco Use: Yes Hx Alcohol Use: No Hx Substance Use: Yes (marijuana) - Immunization History Hx Tetanus Toxoid Vaccination: Yes Hx Influenza Vaccination: Yes Hx Pneumococcal Vaccination: Yes Review Of Systems Except As Marked, All Systems Reviewed And Found Negative. Constitutional: Negative for: Fever, Chills Eyes: Negative for: Vision Change ENT: Negative for: Throat Pain Cardiovascular: Negative for: Chest Pain, Palpitations, Edema, Light Headedness Respiratory: Negative for: Cough, Shortness of Breath, Wheezing Gastrointestinal: Positive for: Abdominal Pain. Negative for: Nausea, Vomiting , Diarrhea, Hematochezia, Hematemesis Genitourinary: Negative for: Dysuria, Frequency Musculoskeletal: Negative for: Neck Pain, Back Pain Skin: Negative for: Rash Neurological: Negative for: Weakness, Numbness, Altered Mental Status Physical Exam - Physical Exam Appears: Well, No Acute Distress Skin: Normal Color, Warm, Dry Head: Normacephalic Eye(s): bilateral: PERRL Nose: No Flaring, No Discharge Oral Mucosa: Moist Throat: No Drooling Neck: Trachea Midline, Supple Cardiovascular: Rhythm Regular Respiratory: No Decreased Breath Sounds, No Accessory Muscle Use, No Stridor, No Wheezing Gastrointestinal/Abdominal: Soft, Tenderness (mild LLQ), No Distention, No Guarding, No Rebound Rectal: Other (refused) Back: No CVA Tenderness Extremity: Normal ROM, No Deformity, No Swelling Neurological/Psych: Oriented x3, Normal Speech ED Course And Treatment - Laboratory Results Result Diagrams: 10/01/17 13:41 10/01/17 13:41 Lab Interpretation: No Changes Compared To Prior Results O2 Sat by Pulse Oximetry: 96 Pulse Ox Interpretation: Normal - CT Scan/US CT abd/pelvis Other Rad Studies (CT/US): Radiology Report Reviewed CT/US Interpretation: IMPRESSION: No acute abnormality. Mild diverticulosis at the descending/sigmoid junction without evidence of diverticulitis. Status post cholecystectomy. Inferior vena caval filter. Additional minor findings as above. Progress Note: Pt was OBS in ED for 3 hours, remained stable. On re-evaluation , pt is afebrile, hemodynamicaly stable. Non-toxic. [place] Po well in ED.Tolerate PO well in ED. Neck: Supple, (-) JVD, (-) carotid bruits B/L. Lungs: CTA B/L, BS equal B/L. CVS: (+)S1S2, reg. Abd: benign, (-) guarding, (- ) rebound. back: (-) CVA tenderness. Blood work review and appears stable compare to previous study, no acute changes noted. CT abd/pelvis: (+) diverticulosis w/o diverticulitis, no acute emergent findings. results review and discussed with pt. Pt has clinical findings c/w diverticulosis. Pt advised. ref. to f/u with PMD, GI in 2-3 days for re-eval. return if any new changes. Disposition Counseled Patient/Family Regarding: Studies Performed, Diagnosis, Need For Followup, Rx Given - Disposition Referrals: Remy Carrera MD [Medical Doctor] - Ciro Johnson MD [Staff Provider] - Disposition: HOME/ ROUTINE Disposition Time: 16:01 Condition: STABLE Additional Instructions: Take medication as prescribed Encourage fluids BRAT diet for 1 week Follow up with PMD, Care Coordination Manager in 2-3 days for re-evaluation. return to ED if any worsening or new changes. Prescriptions: Ciprofloxacin [Cipro] 1 tab PO BID #14 tab metroNIDAZOLE [Flagyl] 500 mg PO BID #14 tab Instructions: Diverticulosis, High Fiber Diet Forms: [employer] (Swedish) - Clinical Impression Clinical Impression: Diverticulosis, Abdominal pain
--- NOTE | 2017-10-01 15:35 | CT ---
PROCEDURE: CT Abdomen and Pelvis with contrast HISTORY: LLQ abd pain COMPARISON: None. TECHNIQUE: Contrast dose: 08/23/2017 Radiation dose: Total exam DLP = 215.22 mGy-cm. This CT exam was performed using one or more of the following dose reduction techniques: Automated exposure control, adjustment of the mA and/or kV according to patient size, and/or use of iterative reconstruction technique. FINDINGS: LOWER THORAX: No infiltrate. Small calcified granuloma abutting the right rj diaphragmatic pleura, new since prior examination. LIVER: Normal size, contour and attenuation. Stable small nonspecific low-attenuation lesion in the right hepatic lobe, 5 mm diameter. No other mass appreciated. Mild central intrahepatic biliary dilatation consistent with prior cholecystectomy. GALLBLADDER AND BILE DUCTS: Status post cholecystectomy. PANCREAS: Unremarkable. No gross lesion or ductal dilatation. SPLEEN: Unremarkable. ADRENALS: Unremarkable. No mass. KIDNEYS AND URETERS: Unremarkable. No hydronephrosis. No solid mass. VASCULATURE: No aortic aneurysm. Inferior vena caval filter noted. BOWEL: Mild diverticulosis at the descending/ sigmoid junction without evidence of diverticulitis. No other abnormal bowel loops. No bowel obstruction. APPENDIX: Not identified. No secondary findings. PERITONEUM: Unremarkable. No free fluid. No free air. LYMPH NODES: Unremarkable. No enlarged lymph nodes. BLADDER: Unremarkable. REPRODUCTIVE: Decompressed unremarkable uterus. BONES: No acute fracture. OTHER FINDINGS: None. IMPRESSION: No acute abnormality. Mild diverticulosis at the descending/sigmoid junction without evidence of diverticulitis. Status post cholecystectomy. Inferior vena caval filter. Additional minor findings as above.
[2017-10-01 16:53] VITALS: BP 121/68; PULSE 90; TEMP 98; O2SAT 98
== END 2017-10-01 16:54 | disposition home or self-care (01) ==
LOC: C.ER 12:28
DX: K57.30 Diverticulosis of large intestine without perforation or abscess without bleeding (principal); R10.32 Left lower quadrant pain
CPT/HCPCS: 74177; 80053; 81001; 83690; 84703; 85025; 87086; 96361; 96374; 96375; 99285; C9113; J1885; J2060; J2405; J7040; Q9967

== ENCOUNTER 2017-10-18 11:21 | Emergency (ER) | payer BC ==
[2017-10-18 11:21] VITALS: BMI 19.7
[2017-10-18 11:34] VITALS: TEMP 98.5; O2SAT 100
[2017-10-18] MEDS ORDERED: Sodium Chloride 0.9% 1,000 ML IV ONE (11:50)
--- NOTE | 2017-10-18 11:56 | C.PDOC ---
History Of Present Illness 51 year old female with past medical history of chronic abdominal pain, irritable bowel syndrome, chronic pancreatitis, presents to ED for evaluation of generalized abdominal pain for past 3 days. Patient reports associated non- bloody diarrhea. She also reports nausea and vomiting since last night. Patient states she needs Ativan. She was unable to take medication because of vomiting. Denies fever, chills, chest pain, shortness of breath, hematemesis, back pain, or dysuria. Time Seen by Provider: 10/18/17 11:41 Chief Complaint (Nursing): Abdominal Pain History Per: Patient History/Exam Limitations: no limitations Onset/Duration Of Symptoms: Days (3) Current Symptoms Are (Timing): Still Present Location Of Pain/Discomfort: Diffuse Radiation Of Pain To:: None Quality Of Discomfort: "Pain" Associated Symptoms: Nausea, Vomiting, Diarrhea. denies: Fever, Chills, Loss Of Appetite, Back Pain, Chest Pain, Constipation, Urinary Symptoms Exacerbating Factors: None Alleviating Factors: None Recent travel outside of the [place]: No Additional History Per: Patient Abnormal Vaginal Bleeding: No Past Medical History Reviewed: Historical Data, Nursing Documentation, Vital Signs Vital Signs: Last Vital Signs Temp 98.5 F 10/18/17 11:29 Pulse 96 H 10/18/17 12:21 Resp 18 10/18/17 12:21 BP 139/96 H 10/18/17 12:21 Pulse Ox 100 10/18/17 13:11 - Medical History PMH: Anemia, Anxiety, Bipolar Disorder, COPD, Depression, Fractures (2010 Left hip, pelvis, leg), Gastritis, Gastrointestinal Ulcer, Hepatitis (C), HIV, Migraine, Pancreatitis, Personality Disorder, Chronic Pain (back pain) Denies: Asthma, HTN, Chronic Kidney Disease, Seizures, Sexually Transmitted Disease Surgical History: Cholecystectomy - [facility] Procedures EXCISION OF DUODENUM, ENDO, DIAGN (09/15/17) EXCISION OF STOMACH, ENDO, DIAGN (09/15/17) GROUP SLEEP TECHNICIAN FOR SUBSTANCE ABUSE TREATMENT, PSYCHOEDUCATION (09/15/17) GROUP SLEEP TECHNICIAN FOR SUBSTANCE ABUSE, COGNITIVE BEHAVIORAL (09/15/17) GROUP PSYCHOTHERAPY (09/15/17) INDIV PSYCHOTHERAPY FOR SUBSTANCE ABUSE TREATMENT, SUPPORT (09/15/17) INDIV PSYCHOTHERAPY FOR SUBSTANCE ABUSE, COGNITIV BEHAVIORAL (09/15/17) INDIV PSYCHOTHERAPY FOR SUBSTANCE ABUSE, PSYCHOEDUCATION (09/15/17) INDIVIDUAL PSYCHOTHERAPY, COGNITIVE-BEHAVIORAL (09/15/17) INDIVIDUAL PSYCHOTHERAPY, SUPPORTIVE (09/15/17) RESECTION OF GALLBLADDER, PERCUTANEOUS ENDOSCOPIC APPROACH (06/06/17) Family History: States: Diabetes (grandmother) - Social History Hx Tobacco Use: Yes Hx Alcohol Use: No Hx Substance Use: Yes (marijuana) - Immunization History Hx Tetanus Toxoid Vaccination: Yes Hx Influenza Vaccination: Yes Hx Pneumococcal Vaccination: Yes Review Of Systems Except As Marked, All Systems Reviewed And Found Negative. Constitutional: Negative for: Fever, Chills Gastrointestinal: Positive for: Nausea, Vomiting, Abdominal Pain, Diarrhea. Negative for: Melena, Hematochezia, Hematemesis Genitourinary: Negative for: Dysuria, Frequency, Hematuria, Vaginal Discharge Musculoskeletal: Negative for: Back Pain Neurological: Negative for: Headache, Dizziness Physical Exam - Physical Exam Appears: Non-toxic, No Acute Distress, Other (anxious) Skin: Normal Color, Warm, Dry Head: Atraumatic, Normacephalic Eye(s): bilateral: Normal Inspection, EOMI Oral Mucosa: Moist Neck: Normal ROM, Supple Cardiovascular: Rhythm Regular, No Murmur Respiratory: Normal Breath Sounds, No Rales, No Rhonchi, No Wheezing Gastrointestinal/Abdominal: Soft, Tenderness (nonfocal tenderness), No Guarding , No Rebound Back: No CVA Tenderness Extremity: Normal ROM, No Deformity Neurological/Psych: Oriented x3, Normal Speech, Other (anxious) ED Course And Treatment - Laboratory Results Result Diagrams: 10/18/17 12:28 10/18/17 12:28 O2 Sat by Pulse Oximetry: 100 (RA) Pulse Ox Interpretation: Normal Medical Decision Making Medical Decision Making: Prior records reviewed: patient has multiple ER visits for chronic pain and anxiety. Patient last evaluated 10/01/17 for abdominal pain with complete workup including labs and CT. Patient diagnosed with diverticulosis and treated with Cipro and Flagyl. Plan: Blood work Urinalysis Obstructive series Ativan, Pepcid, Reglan, Toradol, IV fluids On reassessment, patient remains unchanged, she states pain is about the same and anxiety is little better. Abdomen remains soft. She has no fever. Labs show no acute changes from prior visits. Disposition Counseled Patient/Family Regarding: Diagnosis, Need For Followup, Rx Given - Disposition Referrals: [facility] [Outside] Disposition: HOME/ ROUTINE Disposition Time: 13:08 Condition: STABLE Additional Instructions: Follow up with your primary doctor and GI for further evaluation of your abdominal pain Take your usual medications and prescriptions as needed for symptoms Prescriptions: Atropine/Hyoscyamine [] 1 tab PO QID PRN #20 tab PRN Reason: Gi Distress Instructions: Irritable Bowel Syndrome Forms: [employer] (Bulgarian) - POA Present On Arrival: None - Clinical Impression Clinical Impression: IBS (irritable bowel syndrome), Diarrhea, Chronic abdominal pain - PA / AVIATION SAFETY EQUIPMENT TECHNICIAN / Resident Statement MD/DO has reviewed & agrees with the documentation as recorded. - Scribe Statement The provider has reviewed the documentation as recorded by the Deepikaibbenita augustin All medical record entries made by the Will were at my direction and personally dictated by me. I have reviewed the chart and agree that the record accurately reflects my personal performance of the history, physical exam, medical decision making, and the department course for this patient. I have also personally directed, reviewed, and agree with the discharge instructions and disposition.
[2017-10-18 12:22] VITALS: BP 139/96; PULSE 96; RESP 18
[2017-10-18 12:34] LABS: BASO # 0.1 K/uL (0.0-0.2); BASO % 1.3 % (0.0-2.0); EOS # 0.1 K/uL (0.0-0.7); EOS % 2.5 % (0.0-4.0); HEMOGLOBIN 10.6 g/dL (11.0-16.0); LYMPH # 1.4 K/uL (1.0-4.3); LYMPH % 26.5 % (20.0-40.0); MEAN CELL VOLUME 79.6 fL (81.0-99.0); MEAN CORPUSCULAR HEMOGLOBIN 25.4 pg (27.0-31.0); MEAN CORPUSCULAR HGB CONC 31.8 g/dL (33.0-37.0); MEAN PLATELET VOLUME 8.3 fL (7.2-11.7); MONO # 0.5 K/uL (0.0-0.8); MONO % 9.8 % (0.0-10.0); NEUT # 3.2 K/uL (1.8-7.0); NEUT % 59.9 % (50.0-75.0); RBC 4.2 Mil/uL (3.80-5.20); RED CELL DISTRIBUTION WIDTH 21.9 % (11.5-14.5)
[2017-10-18 12:35] LABS: WHITE BLOOD COUNT 5.3 K/uL (4.8-10.8)
[2017-10-18 12:43] LABS: SQUAMOUS EPITHIAL 3 /hpf (0-5); URINE BACTERIA RARE (<OCC); URINE BILIRUBIN NEGATIVE (NEGATIVE); URINE BLOOD NEGATIVE (NEGATIVE); URINE CLARITY Clear (Clear); URINE COLOR Straw (YELLOW); URINE GLUCOSE (UA) NORMAL (Normal); URINE LEUKOCYTE ESTERASE NEG Leu/uL (Negative); URINE PROTEIN NEGATIVE (NEGATIVE); URINE UROBILINOGEN NORMAL mg/dL (0.2-1.0)
[2017-10-18 12:54] LABS: ALB/GLOB RATIO 1.1 (1.0-2.1); ALBUMIN 4.5 g/dL (3.5-5.0); ALT/SGPT 42 U/L (9-52); AST/SGOT 41 U/L (14-36); BLOOD UREA NITROGEN 17 mg/dL (7-17); CALCIUM 8.9 mg/dl (8.6-10.4); GFR AFRICAN-AMERICAN > 60; GFR NON-AFRICAN AMERICAN > 60; LIPASE 100 U/L (23-300)
[2017-10-18 13:12] LABS: OPIATES, UR NEGATIVE (NEGATIVE); PHENCYCLIDINE, UR NEGATIVE (NEGATIVE)
--- NOTE | 2017-10-18 13:14 | RAD ---
Abdomen four views History: Abdominal pain Comparison: CT scan dated 10/01/2017 Findings: Biapical pleural thickening. Bibasilar breast and nipple shadows. Deformity of the distal left clavicle, likely chronic. IVC filter in place. Surgical clips in the right upper abdomen. Moderate fecal retention in the colon. Air seen within the stomach. Prominent fracture deformities of the right hemipelvis including the right superior and inferior pubic bones. Few mildly distended loops of small bowel in the right rj abdomen. Fracture deformity, likely chronic of a left posterior lower rib. Impression: Nonspecific bowel gas pattern with a few mildly distended loops of small bowel in the right rj abdomen. Additional findings as above.
[2017-10-18 13:19] LABS: BARBITURATES, UR POSITIVE (NEGATIVE); BENZODIAZEPINES, UR POSITIVE (NEGATIVE)
== END 2017-10-18 13:27 | disposition home or self-care (01) ==
LOC: C.ER 11:21
DX: K58.0 Irritable bowel syndrome with diarrhea (principal)
CPT/HCPCS: 74022; 80053; 81001; 83690; 85025; 96361; 96374; 96375; 99285; G0480; J1885; J2765; J7040

== ENCOUNTER 2017-10-30 14:15 | Emergency (ER) | payer BC ==
[2017-10-30 14:16] VITALS: BMI 19.7
[2017-10-30 14:41] VITALS: TEMP 97.8
--- NOTE | 2017-10-30 16:03 | C.PDOC ---
History Of Present Illness 51 y/o female with history of Anxiety, Pancreatitis and IBS presents to ED with complaints of abdominal pain, n/v/d for 3 days. Patient saw GI doctor on 10/28 and was told to come to ED for CT scan; GI doctor not aware pt has had multiple ct scans in ED. In ED, patient is complaining of anxiety and reports she vomited her xanax and needs some now. Patient has been seen multiple times at ED with same complaint of abdominal pain, n/v/d and and has had multiple extensive work ups for this. per JURY CONSULTANT aware, patient was last filled xanax prescription 09/10/17. No other complaints at this time. Time Seen by Provider: 10/30/17 15:11 Chief Complaint (Nursing): Abdominal Pain History Per: Patient History/Exam Limitations: no limitations Onset/Duration Of Symptoms: Days Current Symptoms Are (Timing): Still Present Past Medical History Reviewed: Historical Data, Nursing Documentation, Vital Signs Vital Signs: Last Vital Signs Temp 97.8 F 10/30/17 14:37 Pulse 83 10/30/17 18:23 Resp 16 10/30/17 18:23 BP 138/82 10/30/17 18:23 Pulse Ox 98 11/01/17 01:12 - Medical History PMH: Anemia, Anxiety, Bipolar Disorder, COPD, Depression, Fractures (2010 Left hip, pelvis, leg), Gastritis, Gastrointestinal Ulcer, Hepatitis (C), HIV, Migraine, Pancreatitis, Personality Disorder, Chronic Pain (back pain) Surgical History: Cholecystectomy - [facility] Procedures EXCISION OF DUODENUM, ENDO, DIAGN (09/15/17) EXCISION OF STOMACH, ENDO, DIAGN (09/15/17) GROUP WALLPAPER INSPECTOR AND SHIPPER FOR SUBSTANCE ABUSE TREATMENT, PSYCHOEDUCATION (09/15/17) GROUP WALLPAPER INSPECTOR AND SHIPPER FOR SUBSTANCE ABUSE, COGNITIVE BEHAVIORAL (09/15/17) GROUP PSYCHOTHERAPY (09/15/17) INDIV PSYCHOTHERAPY FOR SUBSTANCE ABUSE TREATMENT, SUPPORT (09/15/17) INDIV PSYCHOTHERAPY FOR SUBSTANCE ABUSE, COGNITIV BEHAVIORAL (09/15/17) INDIV PSYCHOTHERAPY FOR SUBSTANCE ABUSE, PSYCHOEDUCATION (09/15/17) INDIVIDUAL PSYCHOTHERAPY, COGNITIVE-BEHAVIORAL (09/15/17) INDIVIDUAL PSYCHOTHERAPY, SUPPORTIVE (09/15/17) RESECTION OF GALLBLADDER, PERCUTANEOUS ENDOSCOPIC APPROACH (06/06/17) Family History: States: Diabetes (grandmother) - Social History Hx Tobacco Use: Yes Hx Alcohol Use: No Hx Substance Use: Yes (marijuana) - Immunization History Hx Tetanus Toxoid Vaccination: Yes Hx Influenza Vaccination: Yes Hx Pneumococcal Vaccination: Yes Review Of Systems Constitutional: Negative for: Fever, Chills Cardiovascular: Negative for: Chest Pain Gastrointestinal: Positive for: Nausea, Vomiting, Abdominal Pain, Diarrhea Genitourinary: Negative for: Dysuria, Hematuria Skin: Negative for: Rash Physical Exam - Physical Exam Appears: Non-toxic, Other (Actively burping) Skin: Warm, Dry, No Rash Head: Atraumatic, Normacephalic Eye(s): bilateral: Normal Inspection Oral Mucosa: Dry Teeth: Other (Poor dentition) Neck: Normal ROM, Supple Cardiovascular: Rhythm Regular Respiratory: Normal Breath Sounds, No Rales, No Rhonchi, No Wheezing Gastrointestinal/Abdominal: Bowel Sounds, Soft, Tenderness (lower abdomen), No Distention, No Guarding, No Rebound Back: No CVA Tenderness Extremity: Normal ROM, Capillary Refill (<2 seconds) Neurological/Psych: Oriented x3, Normal Speech, Normal Cognition ED Course And Treatment - Laboratory Results Result Diagrams: 10/30/17 16:41 10/30/17 16:41 O2 Sat by Pulse Oximetry: 98 (RA) Pulse Ox Interpretation: Normal Medical Decision Making Medical Decision Making: Prior records reviewed: Patient last CT scan was on 10/[address] Scan: 10/01/17 IMPRESSION: No acute abnormality. Mild diverticulosis at the descending/sigmoid junction without evidence of diverticulitis. Status post cholecystectomy. Inferior vena caval filter. Additional minor findings as above. Progress: Patient refuse Percocet, Requesting Toradol. Patient given Toradol IM On re eval patient has no discomfort and will be d/c home 630 pm pt tolerating po in ed with non tender abdomen on re-eval. pt given po and iv potassium with n o ekg changes. pt seen multiple times in ed for same, ab pain with n/v/d, with multiple work ups and most recent ct scan one month ago. will d/c pt home tonight with antiemetics, f/u pmd and gi tanmay. Disposition Counseled Patient/Family Regarding: Studies Performed, Diagnosis, Need For Followup - Disposition Disposition: HOME/ ROUTINE Disposition Time: 18:48 Condition: STABLE Additional Instructions: Please follow up with your primary care doctor and with your form press operator in the next few days. Taken anti-nausea medications as prescribed. Eat more foods with potassium, such as banana and oranges. Prescriptions: Ondansetron ODT [Zofran ODT] 4 mg PO TID #12 odt Forms: [employer] (Tajik), General Discharge Instructions - Clinical Impression Clinical Impression: Chronic abdominal pain - PA / AIRPLANE FIRST OFFICER / Resident Statement MD/DO has reviewed & agrees with the documentation as recorded. - Scribe Statement The provider has reviewed the documentation as recorded by the Deepikaibbenita Hall All medical record entries made by the Will were at my direction and personally dictated by me. I have reviewed the chart and agree that the record accurately reflects my personal performance of the history, physical exam, medical decision making, and the department course for this patient. I have also personally directed, reviewed, and agree with the discharge instructions and disposition.
[2017-10-30] MEDS ORDERED: Oxycodone/Acetaminophen 5/325 mg Tab PO STA ×2 (16:17→17:34)
[2017-10-30 16:47] LABS: BASO % 0.7 % (0.0-2.0); EOS % 0.9 % (0.0-4.0); HEMOGLOBIN 10.1 g/dL (11.0-16.0); LYMPH # 0.9 K/uL (1.0-4.3); LYMPH % 25.1 % (20.0-40.0); MEAN CELL VOLUME 77.9 fL (81.0-99.0); MEAN CORPUSCULAR HEMOGLOBIN 24.7 pg (27.0-31.0); MEAN CORPUSCULAR HGB CONC 31.6 g/dL (33.0-37.0); MEAN PLATELET VOLUME 7.5 fL (7.2-11.7); MONO # 0.5 K/uL (0.0-0.8); MONO % 14.5 % (0.0-10.0); NEUT # 2.1 K/uL (1.8-7.0); NEUT % 58.8 % (50.0-75.0); RBC 4.11 Mil/uL (3.80-5.20); RED CELL DISTRIBUTION WIDTH 21.4 % (11.5-14.5); WHITE BLOOD COUNT 3.5 K/uL (4.8-10.8)
[2017-10-30 17:06] LABS: ALT/SGPT 97 U/L (9-52); AST/SGOT 110 U/L (14-36); BLOOD UREA NITROGEN 20 mg/dL (7-17); CALCIUM 8.4 mg/dl (8.6-10.4); GFR AFRICAN-AMERICAN > 60; GFR NON-AFRICAN AMERICAN > 60; LIPASE 175 U/L (23-300)
[2017-10-30 17:15] LABS: SQUAMOUS EPITHIAL 3 /hpf (0-5); URINE BILIRUBIN NEGATIVE (NEGATIVE); URINE BLOOD NEGATIVE (NEGATIVE); URINE CLARITY Hazy (Clear); URINE COLOR Amber (YELLOW); URINE GLUCOSE (UA) NORMAL (Normal); URINE HYALINE CAST 0-2 /lpf (0-2); URINE LEUKOCYTE ESTERASE NEG Leu/uL (Negative); URINE PROTEIN 2+ mg/dL (NEGATIVE)
[2017-10-30 17:16] LABS: HCG,QUALITATIVE URINE NEGATIVE (NEGATIVE)
[2017-10-30] MEDS ORDERED: Potassium Chloride 20 mEq ER Tab PO ONE (17:27)
[2017-10-30] MEDS ORDERED: Oxycodone/Acetaminophen 5/325 mg Tab ONE ×2 (17:38→17:40)
[2017-10-30] MEDS ORDERED: Potassium Chloride 20 mEq ER Tab PO STA (17:42)
[2017-10-30 18:23] VITALS: BP 138/82; PULSE 83; RESP 16
[2017-10-30 18:30] VITALS: O2SAT 98
[2017-10-31] MEDS ORDERED: Potassium Chloride 20 mEq ER Tab PO SCH (10:00)
--- NOTE | 2017-11-03 11:14 | CARD ---
APPROVED REPORT EKG Measurement Heart [id number] CA [id number] <Conclusion> Normal sinus rhythm Normal ECG
== END 2017-10-30 18:57 | disposition home or self-care (01) ==
LOC: C.ER 14:15
DX: G89.29 Other chronic pain (principal); R10.30 Lower abdominal pain, unspecified
CPT/HCPCS: 80053; 81001; 83690; 84703; 85025; 96361; 96372; 96374; 99285; J1885; J2405; J3480

== ENCOUNTER 2017-11-17 19:32 | Emergency (ER) | payer BC ==
[2017-11-17 19:32] VITALS: BMI 19.7
[2017-11-17 19:59] VITALS: TEMP 97.9
[2017-11-17] MEDS ORDERED: Sodium Chloride 0.9% 1,000 ML IV ONE (22:07)
--- NOTE | 2017-11-17 22:16 | C.PDOC ---
History Of Present Illness 52 year old female presents to the emergency department with complaints of upper abdominal pain. Patient was recently seen in the [facility] [place] for the same complaints. Chief Complaint (Nursing): Abdominal Pain History Per: Patient History/Exam Limitations: no limitations Location Of Pain/Discomfort: Other (upper abdominal pain) Quality Of Discomfort: "Pain" Past Medical History Reviewed: Historical Data, Nursing Documentation, Vital Signs Vital Signs: Last Vital Signs Temp 97.9 F 11/18/17 01:09 Pulse 92 H 11/18/17 01:09 Resp 20 11/18/17 01:09 BP 157/97 H 11/18/17 01:09 Pulse Ox 99 11/18/17 01:09 - Medical History PMH: Anemia, Anxiety, Bipolar Disorder, COPD, Depression, Fractures (2010 Left hip, pelvis, leg), Gastritis, Gastrointestinal Ulcer, Hepatitis (C), HIV, Migraine, Pancreatitis, Personality Disorder, Chronic Pain (back pain) Denies: Asthma, HTN, Chronic Kidney Disease, Seizures, Sexually Transmitted Disease Surgical History: Cholecystectomy - [facility] Procedures EXCISION OF DUODENUM, ENDO, DIAGN (09/15/17) EXCISION OF STOMACH, ENDO, DIAGN (09/15/17) GROUP HARDWOOD FLOOR SANDER FOR SUBSTANCE ABUSE TREATMENT, PSYCHOEDUCATION (09/15/17) GROUP HARDWOOD FLOOR SANDER FOR SUBSTANCE ABUSE, COGNITIVE BEHAVIORAL (09/15/17) GROUP PSYCHOTHERAPY (09/15/17) INDIV PSYCHOTHERAPY FOR SUBSTANCE ABUSE TREATMENT, SUPPORT (09/15/17) INDIV PSYCHOTHERAPY FOR SUBSTANCE ABUSE, COGNITIV BEHAVIORAL (09/15/17) INDIV PSYCHOTHERAPY FOR SUBSTANCE ABUSE, PSYCHOEDUCATION (09/15/17) INDIVIDUAL PSYCHOTHERAPY, COGNITIVE-BEHAVIORAL (09/15/17) INDIVIDUAL PSYCHOTHERAPY, SUPPORTIVE (09/15/17) RESECTION OF GALLBLADDER, PERCUTANEOUS ENDOSCOPIC APPROACH (06/06/17) Family History: States: Diabetes (grandmother) - Social History Hx Tobacco Use: Yes Hx Alcohol Use: No Hx Substance Use: Yes (marijuana) - Immunization History Hx Tetanus Toxoid Vaccination: Yes Hx Influenza Vaccination: Yes Hx Pneumococcal Vaccination: Yes Review Of Systems Except As Marked, All Systems Reviewed And Found Negative. Gastrointestinal: Positive for: Abdominal Pain Physical Exam - Physical Exam Appears: Non-toxic, No Acute Distress Cardiovascular: Rhythm Regular Respiratory: Normal Breath Sounds Gastrointestinal/Abdominal: Soft, Tenderness (to epigastric region), No Guarding , No Rebound ED Course And Treatment - Laboratory Results Result Diagrams: 11/17/17 22:30 11/17/17 22:30 O2 Sat by Pulse Oximetry: 100 (RA) Pulse Ox Interpretation: Normal Medical Decision Making Medical Decision Making: Plan: CMP Lipase CBC Bentyl 20mg IM NaCl IV Fluids Toradol 30mg IVP Zofran 4mg IVP Urinalysis Disposition Counseled Patient/Family Regarding: Diagnosis - Disposition Referrals: [facility] [Outside] Disposition: HOME/ ROUTINE Disposition Time: :59 Condition: STABLE Prescriptions: Dicyclomine [Bentyl] 10 mg PO QID #30 cap Instructions: Acute Abdomen (Belly Pain), Adult (DC), Chronic Pancreatitis - POA Present On Arrival: None - Clinical Impression Clinical Impression: Abdominal pain, Chronic pancreatitis - Scribe Statement The provider has reviewed the documentation as recorded by the Scribe (Familia Morales) Provider Attestation: All medical record entries made by the Scribe were at my direction and personally dictated by me. I have reviewed the chart and agree that the record accurately reflects my personal performance of the history, physical exam, medical decision making, and the department course for this patient. I have also personally directed, reviewed, and agree with the discharge instructions and disposition.
[2017-11-17 22:38] LABS: BASO # 0.1 K/uL (0.0-0.2); BASO % 1.6 % (0.0-2.0); EOS # 0.1 K/uL (0.0-0.7); EOS % 2.6 % (0.0-4.0); HEMOGLOBIN 10.6 g/dL (11.0-16.0); LYMPH # 1.3 K/uL (1.0-4.3); LYMPH % 24.7 % (20.0-40.0); MEAN CELL VOLUME 79.9 fL (81.0-99.0); MEAN CORPUSCULAR HEMOGLOBIN 25.6 pg (27.0-31.0); MONO # 0.5 K/uL (0.0-0.8); MONO % 8.9 % (0.0-10.0); NEUT # 3.3 K/uL (1.8-7.0); NEUT % 62.2 % (50.0-75.0); NRBC % 0.1 % (0.0-2.0); RBC 4.15 Mil/uL (3.80-5.20); RED CELL DISTRIBUTION WIDTH 21.1 % (11.5-14.5)
[2017-11-17 22:39] LABS: SQUAMOUS EPITHIAL 1 /hpf (0-5); URINE AMORPHOUS SEDIMENT FEW /ul (<OCC); URINE BACTERIA OCC (<OCC); URINE BILIRUBIN NEGATIVE (NEGATIVE); URINE BLOOD NEGATIVE (NEGATIVE); URINE CLARITY Hazy (Clear); URINE COLOR Yellow (YELLOW); URINE GLUCOSE (UA) NORMAL (Normal); URINE LEUKOCYTE ESTERASE NEG Leu/uL (Negative); URINE PROTEIN NEGATIVE (NEGATIVE); URINE UROBILINOGEN NORMAL mg/dL (0.2-1.0)
[2017-11-17 22:43] LABS: WHITE BLOOD COUNT 5.3 K/uL (4.8-10.8)
[2017-11-17 23:17] LABS: ALB/GLOB RATIO 1.1 (1.0-2.1); ALBUMIN 4.4 g/dL (3.5-5.0); ALT/SGPT 33 U/L (9-52); AST/SGOT 37 U/L (14-36); BLOOD UREA NITROGEN 18 mg/dL (7-17); CALCIUM 9.5 mg/dl (8.6-10.4); GFR AFRICAN-AMERICAN > 60; GFR NON-AFRICAN AMERICAN > 60; LIPASE 363 U/L (23-300)
[2017-11-18 01:09] VITALS: BP 157/97; PULSE 92
[2017-11-18 02:02] VITALS: O2SAT 100
[2017-11-18 02:17] VITALS: RESP 18
== END 2017-11-18 02:11 | disposition home or self-care (01) ==
LOC: C.ER 19:32 → SUPCPDRO 19:32 → C.ER 11-18 02:11
DX: K86.1 Other chronic pancreatitis (principal); R10.13 Epigastric pain
CPT/HCPCS: 80053; 81001; 83690; 85025; 96372; 96374; 96375; 99285; J0500; J1885; J2405; J7040

== ENCOUNTER 2017-12-03 12:17 | Inpatient (IN) | payer BC ==
[2017-12-03 12:18] VITALS: BMI 19.7
--- NOTE | 2017-12-03 13:04 | C.PDOC ---
History Of Present Illness 52-year-old female, PMHx includes Anxiety, Chronic Pain, HIV (unknown CD4 count , viral load), presents to the emergency department with complaints of lower abdominal pain for the past few days, associated with intermittent diarrhea. Patient was reportedly seen by her doctor, who sent her to the hospital. Pt is requesting Ativan immediately upon my evaluation. Time Seen by Provider: 12/03/17 13:01 Chief Complaint (Nursing): Abdominal Pain History Per: Patient History/Exam Limitations: no limitations Current Symptoms Are (Timing): Still Present Past Medical History Reviewed: Historical Data, Nursing Documentation, Vital Signs Vital Signs: Last Vital Signs Temp 97.9 F 12/03/17 17:45 Pulse 66 12/03/17 17:45 Resp 18 12/03/17 17:45 BP 149/95 H 12/03/17 14:15 Pulse Ox 100 12/03/17 17:45 - Medical History PMH: Anemia, Anxiety, Bipolar Disorder, COPD, Depression, Fractures (2010 Left hip, pelvis, leg), Gastritis, Gastrointestinal Ulcer, Hepatitis (C), HIV, Migraine, Pancreatitis, Personality Disorder, Chronic Pain (back pain) Surgical History: Cholecystectomy - [facility] Procedures EXCISION OF DUODENUM, ENDO, DIAGN (09/15/17) EXCISION OF STOMACH, ENDO, DIAGN (09/15/17) GROUP DYNAMOMETER REPAIRER FOR SUBSTANCE ABUSE TREATMENT, PSYCHOEDUCATION (09/15/17) GROUP DYNAMOMETER REPAIRER FOR SUBSTANCE ABUSE, COGNITIVE BEHAVIORAL (09/15/17) GROUP PSYCHOTHERAPY (09/15/17) INDIV PSYCHOTHERAPY FOR SUBSTANCE ABUSE TREATMENT, SUPPORT (09/15/17) INDIV PSYCHOTHERAPY FOR SUBSTANCE ABUSE, COGNITIV BEHAVIORAL (09/15/17) INDIV PSYCHOTHERAPY FOR SUBSTANCE ABUSE, PSYCHOEDUCATION (09/15/17) INDIVIDUAL PSYCHOTHERAPY, COGNITIVE-BEHAVIORAL (09/15/17) INDIVIDUAL PSYCHOTHERAPY, SUPPORTIVE (09/15/17) RESECTION OF GALLBLADDER, PERCUTANEOUS ENDOSCOPIC APPROACH (06/06/17) Family History: States: No Known Family Hx, Diabetes (grandmother) - Social History Hx Tobacco Use: Yes Hx Alcohol Use: No Hx Substance Use: Yes (marijuana) - Immunization History Hx Tetanus Toxoid Vaccination: Yes Hx Influenza Vaccination: Yes Hx Pneumococcal Vaccination: Yes Review Of Systems Constitutional: Negative for: Fever, Chills Cardiovascular: Negative for: Chest Pain, Palpitations Respiratory: Negative for: Shortness of Breath Gastrointestinal: Positive for: Abdominal Pain, Diarrhea. Negative for: Nausea , Vomiting, Hematochezia, Hematemesis Musculoskeletal: Negative for: Back Pain Neurological: Negative for: Weakness, Numbness Psych: Positive for: Anxiety Physical Exam - Physical Exam Appears: Non-toxic, No Acute Distress, Other (anxious) Skin: Normal Color, Warm, Dry, No Rash Head: Normacephalic Eye(s): bilateral: PERRL Nose: Normal Oral Mucosa: Moist Lips: Normal Appearing Neck: Normal ROM Chest: Symmetrical Cardiovascular: Rhythm Regular, No Murmur Respiratory: Normal Breath Sounds, No Accessory Muscle Use Gastrointestinal/Abdominal: Soft, No Tenderness, No Guarding, No Rebound Extremity: Normal ROM, No Deformity, No Swelling Neurological/Psych: Oriented x3, Normal Speech ED Course And Treatment - Laboratory Results Result Diagrams: 12/03/17 13:42 12/03/17 13:42 Medical Decision Making Medical Decision Making: abd pain diarrrhea. case discussed with pmd dr kaplan. states pt cdiff postivie not renettin lance outpt. requets dr caro admission. labs ct neg. accepted by dr mcnair Disposition - Disposition Disposition: HOSPITALIZED Disposition Time: 04:00 Condition: STABLE - Clinical Impression Clinical Impression: C. difficile colitis - Scribe Statement The provider has reviewed the documentation as recorded by the Scribe (Vilma Argueta) Provider Attestation: All medical record entries made by the Scribe were at my direction and personally dictated by me. I have reviewed the chart and agree that the record accurately reflects my personal performance of the history, physical exam, medical decision making, and the department course for this patient. I have also personally directed, reviewed, and agree with the discharge instructions and disposition. Decision To Admit - Pt Status Changed To: Hospital Disposition Of: Inpatient - Admit Certification Admit to Inpatient:: After my assessment, the patient will require hospitalization for at least two midnights. This is because of the severity of symptoms shown, intensity of services needed, and/or the medical risk in this patient being treated as an outpatient. - InPatient: Physician Admission Certification:: failure of outpt - . Bed Request Type: Regular Admitting Physician: Tan Caro Patient Diagnosis: C. difficile colitis
[2017-12-03] MEDS ORDERED: Sodium Chloride 0.9% 1,000 ML IV ONE (13:25)
[2017-12-03] MEDS ORDERED: Sodium Chloride 0.9% 1,000 ML ONE (13:30)
[2017-12-03] MEDS ORDERED: metroNIDAZOLE IV 500 mg/100 ml 500 MG/100 ML BAG IVPB STA (13:40)
[2017-12-03] MEDS ORDERED: Vancomycin 125 MG/5 ML SOLN (ORAL/RECTAL) PO ONE (13:41)
[2017-12-03] MEDS ORDERED: metroNIDAZOLE IV 500 mg/100 ml 500 MG/100 ML BAG ONE (13:48)
[2017-12-03 13:51] LABS: BASO % 0.8 % (0.0-2.0); EOS # 0.1 K/uL (0.0-0.7); EOS % 2.9 % (0.0-4.0); HEMOGLOBIN 10.5 g/dL (11.0-16.0); LYMPH # 1.2 K/uL (1.0-4.3); LYMPH % 23.8 % (20.0-40.0); MEAN CELL VOLUME 79.3 fL (81.0-99.0); MEAN CORPUSCULAR HEMOGLOBIN 25.3 pg (27.0-31.0); MEAN CORPUSCULAR HGB CONC 31.9 g/dL (33.0-37.0); MEAN PLATELET VOLUME 7.5 fL (7.2-11.7); MONO # 0.4 K/uL (0.0-0.8); MONO % 8.1 % (0.0-10.0); NEUT # 3.1 K/uL (1.8-7.0); NEUT % 64.4 % (50.0-75.0); NRBC % 0.1 % (0.0-2.0); RBC 4.16 Mil/uL (3.80-5.20); RED CELL DISTRIBUTION WIDTH 19.9 % (11.5-14.5); WHITE BLOOD COUNT 4.8 K/uL (4.8-10.8)
[2017-12-03 13:58] LABS: INR 1.1; PROTHROMBIN TIME 12.1 SECONDS (9.7-12.2)
[2017-12-03 14:00] LABS: SQUAMOUS EPITHIAL 2 /hpf (0-5); URINE AMORPHOUS SEDIMENT RARE /ul (<OCC); URINE BILIRUBIN NEGATIVE (NEGATIVE); URINE BLOOD NEGATIVE (NEGATIVE); URINE CLARITY Hazy (Clear); URINE COLOR Yellow (YELLOW); URINE GLUCOSE (UA) NORMAL (Normal); URINE LEUKOCYTE ESTERASE NEG Leu/uL (Negative); URINE PROTEIN NEGATIVE (NEGATIVE); URINE URIC ACID CRYSTALS RARE /hpf (<OCC); URINE UROBILINOGEN NORMAL mg/dL (0.2-1.0)
[2017-12-03 14:06] LABS: ALB/GLOB RATIO 1.2 (1.0-2.1); ALBUMIN 4.4 g/dL (3.5-5.0); ALT/SGPT 10 U/L (9-52); AST/SGOT 27 U/L (14-36); BLOOD UREA NITROGEN 18 mg/dL (7-17); CALCIUM 8.4 mg/dl (8.6-10.4); GFR AFRICAN-AMERICAN > 60; GFR NON-AFRICAN AMERICAN > 60; LIPASE 278 U/L (23-300)
--- NOTE | 2017-12-03 14:40 | CP.PCM.HP ---
History of Present Illness - History of Present Illness History of Present Illness: COMPREHENSIVE HISTORY & PHYSICAL EXAM HPI Patient is admitted for persistent diarrhea abdominal pain symptoms of dizziness and loss of weight. Patient has a history of HIV on to maintenance medication. Patient had diarrhea and abdominal pain was seen a few weeks ago in [facility] ER and admitted. Patient had C. difficile colitis was treated for couple of days and discharge on by mouth vancomycin. Patient could not afford by mouth vancomycin and did not take any medication. Patient was getting nauseous feeling with by mouth Flagyl. Patient continued to have 6-7 bowel movements per day with abdominal pain and significant loss of weight patient was also complaining of dizziness and weakness PAST HIST. History of cholecystectomy. Previously admitted in the hospital for pancreatitis. Patient has bipolar depressive disorder PERSONAL HIST: Smoking. N Alcohol. N Allergy N Travel_- . FAMILY HIST : ROS : Constitutional: Positive for weight change, chills, night sweats, fatigue and usage of assist device. Eyes: Negative for redness, swelling, itching, discharge, vision changes, blurry vision, double vision, glaucoma, cataracts, Ears: Negative for hearing loss, ringing, , tinnitus, vertigo Nose: Negative for rhinorrhea, stuffiness, sniffing, itching, postnasal drip, discoloration, nasal congestion and epistaxis. Throat: Negative for throat clearing, sore throat, hoarseness, difficulty swallowing and difficulty speaking. Respiratory: Negative for cough, , sputum production, chest tightness, wheezing, pleuritic chest pain ,daytime somnolence, chronic cough, hemoptysis, snoring at night, Cardiovascular: Negative for chest pain, palpitations, orthopnea, PND, Edema of legs, leg cramps, angina, claudication, , irregular heartbeat, Neurology: Negative for irritability, muscle weakness, numbness and tingling, seizures, tremors, migraines, slurred speech, syncope, memory loss, mood changes , recurrent headaches Gastrointestinal: Negative for difficulty swallowing, rectal bleeding, nausea, flatulence, reflux, poor Genitourinary: Negative for frequent urination, hematuria, discharge, incontinence, urinary retention, frequent UTI, Psychiatric : Negative for depression, anxiety/panic, suicidal tendencies, Musculoskeletal: Negative for swollen joints, back pain, , neck pain, morning stiffness of joints, . Skin: Negative for rash, ulcers, itching, dry skin and pigmented lesions. P/E: Constitutional: Appears stated age and in no apparent distress. Head: Normocephalic. Ears: External ear canals patent without inflammation. Tympanic membranes intact with normal light reflex and landmark. Eyes: Pupils are central, bilaterally equal, symmetrical and reacts to light with normal movements and no icterus or pallor. Nose: External nares are patent. Mucosa is pink Mouth-Throat: Good general appearance and condition. No post-pharyngeal/oropharyngeal erythema and tonsillar hypertrophy. Good dental hygiene. Neck-Lymphatic: Neck is supple with normal ROM, no thyromegaly, lymph nodes or masses. JVD is normal with no carotid bruit. Lungs: Clear to percussion and auscultation with bilateral normal air entry. Cardiovascular: S1 and S2 are normal with no murmurs, gallops and rub. GI Exam: No hepatomegaly. Abdomen is soft and -tender. No Organomegaly , masses or hernias are evident and bowel sounds are normal and active. Neurology: Higher function and all cranial nerves intact, with no gross motor or sensory deficit. Superficial and deep reflexes are normal with downwards planters. No cerebellar deficit with normal gait. Musculoskeletal: No tender spots with normal curvature of the spine with no swelling or restricted ROM of the small and large joints. Extremities: Homans sign absent. Intact pulses with no pitting edema, calf tenderness or skin color changes. Skin: No rash, eruptions or abnormal skin pigmentation LAB/RADIOLOGY: ASSESMENT : Persistent recurrent diarrhea in HIV patients rule out recurrence C. difficile or other infectious diarrhea. History of HIV Loss of weight PLAN: Plan as ordered Present on Admission - Present on Admission Any Indicators Present on Admission: No Past Patient History - Infectious Disease Hx of Infectious Diseases: None - Past Medical History & Family History Past Medical History?: Yes - Past Social History Smoking Status: Light Smoker < 10 Cigarettes Daily - CARDIAC Hx Hypertension: No - PULMONARY Hx Chronic Obstructive Pulmonary Disease (COPD): Yes - NEUROLOGICAL Hx Migraine: Yes - HEENT Hx HEENT Problems: No - RENAL Hx Chronic Kidney Disease: No - ENDOCRINE/METABOLIC Hx Endocrine Disorders: No - HEMATOLOGICAL/ONCOLOGICAL Hx Anemia: Yes Hx Human Immunodeficiency Virus (HIV): Yes - INTEGUMENTARY Hx Dermatological Problems: No - MUSCULOSKELETAL/RHEUMATOLOGICAL Hx Fractures: Yes (2009 Left hip, pelvis, leg) - GASTROINTESTINAL Hx Gastritis: Yes Hx Pancreatitis: Yes - GENITOURINARY/GYNECOLOGICAL Hx Sexually Transmitted Disorders: No - PSYCHIATRIC Hx Anxiety: Yes Hx Bipolar Disorder: Yes Hx Depression: Yes Hx Substance Use: Yes (marijuana) - SURGICAL HISTORY Hx Cholecystectomy: Yes - ANESTHESIA Hx Anesthesia: Yes Hx Anesthesia Reactions: No Hx Malignant Hyperthermia: No Meds Allergies/Adverse Reactions: Allergies Allergy/AdvReac Type Severity Reaction Status Date / Time No Known Allergies Allergy Verified 12/03/17 12:31 Results - Vital Signs Recent Vital Signs: Last Vital Signs Temp 98.4 F 12/03/17 14:15 Pulse 67 12/03/17 14:15 Resp 18 12/03/17 14:15 BP 149/95 H 12/03/17 14:15 Pulse Ox 100 12/03/17 14:15 - Labs Result Diagrams: 12/03/17 13:42 12/03/17 13:42 Labs: Laboratory Results - last 24 hr 12/03/17 12/03/17 12/03/17 13:42 13:42 13:42 WBC 4.8 RBC 4.16 Hgb 10.5 L Hct 33.0 L MCV 79.3 L MCH 25.3 L MCHC 31.9 L RDW 19.9 H Plt Count 351 MPV 7.5 Neut % (Auto) 64.4 Lymph % (Auto) 23.8 [place] % (Auto) 8.1 Eos % (Auto) 2.9 Baso % (Auto) 0.8 Neut # (Auto) 3.1 Lymph # (Auto) 1.2 [place] # (Auto) 0.4 Eos # (Auto) 0.1 Baso # (Auto) 0.0 PT 12.1 INR 1.1 APTT 29 Sodium Potassium Chloride Carbon Dioxide Anion Gap BUN Creatinine Est GFR ( Amer) Est GFR (Non-Af Amer) Random Glucose Calcium Total Bilirubin AST ALT Alkaline Phosphatase Total Protein Albumin Globulin Albumin/Globulin Ratio Lipase Urine Color Yellow Urine Clarity Hazy Urine pH 7.0 Ur Specific [place] 1.019 Urine Protein Negative Urine Glucose (UA) Normal Urine Ketones Negative Urine Blood Negative Urine Nitrate Negative Urine Bilirubin Negative Urine Urobilinogen Normal Ur Leukocyte Esterase Neg Urine WBC (Auto) 1 Urine RBC (Auto) 2 Ur Squamous Epith Cells 2 Uric Acid Crystals Rare Amorphous Sediment Rare H Urine Yeast (Budding) Occ H 12/03/17 13:42 WBC RBC Hgb Hct MCV MCH MCHC RDW Plt Count MPV Neut % (Auto) Lymph % (Auto) [place] % (Auto) Eos % (Auto) Baso % (Auto) Neut # (Auto) Lymph # (Auto) [place] # (Auto) Eos # (Auto) Baso # (Auto) PT INR APTT Sodium 145 Potassium 3.9 Chloride 107 Carbon Dioxide 26 Anion Gap 16 BUN 18 H Creatinine 0.7 Est GFR ( Amer) > 60 Est GFR (Non-Af Amer) > 60 Random Glucose 72 Calcium 8.4 L Total Bilirubin 0.4 AST 27 ALT 10 Alkaline Phosphatase 72 Total Protein 8.0 Albumin 4.4 Globulin 3.6 Albumin/Globulin Ratio 1.2 Lipase 278 Urine Color Urine Clarity Urine pH Ur Specific [place] Urine Protein Urine Glucose (UA) Urine Ketones Urine Blood Urine Nitrate Urine Bilirubin Urine Urobilinogen Ur Leukocyte Esterase Urine WBC (Auto) Urine RBC (Auto) Ur Squamous Epith Cells Uric Acid Crystals Amorphous Sediment Urine Yeast (Budding)
[2017-12-03] MEDS ORDERED: Iodixanol 320 MG/ML 100 ML BOTTLE IV ONE (16:03)
--- NOTE | 2017-12-03 17:17 | CT ---
PROCEDURE: CT Abdomen and Pelvis with contrast HISTORY: abd pain, diarrhea COMPARISON: Abdomen pelvis CT exam with contrast 10/01/2017. TECHNIQUE: Following the intravenous administration of iodinated contrast material, a CT examination of the abdomen and pelvis performed from the domes of the diaphragms to the symphysis pubis with reformatted datasets provided not only axial but also sagittal and coronal planes. Oral contrast was not administered as per referring physician request. Contrast dose: Visipaque 320, 100 cc Radiation dose: Total exam DLP = 211.00 mGy-cm. This CT exam was performed using one or more of the following dose reduction techniques: Automated exposure control, adjustment of the mA and/or kV according to patient size, and/or use of iterative reconstruction technique. FINDINGS: LOWER THORAX: Small calcified granuloma is again seen the right lower lobe immediately cephalad to the right hemidiaphragm. LIVER: Tiny lucency remains too small to characterize at the dome of liver anteriorly. Further intrahepatic biliary duct dilatation is appreciated as well as dilatation of the common bile duct up to 9.0 mm without choledocholithiasis appreciable. This may be a regression status post cholecystectomy with this patient having a cholecystectomy less than 1 year previously. Further clinical correlation recommended nevertheless. GALLBLADDER AND BILE DUCTS: Prior cholecystectomy. Please see comments on biliary tree dilatation noted above. PANCREAS: Unremarkable. No gross lesion or ductal dilatation. SPLEEN: Unremarkable. ADRENALS: Unremarkable. No mass. KIDNEYS AND URETERS: Unremarkable. No hydronephrosis. No solid mass. VASCULATURE: An inferior vena cava filter is again identified placed with the abdominal remain normal caliber. BOWEL: No bowel obstruction is identified with moderate fecal loading seen throughout various large-bowel segments. APPENDIX: None identified. PERITONEUM: Unremarkable. No free fluid. No free air. LYMPH NODES: Unremarkable. No enlarged lymph nodes. BLADDER: Unremarkable. REPRODUCTIVE: Unremarkable. BONES: No acute fracture. OTHER FINDINGS: None. IMPRESSION: Insert extrahepatic biliary tree appears slightly more dilated than previous shown which may be a function post cholecystectomy state. Clinically correlate. Otherwise, no definite acute interval findings are appreciated throughout the abdomen and pelvis. The appendix not identified but no prominent pattern of appendicitis is appreciable at this time.
--- NOTE | 2017-12-03 17:37 | C.PDOC ---
Time Seen by Provider: 12/03/17 13:01 Chief Complaint (Nursing): Abdominal Pain Past Medical History Vital Signs: Last Vital Signs Temp 98.4 F 12/03/17 14:15 Pulse 67 12/03/17 14:15 Resp 18 12/03/17 14:15 BP 149/95 H 12/03/17 14:15 Pulse Ox 100 12/03/17 14:15 - Medical History PMH: Anemia, Anxiety, Bipolar Disorder, COPD, Depression, Fractures (2010 Left hip, pelvis, leg), Gastritis, Gastrointestinal Ulcer, Hepatitis (C), HIV, Migraine, Pancreatitis, Personality Disorder, Chronic Pain (back pain) Denies: Asthma, HTN, Chronic Kidney Disease, Seizures, Sexually Transmitted Disease Surgical History: Cholecystectomy - [facility] Procedures EXCISION OF DUODENUM, ENDO, DIAGN (09/15/17) EXCISION OF STOMACH, ENDO, DIAGN (09/15/17) GROUP IP PARALEGAL FOR SUBSTANCE ABUSE TREATMENT, PSYCHOEDUCATION (09/15/17) GROUP IP PARALEGAL FOR SUBSTANCE ABUSE, COGNITIVE BEHAVIORAL (09/15/17) GROUP PSYCHOTHERAPY (09/15/17) INDIV PSYCHOTHERAPY FOR SUBSTANCE ABUSE TREATMENT, SUPPORT (09/15/17) INDIV PSYCHOTHERAPY FOR SUBSTANCE ABUSE, COGNITIV BEHAVIORAL (09/15/17) INDIV PSYCHOTHERAPY FOR SUBSTANCE ABUSE, PSYCHOEDUCATION (09/15/17) INDIVIDUAL PSYCHOTHERAPY, COGNITIVE-BEHAVIORAL (09/15/17) INDIVIDUAL PSYCHOTHERAPY, SUPPORTIVE (09/15/17) RESECTION OF GALLBLADDER, PERCUTANEOUS ENDOSCOPIC APPROACH (06/06/17) Family History: States: No Known Family Hx, Diabetes (grandmother) - Social History Hx Tobacco Use: Yes Hx Alcohol Use: No Hx Substance Use: Yes (marijuana) - Immunization History Hx Tetanus Toxoid Vaccination: Yes Hx Influenza Vaccination: Yes Hx Pneumococcal Vaccination: Yes ED Course And Treatment - Laboratory Results Result Diagrams: 12/03/17 13:42 12/03/17 13:42 O2 Sat by Pulse Oximetry: 100 Disposition - Disposition Forms: [facility] ([employer]) - Clinical Impression Clinical Impression: C. difficile colitis
[2017-12-03] MEDS: Emtricitabine-Tenofovir 200 mg-300 mg Tab PO SCH (18:39)
--- NOTE | 2017-12-03 21:58 | CP.PCM.CON ---
History of Present Illness - History of Present Illness History of Present Illness: INFECTIOUS DISEASE CONSULT; HPI; 52-year-old female with known history of HIV for 17 years on antiretroviral therapy, Lexiva 700 mg 2 capsules by mouth twice a day and Truvada 1 capsule by mouth once a day daily, hepatitis C, GERD, COPD, anxiety problems, bipolar disorder, depression, pancreatitis and chronic pain (BACKPAIN ) who presented to the ER with severe intractable abdominal pain and diarrhea 6-7 bowel movements watery with crampy abdominal pain for the past 2 weeks. Patient was admitted at [facility] and recently discharged on November 12, 2017 with diagnosis of pseudomembranous colitis. She was given a prescription of Flagyl which she took for 4-5 days which caused nauseousness and did not help. Patient was seen in the office on 11/27/17 and prescribed vancomycin by mouth but patient had trouble getting it from the pharmacy and came to the emergency room. Patient continues to have diarrhea and abdominal pain but denies any fever or chills. She has lost 7-10 pounds in past 2 months as she states she cannot tolerate diet and as soon as she eats she has to go to the bathroom. Patient is very noncompliant with her appointments at the office. Last HIV viral load in 2017<1.30 copies per mL. Her CD4 count was 647 cells/mcl. Her HCV-RNA PCR quantitative levels was<15 iu/ml in May 2017. INFECTIOUS DISEASE CONSULT REQUESTED BY PMD DR FONTENOT FOR THE ABOVE. PMH: Anemia, Anxiety, Bipolar Disorder, COPD, Depression, Fractures (2009 Left hip, pelvis, leg), Gastritis, Gastrointestinal Ulcer, Hepatitis (C), HIV, Migraine, Pancreatitis, Personality Disorder, Chronic Pain (back pain) Surgical History: Cholecystectomy - [facility] Procedures EXCISION OF DUODENUM, ENDO, DIAGN (09/15/17) EXCISION OF STOMACH, ENDO, DIAGN (09/15/17) GROUP INFECTIOUS DISEASE TECHNICIAN FOR SUBSTANCE ABUSE TREATMENT, PSYCHOEDUCATION (09/15/17) GROUP INFECTIOUS DISEASE TECHNICIAN FOR SUBSTANCE ABUSE, COGNITIVE BEHAVIORAL (09/15/17) GROUP PSYCHOTHERAPY (09/15/17) INDIV PSYCHOTHERAPY FOR SUBSTANCE ABUSE TREATMENT, SUPPORT (09/15/17) INDIV PSYCHOTHERAPY FOR SUBSTANCE ABUSE, COGNITIV BEHAVIORAL (09/15/17) INDIV PSYCHOTHERAPY FOR SUBSTANCE ABUSE, PSYCHOEDUCATION (09/15/17) INDIVIDUAL PSYCHOTHERAPY, COGNITIVE-BEHAVIORAL (09/15/17) INDIVIDUAL PSYCHOTHERAPY, SUPPORTIVE (09/15/17) RESECTION OF GALLBLADDER, PERCUTANEOUS ENDOSCOPIC APPROACH (06/06/17) Family History: States: No Known Family Hx, Diabetes (grandmother) - Social History Hx Tobacco Use: Yes Hx Alcohol Use: No Hx Substance Use: Yes (marijuana) - Immunization History Hx Tetanus Toxoid Vaccination: Yes Hx Influenza Vaccination: Yes Hx Pneumococcal Vaccination: Yes Allergy; NKA Review of Systems - Constitutional Constitutional: Lethargy, Malaise. absent: Chills, Fever - EENT Eyes: absent: Change in Vision, Floaters Nose/Mouth/Throat: Dry Mouth - Cardiovascular Cardiovascular: absent: Chest Pain, Dyspnea - Respiratory Respiratory: absent: Cough, Hemoptysis - Gastrointestinal Gastrointestinal: Abdominal Pain (GENERALIZED DIFFUSE), Cramping, Diarrhea, Dyspepsia, Loose Stools, Nausea, Vomiting. absent: Melena - Genitourinary Genitourinary: absent: Dysuria, Freq UTI - Musculoskeletal Musculoskeletal: Back Pain (CHRONIC.) - Neurological Neurological: absent: Headaches - Psychiatric Psychiatric: Anxiety, Behavioral Changes, Depression, Panic Attacks - Hematologic/Lymphatic Hematologic: As Per HPI Past Patient History - Infectious Disease Hx of Infectious Diseases: None - Past Medical History & Family History Past Medical History?: Yes - Past Social History Smoking Status: Light Smoker < 10 Cigarettes Daily - CARDIAC Hx Hypertension: No - PULMONARY Hx Chronic Obstructive Pulmonary Disease (COPD): Yes - NEUROLOGICAL Hx Migraine: Yes - HEENT Hx HEENT Problems: No - RENAL Hx Chronic Kidney Disease: No - ENDOCRINE/METABOLIC Hx Endocrine Disorders: No - HEMATOLOGICAL/ONCOLOGICAL Hx Anemia: Yes Hx Human Immunodeficiency Virus (HIV): Yes - INTEGUMENTARY Hx Dermatological Problems: No - MUSCULOSKELETAL/RHEUMATOLOGICAL Hx Fractures: Yes (2009 Left hip, pelvis, leg) - GASTROINTESTINAL Hx Gastritis: Yes Hx Pancreatitis: Yes - GENITOURINARY/GYNECOLOGICAL Hx Sexually Transmitted Disorders: No - PSYCHIATRIC Hx Anxiety: Yes Hx Bipolar Disorder: Yes Hx Depression: Yes Hx Substance Use: Yes (marijuana) - SURGICAL HISTORY Hx Cholecystectomy: Yes - ANESTHESIA Hx Anesthesia: Yes Hx Anesthesia Reactions: No Hx Malignant Hyperthermia: No Meds Allergies/Adverse Reactions: Allergies Allergy/AdvReac Type Severity Reaction Status Date / Time No Known Allergies Allergy Verified 12/03/17 12:31 - Medications Medications: Current Medications Alprazolam (Xanax) [address] [facility] Last Admin: 12/03/17 18:39 Dose: 2 mg Cyclobenzaprine HCl (Flexeril) [address] [facility] Dicyclomine HCl (Bentyl) [address] [facility] Emtricitabine/Tenofovir (Truvada 200 Mg-300 Mg) 1 tab PO DAILY [facility]; Protocol PRN Reason: Taper Stop: 12/06/17 18:29 Last Admin: 12/03/17 18:39 Dose: 1 tab Fosamprenavir Calcium (Lexiva) 1,[address] [facility] PRN Reason: Protocol Last Admin: 12/03/17 18:39 Dose: 1,400 mg Ketorolac Tromethamine (Toradol) 10 mg PO TID PRN PRN Reason: Muscle spasm Last Admin: 12/03/17 19:45 Dose: 10 mg Physical Exam - Constitutional Appears: Older Than Stated Age, Cachectic, Chronically Ill - Head Exam Head Exam: NORMAL INSPECTION - Eye Exam Eye Exam: EOMI, PERRL - ENT Exam ENT Exam: Mucous Membranes Dry, Normal Oropharynx - Neck Exam Neck exam: Positive for: Normal Inspection. Negative for: Lymphadenopathy - Respiratory Exam Respiratory Exam: Clear to Auscultation Bilateral - Cardiovascular Exam Cardiovascular Exam: REGULAR RHYTHM, +S1, +S2 - GI/Abdominal Exam GI & Abdominal Exam: Hypoactive Bowel Sounds, Soft, Tenderness (.) - Extremities Exam Extremities exam: Positive for: pedal pulses present. Negative for: calf tenderness, pedal edema - Neurological Exam Neurological exam: Alert, CN II-XII Intact, Normal Gait, Oriented x3, Reflexes Normal - Psychiatric Exam Psychiatric exam: Anxious - Skin Skin Exam: Normal Color, Warm Results - Vital Signs Recent Vital Signs: Last Vital Signs Temp 97.9 F 12/03/17 17:45 Pulse 66 12/03/17 17:45 Resp 18 12/03/17 17:45 BP 149/95 H 12/03/17 14:15 Pulse Ox 100 12/03/17 17:45 - Labs Result Diagrams: 12/03/17 13:42 12/03/17 13:42 Labs: Laboratory Results - last 24 hr 12/03/17 12/03/17 12/03/17 13:42 13:42 13:42 WBC 4.8 RBC 4.16 Hgb 10.5 L Hct 33.0 L MCV 79.3 L MCH 25.3 L MCHC 31.9 L RDW 19.9 H Plt Count 351 MPV 7.5 Neut % (Auto) 64.4 Lymph % (Auto) 23.8 [place] % (Auto) 8.1 Eos % (Auto) 2.9 Baso % (Auto) 0.8 Neut # (Auto) 3.1 Lymph # (Auto) 1.2 [place] # (Auto) 0.4 Eos # (Auto) 0.1 Baso # (Auto) 0.0 PT 12.1 INR 1.1 APTT 29 Sodium Potassium Chloride Carbon Dioxide Anion Gap BUN Creatinine Est GFR ( Amer) Est GFR (Non-Af Amer) Random Glucose Calcium Total Bilirubin AST ALT Alkaline Phosphatase Total Protein Albumin Globulin Albumin/Globulin Ratio Lipase Urine Color Yellow Urine Clarity Hazy Urine pH 7.0 Ur Specific [place] 1.019 Urine Protein Negative Urine Glucose (UA) Normal Urine Ketones Negative Urine Blood Negative Urine Nitrate Negative Urine Bilirubin Negative Urine Urobilinogen Normal Ur Leukocyte Esterase Neg Urine WBC (Auto) 1 Urine RBC (Auto) 2 Ur Squamous Epith Cells 2 Uric Acid Crystals Rare Amorphous Sediment Rare H Urine Yeast (Budding) Occ H 12/03/17 13:42 WBC RBC Hgb Hct MCV MCH MCHC RDW Plt Count MPV Neut % (Auto) Lymph % (Auto) [place] % (Auto) Eos % (Auto) Baso % (Auto) Neut # (Auto) Lymph # (Auto) [place] # (Auto) Eos # (Auto) Baso # (Auto) PT INR APTT Sodium 145 Potassium 3.9 Chloride 107 Carbon Dioxide 26 Anion Gap 16 BUN 18 H Creatinine 0.7 Est GFR ( Amer) > 60 Est GFR (Non-Af Amer) > 60 Random Glucose 72 Calcium 8.4 L Total Bilirubin 0.4 AST 27 ALT 10 Alkaline Phosphatase 72 Total Protein 8.0 Albumin 4.4 Globulin 3.6 Albumin/Globulin Ratio 1.2 Lipase 278 Urine Color Urine Clarity Urine pH Ur Specific [place] Urine Protein Urine Glucose (UA) Urine Ketones Urine Blood Urine Nitrate Urine Bilirubin Urine Urobilinogen Ur Leukocyte Esterase Urine WBC (Auto) Urine RBC (Auto) Ur Squamous Epith Cells Uric Acid Crystals Amorphous Sediment Urine Yeast (Budding) - Imaging and Cardiology CT scan - abdomen/AND PELVIS WITH iv CONTRAST Status: Pending Assessment & Plan (1) C. difficile colitis Assessment and Plan: diarrhea workup as ordered. Stools for occult blood, leukocytes and culture. Stools for C. difficile toxin. Stools for Giardia and cryptosporidiosis antigen. Stools for AFB 3. Start IV Flagyl 500 mg every 8 hourly. 12/03/17 Start by mouth vancomycin 250 mg 4 times a day. 12/03/17. CONTACT PRECAUTIONS IF STOOL C. DIFFICILE POSITIVE/ OR WHEN BED AVAILABLE Status: Acute (2) Abdominal pain Assessment and Plan: REVIEW ct OF THE ABDOMEN AND PELVIS WITH iv CONTRAST-P Status: Acute (3) HIV positive Assessment and Plan: hiv-1 rna pcr QUANTITATIVE LEVELS. lYMPHOCYTE SUBSET STUDIES. CONTINUE HAART THERAPY ORDERED. Status: Acute (4) Hepatitis C Assessment and Plan: HCV RNA PCR- QUANTITATIVE LEVELS. MONITOR lftS Status: Acute (5) Anxiety Assessment and Plan: PSYCHIATRY CONSULT WITH dR. Vasquez Khan. Status: Acute (6) Bipolar disorder, current episode depressed, severe, without psychotic features Status: Acute
[2017-12-04] MEDS: Emtricitabine-Tenofovir 200 mg-300 mg Tab PO SCH (09:02)
[2017-12-04] MEDS: Enoxaparin 40 mg Syringe SC SCH (13:23)
--- NOTE | 2017-12-04 13:33 | CP.PCM.PN ---
Subjective - Date & Time of Evaluation Date of Evaluation: 12/04/17 Time of Evaluation: 13:32 - Subjective Subjective: AFEBRILE. C/O SEVERE ABDOMINAL PAIN WANTS MORE PAIN MEDS STOOLS WATERY PER RN - Objective - Vital Signs/Intake and Output Vital Signs (last 24 hours): Temp Pulse Resp BP Pulse Ox 98.1 F 73 18 145/88 100 12/04/17 07:00 12/04/17 07:00 12/04/17 07:00 12/04/17 07:00 12/04/17 07:00 - Medications Medications: Current Medications Alprazolam (Xanax) 2 mg PO BID [facility] Last Admin: 12/04/17 09:02 Dose: 2 mg Cyclobenzaprine HCl (Flexeril) 10 mg PO BID [facility] Last Admin: 12/04/17 09:06 Dose: 10 mg Dicyclomine HCl (Bentyl) 10 mg PO QID [facility] Last Admin: 12/04/17 13:23 Dose: 10 mg Emtricitabine/Tenofovir (Truvada 200 Mg-300 Mg) 1 tab PO DAILY [facility]; Protocol PRN Reason: Taper Stop: 12/06/17 18:29 Last Admin: 12/04/17 09:02 Dose: 1 tab Enoxaparin Sodium (Lovenox) 40 mg SC DAILY [facility] Last Admin: 12/04/17 13:23 Dose: 40 mg Fosamprenavir Calcium (Lexiva) 1,400 mg PO BID [facility] PRN Reason: Protocol Last Admin: 12/04/17 09:03 Dose: 1,400 mg Ketorolac Tromethamine (Toradol) 10 mg PO TID PRN PRN Reason: Muscle spasm Last Admin: 12/04/17 11:34 Dose: 10 mg - Labs Labs: 12/03/17 13:42 12/03/17 13:42 PT 12.1 SECONDS (9.7-12.2) 12/03/17 13:42 INR 1.1 12/03/17 13:42 APTT 29 SECONDS (21-34) 12/03/17 13:42 - Constitutional Appears: No Acute Distress, Cachectic, Chronically Ill - Eye Exam Eye Exam: EOMI, PERRL. absent: Scleral icterus - ENT Exam ENT Exam: Mucous Membranes Dry, Normal Oropharynx - Neck Exam Neck Exam: Normal Inspection - Respiratory Exam Respiratory Exam: Clear to Ausculation Bilateral - Cardiovascular Exam Cardiovascular Exam: REGULAR RHYTHM, +S1, +S2 - GI/Abdominal Exam GI & Abdominal Exam: Soft, Tenderness (GENERALIZED.), Hypoactive Bowel Sounds - Rectal Exam Rectal Exam: Deferred - Extremities Exam Extremities Exam: Normal Capillary Refill. absent: Calf Tenderness, Pedal Edema - Neurological Exam Neurological Exam: Awake, CN II-XII Intact, Normal Gait, Oriented x3, Reflexes Normal - Psychiatric Exam Psychiatric exam: Anxious, Depressed - Skin Skin Exam: Pallor, Warm Assessment and Plan (1) C. difficile colitis Assessment & Plan: F/U DIARRHOEA W/U -P CONTINUE PO VANCOMYCIN 250MG PO QID. CONTINUE IV FLAGYL Status: Acute (2) Abdominal pain Assessment & Plan: CT SCAN OF ABDOMEN/PELVIS W IV CONTRAST -NOTED.12/03/17 S/P CHOLYCYSTECTOMY . NO ACUTE FINDINGS ( SEE FULL REPORT. ) Status: Acute (3) HIV positive Status: Acute (4) Hepatitis C Assessment & Plan: CONTINUE HAART RX Status: Acute (5) Anxiety Status: Acute (6) Bipolar disorder, current episode depressed, severe, without psychotic features Assessment & Plan: PSYCHE EVAL WITH DR EVERTON WHITTAKER. Status: Acute
--- NOTE | 2017-12-04 14:47 | CP.PCM.PN ---
Subjective - Date & Time of Evaluation Date of Evaluation: 12/04/17 Time of Evaluation: 14:46 - Subjective Subjective: CHIEF COMPLAINTS TODAY : Currently patient has no further diarrhea still complaining of abdominal pain nausea no vomiting ROS. HEENT : N. Resp : No cough, wheezing ,pleuritic CP ,or hemoptysis Cardio : No anginal CP, PND, orthopnea, palpitation GI : No,diarrhea or GI bleeding . ACTING TEACHER : No headache, vertigo, focal deficit. Musculoskel : No joint swelling , Derm : No rash Psych : Normal affect. Ext : No swelling ,calf pain PE. Pt. is alert awake in no distress. V.S As noted in the chart Head ,ear nose,throat and eyes : Normal. Neck : Supple with normal carotids. Lungs: Clear air entry. Heart : S1 & S2 normal with S4. No murmur. Abd : Soft tender with normal bowel sounds. Neuro : Moves all ext. with no localized deficit. Ext : No edema with intact pulses.Non tender calves Derm : No rashes or decubitus ulcer. LABS/RADIOLOGY: ASSESSMENT/PLAN : Check CT of the abdomen and Clostridium difficile in the stool Continue pain management. Objective - Vital Signs/Intake and Output Vital Signs (last 24 hours): Temp Pulse Resp BP Pulse Ox 98.1 F 73 18 145/88 100 12/04/17 07:00 12/04/17 07:00 12/04/17 07:00 12/04/17 07:00 12/04/17 07:00 - Medications Medications: Current Medications Alprazolam (Xanax) 2 mg PO BID [facility] Last Admin: 12/04/17 09:02 Dose: 2 mg Cyclobenzaprine HCl (Flexeril) 10 mg PO BID [facility] Last Admin: 12/04/17 09:06 Dose: 10 mg Dicyclomine HCl (Bentyl) 10 mg PO QID [facility] Last Admin: 12/04/17 13:23 Dose: 10 mg Emtricitabine/Tenofovir (Truvada 200 Mg-300 Mg) 1 tab PO DAILY [facility]; Protocol PRN Reason: Taper Stop: 12/06/17 18:29 Last Admin: 12/04/17 09:02 Dose: 1 tab Enoxaparin Sodium (Lovenox) 40 mg SC DAILY [facility] Last Admin: 12/04/17 13:23 Dose: 40 mg Fosamprenavir Calcium (Lexiva) 1,400 mg PO BID [facility] PRN Reason: Protocol Last Admin: 12/04/17 09:03 Dose: 1,400 mg Ketorolac Tromethamine (Toradol) 10 mg PO TID PRN PRN Reason: Muscle spasm Last Admin: 12/04/17 11:34 Dose: 10 mg - Labs Labs: 12/03/17 13:42 12/03/17 13:42 PT 12.1 SECONDS (9.7-12.2) 12/03/17 13:42 INR 1.1 12/03/17 13:42 APTT 29 SECONDS (21-34) 12/03/17 13:42
--- NOTE | 2017-12-04 14:59 | PCM.PSYCH ---
Initial Psychiatric Evaluation - Initial Psychiatric Evaluation Type of Admission: Voluntary Legal Status: Capacity Chief Complaint (in patient's own words): "I am feeling depressed" History of Present Illness and Precipitating Events: Patient is a 52 year old female who presented to the ED with persistent diarrhea, abdominal pain, and loss of weight. Patient has a history of HIV. Patient had C. difficile colitis and was treated for a couple of days but stopped taking the medication because she could not afford it. Patient continued to have persistent diarrhea. Patient was seen today at bedside and reported feelings of depression because of her medical issues. She complains of decrease sleep, interests, energy, concentration, and appetite. Today she denies suicidal ideations. Yesterday she admitted to having suicidal ideations but with no plan. Patient has a history of depression and bipolar disorder. Patient has been admitted to the psychiatric unit on several occasions. The last time for taking her husbands diabetic medications in an attempt to commit suicide. After being discharged from her last admission here, she was supposed to follow up but decided she did not need the help. Patient denies hearing voices or seeing shadows. PMHx: Pancreatitis; Bipolar Disorder; Depression PSHx: Total Abdominal Hysterectomy (2012); Gastric Bypass (2007) FamHx: Denies Allergies: No Known Allergies Social: Smoking PPD for 30 years; Denies alcohol use; smoked marijuana blunt per day. Current Medications: Active Medications Generic Name Dose Route Start Last Admin Trade Name Freq PRN Reason Stop Dose Admin Alprazolam 2 mg 12/03/17 18:30 12/04/17 09:02 Xanax PO 2 mg BID [facility] Administration Cyclobenzaprine HCl 10 mg 12/04/17 10:00 12/04/17 09:06 Flexeril PO 10 mg BID [facility] Administration Dicyclomine HCl 10 mg 12/03/17 22:00 12/04/17 13:23 Bentyl PO 10 mg QID [facility] Administration Emtricitabine/Tenofovir 1 tab 12/03/17 18:30 12/04/17 09:02 Truvada 200 Mg-300 Mg PO 12/06/17 18:29 1 tab DAILY [facility] Administration Taper Protocol Enoxaparin Sodium 40 mg 12/04/17 12:00 12/04/17 13:23 Lovenox SC 40 mg DAILY [facility] Administration Fosamprenavir Calcium 1,400 mg 12/03/17 18:15 12/04/17 09:03 Lexiva PO 1,400 mg BID [facility] Administration Protocol Ketorolac Tromethamine 10 mg 12/03/17 19:01 12/04/17 11:34 Toradol PO 10 mg TID PRN Administration Muscle spasm Past Psychiatric History - Past Psychiatric History Previous Treatment History: None Pertinent Medical Hx (Current Medical&Sleep Prob, Allergies): Allergies Allergy/AdvReac Type Severity Reaction Status Date / Time No Known Allergies Allergy Verified 12/03/17 12:31 Carisoprodol [Soma] 1 tab PO BID 10/01/17 Dicyclomine [Bentyl] 10 mg PO QID #30 cap 11/18/17 Alprazolam [Xanax] 2 mg BID 12/03/17 Emtricitabine/Tenofovir (Tdf) [Truvada 200 mg-300 mg Tablet] 1 tab DAILY Fosamprenavir Calcium [Lexiva] 2 cap PO BID 12/03/17 Review of Systems - Review of Systems All systems: reviewed and no additional remarkable complaints except - Psychiatric Psychiatric: Anxiety, Irritability Mental Status Examination - Personal Presentation Personal Presentation: Looks stated age - Affect Affect: Constricted, Depressed - Motor Activity Motor Activity: Calm - Reliability in Providing Information Reliability in Providing Information: Fair - Speech Speech: Organized - Mood Mood: Anxious - Formal Thought Process Formal Thought Process: No Impairment - Obsessions/Compulsions Obsessions: No Compulsions: No - Cognitive Functions Orientation: Person, Place, Situation, Time Sensorium: Alert Attention/Concentration: Attentive Abstract Thinking: Murphy Estimate of Intelligence: Below average Judgement: Imparied, as evidence by: Poor judgement, Imparied, as evidence by: Lack of insight into illness - Risk Risk: Diminished functioning - Strength & Assets Inventory Strength & Assets Inventory: Family support DSM 5 DX - DSM 5 DSM 5 Diagnosis: Bipolar disorder mixed moderate - Recommended/Plan of Treatment Treatment Recommendations and Plan of Treatment: Supportive therapy and psychoeducation Neurontin 300 mg by mouth 3 times a day Seroquel 100 mg pO QHS
[2017-12-04] MEDS: metroNIDAZOLE IV 500 mg/100 ml 500 MG/100 ML BAG IVPB SCH (22:19)
[2017-12-05] MEDS: metroNIDAZOLE IV 500 mg/100 ml 500 MG/100 ML BAG IVPB SCH ×3 (06:16→21:29)
[2017-12-05 08:52] LABS: BASO % 0.5 % (0.0-2.0); EOS # 0.2 K/uL (0.0-0.7); EOS % 4.3 % (0.0-4.0); HEMOGLOBIN 9.8 g/dL (11.0-16.0); LYMPH # 1.1 K/uL (1.0-4.3); LYMPH % 24.2 % (20.0-40.0); MEAN CELL VOLUME 78.9 fL (81.0-99.0); MEAN CORPUSCULAR HEMOGLOBIN 25.2 pg (27.0-31.0); MEAN PLATELET VOLUME 7.8 fL (7.2-11.7); MONO # 0.4 K/uL (0.0-0.8); MONO % 8.5 % (0.0-10.0); NEUT # 2.8 K/uL (1.8-7.0); NEUT % 62.5 % (50.0-75.0); RBC 3.86 Mil/uL (3.80-5.20); RED CELL DISTRIBUTION WIDTH 19.8 % (11.5-14.5); WHITE BLOOD COUNT 4.5 K/uL (4.8-10.8)
[2017-12-05 09:14] LABS: ALBUMIN 3.4 g/dL (3.5-5.0); ALT/SGPT 18 U/L (9-52); AST/SGOT 20 U/L (14-36); BLOOD UREA NITROGEN 22 mg/dL (7-17); CALCIUM 8.7 mg/dl (8.6-10.4); GFR AFRICAN-AMERICAN > 60; GFR NON-AFRICAN AMERICAN > 60
[2017-12-05] MEDS: Emtricitabine-Tenofovir 200 mg-300 mg Tab PO SCH (09:24)
[2017-12-05] MEDS: Enoxaparin 40 mg Syringe SC SCH (09:25)
--- NOTE | 2017-12-05 14:28 | CP.PCM.PN ---
Subjective - Date & Time of Evaluation Date of Evaluation: 12/05/17 Time of Evaluation: 14:27 - Subjective Subjective: CHIEF COMPLAINTS TODAY : Currently patient has no further diarrhea still complaining of abdominal pain nausea no vomiting ROS. HEENT : N. Resp : No cough, wheezing ,pleuritic CP ,or hemoptysis Cardio : No anginal CP, PND, orthopnea, palpitation GI : No,diarrhea or GI bleeding . 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 Musculoskel : No joint swelling , Derm : No rash Psych : Normal affect. Ext : No swelling ,calf pain PE. Pt. is alert awake in no distress. V.S As noted in the chart Head ,ear nose,throat and eyes : Normal. Neck : Supple with normal carotids. Lungs: Clear air entry. Heart : S1 & S2 normal with S4. No murmur. Abd : Soft tender with normal bowel sounds. Neuro : Moves all ext. with no localized deficit. Ext : No edema with intact pulses.Non tender calves Derm : No rashes or decubitus ulcer. LABS/RADIOLOGY: CT of the abdomen shows no acute with pathology ASSESSMENT/PLAN : Check Clostridium difficile in the stool Continue pain management. Objective - Vital Signs/Intake and Output Vital Signs (last 24 hours): Temp Pulse Resp BP Pulse Ox 97.7 F 74 18 101/71 100 12/05/17 07:50 12/05/17 07:50 12/05/17 07:50 12/05/17 07:50 12/05/17 07:50 - Medications Medications: Current Medications Alprazolam (Xanax) 2 mg PO BID [facility] Last Admin: 12/05/17 09:25 Dose: 2 mg Cyclobenzaprine HCl (Flexeril) 10 mg PO BID [facility] Last Admin: 12/05/17 09:25 Dose: 10 mg Dicyclomine HCl (Bentyl) 10 mg PO QID [facility] Last Admin: 12/05/17 14:03 Dose: 10 mg Emtricitabine/Tenofovir (Truvada 200 Mg-300 Mg) 1 tab PO DAILY [facility]; Protocol PRN Reason: Taper Stop: 12/06/17 18:29 Last Admin: 12/05/17 09:24 Dose: 1 tab Enoxaparin Sodium (Lovenox) 40 mg SC DAILY [facility] Last Admin: 12/05/17 09:25 Dose: 40 mg Fosamprenavir Calcium (Lexiva) 1,400 mg PO BID [facility] PRN Reason: Protocol Last Admin: 12/05/17 09:25 Dose: 1,400 mg Gabapentin (Neurontin) 300 mg PO TID [facility] Last Admin: 12/05/17 14:02 Dose: 300 mg Metronidazole (Flagyl) 500 mg in 100 mls @ 100 mls/hr IVPB Q8 [facility] PRN Reason: Protocol Last Admin: 12/05/17 14:02 Dose: 100 mls/hr Ketorolac Tromethamine (Toradol) 30 mg IVP Q6 PRN PRN Reason: Pain, severe (8-10) Last Admin: 12/05/17 12:27 Dose: 30 mg Quetiapine Fumarate (Seroquel) 100 mg PO HS [facility] Last Admin: 12/04/17 22:19 Dose: 100 mg - Labs Labs: 12/05/17 08:38 12/05/17 08:38 PT 12.1 SECONDS (9.7-12.2) 12/03/17 13:42 INR 1.1 12/03/17 13:42 APTT 29 SECONDS (21-34) 12/03/17 13:42
[2017-12-05] MEDS ORDERED: Sodium Chloride 0.45% 1,000 ML IV SCH (14:30)
[2017-12-05 15:46] LABS: % CD4 (T HELPER CELL) 57 Percent (30-61); % CD8 (SUPPRESSOR T CELL) 30 Percent (12-42); ABSOLUTE CD4 CELLS 608 Cells/mcL (490-1740); ABSOLUTE CD8 CELLS 321 Cells/mcL (180-1170); ABSOLUTE LYMPHOCYTES 1062 Cells/mcL (850-3900); HELPER/SUPPRESSOR RATIO 1.89 Ratio (0.86-5.00)
[2017-12-05 16:12] VITALS: RESP 20
--- NOTE | 2017-12-05 19:46 | CP.PCM.PN ---
Subjective - Date & Time of Evaluation Date of Evaluation: 12/05/17 Time of Evaluation: 19:46 - Subjective Subjective: AFEBRILE STATES STOOLS ARE GETTING FORMED. STILL C/O ABDOMINAL PAIN. NO N/OR VOMITING Objective - Vital Signs/Intake and Output Vital Signs (last 24 hours): Temp Pulse Resp BP Pulse Ox 97.7 F 85 20 99/67 L 98 12/05/17 16:11 12/05/17 16:11 12/05/17 16:11 12/05/17 16:11 12/05/17 16:11 Intake and Output: 12/05/17 12/06/17 18:59 06:59 Intake Total 770 Balance 770 - Medications Medications: Current Medications Alprazolam (Xanax) 2 mg PO BID [facility] Last Admin: 12/05/17 18:11 Dose: 2 mg Cyclobenzaprine HCl (Flexeril) 10 mg PO BID [facility] Last Admin: 12/05/17 18:11 Dose: 10 mg Dicyclomine HCl (Bentyl) 10 mg PO QID [facility] Last Admin: 12/05/17 18:12 Dose: 10 mg Emtricitabine/Tenofovir (Truvada 200 Mg-300 Mg) 1 tab PO DAILY [facility]; Protocol PRN Reason: Taper Stop: 12/06/17 18:29 Last Admin: 12/05/17 09:24 Dose: 1 tab Enoxaparin Sodium (Lovenox) 40 mg SC DAILY [facility] Last Admin: 12/05/17 09:25 Dose: 40 mg Fosamprenavir Calcium (Lexiva) 1,400 mg PO BID [facility] PRN Reason: Protocol Last Admin: 12/05/17 18:13 Dose: 1,400 mg Gabapentin (Neurontin) 300 mg PO TID [facility] Last Admin: 12/05/17 18:11 Dose: 300 mg Metronidazole (Flagyl) 500 mg in 100 mls @ 100 mls/hr IVPB Q8 [facility] PRN Reason: Protocol Last Admin: 12/05/17 14:02 Dose: 100 mls/hr Sodium Chloride (Sodium Chloride 0.45%) 1,000 mls @ 80 mls/hr IV .[id number] [facility] Last Admin: 12/05/17 15:07 Dose: 80 mls/hr Ketorolac Tromethamine (Toradol) 30 mg IVP Q6 PRN PRN Reason: Pain, severe (8-10) Last Admin: 12/05/17 18:44 Dose: 30 mg Quetiapine Fumarate (Seroquel) 100 mg PO HS [facility] Last Admin: 12/04/17 22:19 Dose: 100 mg - Labs Labs: 12/05/17 08:38 12/05/17 08:38 PT 12.1 SECONDS (9.7-12.2) 12/03/17 13:42 INR 1.1 12/03/17 13:42 APTT 29 SECONDS (21-34) 12/03/17 13:42 - Constitutional Appears: No Acute Distress, Cachectic, Chronically Ill - Head Exam Head Exam: NORMAL INSPECTION - Eye Exam Eye Exam: EOMI, PERRL - ENT Exam ENT Exam: Normal Oropharynx - Neck Exam Neck Exam: Normal Inspection. absent: Meningismus - Respiratory Exam Respiratory Exam: Clear to Ausculation Bilateral - GI/Abdominal Exam GI & Abdominal Exam: Soft, Tenderness (GENERALIZED.), Hypoactive Bowel Sounds - Extremities Exam Extremities Exam: Normal Capillary Refill. absent: Calf Tenderness, Pedal Edema - Neurological Exam Neurological Exam: Awake, CN II-XII Intact, Oriented x3, Reflexes Normal - Psychiatric Exam Psychiatric exam: Normal Mood - Skin Skin Exam: Normal Color, Pallor, Warm Assessment and Plan (1) C. difficile colitis Assessment & Plan: 'STOOLS -VE OB STOOLS -VE LEUKOCYTES. STOOLS -VE S/S/C -VE X2 F/U DIARRHOEA W/U -P CONTINUE PO VANCOMYCIN 250MG PO QID. CONTINUE IV FLAGYL Status: Acute (2) Abdominal pain Status: Acute (3) HIV positive Assessment & Plan: CD4 HELPER CELLS 608U/ML CD4/CD8 1.89 CINTINUE HAART RX Status: Acute (4) Hepatitis C Assessment & Plan: HCV RNA PCR QT . LEVELS -P Status: Acute (5) Anxiety Assessment & Plan: PER PSYCHIATRY ON SERAQUIL 100MG PO OD DAILY. ATIVAN 2MG PO BID. Status: Acute (6) Bipolar disorder, current episode depressed, severe, without psychotic features Status: Acute
[2017-12-06] MEDS: metroNIDAZOLE IV 500 mg/100 ml 500 MG/100 ML BAG IVPB SCH ×3 (06:10→21:51)
[2017-12-06 08:43] LABS: BASO % 0.5 % (0.0-2.0); EOS # 0.2 K/uL (0.0-0.7); EOS % 5.2 % (0.0-4.0); HEMOGLOBIN 9.2 g/dL (11.0-16.0); LYMPH % 23.7 % (20.0-40.0); MEAN CELL VOLUME 79.7 fL (81.0-99.0); MEAN CORPUSCULAR HEMOGLOBIN 25.2 pg (27.0-31.0); MEAN CORPUSCULAR HGB CONC 31.6 g/dL (33.0-37.0); MEAN PLATELET VOLUME 7.3 fL (7.2-11.7); MONO # 0.4 K/uL (0.0-0.8); MONO % 8.7 % (0.0-10.0); NEUT # 2.7 K/uL (1.8-7.0); NEUT % 61.9 % (50.0-75.0); RBC 3.65 Mil/uL (3.80-5.20); RED CELL DISTRIBUTION WIDTH 20.1 % (11.5-14.5); WHITE BLOOD COUNT 4.3 K/uL (4.8-10.8)
[2017-12-06 09:00] LABS: ALB/GLOB RATIO 1.2 (1.0-2.1); ALBUMIN 3.6 g/dL (3.5-5.0); ALT/SGPT 17 U/L (9-52); AST/SGOT 17 U/L (14-36); BLOOD UREA NITROGEN 26 mg/dL (7-17); CALCIUM 8.4 mg/dl (8.6-10.4); GFR AFRICAN-AMERICAN > 60; GFR NON-AFRICAN AMERICAN > 60
[2017-12-06] MEDS: Emtricitabine-Tenofovir 200 mg-300 mg Tab PO SCH (09:39)
[2017-12-06] MEDS: Enoxaparin 40 mg Syringe SC SCH (09:39)
--- NOTE | 2017-12-06 15:43 | CP.PCM.PN ---
Subjective - Date & Time of Evaluation Date of Evaluation: 12/06/17 Time of Evaluation: 15:42 - Subjective Subjective: Currently patient is refusing IV fluids Patient still has abdominal pain. Yesterday patient had 2 BM Stool leukocytes and occult blood is negative. Still awaiting for C. difficile. In the meantime continue IV antibiotics. Objective - Vital Signs/Intake and Output Vital Signs (last 24 hours): Temp Pulse Resp BP Pulse Ox 98.0 F 73 20 106/70 98 12/06/17 07:00 12/06/17 07:00 12/06/17 07:00 12/06/17 07:00 12/06/17 07:00 - Medications Medications: Current Medications Alprazolam (Xanax) 2 mg PO Q12 [facility] Last Admin: 12/06/17 09:38 Dose: 2 mg Cyclobenzaprine HCl (Flexeril) 10 mg PO BID [facility] Last Admin: 12/06/17 09:38 Dose: 10 mg Dicyclomine HCl (Bentyl) 10 mg PO QID [facility] Last Admin: 12/06/17 14:03 Dose: 10 mg Emtricitabine/Tenofovir (Truvada 200 Mg-300 Mg) 1 tab PO DAILY [facility]; Protocol PRN Reason: Taper Stop: 12/06/17 18:29 Last Admin: 12/06/17 09:39 Dose: 1 tab Enoxaparin Sodium (Lovenox) 40 mg SC DAILY [facility] Last Admin: 12/06/17 09:39 Dose: 40 mg Fosamprenavir Calcium (Lexiva) 1,400 mg PO BID [facility] PRN Reason: Protocol Last Admin: 12/06/17 09:40 Dose: 1,400 mg Gabapentin (Neurontin) 300 mg PO TID [facility] Last Admin: 12/06/17 14:04 Dose: 300 mg Metronidazole (Flagyl) 500 mg in 100 mls @ 100 mls/hr IVPB Q8 [facility] PRN Reason: Protocol Last Admin: 12/06/17 14:04 Dose: 100 mls/hr Ketorolac Tromethamine (Toradol) 30 mg IVP Q6 PRN PRN Reason: Pain, severe (8-10) Last Admin: 12/06/17 11:36 Dose: 30 mg Quetiapine Fumarate (Seroquel) 100 mg PO HS [facility] Last Admin: 12/05/17 21:29 Dose: 100 mg - Labs Labs: 12/06/17 08:39 12/06/17 08:39 PT 12.1 SECONDS (9.7-12.2) 12/03/17 13:42 INR 1.1 12/03/17 13:42 APTT 29 SECONDS (21-34) 12/03/17 13:42
--- NOTE | 2017-12-06 18:59 | CP.PCM.PN ---
Subjective - Date & Time of Evaluation Date of Evaluation: 12/06/17 Time of Evaluation: 18:59 - Subjective Subjective: AFEBRILE, TODAY HAD 3 X DARK YELLOW BM STOOL C . DIFFICILE NOT PERFORMED PER RN FOR STOOLS WERE PASTY NOW. CONTINUES TO C/O ABDOMINAL PAIN. Objective - Vital Signs/Intake and Output Vital Signs (last 24 hours): Temp Pulse Resp BP Pulse Ox 98.2 F 83 20 100/64 99 12/06/17 15:56 12/06/17 15:56 12/06/17 15:56 12/06/17 15:56 12/06/17 15:56 Intake and Output: 12/06/17 12/06/17 06:59 18:59 Intake Total 1140 770 Balance 1140 770 - Medications Medications: Current Medications Alprazolam (Xanax) 2 mg PO Q12 [facility] Last Admin: 12/06/17 09:38 Dose: 2 mg Cyclobenzaprine HCl (Flexeril) 10 mg PO BID [facility] Last Admin: 12/06/17 18:20 Dose: 10 mg Dicyclomine HCl (Bentyl) 10 mg PO QID [facility] Last Admin: 12/06/17 18:21 Dose: 10 mg Enoxaparin Sodium (Lovenox) 40 mg SC DAILY [facility] Last Admin: 12/06/17 09:39 Dose: 40 mg Fosamprenavir Calcium (Lexiva) 1,400 mg PO BID [facility] PRN Reason: Protocol Last Admin: 12/06/17 18:21 Dose: 1,400 mg Gabapentin (Neurontin) 300 mg PO TID [facility] Last Admin: 12/06/17 18:20 Dose: 300 mg Metronidazole (Flagyl) 500 mg in 100 mls @ 100 mls/hr IVPB Q8 [facility] PRN Reason: Protocol Last Admin: 12/06/17 14:04 Dose: 100 mls/hr Quetiapine Fumarate (Seroquel) 100 mg PO HS [facility] Last Admin: 12/05/17 21:29 Dose: 100 mg - Labs Labs: 12/06/17 08:39 12/06/17 08:39 PT 12.1 SECONDS (9.7-12.2) 12/03/17 13:42 INR 1.1 12/03/17 13:42 APTT 29 SECONDS (21-34) 12/03/17 13:42 - Constitutional Appears: No Acute Distress, Cachectic, Chronically Ill - Eye Exam Eye Exam: EOMI, PERRL - ENT Exam ENT Exam: Normal Oropharynx - Neck Exam Neck Exam: Normal Inspection - Respiratory Exam Respiratory Exam: Clear to Ausculation Bilateral - Cardiovascular Exam Cardiovascular Exam: REGULAR RHYTHM, +S1, +S2 - GI/Abdominal Exam GI & Abdominal Exam: Soft, Hypoactive Bowel Sounds (+VE GENERALIZED TENDERNESS.) - Extremities Exam Extremities Exam: absent: Calf Tenderness, Pedal Edema - Neurological Exam Neurological Exam: Awake, CN II-XII Intact, Oriented x3, Reflexes Normal - Psychiatric Exam Psychiatric exam: Anxious - Skin Skin Exam: Normal Color, Warm Assessment and Plan (1) C. difficile colitis Assessment & Plan: PT .WAS RECENTLY DX WITH +VE C . DIFFICILE COLITIS IN [facility]. FAILED OPD FLAGYL RX ON IV FLAGYL 500MG IVPB [id number]/25/18 PO VANCOMYCIN 250MG PO QID. 12/06/17 Status: Acute (2) Abdominal pain Status: Acute (3) HIV positive Status: Acute (4) Hepatitis C Status: Acute (5) Anxiety Status: Acute (6) Bipolar disorder, current episode depressed, severe, without psychotic features Assessment & Plan: PER PSYCHIATRY. Status: Acute
[2017-12-06] MEDS ORDERED: Tramadol 25 mg PO PRN (20:05)
[2017-12-06] MEDS: Vancomycin 125 MG/5 ML SOLN (ORAL/RECTAL) PO SCH (21:50)
[2017-12-07] MEDS: metroNIDAZOLE IV 500 mg/100 ml 500 MG/100 ML BAG IVPB SCH ×3 (06:20→21:26)
[2017-12-07] MEDS: Tramadol 25 mg PO PRN ×2 (06:21→14:50)
[2017-12-07 08:02] LABS: BASO % 0.4 % (0.0-2.0); EOS # 0.2 K/uL (0.0-0.7); EOS % 6.3 % (0.0-4.0); HEMOGLOBIN 8.8 g/dL (11.0-16.0); LYMPH # 0.8 K/uL (1.0-4.3); LYMPH % 25.3 % (20.0-40.0); MEAN CELL VOLUME 79.7 fL (81.0-99.0); MEAN CORPUSCULAR HEMOGLOBIN 25.3 pg (27.0-31.0); MEAN CORPUSCULAR HGB CONC 31.7 g/dL (33.0-37.0); MEAN PLATELET VOLUME 7.8 fL (7.2-11.7); MONO # 0.3 K/uL (0.0-0.8); MONO % 10.1 % (0.0-10.0); NEUT # 1.9 K/uL (1.8-7.0); NEUT % 57.9 % (50.0-75.0); NRBC % 0.1 % (0.0-2.0); RBC 3.5 Mil/uL (3.80-5.20); WHITE BLOOD COUNT 3.3 K/uL (4.8-10.8)
[2017-12-07 08:22] LABS: ALB/GLOB RATIO 1.1 (1.0-2.1); ALBUMIN 3.5 g/dL (3.5-5.0); ALT/SGPT 14 U/L (9-52); AST/SGOT 19 U/L (14-36); BLOOD UREA NITROGEN 24 mg/dL (7-17); CALCIUM 8.3 mg/dl (8.6-10.4); GFR AFRICAN-AMERICAN > 60; GFR NON-AFRICAN AMERICAN > 60
[2017-12-07] MEDS ORDERED: Vancomycin 125 MG/5 ML SOLN (ORAL/RECTAL) PO SCH (10:00)
[2017-12-07] MEDS: Vancomycin 125 MG/5 ML SOLN (ORAL/RECTAL) PO SCH ×4 (10:58→21:25)
[2017-12-07] MEDS: Enoxaparin 40 mg Syringe SC SCH (11:00)
--- NOTE | 2017-12-07 14:45 | CP.PCM.PN ---
Subjective - Date & Time of Evaluation Date of Evaluation: 12/07/17 Time of Evaluation: 14:43 - Subjective Subjective: CHIEF COMPLAINTS TODAY : Currently patient has no further diarrhea still complaining of abdominal pain nausea no vomiting ROS. HEENT : N. Resp : No cough, wheezing ,pleuritic CP ,or hemoptysis Cardio : No anginal CP, PND, orthopnea, palpitation GI : No,diarrhea or GI bleeding . NON [employer]ED [employer] : No headache, vertigo, focal deficit. Musculoskel : No joint swelling , Derm : No rash Psych : Normal affect. Ext : No swelling ,calf pain PE. Pt. is alert awake in no distress. V.S As noted in the chart Head ,ear nose,throat and eyes : Normal. Neck : Supple with normal carotids. Lungs: Clear air entry. Heart : S1 & S2 normal with S4. No murmur. Abd : Soft tender with normal bowel sounds. Neuro : Moves all ext. with no localized deficit. Ext : No edema with intact pulses.Non tender calves Derm : No rashes or decubitus ulcer. LABS/RADIOLOGY: CT of the abdomen shows no acute with pathology ASSESSMENT/PLAN : Patient is still complaining of vague abdominal pain and due to the recent loss of weight will get a GI evaluation. Stool the C. difficile toxin is not done as patient does not have any diarrhea as per the laboratory personnel. Continue tramadol for the pain. Objective - Vital Signs/Intake and Output Vital Signs (last 24 hours): Temp Pulse Resp BP Pulse Ox 98 F 84 20 111/76 100 12/07/17 00:00 12/07/17 08:00 12/07/17 08:00 12/07/17 08:00 12/07/17 08:00 - Medications Medications: Current Medications Alprazolam (Xanax) 2 mg PO Q12 [facility] Last Admin: 12/07/17 10:59 Dose: 2 mg Cyclobenzaprine HCl (Flexeril) 10 mg PO BID [facility] Last Admin: 12/07/17 10:57 Dose: 10 mg Dicyclomine HCl (Bentyl) 10 mg PO QID [facility] Last Admin: 12/07/17 14:11 Dose: 10 mg Enoxaparin Sodium (Lovenox) 40 mg SC DAILY [facility] Last Admin: 12/07/17 11:00 Dose: 40 mg Fosamprenavir Calcium (Lexiva) 1,400 mg PO BID [facility] PRN Reason: Protocol Last Admin: 12/07/17 11:00 Dose: 1,400 mg Gabapentin (Neurontin) 300 mg PO TID [facility] Last Admin: 12/07/17 14:11 Dose: 300 mg Metronidazole (Flagyl) 500 mg in 100 mls @ 100 mls/hr IVPB Q8 [facility] PRN Reason: Protocol Last Admin: 12/07/17 14:11 Dose: 100 mls/hr Quetiapine Fumarate (Seroquel) 100 mg PO HS [facility] Last Admin: 12/06/17 21:50 Dose: 100 mg Tramadol HCl (Ultram) 25 mg PO Q6 PRN PRN Reason: Pain, moderate (4-7) Last Admin: 12/07/17 06:21 Dose: 25 mg Vancomycin HCl (Vancocin (Oral Or Rectal Use)) 250 mg PO QID [facility] PRN Reason: Protocol Last Admin: 12/07/17 14:11 Dose: 250 mg - Labs Labs: 12/07/17 07:50 12/07/17 07:50 PT 12.1 SECONDS (9.7-12.2) 12/03/17 13:42 INR 1.1 12/03/17 13:42 APTT 29 SECONDS (21-34) 12/03/17 13:42
[2017-12-07] MEDS: Emtricitabine-Tenofovir 200 mg-300 mg Tab PO SCH (16:39)
[2017-12-07] MEDS: Oxycodone/Acetaminophen 5/325 mg Tab PO PRN (17:56)
[2017-12-08] MEDS: Oxycodone/Acetaminophen 5/325 mg Tab PO PRN ×3 (00:54→17:52)
[2017-12-08] MEDS: Tramadol 25 mg PO PRN ×2 (05:12→14:32)
[2017-12-08 08:05] LABS: BASO % 0.4 % (0.0-2.0); EOS # 0.3 K/uL (0.0-0.7); HEMOGLOBIN 8.8 g/dL (11.0-16.0); LYMPH # 1.1 K/uL (1.0-4.3); LYMPH % 34.3 % (20.0-40.0); MEAN CELL VOLUME 79.7 fL (81.0-99.0); MEAN CORPUSCULAR HEMOGLOBIN 25.5 pg (27.0-31.0); MEAN PLATELET VOLUME 8.1 fL (7.2-11.7); MONO # 0.4 K/uL (0.0-0.8); MONO % 12.1 % (0.0-10.0); NEUT # 1.5 K/uL (1.8-7.0); NEUT % 45.2 % (50.0-75.0); NRBC % 0.1 % (0.0-2.0); RBC 3.45 Mil/uL (3.80-5.20); RED CELL DISTRIBUTION WIDTH 20.2 % (11.5-14.5); WHITE BLOOD COUNT 3.3 K/uL (4.8-10.8)
[2017-12-08 08:17] LABS: ALBUMIN 3.1 g/dL (3.5-5.0); ALT/SGPT 18 U/L (9-52); AST/SGOT 20 U/L (14-36); BLOOD UREA NITROGEN 21 mg/dL (7-17); CALCIUM 8.5 mg/dl (8.6-10.4); GFR AFRICAN-AMERICAN > 60; GFR NON-AFRICAN AMERICAN > 60
--- NOTE | 2017-12-08 09:14 | CP.PCM.PN ---
Subjective - Date & Time of Evaluation Date of Evaluation: 12/08/17 Time of Evaluation: 07:00 - Subjective Subjective: Initial PGY4 GI Consult [place] Objective - Vital Signs/Intake and Output Vital Signs (last 24 hours): Temp Pulse Resp BP Pulse Ox 98.0 F 70 20 106/70 98 12/08/17 07:00 12/08/17 07:00 12/08/17 07:00 12/08/17 07:00 12/08/17 07:00 Intake and Output: 12/08/17 12/08/17 06:59 18:59 Intake Total 900 480 Balance 900 480 - Medications Medications: Current Medications Alprazolam (Xanax) 2 mg PO Q12 [facility] Last Admin: 12/07/17 21:25 Dose: 2 mg Cyclobenzaprine HCl (Flexeril) 10 mg PO BID [facility] Last Admin: 12/07/17 17:20 Dose: 10 mg Dicyclomine HCl (Bentyl) 10 mg PO QID [facility] Last Admin: 12/07/17 21:26 Dose: 10 mg Emtricitabine/Tenofovir (Truvada 200 Mg-300 Mg) 1 tab PO DAILY [facility] PRN Reason: Protocol Last Admin: 12/07/17 16:39 Dose: 1 tab Enoxaparin Sodium (Lovenox) 40 mg SC DAILY [facility] Last Admin: 12/07/17 11:00 Dose: 40 mg Fosamprenavir Calcium (Lexiva) 1,400 mg PO BID [facility] PRN Reason: Protocol Last Admin: 12/07/17 17:19 Dose: 1,400 mg Gabapentin (Neurontin) 300 mg PO TID [facility] Last Admin: 12/07/17 17:20 Dose: 300 mg Oxycodone/Acetaminophen (Percocet 5/325 Mg Tab) 1 tab PO Q6H PRN PRN Reason: Pain, moderate (4-7) Stop: 12/10/17 17:32 Last Admin: 12/08/17 07:51 Dose: 1 tab Quetiapine Fumarate (Seroquel) 100 mg PO [facility] Last Admin: 12/07/17 21:25 Dose: 100 mg Tramadol HCl (Ultram) 25 mg PO Q6 PRN PRN Reason: Pain, moderate (4-7) Last Admin: 12/08/17 05:12 Dose: 25 mg Vancomycin HCl (Vancocin (Oral Or Rectal Use)) 250 mg PO QID [facility] PRN Reason: Protocol Last Admin: 12/07/17 21:25 Dose: 250 mg - Labs Labs: 12/08/17 07:46 12/08/17 07:46 PT 12.1 SECONDS (9.7-12.2) 12/03/17 13:42 INR 1.1 12/03/17 13:42 APTT 29 SECONDS (21-34) 12/03/17 13:42
--- NOTE | 2017-12-08 09:20 | CP.PCM.CON ---
<Frederick Boles - Last Filed: 12/08/17 09:28> History of Present Illness - History of Present Illness History of Present Illness: Initial PGY4 GI Consult Augusta Robledo is a 52F w/ history of HIV on Truvada, HCV with undetectable viral load, gallstones, PUD, IBS, COPD, anxiety, depression with numerous previous suicide attempts, polysubstance abuse and drug seeking behavior who presented to the ED with abd pain and diarrhea. Pt was seen at [facility] in 09/2017 for abd pain by our service. EGD at the time revealed a Griggs Class III ulcer at the antrum. Pt was advised to stay on PPI for 1 month. According to the pt, she presented to [facility] in November (1st week) with complaints of abd pain and diarrhea. She was diagnosed with psuedomembranous colitis and prescribed Flagyl. She noted that her abd pain never improved and she continued to have loose watery BM daily for the past 2 weeks. She was prescribed PO vancomycin by her PCP or Dr. Rangel, but insurance did not cover the cost. She noted having 3-4 watery BM without formed stool but denied any melena or hematemesis or BRBPR. She was started on Vancomycin PO upon arrival and notes some interval improvement of stool consistency and frequency. 12point ROS as per HPI above otherwise negative PMHx: as stated above PSHx: Cholecystectomy (05/29), IVC filter placement, tubal ligation Allergies: NKDA Social hx: H/O polypsubstance abuse - cocaine, PCP, current cannabis use, daily xanax use; 1ppd tobacco use; denies EtOH use Family Hx: Mother - Heroin use Endo: Reports EGD at [facility] ~13 months ago and EGD @ [facility] 09/2017; EGD/ colonoscopy 06/2015 Past Patient History - Infectious Disease Hx of Infectious Diseases: None - Past Medical History & Family History Past Medical History?: Yes - Past Social History Smoking Status: Light Smoker < 10 Cigarettes Daily - CARDIAC Hx Hypertension: No - PULMONARY Hx Chronic Obstructive Pulmonary Disease (COPD): Yes - NEUROLOGICAL Hx Migraine: Yes - HEENT Hx HEENT Problems: No - RENAL Hx Chronic Kidney Disease: No - ENDOCRINE/METABOLIC Hx Endocrine Disorders: No - HEMATOLOGICAL/ONCOLOGICAL Hx Anemia: Yes Hx Human Immunodeficiency Virus (HIV): Yes - INTEGUMENTARY Hx Dermatological Problems: No - MUSCULOSKELETAL/RHEUMATOLOGICAL Hx Fractures: Yes (2009 Left hip, pelvis, leg) - GASTROINTESTINAL Hx Gastritis: Yes Hx Pancreatitis: Yes - GENITOURINARY/GYNECOLOGICAL Hx Sexually Transmitted Disorders: No - PSYCHIATRIC Hx Anxiety: Yes Hx Bipolar Disorder: Yes Hx Depression: Yes Hx Substance Use: Yes (marijuana) - SURGICAL HISTORY Hx Cholecystectomy: Yes - ANESTHESIA Hx Anesthesia: Yes Hx Anesthesia Reactions: No Hx Malignant Hyperthermia: No Meds Allergies/Adverse Reactions: Allergies Allergy/AdvReac Type Severity Reaction Status Date / Time No Known Allergies Allergy Verified 12/03/17 12:31 - Medications Medications: Current Medications Alprazolam (Xanax) 2 mg PO Q12 [facility] Last Admin: 12/07/17 21:25 Dose: 2 mg Cyclobenzaprine HCl (Flexeril) 10 mg PO BID [facility] Last Admin: 12/07/17 17:20 Dose: 10 mg Dicyclomine HCl (Bentyl) 10 mg PO QID [facility] Last Admin: 12/07/17 21:26 Dose: 10 mg Emtricitabine/Tenofovir (Truvada 200 Mg-300 Mg) 1 tab PO DAILY [facility] PRN Reason: Protocol Last Admin: 12/07/17 16:39 Dose: 1 tab Enoxaparin Sodium (Lovenox) 40 mg SC DAILY [facility] Last Admin: 12/07/17 11:00 Dose: 40 mg Fosamprenavir Calcium (Lexiva) 1,400 mg PO BID [facility] PRN Reason: Protocol Last Admin: 12/07/17 17:19 Dose: 1,400 mg Gabapentin (Neurontin) 300 mg PO TID [facility] Last Admin: 12/07/17 17:20 Dose: 300 mg Oxycodone/Acetaminophen (Percocet 5/325 Mg Tab) 1 tab PO Q6H PRN PRN Reason: Pain, moderate (4-7) Stop: 12/10/17 17:32 Last Admin: 12/08/17 07:51 Dose: 1 tab Quetiapine Fumarate (Seroquel) 100 mg PO [facility] Last Admin: 12/07/17 21:25 Dose: 100 mg Tramadol HCl (Ultram) 25 mg PO Q6 PRN PRN Reason: Pain, moderate (4-7) Last Admin: 12/08/17 05:12 Dose: 25 mg Vancomycin HCl (Vancocin (Oral Or Rectal Use)) 250 mg PO QID [facility] PRN Reason: Protocol Last Admin: 12/07/17 21:25 Dose: 250 mg Physical Exam - Constitutional Appears: Well, No Acute Distress - Head Exam Head Exam: ATRAUMATIC, NORMOCEPHALIC - Eye Exam Eye Exam: Normal appearance - ENT Exam ENT Exam: Mucous Membranes Moist, Normal Exam - Neck Exam Neck exam: Positive for: Normal Inspection - Respiratory Exam Respiratory Exam: Clear to Auscultation Bilateral, NORMAL BREATHING PATTERN. absent: Rales, Rhonchi, Wheezes, Respiratory Distress - Cardiovascular Exam Cardiovascular Exam: REGULAR RHYTHM, +S1, +S2 - GI/Abdominal Exam GI & Abdominal Exam: Normal Bowel Sounds, Soft. absent: Diminished Bowel Sounds , Distended, Firm, Guarding, Rebound, Rigid, Tenderness - Neurological Exam Neurological exam: Alert, Oriented x3 - Psychiatric Exam Psychiatric exam: Normal Affect, Normal Mood - Skin Skin Exam: Dry, Intact, Normal Color, Warm Results - Vital Signs Recent Vital Signs: Last Vital Signs Temp 98.0 F 12/08/17 07:00 Pulse 70 12/08/17 07:00 Resp 20 12/08/17 07:00 BP 106/70 12/08/17 07:00 Pulse Ox 98 12/08/17 07:00 - Labs Result Diagrams: 12/08/17 07:46 12/08/17 07:46 Labs: Laboratory Results - last 24 hr 12/04/17 12/08/17 12/08/17 07:08 07:46 07:46 WBC 3.3 L RBC 3.45 L Hgb 8.8 L Hct 27.5 L MCV 79.7 L MCH 25.5 L MCHC 32.0 L RDW 20.2 H Plt Count 236 MPV 8.1 Neut % (Auto) 45.2 L Lymph % (Auto) 34.3 Floyd % (Auto) 12.1 H Eos % (Auto) 8.0 H Baso % (Auto) 0.4 Neut # (Auto) 1.5 L Lymph # (Auto) 1.1 Floyd # (Auto) 0.4 Eos # (Auto) 0.3 Baso # (Auto) 0.0 Sodium 139 Potassium 4.5 Chloride 107 Carbon Dioxide 24 Anion Gap 12 BUN 21 H Creatinine 0.8 Est GFR ( Amer) > 60 Est GFR (Non-Af Amer) > 60 Random Glucose 90 Calcium 8.5 L Total Bilirubin 0.2 AST 20 ALT 18 Alkaline Phosphatase 68 Total Protein 6.1 L Albumin 3.1 L Globulin 3.0 Albumin/Globulin Ratio 1.0 HIV-1 RNA Qnt (RT-PCR) <1.30 detected H Assessment & Plan - Assessment and Plan (Free Text) Assessment: history of HIV on Truvada, HCV with undetectable viral load, gallstones, PUD, IBS, COPD, anxiety, depression with numerous previous suicide attempts, polysubstance abuse and drug seeking behavior who presented to the ED with Abd pain and diarrhea Diarrhea likely 2/2 c.diff colitis, r/o other infectious etiologies Hx of gastric ulcer HIV hx of polysybstance abuse Plan: -send for c.diff -continue vancomycin 250mg Po QID -awaiting other stool infectious w/u -would hold on PPI for now -advise follow-up with primary GI for repeat colonoscopy as oupt in 1 month following resolution of colitis -advance diet as tolerated -no plan for GI procedures D/W <Isac Canela - Last Filed: 12/08/17 11:26> Meds - Medications Medications: Current Medications Alprazolam (Xanax) 2 mg PO Q12 [facility] Last Admin: 12/08/17 10:41 Dose: 2 mg Cyclobenzaprine HCl (Flexeril) 10 mg PO BID [facility] Last Admin: 12/08/17 10:41 Dose: 10 mg Dicyclomine HCl (Bentyl) 10 mg PO QID [facility] Last Admin: 12/08/17 10:41 Dose: 10 mg Emtricitabine/Tenofovir (Truvada 200 Mg-300 Mg) 1 tab PO DAILY [facility] PRN Reason: Protocol Last Admin: 12/08/17 10:40 Dose: 1 tab Enoxaparin Sodium (Lovenox) 40 mg SC DAILY [facility] Last Admin: 12/08/17 10:42 Dose: 40 mg Fosamprenavir Calcium (Lexiva) 1,400 mg PO BID [facility] PRN Reason: Protocol Last Admin: 12/08/17 10:41 Dose: 1,400 mg Gabapentin (Neurontin) 300 mg PO TID [facility] Last Admin: 12/08/17 10:41 Dose: 300 mg Oxycodone/Acetaminophen (Percocet 5/325 Mg Tab) 1 tab PO Q6H PRN PRN Reason: Pain, moderate (4-7) Stop: 12/10/17 17:32 Last Admin: 12/08/17 07:51 Dose: 1 tab Quetiapine Fumarate (Seroquel) 100 mg PO HS [facility] Last Admin: 12/07/17 21:25 Dose: 100 mg Tramadol HCl (Ultram) 25 mg PO Q6 PRN PRN Reason: Pain, moderate (4-7) Last Admin: 12/08/17 05:12 Dose: 25 mg Vancomycin HCl (Vancocin (Oral Or Rectal Use)) 250 mg PO QID [facility] PRN Reason: Protocol Last Admin: 12/08/17 10:54 Dose: 250 mg Results - Vital Signs Recent Vital Signs: Last Vital Signs Temp 98.0 F 12/08/17 07:00 Pulse 70 12/08/17 07:00 Resp 20 12/08/17 07:00 BP 106/70 12/08/17 07:00 Pulse Ox 98 12/08/17 07:00 - Labs Result Diagrams: 12/08/17 07:46 12/08/17 07:46 Labs: Laboratory Results - last 24 hr 12/04/17 12/08/17 12/08/17 07:08 07:46 07:46 WBC 3.3 L RBC 3.45 L Hgb 8.8 L Hct 27.5 L MCV 79.7 L MCH 25.5 L MCHC 32.0 L RDW 20.2 H Plt Count 236 MPV 8.1 Neut % (Auto) 45.2 L Lymph % (Auto) 34.3 Floyd % (Auto) 12.1 H Eos % (Auto) 8.0 H Baso % (Auto) 0.4 Neut # (Auto) 1.5 L Lymph # (Auto) 1.1 Floyd # (Auto) 0.4 Eos # (Auto) 0.3 Baso # (Auto) 0.0 Sodium 139 Potassium 4.5 Chloride 107 Carbon Dioxide 24 Anion Gap 12 BUN 21 H Creatinine 0.8 Est GFR ( Amer) > 60 Est GFR (Non-Af Amer) > 60 Random Glucose 90 Calcium 8.5 L Total Bilirubin 0.2 AST 20 ALT 18 Alkaline Phosphatase 68 Total Protein 6.1 L Albumin 3.1 L Globulin 3.0 Albumin/Globulin Ratio 1.0 HIV-1 RNA Qnt (RT-PCR) <1.30 detected H Attending/Attestation - Attestation I have personally seen and examined this patient.: Yes I have fully participated in the care of the patient.: Yes I have reviewed all pertinent clinical information: Yes Notes (Text): 12/08/17 11:19 I have seen and examined patient with GI fellow. Agree with above documentation with the following additions. In brief, this is a 52 year old female with history of HIV on HAART, IBS, COPD, polysubstance abuse who presents to hospital with complaint of abdominal pain and diarrhea. She was recently admitted to [facility] with similar complaints and was diagnosed with c- difficile colitis. Despite outpatient management, her abdominal pain and diarrhea have gotten worse over the past 2 days. She describes generalized abdominal pain, worse after meal consumption. Initially she was having up to 3- 4 loose non-bloody bowel movements daily, though over the past 24 hours her stool has become more solid in consistency, she had one bowel movement this morning. She otherwise denies nausea, vomiting, fever/chills, or rectal bleeding. She does report subjective weight loss, cannot quantify amount. She was scheduled for follow up colonoscopy this month with her primary GI physician at [facility] but was not able to follow up due to recent illness. Additional physical examination: Abdomen: no palpable hepato/spelnomegaly appreciated HIV on HAART IBS COPD Abdominal pain, diarrhea - c difficile associated colitis - Diet as tolerated - Continue with PO Vancomycin therapy - Follow up ID recommendations - Suggest discontinuing PPI therapy as this may worsen symptoms - Consider starting once daily probiotic therapy - Patient will require outpatient elective colonoscopy with primary GI following resolution of acute symptoms - Will continue to monitor patient clinical course
[2017-12-08] MEDS: Emtricitabine-Tenofovir 200 mg-300 mg Tab PO SCH (10:40)
[2017-12-08] MEDS: Enoxaparin 40 mg Syringe SC SCH (10:42)
[2017-12-08] MEDS: Vancomycin 125 MG/5 ML SOLN (ORAL/RECTAL) PO SCH ×4 (10:54→21:16)
[2017-12-08 12:32] LABS: SOURCE STOOL
--- NOTE | 2017-12-08 14:06 | CP.PCM.PN ---
Subjective - Date & Time of Evaluation Date of Evaluation: 12/08/17 Time of Evaluation: 14:05 - Subjective Subjective: CHIEF COMPLAINTS TODAY : Currently patient has no further diarrhea still complaining of abdominal pain nausea no vomiting ROS. HEENT : N. Resp : No cough, wheezing ,pleuritic CP ,or hemoptysis Cardio : No anginal CP, PND, orthopnea, palpitation GI : No,diarrhea or GI bleeding . ADMINISTRATOR : No headache, vertigo, focal deficit. Musculoskel : No joint swelling , Derm : No rash Psych : Normal affect. Ext : No swelling ,calf pain PE. Pt. is alert awake in no distress. V.S As noted in the chart Head ,ear nose,throat and eyes : Normal. Neck : Supple with normal carotids. Lungs: Clear air entry. Heart : S1 & S2 normal with S4. No murmur. Abd : Soft tender with normal bowel sounds. Neuro : Moves all ext. with no localized deficit. Ext : No edema with intact pulses.Non tender calves Derm : No rashes or decubitus ulcer. LABS/RADIOLOGY: CT of the abdomen shows no acute with pathology ASSESSMENT/PLAN : Patient is still complaining of vague abdominal pain and due to the recent loss of weight will get a GI evaluation. Stool the C. difficile toxin is not done as patient does not have any diarrhea as per the laboratory personnel. Continue tramadol for the pain. Objective - Vital Signs/Intake and Output Vital Signs (last 24 hours): Temp Pulse Resp BP Pulse Ox 98.0 F 70 20 106/70 98 12/08/17 07:00 12/08/17 07:00 12/08/17 07:00 12/08/17 07:00 12/08/17 07:00 Intake and Output: 12/08/17 12/08/17 11:59 23:59 Intake Total 480 Balance 480 - Medications Medications: Current Medications Alprazolam (Xanax) 2 mg PO Q12 [facility] Last Admin: 12/08/17 10:41 Dose: 2 mg Cyclobenzaprine HCl (Flexeril) 10 mg PO BID [facility] Last Admin: 12/08/17 10:41 Dose: 10 mg Dicyclomine HCl (Bentyl) 10 mg PO QID [facility] Last Admin: 12/08/17 10:41 Dose: 10 mg Emtricitabine/Tenofovir (Truvada 200 Mg-300 Mg) 1 tab PO DAILY [facility] PRN Reason: Protocol Last Admin: 12/08/17 10:40 Dose: 1 tab Enoxaparin Sodium (Lovenox) 40 mg SC DAILY [facility] Last Admin: 12/08/17 10:42 Dose: 40 mg Fosamprenavir Calcium (Lexiva) 1,400 mg PO BID [facility] PRN Reason: Protocol Last Admin: 12/08/17 10:41 Dose: 1,400 mg Gabapentin (Neurontin) 300 mg PO TID [facility] Last Admin: 12/08/17 10:41 Dose: 300 mg Oxycodone/Acetaminophen (Percocet 5/325 Mg Tab) 1 tab PO Q6H PRN PRN Reason: Pain, moderate (4-7) Stop: 12/10/17 17:32 Last Admin: 12/08/17 07:51 Dose: 1 tab Quetiapine Fumarate (Seroquel) 100 mg PO HS [facility] Last Admin: 12/07/17 21:25 Dose: 100 mg Tramadol HCl (Ultram) 25 mg PO Q6 PRN PRN Reason: Pain, moderate (4-7) Last Admin: 12/08/17 05:12 Dose: 25 mg Vancomycin HCl (Vancocin (Oral Or Rectal Use)) 250 mg PO QID [facility] PRN Reason: Protocol Last Admin: 12/08/17 10:54 Dose: 250 mg - Labs Labs: 12/08/17 07:46 12/08/17 07:46 PT 12.1 SECONDS (9.7-12.2) 12/03/17 13:42 INR 1.1 12/03/17 13:42 APTT 29 SECONDS (21-34) 12/03/17 13:42
--- NOTE | 2017-12-08 14:15 | CP.PCM.PN ---
Subjective - Date & Time of Evaluation Date of Evaluation: 12/08/17 Time of Evaluation: 14:15 - Subjective Subjective: afebrile c/o abdominal pain. c/o nausea but no vomiting States diarrhea has improved and is having pasty stools. x 2 so far. Denies any melena . SEEN BY GI TODAY. NOTED. LABS REVIEWED. LEUKOPENIA wbc 3.3 ? FLAGYL SO FAR DIARRHEA WORKUP NEGATIVE. sTOOL c. DIFFICILE NOT DONE AND STOOLS ARE PASTY NOW. PLAN ; DC IV fLAGYL. CONTINUE VANCOMYCIN PO 250 MG QID. DIARRHEA WORKUP IN PROGRESS RN INFORMED TO COLLECTS STOOLS FOR AFB X3 R/O MAC -COMPLEX. Objective - Vital Signs/Intake and Output Vital Signs (last 24 hours): Temp Pulse Resp BP Pulse Ox 98.0 F 70 20 106/70 98 12/08/17 07:00 12/08/17 07:00 12/08/17 07:00 12/08/17 07:00 12/08/17 07:00 Intake and Output: 12/08/17 12/08/17 06:59 18:59 Intake Total 900 480 Balance 900 480 - Medications Medications: Current Medications Alprazolam (Xanax) 2 mg PO Q12 [facility] Last Admin: 12/08/17 10:41 Dose: 2 mg Cyclobenzaprine HCl (Flexeril) 10 mg PO BID [facility] Last Admin: 12/08/17 10:41 Dose: 10 mg Dicyclomine HCl (Bentyl) 10 mg PO QID [facility] Last Admin: 12/08/17 10:41 Dose: 10 mg Emtricitabine/Tenofovir (Truvada 200 Mg-300 Mg) 1 tab PO DAILY [facility] PRN Reason: Protocol Last Admin: 12/08/17 10:40 Dose: 1 tab Enoxaparin Sodium (Lovenox) 40 mg SC DAILY [facility] Last Admin: 12/08/17 10:42 Dose: 40 mg Fosamprenavir Calcium (Lexiva) 1,400 mg PO BID [facility] PRN Reason: Protocol Last Admin: 12/08/17 10:41 Dose: 1,400 mg Gabapentin (Neurontin) 300 mg PO TID [facility] Last Admin: 12/08/17 10:41 Dose: 300 mg Oxycodone/Acetaminophen (Percocet 5/325 Mg Tab) 1 tab PO Q6H PRN PRN Reason: Pain, moderate (4-7) Stop: 12/10/17 17:32 Last Admin: 12/08/17 07:51 Dose: 1 tab Quetiapine Fumarate (Seroquel) 100 mg PO HS [facility] Last Admin: 12/07/17 21:25 Dose: 100 mg Tramadol HCl (Ultram) 25 mg PO Q6 PRN PRN Reason: Pain, moderate (4-7) Last Admin: 12/08/17 05:12 Dose: 25 mg Vancomycin HCl (Vancocin (Oral Or Rectal Use)) 250 mg PO QID [facility] PRN Reason: Protocol Last Admin: 12/08/17 10:54 Dose: 250 mg - Labs Labs: 12/08/17 07:46 12/08/17 07:46 PT 12.1 SECONDS (9.7-12.2) 12/03/17 13:42 INR 1.1 12/03/17 13:42 APTT 29 SECONDS (21-34) 12/03/17 13:42 - Constitutional Appears: No Acute Distress, Cachectic, Chronically Ill - Head Exam Head Exam: NORMAL INSPECTION - Eye Exam Eye Exam: EOMI, PERRL - ENT Exam ENT Exam: Normal Oropharynx - Neck Exam Neck Exam: Normal Inspection - Respiratory Exam Respiratory Exam: Clear to Ausculation Bilateral - Cardiovascular Exam Cardiovascular Exam: REGULAR RHYTHM, +S1, +S2 - GI/Abdominal Exam GI & Abdominal Exam: Soft, Normal Bowel Sounds. absent: Organomegaly - Extremities Exam Extremities Exam: Normal Capillary Refill. absent: Calf Tenderness, Pedal Edema - Neurological Exam Neurological Exam: Alert, Awake, CN II-XII Intact, Normal Gait, Oriented x3, Reflexes Normal - Psychiatric Exam Psychiatric exam: Normal Mood - Skin Skin Exam: Normal Color, Warm Assessment and Plan (1) C. difficile colitis Assessment & Plan: DC IV fLAGYL. 12/08/17. CONTINUE BY MOUTH VANCOMYCIN 250 BY MOUTH QID 12/03/17 X 14DAYS TOTAL. Status: Acute (2) Abdominal pain Status: Acute (3) HIV positive Assessment & Plan: HIV -1 RNA QUANTITATIVE LEVELS <1.30 LOG/ML =<20COPIES -.UNDETECTABLE CD4 HELPER CELLS ; 608 U/ML CONTINUE PRESENT HAART RX DIRECTED. Status: Acute (4) Hepatitis C Status: Acute (5) Anxiety Assessment & Plan: PER PSYCHIATRY. Status: Acute (6) Bipolar disorder, current episode depressed, severe, without psychotic features Status: Acute
[2017-12-09] MEDS: Oxycodone/Acetaminophen 5/325 mg Tab PO PRN ×3 (06:24→19:31)
--- NOTE | 2017-12-09 07:30 | CP.PCM.PN ---
<Frederick Boles - Last Filed: 12/09/17 13:11> Subjective - Date & Time of Evaluation Date of Evaluation: 12/09/17 Time of Evaluation: 06:45 - Subjective Subjective: PGY4 GI Follow-up Pt seen and examined bedside c/o abd pain only 2 BM yesterday, soft and formed tolerating diet 12 point ROS conducted, neg other than above Objective - Vital Signs/Intake and Output Vital Signs (last 24 hours): Temp Pulse Resp BP Pulse Ox 97.9 F 86 20 123/79 96 12/08/17 23:43 12/08/17 23:43 12/08/17 23:43 12/08/17 23:43 12/08/17 23:43 Intake and Output: 12/09/17 12/09/17 06:59 18:59 Intake Total 500 Balance 500 - Medications Medications: Current Medications Alprazolam (Xanax) 2 mg PO Q12 [facility] Last Admin: 12/08/17 21:16 Dose: 2 mg Cyclobenzaprine HCl (Flexeril) 10 mg PO BID [facility] Last Admin: 12/08/17 17:53 Dose: 10 mg Dicyclomine HCl (Bentyl) 10 mg PO QID [facility] Last Admin: 12/08/17 21:16 Dose: 10 mg Emtricitabine/Tenofovir (Truvada 200 Mg-300 Mg) 1 tab PO DAILY [facility] PRN Reason: Protocol Last Admin: 12/08/17 10:40 Dose: 1 tab Enoxaparin Sodium (Lovenox) 40 mg SC DAILY [facility] Last Admin: 12/08/17 10:42 Dose: 40 mg Fosamprenavir Calcium (Lexiva) 1,400 mg PO BID [facility] PRN Reason: Protocol Last Admin: 12/08/17 17:52 Dose: 1,400 mg Gabapentin (Neurontin) 300 mg PO TID [facility] Last Admin: 12/08/17 17:53 Dose: 300 mg Oxycodone/Acetaminophen (Percocet 5/325 Mg Tab) 1 tab PO Q6H PRN PRN Reason: Pain, moderate (4-7) Stop: 12/10/17 17:32 Last Admin: 12/09/17 06:24 Dose: 1 tab Quetiapine Fumarate (Seroquel) 100 mg PO [facility] Last Admin: 12/08/17 21:16 Dose: 100 mg Tramadol HCl (Ultram) 25 mg PO Q6 PRN PRN Reason: Pain, moderate (4-7) Last Admin: 12/08/17 14:32 Dose: 25 mg Vancomycin HCl (Vancocin (Oral Or Rectal Use)) 250 mg PO QID [facility] PRN Reason: Protocol Last Admin: 12/08/17 21:16 Dose: 250 mg - Labs Labs: 12/08/17 07:46 12/08/17 07:46 PT 12.1 SECONDS (9.7-12.2) 12/03/17 13:42 INR 1.1 12/03/17 13:42 APTT 29 SECONDS (21-34) 12/03/17 13:42 - Constitutional Appears: Well, No Acute Distress - Head Exam Head Exam: ATRAUMATIC, NORMOCEPHALIC - Eye Exam Eye Exam: Normal appearance - ENT Exam ENT Exam: Mucous Membranes Moist, Normal Exam - Neck Exam Neck Exam: Normal Inspection - Respiratory Exam Respiratory Exam: Clear to Ausculation Bilateral, NORMAL BREATHING PATTERN. absent: Rales, Rhonchi, Wheezes, Respiratory Distress - Cardiovascular Exam Cardiovascular Exam: REGULAR RHYTHM, +S1, +S2 - GI/Abdominal Exam GI & Abdominal Exam: Soft, Tenderness (lower quad B/L), Normal Bowel Sounds. absent: Distended, Firm, Guarding, Rigid - Extremities Exam Extremities Exam: absent: Joint Swelling, Pedal Edema - Neurological Exam Neurological Exam: Alert, Awake, Oriented x3 - Psychiatric Exam Psychiatric exam: Normal Affect, Normal Mood - Skin Skin Exam: Dry, Intact, Normal Color, Warm Assessment and Plan - Assessment and Plan (Free Text) Assessment: Augusta Robledo is a 52F w/ a history of HIV on Truvada, HCV with undetectable viral load, gallstones, PUD, IBS, COPD, anxiety, depression with numerous previous suicide attempts, polysubstance abuse and drug seeking behavior who presented to the ED with Abd pain and diarrhea Diarrhea likely 2/2 c.diff colitis, r/o other infectious etiologies Hx of gastric ulcer HIV hx of polysybstance abuse Plan: -continue vancomycin 250mg Po QID -awaiting other stool infectious w/u -continue to hold on PPI for now, can start H2 lucien for GERD PRN -advise follow-up with primary GI for repeat colonoscopy as oupt in 1 month following resolution of colitis -advance diet as tolerated -no plan for GI procedures -BM improving D/W <Isac Canela - Last Filed: 12/09/17 13:36> Objective - Vital Signs/Intake and Output Vital Signs (last 24 hours): Temp Pulse Resp BP Pulse Ox 97.9 F 86 20 123/79 96 12/08/17 23:43 12/08/17 23:43 12/08/17 23:43 12/08/17 23:43 12/08/17 23:43 Intake and Output: 12/09/17 12/09/17 06:59 18:59 Intake Total 500 Balance 500 - Medications Medications: Current Medications Alprazolam (Xanax) 2 mg PO Q12 [facility] Last Admin: 12/09/17 10:13 Dose: 2 mg Cyclobenzaprine HCl (Flexeril) 10 mg PO BID [facility] Last Admin: 12/09/17 10:13 Dose: 10 mg Dicyclomine HCl (Bentyl) 10 mg PO QID [facility] Last Admin: 12/09/17 13:30 Dose: 10 mg Emtricitabine/Tenofovir (Truvada 200 Mg-300 Mg) 1 tab PO DAILY [facility] PRN Reason: Protocol Last Admin: 12/09/17 10:13 Dose: 1 tab Enoxaparin Sodium (Lovenox) 40 mg SC DAILY [facility] Last Admin: 12/09/17 10:12 Dose: 40 mg Fosamprenavir Calcium (Lexiva) 1,400 mg PO BID [facility] PRN Reason: Protocol Last Admin: 12/09/17 10:14 Dose: 1,400 mg Gabapentin (Neurontin) 300 mg PO TID [facility] Last Admin: 12/09/17 13:28 Dose: 300 mg Oxycodone/Acetaminophen (Percocet 5/325 Mg Tab) 1 tab PO Q6H PRN PRN Reason: Pain, moderate (4-7) Stop: 12/10/17 17:32 Last Admin: 12/09/17 13:28 Dose: 1 tab Quetiapine Fumarate (Seroquel) 100 mg PO HS [facility] Last Admin: 12/08/17 21:16 Dose: 100 mg Tramadol HCl (Ultram) 25 mg PO Q6 PRN PRN Reason: Pain, moderate (4-7) Last Admin: 12/08/17 14:32 Dose: 25 mg Vancomycin HCl (Vancocin (Oral Or Rectal Use)) 250 mg PO QID [facility] PRN Reason: Protocol Last Admin: 12/09/17 13:29 Dose: 250 mg - Labs Labs: 12/09/17 07:41 12/09/17 07:41 PT 12.1 SECONDS (9.7-12.2) 12/03/17 13:42 INR 1.1 12/03/17 13:42 APTT 29 SECONDS (21-34) 12/03/17 13:42 Attending/Attestation - Attestation I have personally seen and examined this patient.: Yes I have fully participated in the care of the patient.: Yes I have reviewed all pertinent clinical information, including history, physical exam and plan: Yes Notes (Text): 12/09/17 13:33 I have seen and examined patient with GI fellow. No acute events overnight. 2 soft bowel movements over past 12 hours. She endorses mild diffuse abdominal discomfort but denies nausea, vomiting, fever/chills. Tolerating PO diet without difficulty. HIV on HAART IBS COPD Anxiety/Depression Change in bowel habits - c-difficile associated colitis - Diet as tolerated - Continue with PO Vancomycin therapy, duration as per ID - Follow up stool studies - Suggest beginning probiotic therapy - Following discharge patient to follow up with primary GI physician for consideration of colonoscopy - No additional planned GI interventions, will sign off case. Please reconsult as necessary, thank you.
[2017-12-09 08:03] LABS: BASO % 0.7 % (0.0-2.0); EOS # 0.2 K/uL (0.0-0.7); EOS % 7.5 % (0.0-4.0); HEMOGLOBIN 9.8 g/dL (11.0-16.0); LYMPH # 1.1 K/uL (1.0-4.3); LYMPH % 33.6 % (20.0-40.0); MEAN CELL VOLUME 80.3 fL (81.0-99.0); MEAN CORPUSCULAR HGB CONC 32.4 g/dL (33.0-37.0); MONO # 0.4 K/uL (0.0-0.8); NEUT # 1.5 K/uL (1.8-7.0); NEUT % 45.2 % (50.0-75.0); NRBC % 0.1 % (0.0-2.0); RBC 3.75 Mil/uL (3.80-5.20); RED CELL DISTRIBUTION WIDTH 19.7 % (11.5-14.5); WHITE BLOOD COUNT 3.3 K/uL (4.8-10.8)
[2017-12-09 08:20] LABS: ALB/GLOB RATIO 1.2 (1.0-2.1); ALBUMIN 4.1 g/dL (3.5-5.0); ALT/SGPT 14 U/L (9-52); AST/SGOT 27 U/L (14-36); BLOOD UREA NITROGEN 18 mg/dL (7-17); CALCIUM 8.8 mg/dl (8.6-10.4); GFR AFRICAN-AMERICAN > 60; GFR NON-AFRICAN AMERICAN > 60
[2017-12-09] MEDS: Enoxaparin 40 mg Syringe SC SCH (10:12)
[2017-12-09] MEDS: Emtricitabine-Tenofovir 200 mg-300 mg Tab PO SCH (10:13)
[2017-12-09] MEDS: Vancomycin 125 MG/5 ML SOLN (ORAL/RECTAL) PO SCH ×4 (10:17→21:18)
--- NOTE | 2017-12-09 11:53 | CP.PCM.PN ---
Subjective - Date & Time of Evaluation Date of Evaluation: 12/09/17 Time of Evaluation: 11:53 - Subjective Subjective: afebrile c/o abdominal pain. c/o nausea but no vomiting States diarrhea has improved and is having pasty stools. Denies any melena LABS WBC 3.3 LEUKOPENIA ? FLAGYL VS LIVER DISEASE ( OFF IV FLAGYL SINCE 12/08/17 ) STOOL X 2 -AFB SMEAR STOOL -VE OVA AND PARASITE CRYPTO/GIARDIA AG NOT DETECTED. Objective - Vital Signs/Intake and Output Vital Signs (last 24 hours): Temp Pulse Resp BP Pulse Ox 97.9 F 86 20 123/79 96 12/08/17 23:43 12/08/17 23:43 12/08/17 23:43 12/08/17 23:43 12/08/17 23:43 Intake and Output: 12/09/17 12/09/17 06:59 18:59 Intake Total 500 Balance 500 - Medications Medications: Current Medications Alprazolam (Xanax) 2 mg PO Q12 [facility] Last Admin: 12/09/17 10:13 Dose: 2 mg Cyclobenzaprine HCl (Flexeril) 10 mg PO BID [facility] Last Admin: 12/09/17 10:13 Dose: 10 mg Dicyclomine HCl (Bentyl) 10 mg PO QID [facility] Last Admin: 12/09/17 10:13 Dose: 10 mg Emtricitabine/Tenofovir (Truvada 200 Mg-300 Mg) 1 tab PO DAILY [facility] PRN Reason: Protocol Last Admin: 12/09/17 10:13 Dose: 1 tab Enoxaparin Sodium (Lovenox) 40 mg SC DAILY [facility] Last Admin: 12/09/17 10:12 Dose: 40 mg Fosamprenavir Calcium (Lexiva) 1,400 mg PO BID [facility] PRN Reason: Protocol Last Admin: 12/09/17 10:14 Dose: 1,400 mg Gabapentin (Neurontin) 300 mg PO TID [facility] Last Admin: 12/09/17 10:13 Dose: 300 mg Oxycodone/Acetaminophen (Percocet 5/325 Mg Tab) 1 tab PO Q6H PRN PRN Reason: Pain, moderate (4-7) Stop: 12/10/17 17:32 Last Admin: 12/09/17 06:24 Dose: 1 tab Quetiapine Fumarate (Seroquel) 100 mg PO HS [facility] Last Admin: 12/08/17 21:16 Dose: 100 mg Tramadol HCl (Ultram) 25 mg PO Q6 PRN PRN Reason: Pain, moderate (4-7) Last Admin: 12/08/17 14:32 Dose: 25 mg Vancomycin HCl (Vancocin (Oral Or Rectal Use)) 250 mg PO QID [facility] PRN Reason: Protocol Last Admin: 12/09/17 10:17 Dose: 250 mg - Labs Labs: 12/09/17 07:41 12/09/17 07:41 PT 12.1 SECONDS (9.7-12.2) 12/03/17 13:42 INR 1.1 12/03/17 13:42 APTT 29 SECONDS (21-34) 12/03/17 13:42 - Constitutional Appears: No Acute Distress, Cachectic, Chronically Ill - Eye Exam Eye Exam: EOMI, PERRL - ENT Exam ENT Exam: Normal Oropharynx - Neck Exam Neck Exam: Normal Inspection - Respiratory Exam Respiratory Exam: Clear to Ausculation Bilateral - Cardiovascular Exam Cardiovascular Exam: REGULAR RHYTHM, +S1, +S2 - GI/Abdominal Exam GI & Abdominal Exam: Soft, Tenderness (EPIGASTRIUM), Normal Bowel Sounds. absent: Organomegaly - Extremities Exam Extremities Exam: Normal Capillary Refill. absent: Calf Tenderness, Pedal Edema - Neurological Exam Neurological Exam: Alert, Awake, CN II-XII Intact, Normal Gait, Oriented x3, Reflexes Normal - Psychiatric Exam Psychiatric exam: Normal Mood - Skin Skin Exam: Normal Color, Warm Assessment and Plan (1) C. difficile colitis Assessment & Plan: IMPROVING ON PO VANCOMYCIN 250MG PO QID -DAY 7 Status: Acute (2) Abdominal pain Status: Acute (3) HIV positive Status: Acute (4) Hepatitis C Assessment & Plan: F/O HCV RNA QT. LEVELS -P LFTS -12/09/17 NORMAL. Status: Acute (5) Anxiety Assessment & Plan: PER PSYCHIATRY. Status: Acute (6) Bipolar disorder, current episode depressed, severe, without psychotic features Status: Acute
--- NOTE | 2017-12-09 14:15 | CP.PCM.PN ---
Subjective - Date & Time of Evaluation Date of Evaluation: 12/09/17 Time of Evaluation: 14:14 - Subjective Subjective: Currently patient has no further diarrhea still complaining of abdominal pain nausea no vomiting ROS. HEENT : N. Resp : No cough, wheezing ,pleuritic CP ,or hemoptysis Cardio : No anginal CP, PND, orthopnea, palpitation GI : No,diarrhea or GI bleeding . [employer] : No headache, vertigo, focal deficit. Musculoskel : No joint swelling , Derm : No rash Psych : Normal affect. Ext : No swelling ,calf pain PE. Pt. is alert awake in no distress. V.S As noted in the chart Head ,ear nose,throat and eyes : Normal. Neck : Supple with normal carotids. Lungs: Clear air entry. Heart : S1 & S2 normal with S4. No murmur. Abd : Soft tender with normal bowel sounds. Neuro : Moves all ext. with no localized deficit. Ext : No edema with intact pulses.Non tender calves Derm : No rashes or decubitus ulcer. LABS/RADIOLOGY: CT of the abdomen shows no acute with pathology ASSESSMENT/PLAN : Patient is still complaining of vague abdominal pain and due to the recent loss of weight will get a GI evaluation. Stool the C. difficile toxin is not done as patient does not have any diarrhea as per the laboratory personnel. Continue tramadol for the pain. Objective - Vital Signs/Intake and Output Vital Signs (last 24 hours): Temp Pulse Resp BP Pulse Ox 97.9 F 86 20 123/79 96 12/08/17 23:43 12/08/17 23:43 12/08/17 23:43 12/08/17 23:43 12/08/17 23:43 - Medications Medications: Current Medications Alprazolam (Xanax) 2 mg PO Q12 [facility] Last Admin: 12/09/17 10:13 Dose: 2 mg Cyclobenzaprine HCl (Flexeril) 10 mg PO BID [facility] Last Admin: 12/09/17 10:13 Dose: 10 mg Dicyclomine HCl (Bentyl) 10 mg PO QID [facility] Last Admin: 12/09/17 13:30 Dose: 10 mg Emtricitabine/Tenofovir (Truvada 200 Mg-300 Mg) 1 tab PO DAILY [facility] PRN Reason: Protocol Last Admin: 12/09/17 10:13 Dose: 1 tab Enoxaparin Sodium (Lovenox) 40 mg SC DAILY [facility] Last Admin: 12/09/17 10:12 Dose: 40 mg Fosamprenavir Calcium (Lexiva) 1,400 mg PO BID [facility] PRN Reason: Protocol Last Admin: 12/09/17 10:14 Dose: 1,400 mg Gabapentin (Neurontin) 300 mg PO TID [facility] Last Admin: 12/09/17 13:28 Dose: 300 mg Oxycodone/Acetaminophen (Percocet 5/325 Mg Tab) 1 tab PO Q6H PRN PRN Reason: Pain, moderate (4-7) Stop: 12/10/17 17:32 Last Admin: 12/09/17 13:28 Dose: 1 tab Quetiapine Fumarate (Seroquel) [address] [facility] Last Admin: 12/08/17 21:16 Dose: 100 mg Tramadol HCl (Ultram) 25 mg PO Q6 PRN PRN Reason: Pain, moderate (4-7) Last Admin: 12/08/17 14:32 Dose: 25 mg Vancomycin HCl (Vancocin (Oral Or Rectal Use)) 250 mg PO QID [facility] PRN Reason: Protocol Last Admin: 12/09/17 13:29 Dose: 250 mg - Labs Labs: 12/09/17 07:41 12/09/17 07:41 PT 12.1 SECONDS (9.7-12.2) 12/03/17 13:42 INR 1.1 12/03/17 13:42 APTT 29 SECONDS (21-34) 12/03/17 13:42
[2017-12-09 23:30] VITALS: TEMP 98.2
[2017-12-10] MEDS: Oxycodone/Acetaminophen 5/325 mg Tab PO PRN ×2 (02:57→11:41)
[2017-12-10 08:25] LABS: BASO % 0.6 % (0.0-2.0); EOS # 0.2 K/uL (0.0-0.7); EOS % 6.9 % (0.0-4.0); HEMOGLOBIN 9.2 g/dL (11.0-16.0); LYMPH % 31.3 % (20.0-40.0); MEAN CELL VOLUME 80.1 fL (81.0-99.0); MEAN CORPUSCULAR HEMOGLOBIN 25.4 pg (27.0-31.0); MEAN CORPUSCULAR HGB CONC 31.8 g/dL (33.0-37.0); MEAN PLATELET VOLUME 8.2 fL (7.2-11.7); MONO # 0.4 K/uL (0.0-0.8); MONO % 13.1 % (0.0-10.0); NEUT # 1.6 K/uL (1.8-7.0); NEUT % 48.1 % (50.0-75.0); RBC 3.63 Mil/uL (3.80-5.20); RED CELL DISTRIBUTION WIDTH 20.1 % (11.5-14.5); WHITE BLOOD COUNT 3.2 K/uL (4.8-10.8)
[2017-12-10 09:59] VITALS: BP 116/81; PULSE 95; O2SAT 98
[2017-12-10] MEDS: Enoxaparin 40 mg Syringe SC SCH (10:08)
[2017-12-10] MEDS: Emtricitabine-Tenofovir 200 mg-300 mg Tab PO SCH (10:08)
[2017-12-10] MEDS: Vancomycin 125 MG/5 ML SOLN (ORAL/RECTAL) PO SCH ×2 (10:12→14:25)
[2017-12-10 10:51] LABS: ALB/GLOB RATIO 1.1 (1.0-2.1); ALBUMIN 3.5 g/dL (3.5-5.0); ALT/SGPT 25 U/L (9-52); AST/SGOT 32 U/L (14-36); BLOOD UREA NITROGEN 19 mg/dL (7-17); CALCIUM 8.8 mg/dl (8.6-10.4); GFR AFRICAN-AMERICAN > 60; GFR NON-AFRICAN AMERICAN > 60
--- NOTE | 2017-12-10 12:22 | CP.PCM.PN ---
Subjective - Date & Time of Evaluation Date of Evaluation: 12/10/17 Time of Evaluation: 12:22 - Subjective Subjective: AFEBRILE. C/O ABDOMINAL PAIN. DIARRHOEA IMPROVED STOOL PASTY . 1 BM YESTERDAY LABS REVIEWED. Objective - Vital Signs/Intake and Output Vital Signs (last 24 hours): Temp Pulse Resp BP Pulse Ox 98.2 F 95 H 20 116/81 98 12/10/17 09:58 12/10/17 09:58 12/10/17 09:58 12/10/17 09:58 12/10/17 09:58 Intake and Output: 12/10/17 12/10/17 06:59 18:59 Intake Total 500 Balance 500 - Medications Medications: Current Medications Alprazolam (Xanax) 2 mg PO Q12 [facility] Last Admin: 12/10/17 10:07 Dose: 2 mg Cyclobenzaprine HCl (Flexeril) 10 mg PO BID [facility] Last Admin: 12/10/17 10:08 Dose: 10 mg Dicyclomine HCl (Bentyl) 10 mg PO QID [facility] Last Admin: 12/10/17 10:08 Dose: 10 mg Emtricitabine/Tenofovir (Truvada 200 Mg-300 Mg) 1 tab PO DAILY [facility] PRN Reason: Protocol Last Admin: 12/10/17 10:08 Dose: 1 tab Enoxaparin Sodium (Lovenox) 40 mg SC DAILY [facility] Last Admin: 12/10/17 10:08 Dose: 40 mg Fosamprenavir Calcium (Lexiva) 1,400 mg PO BID [facility] PRN Reason: Protocol Last Admin: 12/10/17 10:08 Dose: 1,400 mg Gabapentin (Neurontin) 300 mg PO TID [facility] Last Admin: 12/10/17 10:08 Dose: 300 mg Oxycodone/Acetaminophen (Percocet 5/325 Mg Tab) 1 tab PO Q6H PRN PRN Reason: Pain, moderate (4-7) Stop: 12/10/17 17:32 Last Admin: 12/10/17 11:41 Dose: 1 tab Quetiapine Fumarate (Seroquel) 100 mg PO HS [facility] Last Admin: 12/09/17 21:17 Dose: 100 mg Tramadol HCl (Ultram) 25 mg PO Q6 PRN PRN Reason: Pain, moderate (4-7) Last Admin: 12/08/17 14:32 Dose: 25 mg Vancomycin HCl (Vancocin (Oral Or Rectal Use)) 250 mg PO QID [facility] PRN Reason: Protocol Last Admin: 12/10/17 10:12 Dose: 250 mg - Labs Labs: 12/10/17 08:20 12/10/17 10:07 PT 12.1 SECONDS (9.7-12.2) 12/03/17 13:42 INR 1.1 12/03/17 13:42 APTT 29 SECONDS (21-34) 12/03/17 13:42 - Constitutional Appears: No Acute Distress, Cachectic, Chronically Ill - Eye Exam Eye Exam: EOMI, PERRL - ENT Exam ENT Exam: Normal Oropharynx - Neck Exam Neck Exam: Normal Inspection - Respiratory Exam Respiratory Exam: Clear to Ausculation Bilateral - Cardiovascular Exam Cardiovascular Exam: REGULAR RHYTHM, +S1, +S2 - GI/Abdominal Exam GI & Abdominal Exam: Soft, Tenderness (EPIGASTRIUM), Normal Bowel Sounds - Extremities Exam Extremities Exam: Normal Capillary Refill. absent: Calf Tenderness, Pedal Edema - Neurological Exam Neurological Exam: Alert, Awake, CN II-XII Intact, Normal Gait, Oriented x3, Reflexes Normal - Psychiatric Exam Psychiatric exam: Normal Mood - Skin Skin Exam: Normal Color, Warm Assessment and Plan (1) C. difficile colitis Assessment & Plan: IMPROVING ON PO VANCOMYCIN 250MG PO QID -DAY 8. CONTINUE PO VANCOMYCIN DECREASE DOSE 125MG PO TID X 7DAYS . OK TO DC AND F/U OPD. F/U GI FOR COLONOSCOPY OPD . Status: Acute (2) Abdominal pain Status: Acute (3) HIV positive Assessment & Plan: CONTINUE HAART RX . PER ORDERS Status: Acute (4) Hepatitis C Status: Acute (5) Anxiety Assessment & Plan: PER PSYCHIATRY. Status: Acute (6) Bipolar disorder, current episode depressed, severe, without psychotic features Status: Acute
--- NOTE | 2017-12-10 14:03 | CP.PCM.DIS ---
Provider - Provider Date of Admission: 12/03/17 17:18 Attending physician: Tan Herring MD Time Spent in preparation of Discharge (in minutes): 35 Hospital Course - Lab Results Lab Results: Micro Results 12/08/17 07:56 Other: Please Indicate Mycobacterial Culture - Preliminary 12/07/17 21:46 Other: Please Indicate Mycobacterial Culture - Preliminary 12/03/17 13:40 Blood Blood Culture - Final NO GROWTH AFTER 5 DAYS 12/03/17 16:00 Blood Blood Culture - Final NO GROWTH AFTER 5 DAYS 12/03/17 16:00 Blood Gram Stain - Final TEST NOT PERFORMED 12/04/17 07:46 Other: Please Indicate Mycobacterial Culture - Preliminary 12/04/17 19:43 Stool Ova and Parasite Concentrate Exam - Final 12/04/17 19:09 Stool Stool Culture - Final NO SALMONELLA, SHIGELLA OR CAMPYLOBACTER ISOLATED. 12/03/17 20:22 Stool Stool Culture - Final NO SALMONELLA, SHIGELLA OR CAMPYLOBACTER ISOLATED. Most Recent Lab Values WBC 3.2 K/uL (4.8-10.8) L 12/10/17 08:20 RBC 3.63 Mil/uL (3.80-5.20) L 12/10/17 08:20 Hgb 9.2 g/dL (11.0-16.0) L 12/10/17 08:20 Hct 29.1 % (34.0-47.0) L 12/10/17 08:20 MCV 80.1 fL (81.0-99.0) L 12/10/17 08:20 MCH 25.4 pg (27.0-31.0) L 12/10/17 08:20 MCHC 31.8 g/dL (33.0-37.0) L 12/10/17 08:20 RDW 20.1 % (11.5-14.5) H 12/10/17 08:20 Plt Count 264 K/uL (130-400) 12/10/17 08:20 MPV 8.2 fL (7.2-11.7) 12/10/17 08:20 Neut % (Auto) 48.1 % (50.0-75.0) L 12/10/17 08:20 Lymph % (Auto) 31.3 % (20.0-40.0) 12/10/17 08:20 Reeves % (Auto) 13.1 % (0.0-10.0) H 12/10/17 08:20 Eos % (Auto) 6.9 % (0.0-4.0) H 12/10/17 08:20 Baso % (Auto) 0.6 % (0.0-2.0) 12/10/17 08:20 Neut # (Auto) 1.6 K/uL (1.8-7.0) L 12/10/17 08:20 Lymph # (Auto) 1.0 K/uL (1.0-4.3) 12/10/17 08:20 Reeves # (Auto) 0.4 K/uL (0.0-0.8) 12/10/17 08:20 Eos # (Auto) 0.2 K/uL (0.0-0.7) 12/10/17 08:20 Baso # (Auto) 0.0 K/uL (0.0-0.2) 12/10/17 08:20 PT 12.1 SECONDS (9.7-12.2) 12/03/17 13:42 INR 1.1 12/03/17 13:42 APTT 29 SECONDS (21-34) 12/03/17 13:42 Sodium 139 mmol/L (132-148) 12/10/17 10:07 Potassium 4.2 mmol/L (3.6-5.2) 12/10/17 10:07 Chloride 106 mmol/L (98-107) 12/10/17 10:07 Carbon Dioxide 26 mmol/L (22-30) 12/10/17 10:07 Anion Gap 12 (10-20) 12/10/17 10:07 BUN 19 mg/dL (7-17) H 12/10/17 10:07 Creatinine 0.6 mg/dL (0.7-1.2) L 12/10/17 10:07 Est GFR ( Amer) > 60 12/10/17 10:07 Est GFR (Non-Af Amer) > 60 12/10/17 10:07 Random Glucose 92 mg/dL (65-105) 12/10/17 10:07 Calcium 8.8 mg/dl (8.6-10.4) 12/10/17 10:07 Total Bilirubin 0.2 mg/dL (0.2-1.3) 12/10/17 10:07 AST 32 U/L (14-36) 12/10/17 10:07 ALT 25 U/L (9-52) 12/10/17 10:07 Alkaline Phosphatase 74 U/L (38-126) 12/10/17 10:07 Total Protein 6.8 g/dL (6.3-8.3) 12/10/17 10:07 Albumin 3.5 g/dL (3.5-5.0) 12/10/17 10:07 Globulin 3.3 gm/dL (2.2-3.9) 12/10/17 10:07 Albumin/Globulin Ratio 1.1 (1.0-2.1) 12/10/17 10:07 Lipase 278 U/L (23-300) 12/03/17 13:42 Beta HCG, Quant 3.65 mIU/ML 12/04/17 07:08 Urine Color Yellow (YELLOW) 12/03/17 13:42 Urine Clarity Hazy (Clear) 12/03/17 13:42 Urine pH 7.0 (5.0-8.0) 12/03/17 13:42 Ur Specific Green 1.019 (1.003-1.030) 12/03/17 13:42 Urine Protein Negative mg/dL (NEGATIVE) 12/03/17 13:42 Urine Glucose (UA) Normal mg/dL (Normal) 12/03/17 13:42 Urine Ketones Negative mg/dL (NEGATIVE) 12/03/17 13:42 Urine Blood Negative (NEGATIVE) 12/03/17 13:42 Urine Nitrate Negative (NEGATIVE) 12/03/17 13:42 Urine Bilirubin Negative (NEGATIVE) 12/03/17 13:42 Urine Urobilinogen Normal mg/dL (0.2-1.0) 12/03/17 13:42 Ur Leukocyte Esterase Neg Howard/uL (Negative) 12/03/17 13:42 Urine WBC (Auto) 1 /hpf (0-5) 12/03/17 13:42 Urine RBC (Auto) 2 /hpf (0-3) 12/03/17 13:42 Ur Squamous Epith Cells 2 /hpf (0-5) 12/03/17 13:42 Uric Acid Crystals Rare /hpf (<OCC) 12/03/17 13:42 Amorphous Sediment Rare /ul (<OCC) H 12/03/17 13:42 Urine Yeast (Budding) Occ /hpf (NEGATIVE) H 12/03/17 13:42 Stool Occult Blood Negative (NEGATIVE) 12/04/17 19:09 Stool Leukocytes, Qual Negative (NEGATIVE) 12/04/17 19:09 Stl Cryptosporidium Ag Not detected (Not detected) 12/04/17 19:35 Stl Giardia Antigen TEST NOT PERFORMED 12/04/17 19:35 Absolute Lymphs (Flow) 1062 Cells/mcL (850-3900) 12/04/17 07:08 % CD4 Cells 57 Percent (30-61) 12/04/17 07:08 Absolute CD4 Count 608 Cells/mcL (490-1740) 12/04/17 07:08 T-Help/Suppress Ratio 1.89 Ratio (0.86-5.00) 12/04/17 07:08 % CD8 Cells 30 Percent (12-42) 12/04/17 07:08 Absolute CD8 Count 321 Cells/mcL (180-1170) 12/04/17 07:08 C. difficile Tox B Gene Not detected (Not Detected) 12/04/17 19:09 Cryptosp/Giardia Source Stool 12/04/17 19:35 Giardia Antigen Not detected (Not Detected) 12/04/17 19:35 HIV-1 RNA Qnt (RT-PCR) <1.30 detected (Not Detected) H 12/04/17 07:08 - Hospital Course Hospital Course: Patient is admitted for persistent diarrhea abdominal pain symptoms of dizziness and loss of weight. Patient has a history of HIV on to maintenance medication. Patient had diarrhea and abdominal pain was seen a few weeks ago in [facility] and admitted. Patient had C. difficile colitis was treated for couple of days and discharge on by mouth vancomycin. Patient could not afford by mouth vancomycin and did not take any medication. Patient was getting nauseous feeling with by mouth Flagyl. Patient continued to have 6-7 bowel movements per day with abdominal pain and significant loss of weight patient was also complaining of dizziness and weakness PAST HIST. History of cholecystectomy. Previously admitted in the hospital for pancreatitis. Patient has bipolar depressive disorder Patient was admitted on the floor. GI and ID service was consulted. Patient was put on IV Flagyl and by mouth vancomycin. Subsequently patient had constipation with formed stool. The lower artery declined to do C. difficile because patient did not have loose stool. Patient improved on the IV antibiotics. GI service agreed with the treatment and recommended colonoscopy as an outpatient. During the hospitalization patient had moderate amount of abdominal pain requiring nonnarcotic analgesic. All the blood culture urine culture and stool cultures ova parasites were negative. A CAT scan of the abdomen did not reveal any acute pathology. Patient currently stable we will discharge her on by mouth Vanco and followed as an outpatient. Discharge Exam - Head Exam Head Exam: ATRAUMATIC, NORMOCEPHALIC Discharge Plan - Discharge Medications Prescriptions: Gabapentin [Neurontin] 300 mg PO TID 30 Days cap QUEtiapine [Seroquel] 100 mg PO HS 30 Days tab Vancomycin [Vancocin (ORAL OR RECTAL USE)] 250 mg PO QID 7 Days soln Alprazolam [Xanax] 2 mg PO BID #10 tablet - Follow Up Plan Condition: STABLE Disposition: HOME/ ROUTINE Instructions: Smoking: Not Just Harmful to Your Lungs and Heart, Quitting Smoking, Clostridium difficile (DC) Referrals: Quang Garcia MD [Staff Provider] - Jemal Rangel MD [Staff Provider] -
--- NOTE | 2017-12-10 14:24 | CP.PCM.PN ---
Subjective - Date & Time of Evaluation Date of Evaluation: 12/10/17 Time of Evaluation: 14:24 - Subjective Subjective: PATIENT WAS ADMITTED FOR C DIFF AND ABD PAIN AAOX3 /DENIES CHEST PAIN / SOB OR ABD PAIN NO SIGN OF DISTRESS NOTED Objective - Vital Signs/Intake and Output Vital Signs (last 24 hours): Temp Pulse Resp BP Pulse Ox 98.2 F 95 H 20 116/81 98 12/10/17 09:58 12/10/17 09:58 12/10/17 09:58 12/10/17 09:58 12/10/17 09:58 Intake and Output: 12/10/17 12/10/17 06:59 18:59 Intake Total 500 Balance 500 - Medications Medications: Current Medications Alprazolam (Xanax) 2 mg PO Q12 [facility] Last Admin: 12/10/17 10:07 Dose: 2 mg Cyclobenzaprine HCl (Flexeril) 10 mg PO BID [facility] Last Admin: 12/10/17 10:08 Dose: 10 mg Dicyclomine HCl (Bentyl) 10 mg PO QID [facility] Last Admin: 12/10/17 10:08 Dose: 10 mg Emtricitabine/Tenofovir (Truvada 200 Mg-300 Mg) 1 tab PO DAILY [facility] PRN Reason: Protocol Last Admin: 12/10/17 10:08 Dose: 1 tab Enoxaparin Sodium (Lovenox) 40 mg SC DAILY [facility] Last Admin: 12/10/17 10:08 Dose: 40 mg Fosamprenavir Calcium (Lexiva) 1,400 mg PO BID [facility] PRN Reason: Protocol Last Admin: 12/10/17 10:08 Dose: 1,400 mg Gabapentin (Neurontin) 300 mg PO TID [facility] Last Admin: 12/10/17 10:08 Dose: 300 mg Oxycodone/Acetaminophen (Percocet 5/325 Mg Tab) 1 tab PO Q6H PRN PRN Reason: Pain, moderate (4-7) Stop: 12/10/17 17:32 Last Admin: 12/10/17 11:41 Dose: 1 tab Quetiapine Fumarate (Seroquel) 100 mg PO HS [facility] Last Admin: 12/09/17 21:17 Dose: 100 mg Tramadol HCl (Ultram) 25 mg PO Q6 PRN PRN Reason: Pain, moderate (4-7) Last Admin: 12/08/17 14:32 Dose: 25 mg Vancomycin HCl (Vancocin (Oral Or Rectal Use)) 250 mg PO QID [facility] PRN Reason: Protocol Last Admin: 12/10/17 10:12 Dose: 250 mg - Labs Labs: 12/10/17 08:20 12/10/17 10:07 PT 12.1 SECONDS (9.7-12.2) 12/03/17 13:42 INR 1.1 12/03/17 13:42 APTT 29 SECONDS (21-34) 12/03/17 13:42 Assessment and Plan - Assessment and Plan (Free Text) Assessment: PATIENT SEEN AND EXAMINED AT THE BEDSIDE LUNG SOUND CLEAR VITALS SIGN STABLE LABS WNL / PENDING AFB RESULT DISCUUS WITH DR WHITTAKER WHO CLEAR PATIENT FORM PSCHY POINT ON VIEW TO GO HOME DISCUSS WITH DR MARIANO AND SUSAN WHO CLEAR PATIENT FOR DC FOLLOW UP WITH DR DAVIS OR YOUR PRIMARY MD IN 1-2 WEEK ---CALL FOR APPOINTMENT FOLLOW UP WITH DR MARIANO IN 1-2 WEEK AT HER OFFICE ---CALL FOR APPOINTMENT FOLLOW UP WITH SCARRER IN 1 MONTH FOR F/U COLONOSCOPY ---CALL FOR APPOINTMENT CONTINUE ALL YOUR HOME MEDICATION NEW PRESCRIPTION GIVEN XANAX 2 MG PO BID FOR 5 DAYS VANCO 125 MG PO QID FOR 7 DAYS SEROQUEL 100 MG PO AT HS NEURONTIN 300 MG PO TID ACTIVITY TOLERATED CALL DR DAVIS OR GO TO THE EMERGENCY ROOM IF SYMPTOMS RETURN OR WORSENING DISCUSS WITH PATIENT WHO AGREE AND VERBALIZED UNDERSTANDING
--- NOTE | 2017-12-10 14:53 | PCM.PYCHPN ---
Psychiatric Progress Note - Psychiatric Progress Note Patient Chief Complaint: "I am feeling depressed" Mental Status Examination - Cognitive Function Orientation: Person, Place, Situation, Time - Mood Mood: Anxious - Affect Affect: Constricted, Depressed - Formal Thought Process Formal Thought Process: No Impairment Goal/Treatment Plan - Goal/Treatment Plan Progress Toward Problem(s) and Goals/Treatment Plan: Supportive therapy and psychoeducation Neurontin 300 mg by mouth 3 times a day Seroquel 100 mg pO QHS
== END 2017-12-10 15:16 | disposition home or self-care (01) | DRG 371 ==
LOC: C.ER 12:17 → C.9E 17:18 → C.5S 22:40
PROVIDERS: ADMIT Internal Medicine Cardiovascular Disease; ATTEND Internal Medicine Cardiovascular Disease
DX: A04.72 Enterocolitis due to Clostridium difficile, not specified as recurrent (principal); B20 Human immunodeficiency virus [HIV] disease; F31.4 Bipolar disorder, current episode depressed, severe, without psychotic features; F31.62 Bipolar disorder, current episode mixed, moderate; R45.851 Suicidal ideations; A07.2 Cryptosporidiosis; F12.90 Cannabis use, unspecified, uncomplicated; B18.2 Chronic viral hepatitis C; F41.9 Anxiety disorder, unspecified; F60.9 Personality disorder, unspecified; J44.9 Chronic obstructive pulmonary disease, unspecified; K21.9 Gastro-esophageal reflux disease without esophagitis; K58.9 Irritable bowel syndrome, unspecified; F17.210 Nicotine dependence, cigarettes, uncomplicated; Z79.899 Other long term (current) drug therapy; Z87.11 Personal history of peptic ulcer disease; Z87.891 Personal history of nicotine dependence; Z91.19 Patient's noncompliance with other medical treatment and regimen; Z91.5 Personal history of self-harm; Z90.710 Acquired absence of both cervix and uterus; Z98.84 Bariatric surgery status

== ENCOUNTER 2017-12-27 14:30 | Emergency (ER) | payer BC ==
[2017-12-27 14:30] VITALS: BMI 19.7
[2017-12-27] MEDS ORDERED: Sodium Chloride 0.9% 1,000 ML IV ONE (14:55)
--- NOTE | 2017-12-27 15:06 | C.PDOC ---
History Of Present Illness 52 year old female presents to ED for evaluation of generalized abdominal pain associated with vomiting and diarrhea for the last 3 days. Notes she is currently taking antibiotics for C-Diff. Denies urinary symptoms, back pain, chest pain, or fever. Time Seen by Provider: 12/27/17 14:37 Chief Complaint (Nursing): Abdominal Pain History Per: Patient History/Exam Limitations: no limitations Onset/Duration Of Symptoms: Days (3) Current Symptoms Are (Timing): Still Present Location Of Pain/Discomfort: Diffuse Radiation Of Pain To:: None Quality Of Discomfort: "Pain" Associated Symptoms: Vomiting, Diarrhea. denies: Back Pain, Chest Pain, Urinary Symptoms Exacerbating Factors: None Alleviating Factors: None Recent travel outside of the [place]: No Additional History Per: Patient Abnormal Vaginal Bleeding: No Past Medical History Reviewed: Historical Data, Nursing Documentation, Vital Signs Vital Signs: Last Vital Signs Temp 97.8 F 12/27/17 16:47 Pulse 81 12/27/17 16:47 Resp 17 12/27/17 16:47 BP 131/81 12/27/17 16:47 Pulse Ox 98 12/27/17 16:47 - Medical History PMH: Anemia, Anxiety, Bipolar Disorder, COPD, Depression, Fractures (2010 Left hip, pelvis, leg), Gastritis, Gastrointestinal Ulcer, Hepatitis (C), HIV, Migraine, Pancreatitis, Personality Disorder, Chronic Pain (back pain) Denies: Asthma, HTN, Chronic Kidney Disease, Seizures, Sexually Transmitted Disease Surgical History: Cholecystectomy - [facility] Procedures EXCISION OF DUODENUM, ENDO, DIAGN (09/15/17) EXCISION OF STOMACH, ENDO, DIAGN (09/15/17) GROUP ENGINE HOUSE HELPER FOR SUBSTANCE ABUSE TREATMENT, PSYCHOEDUCATION (09/15/17) GROUP ENGINE HOUSE HELPER FOR SUBSTANCE ABUSE, COGNITIVE BEHAVIORAL (09/15/17) GROUP PSYCHOTHERAPY (09/15/17) INDIV PSYCHOTHERAPY FOR SUBSTANCE ABUSE TREATMENT, SUPPORT (09/15/17) INDIV PSYCHOTHERAPY FOR SUBSTANCE ABUSE, COGNITIV BEHAVIORAL (09/15/17) INDIV PSYCHOTHERAPY FOR SUBSTANCE ABUSE, PSYCHOEDUCATION (09/15/17) INDIVIDUAL PSYCHOTHERAPY, COGNITIVE-BEHAVIORAL (09/15/17) INDIVIDUAL PSYCHOTHERAPY, SUPPORTIVE (09/15/17) RESECTION OF GALLBLADDER, PERCUTANEOUS ENDOSCOPIC APPROACH (06/06/17) Family History: States: Diabetes (grandmother) - Social History Hx Tobacco Use: Yes Hx Alcohol Use: No Hx Substance Use: Yes (marijuana) - Immunization History Hx Tetanus Toxoid Vaccination: Yes Hx Influenza Vaccination: Yes Hx Pneumococcal Vaccination: Yes Review Of Systems Except As Marked, All Systems Reviewed And Found Negative. Constitutional: Negative for: Fever, Chills Cardiovascular: Negative for: Chest Pain Gastrointestinal: Positive for: Nausea, Vomiting, Abdominal Pain, Diarrhea. Negative for: Melena, Hematochezia, Hematemesis Genitourinary: Negative for: Dysuria, Frequency, Hematuria Musculoskeletal: Negative for: Back Pain Physical Exam - Physical Exam Appears: Non-toxic, No Acute Distress Skin: Normal Color, Warm, Dry Head: Atraumatic, Normacephalic Eye(s): bilateral: Normal Inspection Oral Mucosa: Moist Neck: Normal ROM, Supple Cardiovascular: Rhythm Regular, No Murmur Respiratory: Normal Breath Sounds, No Rales, No Rhonchi, No Wheezing Gastrointestinal/Abdominal: Bowel Sounds, Soft, Tenderness (diffuse), No Guarding, No Rebound Back: No CVA Tenderness Extremity: Normal ROM Neurological/Psych: Oriented x3, Normal Speech ED Course And Treatment - Laboratory Results Result Diagrams: 12/27/17 15:45 12/27/17 15:45 O2 Sat by Pulse Oximetry: 100 (RA) Pulse Ox Interpretation: Normal Medical Decision Making Medical Decision Making: Impression: 52 year old female with history of HIV on HAART, IBS, COPD, polysubstance abuse who presents to hospital with complaint of abdominal pain and diarrhea for 3 days. She was recently admitted to [facility] with similar complaints and was diagnosed with c-difficile colitis. Prior records reviewed: Patient last admitted 12/03/17 through 12/10/17 for abdominal pain. During course and treatment, she was evaluated by ID Dr Rangel and GI Dr Canela. Urine and blood cultures negative. C. Diff not performed. Patient discharged with oral antibiotic Vancomycin. Plan: * Blood work * Urinalysis * Bentyl, Reglan, Toradol, Xanax, IV fluids Labs reviewed with no acute changes from last visit, no leukocytosis or bands. Case discussed with Dr Medrano who agreed patient stable for discharge Patient reevaluated, seated comfortably in bed, but when I enter room she states she is having pain again. I discussed results with her and the plan for discharge. She ask I consult her ID physician Dr Rangle. [id number] Rangel to discuss case. She agrees the patient is stable for discharge and can continue with oral antibiotics, to call her office tomorrow to schedule appointment for this week. Patient again reevaluated and is now agreeable with plan for discharge and instructed to follow up outpatient. Disposition Counseled Patient/Family Regarding: Diagnosis, Need For Followup - Disposition Referrals: Jemal Rangel MD [Staff Provider] - Disposition: HOME/ ROUTINE Disposition Time: 16:33 Condition: STABLE Additional Instructions: Please follow up with your primary doctor and Dr Rangel next week Instructions: Acute Abdomen (Belly Pain), Adult (DC) Forms: [employer] (Thai) - POA Present On Arrival: None - Clinical Impression Clinical Impression: Chronic abdominal pain - PA / SHREDDING SPECIALIST / Resident Statement MD/DO has reviewed & agrees with the documentation as recorded. - Scribe Statement The provider has reviewed the documentation as recorded by the Scribe Dinora Boles All medical record entries made by the Deepikaibbenita were at my direction and personally dictated by me. I have reviewed the chart and agree that the record accurately reflects my personal performance of the history, physical exam, medical decision making, and the department course for this patient. I have also personally directed, reviewed, and agree with the discharge instructions and disposition.
[2017-12-27] MEDS ORDERED: Sodium Chloride 0.9% 1,000 ML ONE (15:34)
[2017-12-27 15:49] LABS: BASO % 0.8 % (0.0-2.0); EOS # 0.1 K/uL (0.0-0.7); EOS % 1.3 % (0.0-4.0); HEMOGLOBIN 11.5 g/dL (11.0-16.0); LYMPH # 1.5 K/uL (1.0-4.3); LYMPH % 31.7 % (20.0-40.0); MEAN CELL VOLUME 80.2 fL (81.0-99.0); MEAN CORPUSCULAR HEMOGLOBIN 25.1 pg (27.0-31.0); MEAN CORPUSCULAR HGB CONC 31.3 g/dL (33.0-37.0); MEAN PLATELET VOLUME 8.1 fL (7.2-11.7); MONO # 0.4 K/uL (0.0-0.8); MONO % 8.1 % (0.0-10.0); NEUT # 2.8 K/uL (1.8-7.0); NEUT % 58.1 % (50.0-75.0); NRBC % 0.1 % (0.0-2.0); RBC 4.59 Mil/uL (3.80-5.20); RED CELL DISTRIBUTION WIDTH 21.1 % (11.5-14.5); WHITE BLOOD COUNT 4.8 K/uL (4.8-10.8)
[2017-12-27 15:59] LABS: SQUAMOUS EPITHIAL < 1 /hpf (0-5); URINE AMORPHOUS SEDIMENT RARE /ul (<OCC); URINE BACTERIA RARE (<OCC); URINE BILIRUBIN NEGATIVE (NEGATIVE); URINE BLOOD NEGATIVE (NEGATIVE); URINE CLARITY Hazy (Clear); URINE COLOR Yellow (YELLOW); URINE GLUCOSE (UA) NORMAL (Normal); URINE LEUKOCYTE ESTERASE NEG Leu/uL (Negative); URINE PROTEIN NEGATIVE (NEGATIVE); URINE UROBILINOGEN NORMAL mg/dL (0.2-1.0)
[2017-12-27 16:09] LABS: ALB/GLOB RATIO 1.4 (1.0-2.1); ALBUMIN 5.2 g/dL (3.5-5.0); ALT/SGPT 23 U/L (9-52); AST/SGOT 30 U/L (14-36); BLOOD UREA NITROGEN 17 mg/dL (7-17); CALCIUM 9.7 mg/dl (8.6-10.4); GFR AFRICAN-AMERICAN > 60; GFR NON-AFRICAN AMERICAN > 60; LIPASE 198 U/L (23-300)
[2017-12-27 16:48] VITALS: BP 131/81; PULSE 81; RESP 17; TEMP 97.8
[2017-12-27 17:44] VITALS: O2SAT 100
== END 2017-12-27 17:00 | disposition home or self-care (01) ==
LOC: C.ER 14:30
DX: G89.29 Other chronic pain (principal); R10.9 Unspecified abdominal pain; Z21 Asymptomatic human immunodeficiency virus [HIV] infection status; J44.9 Chronic obstructive pulmonary disease, unspecified; Z72.0 Tobacco use
CPT/HCPCS: 80053; 81001; 83690; 85025; 96374; 96375; 99284; J1885; J2765; J7030

== ENCOUNTER 2018-07-02 08:19 | Inpatient (IN) | payer BC ==
[2018-07-02 09:01] VITALS: BMI 18.9
--- NOTE | 2018-07-02 09:37 | C.PDOC ---
History Of Present Illness 52 years old female presents to ED for complaints of depression and suicidal ideation. Patient states she normally does not drink but few weeks ago she was binge drinking and went to [facility] and they called her an alcoholic and she felt offended. Patient also states she fell and sustained an ecchymosis to left leg over the knee and up to the thigh area but x-rays were done at [facility] with negative results. Patient requested injectable pain medications and states she feels super anxious and wants 2mg of Xanax. Time Seen by Provider: 07/02/18 09:02 Chief Complaint (Nursing): Psychiatric Evaluation History Per: Patient History/Exam Limitations: no limitations Onset/Duration Of Symptoms: Hrs Current Symptoms Are (Timing): Still Present Suicide/Self Injury Attempted (Context): None Modifying Factor(s): Alcohol Associated Symptoms: Depression, Suicidal Thoughts. denies: Suicidal Plan Involuntary Hold By: None Recent travel outside of the [place]: No Past Medical History Reviewed: Historical Data, Nursing Documentation, Vital Signs Vital Signs: Last Vital Signs Temp 98.1 F 07/02/18 08:56 Pulse 102 H 07/02/18 08:56 Resp 18 07/02/18 08:56 BP 132/93 H 07/02/18 08:56 Pulse Ox 99 07/02/18 08:56 - Medical History PMH: Anemia, Anxiety, Bipolar Disorder, COPD, Depression, Fractures (2010 Left hip, pelvis, leg), Gastritis, Gastrointestinal Ulcer, Hepatitis (C), HIV, Migraine, Pancreatitis, Personality Disorder, Chronic Pain (back pain) Surgical History: Cholecystectomy - [facility] Procedures EXCISION OF DUODENUM, ENDO, DIAGN (09/15/17) EXCISION OF STOMACH, ENDO, DIAGN (09/15/17) GROUP IT OPERATIONS SPECIALIST FOR SUBSTANCE ABUSE TREATMENT, PSYCHOEDUCATION (09/15/17) GROUP IT OPERATIONS SPECIALIST FOR SUBSTANCE ABUSE, COGNITIVE BEHAVIORAL (09/15/17) GROUP PSYCHOTHERAPY (09/15/17) INDIV PSYCHOTHERAPY FOR SUBSTANCE ABUSE TREATMENT, SUPPORT (09/15/17) INDIV PSYCHOTHERAPY FOR SUBSTANCE ABUSE, COGNITIV BEHAVIORAL (09/15/17) INDIV PSYCHOTHERAPY FOR SUBSTANCE ABUSE, PSYCHOEDUCATION (09/15/17) INDIVIDUAL PSYCHOTHERAPY, COGNITIVE-BEHAVIORAL (09/15/17) INDIVIDUAL PSYCHOTHERAPY, SUPPORTIVE (09/15/17) RESECTION OF GALLBLADDER, PERCUTANEOUS ENDOSCOPIC APPROACH (06/06/17) Family History: States: Diabetes (grandmother) - Social History Hx Tobacco Use: Yes Hx Alcohol Use: Yes (DENIES) Hx Substance Use: Yes (marijuana) - Immunization History Hx Tetanus Toxoid Vaccination: Yes Hx Influenza Vaccination: Yes Hx Pneumococcal Vaccination: No Review Of Systems Constitutional: Negative for: Fever, Chills Gastrointestinal: Negative for: Nausea, Vomiting, Diarrhea Musculoskeletal: Positive for: Leg Pain Skin: Negative for: Rash Neurological: Negative for: Weakness, Numbness Psych: Positive for: Depression, Suicidal ideation Physical Exam - Physical Exam Appears: Non-toxic, No Acute Distress, Other (Anxious, jittery, slightly shaky, tearful. ) Skin: Normal Color, Warm, Dry, No Rash Head: Atraumatic, Normacephalic Eye(s): bilateral: Normal Inspection, PERRL, EOMI Oral Mucosa: Moist Neck: Normal ROM, Supple Chest: Symmetrical, No Tenderness Cardiovascular: Rhythm Regular Respiratory: Normal Breath Sounds, No Rales, No Rhonchi, No Wheezing Gastrointestinal/Abdominal: Bowel Sounds (Active ), Soft, No Tenderness Extremity: Normal ROM Extremity: Bilateral: Atraumatic, Normal Color And Temperature, Normal ROM Pulses: Left Radial: Normal, Right Radial: Normal Neurological/Psych: Oriented x3, Normal Speech, Other (Expressed suicidal ideation. ) Gait: Steady ED Course And Treatment - Laboratory Results Result Diagrams: 07/02/18 09:25 07/02/18 09:25 O2 Sat by Pulse Oximetry: 99 (RA) Pulse Ox Interpretation: Normal Progress Note: Administered Ativan and Toradol. Labs and crisis evaluation ordered. Patient was medically cleared for psychiatric admission. Patient was accepted for an admission by . Disposition - Disposition Disposition: HOSPITALIZED Disposition Time: 12:18 Condition: STABLE - Clinical Impression Clinical Impression: Major depression - PA / STATIONARY FIREMAN / Resident Statement MD/DO has reviewed & agrees with the documentation as recorded. - Scribe Statement The provider has reviewed the documentation as recorded by the Deepikaibbenita Stoddard All medical record entries made by the Scribe were at my direction and personally dictated by me. I have reviewed the chart and agree that the record accurately reflects my personal performance of the history, physical exam, medical decision making, and the department course for this patient. I have also personally directed, reviewed, and agree with the discharge instructions and disposition. Decision To Admit - Pt Status Changed To: Hospital Disposition Of: Inpatient - Admit Certification Admit to Inpatient:: After my assessment, the patient will require hospitalization for at least two midnights. This is because of the severity of symptoms shown, intensity of services needed, and/or the medical risk in this patient being treated as an outpatient. - InPatient: Physician Admission Certification: I certify that this patient requires 2 or more midnights of care for the following reason:: Patient will need more than 2 days to complete her treatment. - . Bed Request Type: Psychiatry Patient Diagnosis: Major depression
[2018-07-02 09:46] LABS: SQUAMOUS EPITHIAL 3 /hpf (0-5); URINE BACTERIA RARE (<OCC); URINE BILIRUBIN NEGATIVE (NEGATIVE); URINE BLOOD NEGATIVE (NEGATIVE); URINE CLARITY Clear (Clear); URINE COLOR Yellow (YELLOW); URINE GLUCOSE (UA) NORMAL (Normal); URINE LEUKOCYTE ESTERASE NEG Leu/uL (Negative); URINE PROTEIN NEGATIVE (NEGATIVE); URINE UROBILINOGEN NORMAL mg/dL (0.2-1.0)
[2018-07-02 09:52] LABS: BASO % 0.9 % (0.0-2.0); EOS # 0.1 K/uL (0.0-0.7); EOS % 1.5 % (0.0-4.0); HEMOGLOBIN 11.1 g/dL (11.0-16.0); LYMPH # 0.8 K/uL (1.0-4.3); LYMPH % 22.6 % (20.0-40.0); MEAN CELL VOLUME 93.9 fL (81.0-99.0); MEAN CORPUSCULAR HEMOGLOBIN 30.3 pg (27.0-31.0); MEAN CORPUSCULAR HGB CONC 32.2 g/dL (33.0-37.0); MEAN PLATELET VOLUME 7.6 fL (7.2-11.7); MONO # 0.5 K/uL (0.0-0.8); MONO % 12.1 % (0.0-10.0); NEUT # 2.3 K/uL (1.8-7.0); NEUT % 62.9 % (50.0-75.0); NRBC % 0.1 % (0.0-2.0); RBC 3.68 Mil/uL (3.80-5.20); RED CELL DISTRIBUTION WIDTH 21.7 % (11.5-14.5); WHITE BLOOD COUNT 3.7 K/uL (4.8-10.8)
[2018-07-02 09:56] LABS: BARBITURATES, UR NEGATIVE (NEGATIVE); OPIATES, UR NEGATIVE (NEGATIVE)
[2018-07-02 10:15] LABS: ALB/GLOB RATIO 1.4 (1.0-2.1); ALBUMIN 4.1 g/dL (3.5-5.0); ALT/SGPT 15 U/L (9-52); AST/SGOT 22 U/L (14-36); BLOOD UREA NITROGEN 16 mg/dL (7-17); CALCIUM 8.6 mg/dl (8.6-10.4); GFR NON-AFRICAN AMERICAN > 60
[2018-07-02 10:20] LABS: BENZODIAZEPINES, UR POSITIVE (NEGATIVE); PHENCYCLIDINE, UR POSITIVE (NEGATIVE)
--- NOTE | 2018-07-02 14:43 | PCM.BM ---
<Andre Adamson - Last Filed: 07/02/18 14:40> Treatment Plan Problems - Problems identified on initial assessmt Depression Date Initiated: 07/02/18 Time Initiated: 14:40 Assessment reference: NA Status: Active Suicidal ideation Date Initiated: 07/02/18 Time Initiated: 14:40 Assessment reference: NA Status: Active Treatment assets and liabiliti Patient Assests: cooperative, self-reliant, ADL independent, negotiates basic needs, cognitively intact Patient Liabilities: substance abuse (Xanax), medical problems (HIV, COPD, Hep C, Gastritis, GI Ulcers, Cervical disk deterioration) - Milieu Protocol Maintain good personal hygiene: daily Encourage regular showers, daily Remind patient to perform daily oral care, every shift Assist patient to perform ADL's Conduct patient checks and document Observation sheet: Q15 minutes (For safety) Maintain personal safety: every shift Educate patient to report safety concerns to staff, every shift Monitor environment for contraband/sharps Medication safety: Monitor for expected outcome, potential side effects: every shift, Assess barriers to learning: every shift, Assess readiness for medication education: every shift <Soniya Nunn - Last Filed: 07/02/18 15:43> - Diagnosis (1) Major depression Status: Acute Interventions: 07/02/18 15:43 * Assess 7x/week regarding severity of withdrawal * Educate regarding risks, benefits, side effects and alternatives of medications * Use Motivational Interviewing for abstinence * Use CBT for relapse prevention * Medication management for withdrawal symptoms * Encourage medication assisted treatment * <Bessie Gonzales - Last Filed: 07/05/18 10:17> Family Contact Family involvement: Family/SO is involved Family contact: Patient declines to allow family contact at present - Goals for Treatment Patient goals for treatment: "I need to go home." Discharge/Continuing Care - Education Needs Education Needs: Patient Medication, Patient Coping Skills - Discharge Discharge Criteria: Tolerates medication w/o severe side effects, Reduction of target symptoms Discharge to:: Home, With Family - Treatment Team Participation Discussed with Family/SO: No Was Patient/Family/SO present at Treatment Team Meeting: Yes
--- NOTE | 2018-07-02 14:45 | PCM.PSYCH ---
Initial Psychiatric Evaluation - Initial Psychiatric Evaluation Type of Admission: Voluntary Legal Status: Capacity Chief Complaint (in patient's own words): "I am depressed" History of Present Illness and Precipitating Events: The pty is seen, chart reviewed, case discussed. She is a 52 yo WF, w 5 children - all adults, lives with her , unemployed. She reports many depressive symptoms and suicidal ideation w/o a plan now. She thought about stabbing herself recently She doesn't bring any significant reason for her depression, except for stopping her meds (remeron and seroquel) and recently drinking "a lot." She admits to having binge-drinking of excess amounts. Denies withdrawal sxs. however, she had pancreatitis in the past. She also smokes MJ daily, says "I will get a card," and used PCP recently but blames son who brought in PCP-dipped MJ. Denies other drugs Denies psychotic sxs No manic sxs elicited but was dx'ed w bipolar d/o in the past. She, however, admits to having panic attacks, excessive anxiety and demands that she be kept on 4 mg xanax a day. Clinical Analyst checked [place] and [place] PMPs online and confirmed she was given one rx in early June by a dr in [place]. That was 2 mg BID. However, the one before was less and back in November 2017. She claims she was getting 6 mg in the past (not confirmed) Past psych hx: chronic depression, several admissions, trauma, juan pablo attempt by OD on meds Medical: HIV+ Family psych hx: Son has drug abuse Current Medications: Active Medications Generic Name Dose Route Start Last Admin Trade Name Freq PRN Reason Stop Dose Admin Emtricitabine/Tenofovir 1 tab 07/02/18 14:15 Truvada 200 Mg-300 Mg PO DAILY [facility] Protocol Fosamprenavir Calcium 1,400 mg 07/02/18 18:00 Lexiva PO BID [facility] Protocol Gabapentin 300 mg 07/02/18 14:00 Neurontin PO TID [facility] Hydroxyzine HCl 25 mg 07/02/18 13:40 Atarax PO Q4H PRN Anxiety Ibuprofen 600 mg 07/02/18 13:40 Motrin Tab PO Q6H PRN Pain, moderate (4-7) Mirtazapine 30 mg 07/02/18 22:00 Remeron PO HS [facility] Pantoprazole Sodium 20 mg 07/02/18 13:45 Protonix Ec Tab PO DAILY [facility] Quetiapine Fumarate 100 mg 07/02/18 22:00 Seroquel PO HS [facility] Past Psychiatric History - Past Psychiatric History Previous Treatment History: Inpatient Pertinent Medical Hx (Current Medical&Sleep Prob, Allergies): Allergies Allergy/AdvReac Type Severity Reaction Status Date / Time No Known Allergies Allergy Verified 07/02/18 08:54 Carisoprodol [Soma] 1 tab PO BID 10/01/17 Emtricitabine/Tenofovir (Tdf) [Truvada 200 mg-300 mg Tablet] 1 tab DAILY 12/03/17 Fosamprenavir Calcium [Lexiva] 2 cap PO BID 12/03/17 Alprazolam [Xanax] 2 mg PO BID #10 tablet 12/10/17 Gabapentin [Neurontin] 300 mg PO TID 30 Days cap 12/10/17 QUEtiapine [Seroquel] 100 mg PO HS 30 Days tab 12/10/17 Review of Systems - Psychiatric Psychiatric: Abnormal Sleep Pattern, Anhedonia, Anxiety, Change in Appetite, Depression, Difficulty Concentrating, Irritability, Mood Swings. absent: Hallucinations, Homicidal Ideation, Paranoia, Suicidal Ideation Mental Status Examination - Personal Presentation Personal Presentation: Looks older than stated age - Affect Affect: Other (intense) - Motor Activity Motor Activity: Psychomotor Agitation - Reliability in Providing Information Reliability in Providing Information: Fair - Speech Speech: Organized - Mood Mood: Depressed, Anxious - Formal Thought Process Formal Thought Process: No Impairment - Cognitive Functions Orientation: Person, Place, Situation, Time Sensorium: Alert Attention/Concentration: Easily distracted Estimate of Intelligence: Average Judgement: Imparied, as evidence by: Poor judgement Memory: Recent intact, as evidence by: Ability to recall events of the day, Remote intact, as evidenced by: Ability to recall historical events - Risk Risk: Withdrawal, Diminished functioning - Strength & Assets Inventory Strength & Assets Inventory: Family support, Cooperative - Limitations Limitations: Other DSM 5 DX - DSM 5 DSM 5 Diagnosis: Major depression, recurrent, severe, w/o psychosis Panic d/o NERIS Alcohol use d/o - severe Cannabis use d/o severe PCP use d/o r/o bipolar d/o r/o personality d/o HIV - Recommended/Plan of Treatment Treatment Recommendations and Plan of Treatment: Seroquel for depression, mood swings, irritability Remero for depression and anxiety Xanax 1 mg TID Gabapentin for anxiety Taper with librium if needed Gabapentin for augmentation if needed As needed medications All risks, benefits and alternatives of the meds discussed, and the pt agreed and understood. Attend groups and activities Supportive therapy and psychoeducation NE for abstinence CBT for relapse prevention Encourage MAT Refer to rehab or IOP, and self-help groups Teach healthy lifestyle methods, i.e. diet, exercise, meditation Smoking cessation with NE Nicotine patch if needed 36 min Projected ELOS: 7 days - Smoking Cessation Smoking Cessation Initiated: Yes
[2018-07-02] MEDS: Pantoprazole 20 mg EC Tab PO SCH (14:47)
[2018-07-02] MEDS: Emtricitabine-Tenofovir 200 mg-300 mg Tab PO SCH (15:02)
[2018-07-02 18:34] VITALS: O2SAT 99
[2018-07-02] MEDS ORDERED: Pneumococcal 23-Valent Vaccine IM ONE (19:48)
[2018-07-03 06:52] VITALS: RESP 18; TEMP 98.7
[2018-07-03] MEDS: Emtricitabine-Tenofovir 200 mg-300 mg Tab PO SCH (09:37)
[2018-07-03] MEDS: Pantoprazole 20 mg EC Tab PO SCH (09:38)
--- NOTE | 2018-07-03 13:11 | PCM.PYCHPN ---
Psychiatric Progress Note - Psychiatric Progress Note Patient seen today, length of contact: 16 min Patient Chief Complaint: "I am depressed" Problems Identified/Issues Discussed: The pt is seen, chart reviewed, case discussed with staff. The pt is compliant with medications and reports no side-effects. Symptoms are improving but needs more time to stabilize. She is very med seeking Pt attends groups and activities. Support given, psycho-education provided. After care discussed. Medication Change: Yes (meds adjusted) Medical Record Reviewed: Yes Mental Status Examination - Cognitive Function Orientation: Person, Place, Situation, Time Memory: Intact Attention: WNL Concentration: Poor Association: WNL Fund of Knowledge: WNL - Mood Mood: Depressed, Anxious - Affect Affect: Constricted, Other (intense) - Speech Speech: Appropriate - Formal Thought Process Formal Thought Process: No Impairment - Suicidal Ideation Suicidal Ideation: No - Homicidal Ideation Homicidal Ideation: No Goal/Treatment Plan - Goal/Treatment Plan Need for Continued Stay: Discharge may exacerbated symptoms, Severe functional impairment Progress Toward Problem(s) and Goals/Treatment Plan: Seroquel for depression, mood swings, irritability Remero for depression and anxiety Xanax 1 mg TID Gabapentin for anxiety Taper with librium if needed Gabapentin for augmentation if needed As needed medications All risks, benefits and alternatives of the meds discussed, and the pt agreed and understood. Attend groups and activities Supportive therapy and psychoeducation [place] for abstinence CBT for relapse prevention Encourage MAT Refer to rehab or IOP, and self-help groups Teach healthy lifestyle methods, i.e. diet, exercise, meditation Smoking cessation with [place] Nicotine patch if needed
[2018-07-04] MEDS: Emtricitabine-Tenofovir 200 mg-300 mg Tab PO SCH (09:43)
[2018-07-04] MEDS: Pantoprazole 20 mg EC Tab PO SCH (09:44)
[2018-07-04 15:37] VITALS: BP 121/79; PULSE 102
--- NOTE | 2018-07-04 23:25 | PCM.PYCHPN ---
Psychiatric Progress Note - Psychiatric Progress Note Patient seen today, length of contact: 18 min Patient Chief Complaint: "I am anxious and not feeling well" Problems Identified/Issues Discussed: The pt is seen, chart reviewed, case discussed with staff. The pt is compliant with medications and reports no side-effects. Symptoms are improving but needs more time to stabilize. She is still anxious and somewhat depressed Pt attends groups and activities. Support given, psycho-education provided. After care discussed. Medication Change: Yes (meds adjusted) Medical Record Reviewed: Yes Mental Status Examination - Cognitive Function Orientation: Person, Place, Situation, Time Memory: Intact Attention: WNL Concentration: Poor Association: WNL Fund of Knowledge: WNL - Mood Mood: Depressed, Anxious - Affect Affect: Constricted, Other (intense) - Speech Speech: Appropriate - Formal Thought Process Formal Thought Process: No Impairment - Suicidal Ideation Suicidal Ideation: No - Homicidal Ideation Homicidal Ideation: No Goal/Treatment Plan - Goal/Treatment Plan Need for Continued Stay: Discharge may exacerbated symptoms, Severe functional impairment Progress Toward Problem(s) and Goals/Treatment Plan: Seroquel for depression, mood swings, irritability Remero for depression and anxiety Xanax 1 mg TID Gabapentin for anxiety Taper with librium if needed Gabapentin for augmentation if needed As needed medications All risks, benefits and alternatives of the meds discussed, and the pt agreed and understood. Attend groups and activities Supportive therapy and psychoeducation VT for abstinence CBT for relapse prevention Encourage MAT Refer to rehab or IOP, and self-help groups Teach healthy lifestyle methods, i.e. diet, exercise, meditation Smoking cessation with VT Nicotine patch if needed
[2018-07-05] MEDS: Pantoprazole 20 mg EC Tab PO SCH (09:46)
[2018-07-05] MEDS: Emtricitabine-Tenofovir 200 mg-300 mg Tab PO SCH (09:46)
--- NOTE | 2018-07-05 09:53 | PCM.PYCHDC ---
Mental Status Examination - Mental Status Examination Orientation: Person, Place, Situation, Time Memory: Intact Mood: Depressed, Anxious Affect: Constricted Speech: Appropriate Attention: WNL Concentration: WNL Association: WNL Fund of Knowledge: WNL Formal Thought Process: No Impairment Suicidal Ideation: No Current Homicidal Ideation?: No Discharge Summary - Discharge Note Reason for Hospitalization: Feeling suicidal and depressed Consultations:: List each consultation separately and include: 1. Reason for request. 2. Findings. 3. Follow-up Summary of Hospital Course include:: 1. Description of specific treatment plan utilized for patients during their course of treatmen. 2. Summarize the time- course for resolution of acute symptoms and/or regressed behaviors. 3. Describe issues identified and worked on during hospitalization. 4. Describe medication utilized. 5. Describe medical problems identified and treated. 6. Reassessment of suicide risk Summary of Hospital Course: The pt is seen, chart reviewed, case discussed. She asked to be d/c'ed and put in a 48-hr note On admission: She is a 52 yo WF, w 5 children - all adults, lives with her , unemployed. She reports many depressive symptoms and suicidal ideation w/o a plan now. She thought about stabbing herself recently She doesn't bring any significant reason for her depression, except for stopping her meds (remeron and seroquel) and recently drinking "a lot." She admits to h aving binge-drinking of excess amounts. Denies withdrawal sxs. however, she had pancreatitis in the past. She also smokes MJ daily, says "I will get a card," and used PCP recently but blames son who brought in PCP-dipped MJ. Denies other drugs Denies psychotic sxs No manic sxs elicited but was dx'ed w bipolar d/o in the past. She, however, admits to having panic attacks, excessive anxiety and demands that she be kept on 4 mg xanax a day. Plastic Shaper checked [place] and [place] PMPs online and confirmed she was given one rx in early June by a dr in [place]. That was 2 mg BID. However, the one before was less and back in November 2017. She claims she was getting 6 mg in the past (not confirmed) Past psych hx: chronic depression, several admissions, trauma, juan pablo attempt by OD on meds Medical: HIV+ Family psych hx: Son has drug abuse Hospital course: The pt was admitted and started on treatment with psychotherapy, support, psychoeducation and medications. GA and CBT used. The pt attended groups and activities, as well as milieu therapy. All the risks and benefits of medications are discussed and the patient understood and agreed. The pt improved with the treatments provided. After care discussed with the patient. Pt was extremely med-seeking and fixated on getting xanax She will continue with her private psychiatrist. Risks of heavy and alf benzo use discussed - Final Diagnosis (DSM 5) Condition upon Discharge: STABLE DSM 5: Major depression, recurrent, severe, w/o psychosis Panic d/o NERIS Alcohol use d/o - severe Cannabis use d/o severe PCP use d/o r/o bipolar d/o r/o personality d/o HIV Disposition: HOME/ ROUTINE Follow-up Treatment Plan: Continue below medications after discharge. The Rx was erroneously sent to [facility], instead of [facility]. That's why they are entered twice. The initial rx is cancelled but the administrative underwriter called the correct pharmacy only to find out they are closed today (07/05) b/c of the holidays. Pt said she had enough until Thu. Msg left with the pharmacist. Follow after care plan as discussed. See your psychiatrist next week Discuss weaning off xanax very slowly. Use relapse prevention skills Return to ER or call 911 if suicidal, homicidal or symptoms relapse. Stay away from stress, alcohol and drugs. See primary doctor regularly and get labs. Prescriptions/Medication Reconciliation: Gabapentin [Neurontin] 300 mg PO TID #90 cap Gabapentin [Neurontin] 300 mg PO TID #90 cap hydrOXYzine HCl [Atarax] 50 mg PO BID PRN #30 tab PRN Reason: Anxiety hydrOXYzine HCl [Atarax] 50 mg PO BID PRN #60 tab PRN Reason: Anxiety Mirtazapine [Remeron] 30 mg PO HS #30 tab Mirtazapine [Remeron] 30 mg PO HS #30 tab Pantoprazole [Protonix EC Tab] 20 mg PO DAILY #30 ect Pantoprazole [Protonix EC Tab] 20 mg PO DAILY #30 ect QUEtiapine [Seroquel] 100 mg PO DAILY #30 tab QUEtiapine [Seroquel] 100 mg PO DAILY #30 tab QUEtiapine [SEROquel] 200 mg PO HS #30 tab QUEtiapine [SEROquel] 200 mg PO HS #30 tab
[2018-07-08] MEDS ORDERED: Pantoprazole 20 mg EC Tab PO SCH (10:00)
== END 2018-07-05 12:10 | disposition home or self-care (01) | DRG 885 ==
LOC: C.ER 08:19 → C.9E 12:17 → C.5E 13:52
PROVIDERS: ADMIT Psychiatry & Neurology Psychiatry; ATTEND Psychiatry & Neurology Psychiatry
PROC: GZHZZZZ Group Psychotherapy (ICD-10-PCS; principal; 2018-07-02)
PROC: HZ52ZZZ Individual Psychotherapy for Substance Abuse Treatment, Cognitive-Behavioral (ICD-10-PCS; 2018-07-02)
PROC: GZ58ZZZ Individual Psychotherapy, Cognitive-Behavioral (ICD-10-PCS; 2018-07-02)
PROC: GZ56ZZZ Individual Psychotherapy, Supportive (ICD-10-PCS; 2018-07-02)
PROC: HZ56ZZZ Individual Psychotherapy for Substance Abuse Treatment, Psychoeducation (ICD-10-PCS; 2018-07-02)
PROC: HZ42ZZZ Group Counseling for Substance Abuse Treatment, Cognitive-Behavioral (ICD-10-PCS; 2018-07-02)
PROC: HZ46ZZZ Group Counseling for Substance Abuse Treatment, Psychoeducation (ICD-10-PCS; 2018-07-02)
PROC: HZ59ZZZ Individual Psychotherapy for Substance Abuse Treatment, Supportive (ICD-10-PCS; 2018-07-02)
DX: F33.2 Major depressive disorder, recurrent severe without psychotic features (principal); R45.851 Suicidal ideations; F12.20 Cannabis dependence, uncomplicated; F16.10 Hallucinogen abuse, uncomplicated; F31.9 Bipolar disorder, unspecified; F41.0 Panic disorder [episodic paroxysmal anxiety]; B19.20 Unspecified viral hepatitis C without hepatic coma; F60.9 Personality disorder, unspecified; J44.9 Chronic obstructive pulmonary disease, unspecified; F41.1 Generalized anxiety disorder; Z21 Asymptomatic human immunodeficiency virus [HIV] infection status; Z87.891 Personal history of nicotine dependence

== ENCOUNTER 2018-10-02 21:25 | Inpatient (IN) | payer BC ==
[2018-10-02 21:40] VITALS: BMI 23.5
[2018-10-02] MEDS ORDERED: Naloxone HCl 2mg/2ml syr IVP ONE (21:41)
[2018-10-02] MEDS ORDERED: Naloxone 0.4 mg/ml Inj (Adult) ONE ×2 (21:44→21:45)
[2018-10-02] MEDS ORDERED: Sodium Chloride 0.9% 1,000 ML IV ONE (21:52)
[2018-10-02 21:56] LABS: BASO # 0.1 K/uL (0.0-0.2); BASO % 1.1 % (0.0-2.0); EOS # 0.4 K/uL (0.0-0.7); LYMPH # 2.9 K/uL (1.0-4.3); LYMPH % 40.2 % (20.0-40.0); MEAN CORPUSCULAR HEMOGLOBIN 30.7 pg (27.0-31.0); MEAN CORPUSCULAR HGB CONC 32.7 g/dL (33.0-37.0); MEAN PLATELET VOLUME 7.8 fL (7.2-11.7); MONO # 0.8 K/uL (0.0-0.8); MONO % 10.7 % (0.0-10.0); NEUT # 3.1 K/uL (1.8-7.0); NRBC % 0.1 % (0.0-2.0); RBC 4.26 Mil/uL (3.80-5.20); WHITE BLOOD COUNT 7.3 K/uL (4.8-10.8)
[2018-10-02 21:57] LABS: HEMOGLOBIN 13.1 g/dL (11.0-16.0)
[2018-10-02 22:07] LABS: INR 1.1; PROTHROMBIN TIME 12.3 SECONDS (9.7-12.2)
[2018-10-02] MEDS ORDERED: Propofol 10 mg/ml 1,000 MG/100 ML VIAL ONE (22:07)
[2018-10-02 22:10] LABS: ALB/GLOB RATIO 1.5 (1.0-2.1); ALBUMIN 4.3 g/dL (3.5-5.0); BLOOD UREA NITROGEN 28 mg/dL (7-17); CALCIUM 8.9 mg/dl (8.6-10.4); GFR NON-AFRICAN AMERICAN > 60
[2018-10-02 22:10] LABS: ACETAMINOPHEN < 10.0 ug/mL (10.0-30.0); SALICYLATE 4.6 mg/dL 1
[2018-10-02 22:11] LABS: ALT/SGPT 23 U/L (9-52); AST/SGOT 78 U/L (14-36)
[2018-10-02] MEDS ORDERED: Charcoal 50 gm/240 ml Susp PO STA (22:16)
--- NOTE | 2018-10-02 22:16 | C.PDOC ---
History Of Present Illness 52 year old female presents to the emergency department s/p suspected overdose. Patient's boyfriend who was with her states that he cannot find his bottle of Gabapentin 300mg or Janumet. Boyfriend states that patient has been saying that she wants to go to the psych [facility]. Patient was taken to [facility] approximately at 8:30PM tonight, but wouldn't be seen so was brought here instead. Of note, patient did not admit to taking either aforementioned drugs. Chief Complaint (Nursing): Altered Mental Status History Per: Patient History/Exam Limitations: Clinical Condition Onset/Duration Of Symptoms: Hrs Onset Of Symptoms: <3 Hours Current Symptoms Are (Timing): Still Present Past Medical History Reviewed: Historical Data, Nursing Documentation, Vital Signs Vital Signs: Last Vital Signs Temp Pulse 48 L 10/02/18 21:59 Resp 19 10/02/18 21:59 BP 188/123 H 10/02/18 21:59 Pulse Ox 100 10/02/18 21:59 - Medical History PMH: Anemia, Anxiety, Bipolar Disorder, COPD, Depression, Fractures, Gastritis, Gastrointestinal Ulcer, Hepatitis (C), HIV, HTN, Migraine, Pancreatitis, Personality Disorder, Chronic Pain (back pain) Denies: Asthma, Chronic Kidney Disease, Seizures, Sexually Transmitted Disease Surgical History: Cholecystectomy - [facility] EXCISION OF DUODENUM, ENDO, DIAGN (09/15/17) EXCISION OF STOMACH, ENDO, DIAGN (09/15/17) GROUP TYPESETTING SUPERVISOR FOR SUBSTANCE ABUSE TREATMENT, PSYCHOEDUCATION (07/02/18) GROUP TYPESETTING SUPERVISOR FOR SUBSTANCE ABUSE, COGNITIVE BEHAVIORAL (07/02/18) GROUP PSYCHOTHERAPY (07/02/18) INDIV PSYCHOTHERAPY FOR SUBSTANCE ABUSE TREATMENT, SUPPORT (07/02/18) INDIV PSYCHOTHERAPY FOR SUBSTANCE ABUSE, COGNITIV BEHAVIORAL (07/02/18) INDIV PSYCHOTHERAPY FOR SUBSTANCE ABUSE, PSYCHOEDUCATION (07/02/18) INDIVIDUAL PSYCHOTHERAPY, COGNITIVE-BEHAVIORAL (07/02/18) INDIVIDUAL PSYCHOTHERAPY, SUPPORTIVE (07/02/18) RESECTION OF GALLBLADDER, PERCUTANEOUS ENDOSCOPIC APPROACH (06/06/17) Family History: States: Diabetes (grandmother) - Social History Hx Tobacco Use: Yes Hx Alcohol Use: No Hx Substance Use: Yes (Benzodiazepines) - Immunization History Hx Tetanus Toxoid Vaccination: Yes Hx Influenza Vaccination: Yes Hx Pneumococcal Vaccination: Yes Review Of Systems Review Of Systems: ROS cannot be obtained secondary to pt's inabilty to answer questions. Physical Exam - Physical Exam Appears: Non-toxic, Other (lethargic) Skin: Warm, Dry Head: Atraumatic, Normacephalic Eye(s): bilateral: Other (pupils 2mm reactive to light) Oral Mucosa: Dry Neck: Normal, Supple Chest: Symmetrical, No Tenderness Cardiovascular: Rhythm Regular (bradycardia), No Murmur, Other (Normal S1, S2) Respiratory: No Rales, No Rhonchi, No Wheezing, Other (agonal respiration) Gastrointestinal/Abdominal: Bowel Sounds (normal), Soft, No Tenderness, No Guarding, No Rebound, Other (flat) Extremity: Normal ROM, No Pedal Edema, Deformity (bony deformity at left pretibial, skin intact), No Swelling Pulses: Left Dorsalis Pedis: Normal, Right Dorsalis Pedis: Normal ED Course And Treatment - Laboratory Results Result Diagrams: 10/02/18 21:52 10/02/18 21:52 Lab Results: PT 12.3 SECONDS (9.7-12.2) H 10/02/18 21:52 INR 1.1 10/02/18 21:52 APTT 34 SECONDS (21-34) 10/02/18 21:52 Total Bilirubin 0.7 mg/dL (0.2-1.3) 10/02/18 21:52 AST 78 U/L (14-36) H D 10/02/18 21:52 ALT 23 U/L (9-52) 10/02/18 21:52 Alkaline Phosphatase 96 U/L (38-126) 10/02/18 21:52 Total Protein 7.2 g/dL (6.3-8.3) 10/02/18 21:52 Albumin 4.3 g/dL (3.5-5.0) 10/02/18 21:52 Globulin 2.9 gm/dL (2.2-3.9) 10/02/18 21:52 Albumin/Globulin Ratio 1.5 (1.0-2.1) 10/02/18 21:52 ECG: Interpreted By Me, Viewed By Me ECG Rhythm: Sinus Bradycardia Rate From EC O2 Sat by Pulse Oximetry: 100 (RA) Pulse Ox Interpretation: Normal - Radiology CXR: Interpreted by Me, Viewed By Me CXR Interpretation: Yes: Other (ET Tube above the deanna 2cm, OG tube below diaphragm). No: Pnemothorax Medical Decision Making Medical Decision Making: Plan: Blood Bank Type and Screen ABG EKG Chemistry Hematology CXR Glucose POC Actidose 50gm Narcan 2mg IM NaCl IV Fluids Urinalysis Upon arrival, patient had overdosed, was lethargic, and required immediate attention at bedside. Accuchek was 160. 2mg Narcan was ordered, but only .8mg was administered due to not being able to locate the second bottle. Patient did not respond to the Narcan before Actidose was given. Patient heart rate improved from 40bpm to 70bpm after dosage. Patient currently intubated. Nurses spoke to poison control who recommended to not give charcoal, and to instead check the patient's lactate every [address] Diego Boles who accepted the patient to his service, also spoke to Dr. Aguayo ICU pulmonary disease specialist who is coming down to see the patient. Disposition - Disposition Forms: [facility] (Tanzanian) - Scribe Statement The provider has reviewed the documentation as recorded by the Scribe (Familia Morales) Provider Attestation: All medical record entries made by the Scribe were at my direction and p ersonally dictated by me. I have reviewed the chart and agree that the record accurately reflects my personal performance of the history, physical exam, medical decision making, and the department course for this patient. I have also personally directed, reviewed, and agree with the discharge instructions and disposition.
[2018-10-02] MEDS ORDERED: Propofol 10 mg/ml 1,000 MG/100 ML VIAL IV PRN (22:21)
[2018-10-02 22:36] LABS: SQUAMOUS EPITHIAL 3 /hpf (0-5); URINE BILIRUBIN NEGATIVE (NEGATIVE); URINE BLOOD NEGATIVE (NEGATIVE); URINE CLARITY Clear (Clear); URINE COLOR Yellow (YELLOW); URINE GLUCOSE (UA) NORMAL (Normal); URINE LEUKOCYTE ESTERASE NEG Leu/uL (Negative); URINE PROTEIN NEGATIVE (NEGATIVE); URINE UROBILINOGEN NORMAL mg/dL (0.2-1.0)
[2018-10-02 22:56] LABS: BARBITURATES, UR NEGATIVE (NEGATIVE); BENZODIAZEPINES, UR POSITIVE (NEGATIVE); OPIATES, UR NEGATIVE (NEGATIVE); PHENCYCLIDINE, UR NEGATIVE (NEGATIVE)
[2018-10-02 23:15] LABS: ARTERIAL BLOOD GAS HCO3 22.7 mmol/L (21-28); ARTERIAL BLOOD GAS O2 SAT 99.1 % (95-98); ARTERIAL BLOOD GAS PCO2 34 mm/Hg (35-45); ARTERIAL BLOOD GAS PO2 548 mm/Hg (80-100); ARTERIAL BLOOD GAS TCO2 22.1 mmol/L (22-28)
--- NOTE | 2018-10-02 23:41 | CP.PCM.CON ---
History of Present Illness - History of Present Illness History of Present Illness: 52 year old female with H/O Anxiety, Bipolar Disorder, COPD, Gastrointestinal Ulcer, Hepatitis (C), HIV, HTN, Migraine, Pancreatitis, brought by boyfriend to the emergency department s/p suspected overdose. Patient's boyfriend who was with her states that he cannot find his bottle of Gabapentin 300mg or Janumet. Boyfriend states that patient has been saying that she wants to go to the [facility]. She was her usual self around 6:00pm,about 7:30pm he noticed that she was acting different.Patient [place] [facility] [place] 8:[place] tonight, but wouldn't be seen so was brought here instead. she was given narcan in ER Urine toxicology is positive for benxodiazepines h/o overdose in the past Chief Complaint (Nursing): Altered Mental Status History Per: Patient History/Exam Limitations: Clinical Condition Onset/Duration Of Symptoms: Hrs Onset Of Symptoms: <3 Hours Current Symptoms Are (Timing): Still Present Past Medical History Reviewed: Historical Data, Nursing Documentation, Vital Signs Vital Signs: Last Vital Signs Temp Pulse 48 L 10/02/18 21:59 Resp 19 10/02/18 21:59 BP 188/123 H 10/02/18 21:59 Pulse Ox 100 10/02/18 21:59 - Medical History PMH: Anemia, Anxiety, Bipolar Disorder, COPD, Depression, Fractures, Gastritis, Gastrointestinal Ulcer, Hepatitis (C), HIV, HTN, Migraine, Pancreatitis, Per sonality Disorder, Chronic Pain (back pain) Past Patient History - Infectious Disease Hx of Infectious Diseases: None - Past Medical History & Family History Past Medical History?: Yes - Past Social History Smoking Status: Heavy Smoker > 10 Cigarettes Daily - CARDIAC Hx Hypertension: Yes - PULMONARY Hx Asthma: No Hx Chronic Obstructive Pulmonary Disease (COPD): Yes - NEUROLOGICAL Hx Migraine: Yes Hx Seizures: No - HEENT Hx HEENT Problems: No - RENAL Hx Chronic Kidney Disease: No - ENDOCRINE/METABOLIC Hx Endocrine Disorders: No - HEMATOLOGICAL/ONCOLOGICAL Hx Anemia: Yes Hx Human Immunodeficiency Virus (HIV): Yes - INTEGUMENTARY Hx Dermatological Problems: No - MUSCULOSKELETAL/RHEUMATOLOGICAL Hx Fractures: Yes - GASTROINTESTINAL Hx Gastritis: Yes Hx Pancreatitis: Yes - GENITOURINARY/GYNECOLOGICAL Hx Sexually Transmitted Disorders: No - PSYCHIATRIC Hx Anxiety: Yes Hx Bipolar Disorder: Yes Hx Depression: Yes Hx Substance Use: Yes (Benzodiazepines) - SURGICAL HISTORY Hx Cholecystectomy: Yes - ANESTHESIA Hx Anesthesia: Yes Hx Anesthesia Reactions: No Hx Malignant Hyperthermia: No Meds Allergies/Adverse Reactions: Allergies Allergy/AdvReac Type Severity Reaction Status Date / Time No Known Allergies Allergy Verified 10/02/18 21:42 - Medications Medications: Current Medications Propofol (Diprivan) 1,000 mg in 100 mls @ 2.041 mls/hr IV .Q24H PRN; Protocol PRN Reason: TITRATE PER MD ORDER Last Admin: 10/02/18 22:42 Dose: 2.041 mls/hr Results - Vital Signs Recent Vital Signs: Last Vital Signs Temp 96.7 F L 10/02/18 22:12 Pulse 77 10/02/18 23:28 Resp 14 10/02/18 23:28 BP 171/106 H 10/02/18 23:28 Pulse Ox 100 10/02/18 23:29 - Labs Result Diagrams: 10/02/18 21:52 10/02/18 21:52 Labs: Laboratory Results - last 24 hr 10/02/18 10/02/18 10/02/18 21:35 21:52 21:52 WBC 7.3 D RBC 4.26 Hgb 13.1 D Hct 40.0 MCV 94.0 MCH 30.7 MCHC 32.7 L RDW 17.0 H Plt Count 330 MPV 7.8 Neut % (Auto) 43.0 L Lymph % (Auto) 40.2 H [place] % (Auto) 10.7 H Eos % (Auto) 5.0 H Baso % (Auto) 1.1 Neut # (Auto) 3.1 Lymph # (Auto) 2.9 [place] # (Auto) 0.8 Eos # (Auto) 0.4 Baso # (Auto) 0.1 PT INR APTT Puncture Site pCO2 pO2 HCO3 ABG pH ABG Total CO2 ABG O2 Saturation ABG Base Excess Rachid Test ABG Potassium A-a O2 Difference Respiratory Index Glucose Lactate Vent Mode Mechanical Rate FiO2 Tidal Volume PEEP Sodium 136 Potassium 4.4 Chloride 103 Carbon Dioxide 25 Anion Gap 12 BUN 28 H Creatinine 0.8 Est GFR ( Amer) > 60 Est GFR (Non-Af Amer) > 60 POC Glucose (mg/dL) 160 H Random Glucose 145 H D Calcium 8.9 Phosphorus 5.3 H Magnesium 1.7 Total Bilirubin 0.7 AST 78 H D ALT 23 Alkaline Phosphatase 96 Troponin I < 0.0120 Total Protein 7.2 Albumin 4.3 Globulin 2.9 Albumin/Globulin Ratio 1.5 Beta HCG, Quant Arterial Blood Potassium Urine Color Urine Clarity Urine pH Ur Specific [place] Urine Protein Urine Glucose (UA) Urine Ketones Urine Blood Urine Nitrate Urine Bilirubin Urine Urobilinogen Ur Leukocyte Esterase Urine WBC (Auto) Urine RBC (Auto) Ur Squamous Epith Cells Salicylates Urine Opiates Screen Urine Methadone Screen Acetaminophen Ur Barbiturates Screen Ur Phencyclidine Scrn Ur Amphetamines Screen U Benzodiazepines Scrn U Oth Cocaine Metabols U Cannabinoids Screen Alcohol, Quantitative < 10 Blood Type Antibody Screen 10/02/18 10/02/18 10/02/18 21:52 21:52 21:56 WBC RBC Hgb Hct MCV MCH MCHC RDW Plt Count MPV Neut % (Auto) Lymph % (Auto) [place] % (Auto) Eos % (Auto) Baso % (Auto) Neut # (Auto) Lymph # (Auto) [place] # (Auto) Eos # (Auto) Baso # (Auto) PT 12.3 H INR 1.1 APTT 34 Puncture Site pCO2 pO2 HCO3 ABG pH ABG Total CO2 ABG O2 Saturation ABG Base Excess Rachid Test ABG Potassium A-a O2 Difference Respiratory Index Glucose Lactate Vent Mode Mechanical Rate FiO2 Tidal Volume PEEP Sodium Potassium Chloride Carbon Dioxide Anion Gap BUN Creatinine Est GFR ( Amer) Est GFR (Non-Af Amer) POC Glucose (mg/dL) Random Glucose Calcium Phosphorus Magnesium Total Bilirubin AST ALT Alkaline Phosphatase Troponin I Total Protein Albumin Globulin Albumin/Globulin Ratio Beta HCG, Quant Arterial Blood Potassium Urine Color Urine Clarity Urine pH Ur Specific [place] Urine Protein Urine Glucose (UA) Urine Ketones Urine Blood Urine Nitrate Urine Bilirubin Urine Urobilinogen Ur Leukocyte Esterase Urine WBC (Auto) Urine RBC (Auto) Ur Squamous Epith Cells Salicylates 4.6 Urine Opiates Screen Urine Methadone Screen Acetaminophen < 10.0 L Ur Barbiturates Screen Ur Phencyclidine Scrn Ur Amphetamines Screen U Benzodiazepines Scrn U Oth Cocaine Metabols U Cannabinoids Screen Alcohol, Quantitative Blood Type O POSITIVE Antibody Screen Negative 10/02/18 10/02/18 10/02/18 22:00 22:31 22:31 WBC RBC Hgb Hct MCV MCH MCHC RDW Plt Count MPV Neut % (Auto) Lymph % (Auto) [place] % (Auto) Eos % (Auto) Baso % (Auto) Neut # (Auto) Lymph # (Auto) [place] # (Auto) Eos # (Auto) Baso # (Auto) PT INR APTT Puncture Site pCO2 pO2 HCO3 ABG pH ABG Total CO2 ABG O2 Saturation ABG Base Excess Rachid Test ABG Potassium A-a O2 Difference Respiratory Index Glucose Lactate Vent Mode Mechanical Rate FiO2 Tidal Volume PEEP Sodium Potassium Chloride Carbon Dioxide Anion Gap BUN Creatinine Est GFR ( Amer) Est GFR (Non-Af Amer) POC Glucose (mg/dL) Random Glucose Calcium Phosphorus Magnesium Total Bilirubin AST ALT Alkaline Phosphatase Troponin I Total Protein Albumin Globulin Albumin/Globulin Ratio Beta HCG, Quant 3.10 Arterial Blood Potassium Urine Color Yellow Urine Clarity Clear Urine pH 6.0 Ur Specific [place] 1.003 Urine Protein Negative Urine Glucose (UA) Normal Urine Ketones Negative Urine Blood Negative Urine Nitrate Negative Urine Bilirubin Negative Urine Urobilinogen Normal Ur Leukocyte Esterase Neg Urine WBC (Auto) 3 Urine RBC (Auto) 4 H Ur Squamous Epith Cells 3 Salicylates Urine Opiates Screen Negative Urine Methadone Screen Negative Acetaminophen Ur Barbiturates Screen Negative Ur Phencyclidine Scrn Negative Ur Amphetamines Screen Negative U Benzodiazepines Scrn Positive U Oth Cocaine Metabols Negative U Cannabinoids Screen Positive H Alcohol, Quantitative Blood Type Antibody Screen 10/02/18 23:12 WBC RBC Hgb Hct MCV MCH MCHC RDW Plt Count MPV Neut % (Auto) Lymph % (Auto) [place] % (Auto) Eos % (Auto) Baso % (Auto) Neut # (Auto) Lymph # (Auto) [place] # (Auto) Eos # (Auto) Baso # (Auto) PT INR APTT Puncture Site Rb pCO2 34 L pO2 548 H HCO3 22.7 ABG pH 7.40 ABG Total CO2 22.1 ABG O2 Saturation 99.1 H ABG Base Excess -3.0 L Rachid Test Na ABG Potassium 3.1 L A-a O2 Difference 123.0 Respiratory Index 0.2 Glucose 113 H Lactate 0.8 Vent Mode Prvc Mechanical Rate 14 FiO2 100.0 Tidal Volume 450 PEEP 5 Sodium 141.0 Potassium Chloride 118.0 H Carbon Dioxide Anion Gap BUN Creatinine Est GFR ( Amer) Est GFR (Non-Af Amer) POC Glucose (mg/dL) Random Glucose Calcium Phosphorus Magnesium Total Bilirubin AST ALT Alkaline Phosphatase Troponin I Total Protein Albumin Globulin Albumin/Globulin Ratio Beta HCG, Quant Arterial Blood Potassium 3.1 L Urine Color Urine Clarity Urine pH Ur Specific [place] Urine Protein Urine Glucose (UA) Urine Ketones Urine Blood Urine Nitrate Urine Bilirubin Urine Urobilinogen Ur Leukocyte Esterase Urine WBC (Auto) Urine RBC (Auto) Ur Squamous Epith Cells Salicylates Urine Opiates Screen Urine Methadone Screen Acetaminophen Ur Barbiturates Screen Ur Phencyclidine Scrn Ur Amphetamines Screen U Benzodiazepines Scrn U Oth Cocaine Metabols U Cannabinoids Screen Alcohol, Quantitative Blood Type Antibody Screen
--- NOTE | 2018-10-02 23:48 | CP.PCM.CON ---
History of Present Illness - History of Present Illness History of Present Illness: 52 y/o female with h/o bipolar disorder,anxiety,COPD,HTN,Hep C,HIV ,pancreatitis brought to ER by for possible overdose.Patient was in her usual state at about 6:00pm,around 7:30 pm she was acting different.The partner was looking for meds gabapentin and Janumet he had refilled today.The bottles were missing and patient had stated that she took all the tablets.He is unable to find the bottles.Patient is on multiple medications and they are given to her as prescribed and patient doesnot have access H/o suicidal attempts in the past patient left a suicide note as per her partner In ER patient was intubated Review of Systems - Review of Systems Review of Systems: patient intubated,unable to get ROS Past Patient History - Infectious Disease Hx of Infectious Diseases: None - Past Medical History & Family History Past Medical History?: Yes - Past Social History Smoking Status: Heavy Smoker > 10 Cigarettes Daily Drugs: Cannabis, Prescription medications - CARDIAC Hx Hypertension: Yes - PULMONARY Hx Asthma: No Hx Chronic Obstructive Pulmonary Disease (COPD): Yes - NEUROLOGICAL Hx Migraine: Yes Hx Seizures: No - HEENT Hx HEENT Problems: No - RENAL Hx Chronic Kidney Disease: No - ENDOCRINE/METABOLIC Hx Endocrine Disorders: No - HEMATOLOGICAL/ONCOLOGICAL Hx Anemia: Yes Hx Human Immunodeficiency Virus (HIV): Yes - INTEGUMENTARY Hx Dermatological Problems: No - MUSCULOSKELETAL/RHEUMATOLOGICAL Hx Fractures: Yes - GASTROINTESTINAL Hx Gastritis: Yes Hx Pancreatitis: Yes - GENITOURINARY/GYNECOLOGICAL Hx Sexually Transmitted Disorders: No - PSYCHIATRIC Hx Anxiety: Yes Hx Bipolar Disorder: Yes Hx Depression: Yes Hx Substance Use: Yes (Benzodiazepines) - SURGICAL HISTORY Hx Cholecystectomy: Yes - ANESTHESIA Hx Anesthesia: Yes Hx Anesthesia Reactions: No Hx Malignant Hyperthermia: No Meds Allergies/Adverse Reactions: Allergies Allergy/AdvReac Type Severity Reaction Status Date / Time No Known Allergies Allergy Verified 10/02/18 21:42 - Medications Medications: Current Medications Propofol (Diprivan) 1,000 mg in 100 mls @ 2.041 mls/hr IV .Q24H PRN; Protocol PRN Reason: TITRATE PER MD ORDER Last Admin: 10/02/18 22:42 Dose: 2.041 mls/hr Physical Exam - Constitutional Additional comments: orally intubated,sedated - Head Exam Head Exam: ATRAUMATIC, NORMAL INSPECTION, NORMOCEPHALIC - Eye Exam Eye Exam: absent: Conjunctival injection, Scleral icterus - ENT Exam ENT Exam: Mucous Membranes Moist - Neck Exam Neck exam: Positive for: Normal Inspection - Respiratory Exam Respiratory Exam: Clear to Auscultation Bilateral - Cardiovascular Exam Cardiovascular Exam: Bradycardia - GI/Abdominal Exam GI & Abdominal Exam: Normal Bowel Sounds, Soft - Extremities Exam Extremities exam: Positive for: pedal pulses present. Negative for: pedal edema Additional comments: left leg hard mass(?previous fracture) - Skin Skin Exam: Pallor Results - Vital Signs Recent Vital Signs: Last Vital Signs Temp 96.7 F L 10/02/18 22:12 Pulse 77 10/02/18 23:28 Resp 14 10/02/18 23:28 BP 171/106 H 10/02/18 23:28 Pulse Ox 100 10/02/18 23:29 - Labs Result Diagrams: 10/02/18 21:52 10/02/18 21:52 Labs: Laboratory Results - last 24 hr 10/02/18 10/02/18 10/02/18 21:35 21:52 21:52 WBC 7.3 D RBC 4.26 Hgb 13.1 D Hct 40.0 MCV 94.0 MCH 30.7 MCHC 32.7 L RDW 17.0 H Plt Count 330 MPV 7.8 Neut % (Auto) 43.0 L Lymph % (Auto) 40.2 H [place] % (Auto) 10.7 H Eos % (Auto) 5.0 H Baso % (Auto) 1.1 Neut # (Auto) 3.1 Lymph # (Auto) 2.9 [place] # (Auto) 0.8 Eos # (Auto) 0.4 Baso # (Auto) 0.1 PT INR APTT Puncture Site pCO2 pO2 HCO3 ABG pH ABG Total CO2 ABG O2 Saturation ABG Base Excess Rachid Test ABG Potassium A-a O2 Difference Respiratory Index Glucose Lactate Vent Mode Mechanical Rate FiO2 Tidal Volume PEEP Sodium 136 Potassium 4.4 Chloride 103 Carbon Dioxide 25 Anion Gap 12 BUN 28 H Creatinine 0.8 Est GFR ( Amer) > 60 Est GFR (Non-Af Amer) > 60 POC Glucose (mg/dL) 160 H Random Glucose 145 H D Calcium 8.9 Phosphorus 5.3 H Magnesium 1.7 Total Bilirubin 0.7 AST 78 H D ALT 23 Alkaline Phosphatase 96 Troponin I < 0.0120 Total Protein 7.2 Albumin 4.3 Globulin 2.9 Albumin/Globulin Ratio 1.5 Beta HCG, Quant Arterial Blood Potassium Urine Color Urine Clarity Urine pH Ur Specific [place] Urine Protein Urine Glucose (UA) Urine Ketones Urine Blood Urine Nitrate Urine Bilirubin Urine Urobilinogen Ur Leukocyte Esterase Urine WBC (Auto) Urine RBC (Auto) Ur Squamous Epith Cells Salicylates Urine Opiates Screen Urine Methadone Screen Acetaminophen Ur Barbiturates Screen Ur Phencyclidine Scrn Ur Amphetamines Screen U Benzodiazepines Scrn U Oth Cocaine Metabols U Cannabinoids Screen Alcohol, Quantitative < 10 Blood Type Antibody Screen 10/02/18 10/02/18 10/02/18 21:52 21:52 21:56 WBC RBC Hgb Hct MCV MCH MCHC RDW Plt Count MPV Neut % (Auto) Lymph % (Auto) [place] % (Auto) Eos % (Auto) Baso % (Auto) Neut # (Auto) Lymph # (Auto) [place] # (Auto) Eos # (Auto) Baso # (Auto) PT 12.3 H INR 1.1 APTT 34 Puncture Site pCO2 pO2 HCO3 ABG pH ABG Total CO2 ABG O2 Saturation ABG Base Excess Rachid Test ABG Potassium A-a O2 Difference Respiratory Index Glucose Lactate Vent Mode Mechanical Rate FiO2 Tidal Volume PEEP Sodium Potassium Chloride Carbon Dioxide Anion Gap BUN Creatinine Est GFR ( Amer) Est GFR (Non-Af Amer) POC Glucose (mg/dL) Random Glucose Calcium Phosphorus Magnesium Total Bilirubin AST ALT Alkaline Phosphatase Troponin I Total Protein Albumin Globulin Albumin/Globulin Ratio Beta HCG, Quant Arterial Blood Potassium Urine Color Urine Clarity Urine pH Ur Specific [place] Urine Protein Urine Glucose (UA) Urine Ketones Urine Blood Urine Nitrate Urine Bilirubin Urine Urobilinogen Ur Leukocyte Esterase Urine WBC (Auto) Urine RBC (Auto) Ur Squamous Epith Cells Salicylates 4.6 Urine Opiates Screen Urine Methadone Screen Acetaminophen < 10.0 L Ur Barbiturates Screen Ur Phencyclidine Scrn Ur Amphetamines Screen U Benzodiazepines Scrn U Oth Cocaine Metabols U Cannabinoids Screen Alcohol, Quantitative Blood Type O POSITIVE Antibody Screen Negative 10/02/18 10/02/18 10/02/18 22:00 22:31 22:31 WBC RBC Hgb Hct MCV MCH MCHC RDW Plt Count MPV Neut % (Auto) Lymph % (Auto) [place] % (Auto) Eos % (Auto) Baso % (Auto) Neut # (Auto) Lymph # (Auto) [place] # (Auto) Eos # (Auto) Baso # (Auto) PT INR APTT Puncture Site pCO2 pO2 HCO3 ABG pH ABG Total CO2 ABG O2 Saturation ABG Base Excess Rachid Test ABG Potassium A-a O2 Difference Respiratory Index Glucose Lactate Vent Mode Mechanical Rate FiO2 Tidal Volume PEEP Sodium Potassium Chloride Carbon Dioxide Anion Gap BUN Creatinine Est GFR ( Amer) Est GFR (Non-Af Amer) POC Glucose (mg/dL) Random Glucose Calcium Phosphorus Magnesium Total Bilirubin AST ALT Alkaline Phosphatase Troponin I Total Protein Albumin Globulin Albumin/Globulin Ratio Beta HCG, Quant 3.10 Arterial Blood Potassium Urine Color Yellow Urine Clarity Clear Urine pH 6.0 Ur Specific [place] 1.003 Urine Protein Negative Urine Glucose (UA) Normal Urine Ketones Negative Urine Blood Negative Urine Nitrate Negative Urine Bilirubin Negative Urine Urobilinogen Normal Ur Leukocyte Esterase Neg Urine WBC (Auto) 3 Urine RBC (Auto) 4 H Ur Squamous Epith Cells 3 Salicylates Urine Opiates Screen Negative Urine Methadone Screen Negative Acetaminophen Ur Barbiturates Screen Negative Ur Phencyclidine Scrn Negative Ur Amphetamines Screen Negative U Benzodiazepines Scrn Positive U Oth Cocaine Metabols Negative U Cannabinoids Screen Positive H Alcohol, Quantitative Blood Type Antibody Screen 10/02/18 23:12 WBC RBC Hgb Hct MCV MCH MCHC RDW Plt Count MPV Neut % (Auto) Lymph % (Auto) [place] % (Auto) Eos % (Auto) Baso % (Auto) Neut # (Auto) Lymph # (Auto) [place] # (Auto) Eos # (Auto) Baso # (Auto) PT INR APTT Puncture Site Rb pCO2 34 L pO2 548 H HCO3 22.7 ABG pH 7.40 ABG Total CO2 22.1 ABG O2 Saturation 99.1 H ABG Base Excess -3.0 L Rachid Test Na ABG Potassium 3.1 L A-a O2 Difference 123.0 Respiratory Index 0.2 Glucose 113 H Lactate 0.8 Vent Mode Prvc Mechanical Rate 14 FiO2 100.0 Tidal Volume 450 PEEP 5 Sodium 141.0 Potassium Chloride 118.0 H Carbon Dioxide Anion Gap BUN Creatinine Est GFR ( Amer) Est GFR (Non-Af Amer) POC Glucose (mg/dL) Random Glucose Calcium Phosphorus Magnesium Total Bilirubin AST ALT Alkaline Phosphatase Troponin I Total Protein Albumin Globulin Albumin/Globulin Ratio Beta HCG, Quant Arterial Blood Potassium 3.1 L Urine Color Urine Clarity Urine pH Ur Specific [place] Urine Protein Urine Glucose (UA) Urine Ketones Urine Blood Urine Nitrate Urine Bilirubin Urine Urobilinogen Ur Leukocyte Esterase Urine WBC (Auto) Urine RBC (Auto) Ur Squamous Epith Cells Salicylates Urine Opiates Screen Urine Methadone Screen Acetaminophen Ur Barbiturates Screen Ur Phencyclidine Scrn Ur Amphetamines Screen U Benzodiazepines Scrn U Oth Cocaine Metabols U Cannabinoids Screen Alcohol, Quantitative Blood Type Antibody Screen - EKG Data Rate: Bradycardia - Imaging and Cardiology Chest x-ray Status: Image reviewed by me Assessment & Plan - Assessment and Plan (Free Text) Assessment: 1.Respiratory Failure/Possible drug overdose monitor lactic acid and bloodsugar as suggested by poison control patient is on multiple meds including xanax,atarax,soma,seroquel,remeron which are not with her and given to her as prescribed by others at home continue vent support 2.Bradycardia ?eitiology/?drug induced. monitor BP 3.HTN -f/u BP and start meds if remains elevated 4.HIV on meds 5.Hep C
[2018-10-03] MEDS ORDERED: Dextrose 5%/0.9% NS 1,000 ML IV ONE (01:00)
[2018-10-03 04:10] LABS: EOS # 0.3 K/uL (0.0-0.7); EOS % 5.8 % (0.0-4.0); HEMOGLOBIN 11.6 g/dL (11.0-16.0); LYMPH # 1.9 K/uL (1.0-4.3); LYMPH % 41.6 % (20.0-40.0); MEAN CELL VOLUME 95.9 fL (81.0-99.0); MEAN CORPUSCULAR HEMOGLOBIN 31.6 pg (27.0-31.0); MEAN PLATELET VOLUME 7.5 fL (7.2-11.7); MONO # 0.5 K/uL (0.0-0.8); MONO % 11.1 % (0.0-10.0); NEUT # 1.8 K/uL (1.8-7.0); NEUT % 40.5 % (50.0-75.0); NRBC % 0.1 % (0.0-2.0); RBC 3.68 Mil/uL (3.80-5.20); RED CELL DISTRIBUTION WIDTH 17.3 % (11.5-14.5); WHITE BLOOD COUNT 4.4 K/uL (4.8-10.8)
[2018-10-03] MEDS: Albuterol 0.083% Inhal Sol (2.5 mg/3 mL) UD INH SCH ×7 (05:09→20:38)
[2018-10-03 05:30] LABS: ABG ALLEN TEST POS; ARTERIAL BLOOD GAS HCO3 24.9 mmol/L (21-28); ARTERIAL BLOOD GAS O2 SAT 98.6 % (95-98); ARTERIAL BLOOD GAS PCO2 40 mm/Hg (35-45); ARTERIAL BLOOD GAS PO2 220 mm/Hg (80-100)
[2018-10-03 06:03] LABS: ALB/GLOB RATIO 1.4 (1.0-2.1); ALBUMIN 3.4 g/dL (3.5-5.0); ALT/SGPT 26 U/L (9-52); AST/SGOT 42 U/L (14-36); BLOOD UREA NITROGEN 21 mg/dL (7-17); CALCIUM 8.1 mg/dl (8.6-10.4); GFR NON-AFRICAN AMERICAN > 60
[2018-10-03 09:41] LABS: BLOOD UREA NITROGEN 18 mg/dL (7-17); CALCIUM 8.2 mg/dl (8.6-10.4); GFR NON-AFRICAN AMERICAN > 60
[2018-10-03] MEDS: Sucralfate 1 gm/10 ml Oral Susp UD PO SCH ×3 (10:31→17:32)
[2018-10-03] MEDS: Pantoprazole 40 mg EC Tab PO SCH ×2 (10:32→17:31)
[2018-10-03] MEDS: Potassium Chloride 10 mEq ER Tab PO SCH ×2 (10:32→16:21)
[2018-10-03] MEDS: Emtricitabine-Tenofovir 200 mg-300 mg Tab PO SCH (10:33)
[2018-10-03] MEDS ORDERED: HYDROmorphone 1 mg/ml ISec IVP STA (10:53)
--- NOTE | 2018-10-03 12:49 | CP.PCM.PN ---
Subjective - Date & Time of Evaluation Date of Evaluation: 10/03/18 Time of Evaluation: 10:30 - Subjective Subjective: Patient wide awakem alert, tolerating CPAP on ventilator reqeusting to remove ET tube, on acute events overnight Objective - Vital Signs/Intake and Output Vital Signs (last 24 hours): Temp Pulse Resp BP Pulse Ox 97.9 F 50 L 16 139/91 H 100 10/03/18 04:00 10/03/18 07:45 10/03/18 07:00 10/03/18 06:40 10/03/18 07:00 Intake and Output: 10/03/18 10/03/18 06:59 18:59 Intake Total 2728.6 324.6 Output Total 1375 360 Balance 1353.6 -35.4 - Medications Medications: Current Medications Albuterol Sulfate (Albuterol 0.083% Inhal Kathy (2.5 Mg/3 Ml) Ud) 2.5 mg INH RQ6 OSMAR Last Admin: 10/03/18 11:38 Dose: 2.5 mg Alprazolam (Xanax) 1 mg PO BID PRN PRN Reason: Anxiety Last Admin: 10/03/18 10:32 Dose: 1 mg Emtricitabine/Tenofovir (Truvada 200 Mg-300 Mg) 1 tab PO DAILY OSMAR; Protocol Last Admin: 10/03/18 10:33 Dose: 1 tab Fosamprenavir Calcium (Lexiva) 700 mg PO DAILY OSMAR; Protocol Last Admin: 10/03/18 10:33 Dose: 700 mg Heparin Sodium (Porcine) (Heparin) 5,000 units SC Q12H OSMAR Last Admin: 10/03/18 10:31 Dose: 5,000 units Ketorolac Tromethamine (Toradol) 10 mg PO Q6 PRN PRN Reason: Pain, severe (8-10) Last Admin: 10/03/18 10:39 Dose: 10 mg Pantoprazole Sodium (Protonix Ec Tab) 40 mg PO BID OSMAR Last Admin: 10/03/18 10:32 Dose: 40 mg Potassium Chloride (Klor-Con 10) 20 meq PO Q6H OSMAR Stop: 10/04/18 04:01 Last Admin: 10/03/18 10:32 Dose: 20 meq Sucralfate (Carafate Oral Susp) 1 gm PO TID OSMAR Last Admin: 10/03/18 10:31 Dose: 1 gm - Labs Labs: 10/03/18 04:05 10/03/18 09:08 PT 12.3 SECONDS (9.7-12.2) H 10/02/18 21:52 INR 1.1 10/02/18 21:52 APTT 34 SECONDS (21-34) 10/02/18 21:52 - Head Exam Head Exam: ATRAUMATIC, NORMAL INSPECTION, NORMOCEPHALIC - ENT Exam Additional comments: poor dentition - Neck Exam Neck Exam: Full ROM - Respiratory Exam Respiratory Exam: Clear to Ausculation Bilateral, NORMAL BREATHING PATTERN. absent: Rales, Wheezes, Respiratory Distress, Stridor - Cardiovascular Exam Cardiovascular Exam: +S1, +S2 - GI/Abdominal Exam GI & Abdominal Exam: Soft, Normal Bowel Sounds. absent: Tenderness, Organomegaly - Extremities Exam Extremities Exam: Normal Inspection - Neurological Exam Neurological Exam: Alert, Awake, CN II-XII Intact, Oriented x3 - Psychiatric Exam Psychiatric exam: Normal Affect, Normal Mood - Skin Skin Exam: Normal Color Assessment and Plan - Assessment and Plan (Free Text) Assessment: Respiratory failure: suspect 2nd polysusbtance abuse, patient wide awake, tolerated Extubation, currently on room air -HIV: continue home dosage of HIV medications -POlysubstance abuse: obtain psych eval, first reqeust after extubation by patient was to "make sure you give me my xanax...I take 2 mg twice a day" -will start 1 mg xanax BID PRN agitation and avoid withdrawal -pain: Patient claims pain on right side of chest and reqeusted toradol 30 mg -Psych eval for benzo addiction and opioid addiction (smokes [place]) -Patient strongly advised to stop smoking -at risk of CAD: start statin and asa, strongly advsied to STOP smoking. -continue 1:1 unti psych eval (suicidal OD) -PAtient remains hemodynamically stable
--- NOTE | 2018-10-03 13:05 | RAD ---
Date of service: 10/03/2018 PROCEDURE: CHEST RADIOGRAPH, 1 VIEW HISTORY: respiratory failure COMPARISON: 10/02/2018 FINDINGS: LUNGS: Clear. PLEURA: No pneumothorax or pleural fluid seen. CARDIOVASCULAR: No aortic atherosclerotic calcification present. Normal heart size. ET tube and NG tube, unchanged. OSSEOUS STRUCTURES: No significant abnormalities. VISUALIZED UPPER ABDOMEN: Normal. OTHER FINDINGS: None. IMPRESSION: No active disease.
[2018-10-03 13:15] LABS: ARTERIAL BLOOD GAS HCO3 23.9 mmol/L (21-28); ARTERIAL BLOOD GAS O2 SAT 94.1 % (95-98); ARTERIAL BLOOD GAS PCO2 45 mm/Hg (35-45); ARTERIAL BLOOD GAS PH 7.35 (7.35-7.45); ARTERIAL BLOOD GAS PO2 67 mm/Hg (80-100); ARTERIAL BLOOD GAS TCO2 26.2 mmol/L (22-28)
[2018-10-03 14:18] LABS: ALB/GLOB RATIO 1.4 (1.0-2.1); ALBUMIN 3.5 g/dL (3.5-5.0); BILIRUBIN,DIRECT 0.3 mg/dL (0.0-0.4)
--- NOTE | 2018-10-03 14:59 | RAD ---
Date of service: 10/02/2018 HISTORY: OD bed 4 COMPARISON: Comparison made with prior study 09/15/2017 TECHNIQUE: 1 view obtained. FINDINGS: In situ ETT, tip of which lies approximately 4.2 cm above deanna. NGT is present with tip overlying left upper quadrant of the abdomen. LUNGS: Suspect minor bibasilar atelectasis. PLEURA: No significant pleural effusion identified, no pneumothorax apparent. CARDIOVASCULAR: Questionable minimal aortic atherosclerotic calcification present. Normal cardiac size. No pulmonary vascular congestion. OSSEOUS STRUCTURES: No significant abnormalities. VISUALIZED UPPER ABDOMEN: Normal. OTHER FINDINGS: None. IMPRESSION: Minor bibasilar atelectasis.
--- NOTE | 2018-10-03 15:55 | CP.PCM.HP ---
Past Patient History - Infectious Disease Hx of Infectious Diseases: None - Past Medical History & Family History Past Medical History?: Yes - Past Social History Smoking Status: Heavy Smoker > 10 Cigarettes Daily Drugs: Cannabis, Prescription medications - CARDIAC Hx Hypertension: Yes - PULMONARY Hx Chronic Obstructive Pulmonary Disease (COPD): Yes - NEUROLOGICAL Hx Migraine: Yes Hx Seizures: No - HEENT Hx HEENT Problems: No - RENAL Hx Chronic Kidney Disease: No - ENDOCRINE/METABOLIC Hx Endocrine Disorders: No - HEMATOLOGICAL/ONCOLOGICAL Hx Anemia: Yes Hx Human Immunodeficiency Virus (HIV): Yes - INTEGUMENTARY Hx Dermatological Problems: No - MUSCULOSKELETAL/RHEUMATOLOGICAL Hx Falls: No - GASTROINTESTINAL Hx Gastritis: Yes Hx Pancreatitis: Yes - GENITOURINARY/GYNECOLOGICAL Hx Sexually Transmitted Disorders: No - PSYCHIATRIC Hx Anxiety: Yes Hx Bipolar Disorder: Yes Hx Depression: Yes Hx Substance Use: Yes (Benzodiazepines) - SURGICAL HISTORY Hx Cholecystectomy: Yes - ANESTHESIA Hx Anesthesia: Yes Hx Anesthesia Reactions: No Hx Malignant Hyperthermia: No Meds Allergies/Adverse Reactions: Allergies Allergy/AdvReac Type Severity Reaction Status Date / Time No Known Allergies Allergy Verified 10/02/18 21:42 Physical Exam - Constitutional Appears: Well - Head Exam Head Exam: ATRAUMATIC, NORMAL INSPECTION, NORMOCEPHALIC - Eye Exam Eye Exam: EOMI, Normal appearance, PERRL Pupil Exam: NORMAL ACCOMODATION, PERRL - ENT Exam ENT Exam: Mucous Membranes Moist, Normal Exam - Neck Exam Neck exam: Positive for: Normal Inspection - Respiratory Exam Respiratory Exam: Decreased Breath Sounds - Cardiovascular Exam Cardiovascular Exam: REGULAR RHYTHM, +S1, +S2 - GI/Abdominal Exam GI & Abdominal Exam: Diminished Bowel Sounds, Soft - Rectal Exam Rectal Exam: Deferred Results - Vital Signs Recent Vital Signs: Last Vital Signs Temp 98.2 F 10/03/18 12:00 Pulse 82 10/03/18 15:31 Resp 15 10/03/18 15:31 BP 87/54 L 10/03/18 15:31 Pulse Ox 94 L 10/03/18 15:31 - Labs Result Diagrams: 10/03/18 04:05 10/03/18 09:08 Labs: Laboratory Results - last 24 hr 10/02/18 10/02/18 10/02/18 21:35 21:52 21:52 WBC 7.3 D RBC 4.26 Hgb 13.1 D Hct 40.0 MCV 94.0 MCH 30.7 MCHC 32.7 L RDW 17.0 H Plt Count 330 MPV 7.8 Neut % (Auto) 43.0 L Lymph % (Auto) 40.2 H Gila % (Auto) 10.7 H Eos % (Auto) 5.0 H Baso % (Auto) 1.1 Neut # (Auto) 3.1 Lymph # (Auto) 2.9 Gila # (Auto) 0.8 Eos # (Auto) 0.4 Baso # (Auto) 0.1 PT INR APTT Puncture Site pCO2 pO2 HCO3 ABG pH ABG Total CO2 ABG O2 Saturation ABG Base Excess ABG Hemoglobin ABG Carboxyhemoglobin POC ABG HHb (Measured) ABG Methemoglobin Rachid Test ABG Potassium A-a O2 Difference Respiratory Index Hgb O2 Saturation Glucose Lactate Liter Flow Vent Mode Mechanical Rate FiO2 Tidal Volume PEEP Sodium 136 Potassium 4.4 Chloride 103 Carbon Dioxide 25 Anion Gap 12 BUN 28 H Creatinine 0.8 Est GFR ( Amer) > 60 Est GFR (Non-Af Amer) > 60 POC Glucose (mg/dL) 160 H Random Glucose 145 H D Lactic Acid Calcium 8.9 Phosphorus 5.3 H Magnesium 1.7 Total Bilirubin 0.7 Direct Bilirubin AST 78 H D ALT 23 Alkaline Phosphatase 96 Ammonia Troponin I < 0.0120 Total Protein 7.2 Albumin 4.3 Globulin 2.9 Albumin/Globulin Ratio 1.5 Beta HCG, Quant Arterial Blood Potassium Urine Color Urine Clarity Urine pH Ur Specific [place] Urine Protein Urine Glucose (UA) Urine Ketones Urine Blood Urine Nitrate Urine Bilirubin Urine Urobilinogen Ur Leukocyte Esterase Urine WBC (Auto) Urine RBC (Auto) Ur Squamous Epith Cells Salicylates Urine Opiates Screen Urine Methadone Screen Acetaminophen Ur Barbiturates Screen Ur Phencyclidine Scrn Ur Amphetamines Screen U Benzodiazepines Scrn U Oth Cocaine Metabols U Cannabinoids Screen Alcohol, Quantitative < 10 Blood Type Antibody Screen 10/02/18 10/02/18 10/02/18 21:52 21:52 21:56 WBC RBC Hgb Hct MCV MCH MCHC RDW Plt Count MPV Neut % (Auto) Lymph % (Auto) Gila % (Auto) Eos % (Auto) Baso % (Auto) Neut # (Auto) Lymph # (Auto) Gila # (Auto) Eos # (Auto) Baso # (Auto) PT 12.3 H INR 1.1 APTT 34 Puncture Site pCO2 pO2 HCO3 ABG pH ABG Total CO2 ABG O2 Saturation ABG Base Excess ABG Hemoglobin ABG Carboxyhemoglobin POC ABG HHb (Measured) ABG Methemoglobin Rachid Test ABG Potassium A-a O2 Difference Respiratory Index Hgb O2 Saturation Glucose Lactate Liter Flow Vent Mode Mechanical Rate FiO2 Tidal Volume PEEP Sodium Potassium Chloride Carbon Dioxide Anion Gap BUN Creatinine Est GFR ( Amer) Est GFR (Non-Af Amer) POC Glucose (mg/dL) Random Glucose Lactic Acid Calcium Phosphorus Magnesium Total Bilirubin Direct Bilirubin AST ALT Alkaline Phosphatase Ammonia Troponin I Total Protein Albumin Globulin Albumin/Globulin Ratio Beta HCG, Quant Arterial Blood Potassium Urine Color Urine Clarity Urine pH Ur Specific [place] Urine Protein Urine Glucose (UA) Urine Ketones Urine Blood Urine Nitrate Urine Bilirubin Urine Urobilinogen Ur Leukocyte Esterase Urine WBC (Auto) Urine RBC (Auto) Ur Squamous Epith Cells Salicylates 4.6 Urine Opiates Screen Urine Methadone Screen Acetaminophen < 10.0 L Ur Barbiturates Screen Ur Phencyclidine Scrn Ur Amphetamines Screen U Benzodiazepines Scrn U Oth Cocaine Metabols U Cannabinoids Screen Alcohol, Quantitative Blood Type O POSITIVE Antibody Screen Negative 10/02/18 10/02/18 10/02/18 22:00 22:31 22:31 WBC RBC Hgb Hct MCV MCH MCHC RDW Plt Count MPV Neut % (Auto) Lymph % (Auto) Gila % (Auto) Eos % (Auto) Baso % (Auto) Neut # (Auto) Lymph # (Auto) Gila # (Auto) Eos # (Auto) Baso # (Auto) PT INR APTT Puncture Site pCO2 pO2 HCO3 ABG pH ABG Total CO2 ABG O2 Saturation ABG Base Excess ABG Hemoglobin ABG Carboxyhemoglobin POC ABG HHb (Measured) ABG Methemoglobin Rachid Test ABG Potassium A-a O2 Difference Respiratory Index Hgb O2 Saturation Glucose Lactate Liter Flow Vent Mode Mechanical Rate FiO2 Tidal Volume PEEP Sodium Potassium Chloride Carbon Dioxide Anion Gap BUN Creatinine Est GFR ( Amer) Est GFR (Non-Af Amer) POC Glucose (mg/dL) Random Glucose Lactic Acid Calcium Phosphorus Magnesium Total Bilirubin Direct Bilirubin AST ALT Alkaline Phosphatase Ammonia Troponin I Total Protein Albumin Globulin Albumin/Globulin Ratio Beta HCG, Quant 3.10 Arterial Blood Potassium Urine Color Yellow Urine Clarity Clear Urine pH 6.0 Ur Specific [place] 1.003 Urine Protein Negative Urine Glucose (UA) Normal Urine Ketones Negative Urine Blood Negative Urine Nitrate Negative Urine Bilirubin Negative Urine Urobilinogen Normal Ur Leukocyte Esterase Neg Urine WBC (Auto) 3 Urine RBC (Auto) 4 H Ur Squamous Epith Cells 3 Salicylates Urine Opiates Screen Negative Urine Methadone Screen Negative Acetaminophen Ur Barbiturates Screen Negative Ur Phencyclidine Scrn Negative Ur Amphetamines Screen Negative U Benzodiazepines Scrn Positive U Oth Cocaine Metabols Negative U Cannabinoids Screen Positive H Alcohol, Quantitative Blood Type Antibody Screen 10/02/18 10/02/18 10/03/18 23:12 23:49 02:44 WBC RBC Hgb Hct MCV MCH MCHC RDW Plt Count MPV Neut % (Auto) Lymph % (Auto) Gila % (Auto) Eos % (Auto) Baso % (Auto) Neut # (Auto) Lymph # (Auto) Gila # (Auto) Eos # (Auto) Baso # (Auto) PT INR APTT Puncture Site Rb pCO2 34 L pO2 548 H HCO3 22.7 ABG pH 7.40 ABG Total CO2 22.1 ABG O2 Saturation 99.1 H ABG Base Excess -3.0 L ABG Hemoglobin ABG Carboxyhemoglobin POC ABG HHb (Measured) ABG Methemoglobin Rachid Test Na ABG Potassium 3.1 L A-a O2 Difference 123.0 Respiratory Index 0.2 Hgb O2 Saturation Glucose 113 H Lactate 0.8 Liter Flow Vent Mode Prvc Mechanical Rate 14 FiO2 100.0 Tidal Volume 450 PEEP 5 Sodium 141.0 Potassium Chloride 118.0 H Carbon Dioxide Anion Gap BUN Creatinine Est GFR ( Amer) Est GFR (Non-Af Amer) POC Glucose (mg/dL) 125 H Random Glucose Lactic Acid 1.4 Calcium Phosphorus Magnesium Total Bilirubin Direct Bilirubin AST ALT Alkaline Phosphatase Ammonia Troponin I Total Protein Albumin Globulin Albumin/Globulin Ratio Beta HCG, Quant Arterial Blood Potassium 3.1 L Urine Color Urine Clarity Urine pH Ur Specific [place] Urine Protein Urine Glucose (UA) Urine Ketones Urine Blood Urine Nitrate Urine Bilirubin Urine Urobilinogen Ur Leukocyte Esterase Urine WBC (Auto) Urine RBC (Auto) Ur Squamous Epith Cells Salicylates Urine Opiates Screen Urine Methadone Screen Acetaminophen Ur Barbiturates Screen Ur Phencyclidine Scrn Ur Amphetamines Screen U Benzodiazepines Scrn U Oth Cocaine Metabols U Cannabinoids Screen Alcohol, Quantitative Blood Type Antibody Screen 10/03/18 10/03/18 10/03/18 04:05 04:05 04:05 WBC 4.4 L RBC 3.68 L Hgb 11.6 Hct 35.2 MCV 95.9 MCH 31.6 H MCHC 33.0 RDW 17.3 H Plt Count 240 MPV 7.5 Neut % (Auto) 40.5 L Lymph % (Auto) 41.6 H Gila % (Auto) 11.1 H Eos % (Auto) 5.8 H Baso % (Auto) 1.0 Neut # (Auto) 1.8 Lymph # (Auto) 1.9 Gila # (Auto) 0.5 Eos # (Auto) 0.3 Baso # (Auto) 0.0 PT INR APTT Puncture Site pCO2 pO2 HCO3 ABG pH ABG Total CO2 ABG O2 Saturation ABG Base Excess ABG Hemoglobin ABG Carboxyhemoglobin POC ABG HHb (Measured) ABG Methemoglobin Rachid Test ABG Potassium A-a O2 Difference Respiratory Index Hgb O2 Saturation Glucose Lactate Liter Flow Vent Mode Mechanical Rate FiO2 Tidal Volume PEEP Sodium 141 Potassium 3.5 L Chloride 113 H Carbon Dioxide 24 Anion Gap 7 L BUN 21 H Creatinine 0.6 L Est GFR ( Amer) > 60 Est GFR (Non-Af Amer) > 60 POC Glucose (mg/dL) Random Glucose 129 H Lactic Acid Calcium 8.1 L Phosphorus 3.7 Magnesium 1.8 Total Bilirubin 0.3 Direct Bilirubin AST 42 H D ALT 26 Alkaline Phosphatase 85 Ammonia 17 Troponin I Total Protein 5.9 L Albumin 3.4 L D Globulin 2.4 Albumin/Globulin Ratio 1.4 Beta HCG, Quant Arterial Blood Potassium Urine Color Urine Clarity Urine pH Ur Specific [place] Urine Protein Urine Glucose (UA) Urine Ketones Urine Blood Urine Nitrate Urine Bilirubin Urine Urobilinogen Ur Leukocyte Esterase Urine WBC (Auto) Urine RBC (Auto) Ur Squamous Epith Cells Salicylates Urine Opiates Screen Urine Methadone Screen Acetaminophen Ur Barbiturates Screen Ur Phencyclidine Scrn Ur Amphetamines Screen U Benzodiazepines Scrn U Oth Cocaine Metabols U Cannabinoids Screen Alcohol, Quantitative Blood Type Antibody Screen 10/03/18 10/03/18 10/03/18 05:06 05:25 09:08 WBC RBC Hgb Hct MCV MCH MCHC RDW Plt Count MPV Neut % (Auto) Lymph % (Auto) Gila % (Auto) Eos % (Auto) Baso % (Auto) Neut # (Auto) Lymph # (Auto) Gila # (Auto) Eos # (Auto) Baso # (Auto) PT INR APTT Puncture Site R rad pCO2 40 pO2 220 H HCO3 24.9 ABG pH 7.40 ABG Total CO2 26.0 ABG O2 Saturation 98.6 H ABG Base Excess 0 ABG Hemoglobin 11.0 L ABG Carboxyhemoglobin 1.0 POC ABG HHb (Measured) 1.4 ABG Methemoglobin 0.4 Rachid Test Pos ABG Potassium A-a O2 Difference 87.0 Respiratory Index 0.4 Hgb O2 Saturation 97.2 Glucose Lactate Liter Flow Vent Mode Prvc Mechanical Rate 14 FiO2 50.0 Tidal Volume 450 PEEP 5 Sodium Potassium Chloride Carbon Dioxide Anion Gap BUN Creatinine Est GFR ( Amer) Est GFR (Non-Af Amer) POC Glucose (mg/dL) Random Glucose Lactic Acid 1.2 1.0 Calcium Phosphorus Magnesium Total Bilirubin Direct Bilirubin AST ALT Alkaline Phosphatase Ammonia Troponin I Total Protein Albumin Globulin Albumin/Globulin Ratio Beta HCG, Quant Arterial Blood Potassium Urine Color Urine Clarity Urine pH Ur Specific [place] Urine Protein Urine Glucose (UA) Urine Ketones Urine Blood Urine Nitrate Urine Bilirubin Urine Urobilinogen Ur Leukocyte Esterase Urine WBC (Auto) Urine RBC (Auto) Ur Squamous Epith Cells Salicylates Urine Opiates Screen Urine Methadone Screen Acetaminophen Ur Barbiturates Screen Ur Phencyclidine Scrn Ur Amphetamines Screen U Benzodiazepines Scrn U Oth Cocaine Metabols U Cannabinoids Screen Alcohol, Quantitative Blood Type Antibody Screen 10/03/18 10/03/18 10/03/18 09:08 13:09 13:55 WBC RBC Hgb Hct MCV MCH MCHC RDW Plt Count MPV Neut % (Auto) Lymph % (Auto) Gila % (Auto) Eos % (Auto) Baso % (Auto) Neut # (Auto) Lymph # (Auto) Gila # (Auto) Eos # (Auto) Baso # (Auto) PT INR APTT Puncture Site Rba pCO2 45 pO2 67 L HCO3 23.9 ABG pH 7.35 ABG Total CO2 26.2 ABG O2 Saturation 94.1 L ABG Base Excess -1.1 ABG Hemoglobin ABG Carboxyhemoglobin POC ABG HHb (Measured) ABG Methemoglobin Rachid Test N/a ABG Potassium 3.9 A-a O2 Difference Respiratory Index Hgb O2 Saturation Glucose 125 H Lactate 2.5 H Liter Flow 2.0 Vent Mode Mechanical Rate FiO2 Tidal Volume PEEP Sodium 140 144.0 Potassium 4.0 Chloride 115 H 115.0 H Carbon Dioxide 21 L Anion Gap 9 L BUN 18 H Creatinine 0.6 L Est GFR ( Amer) > 60 Est GFR (Non-Af Amer) > 60 POC Glucose (mg/dL) Random Glucose 79 D Lactic Acid Calcium 8.2 L Phosphorus 3.2 Magnesium 1.8 Total Bilirubin Cancelled 0.7 Direct Bilirubin Cancelled 0.3 AST Cancelled 32 ALT Cancelled 28 Alkaline Phosphatase Cancelled 80 Ammonia Troponin I Total Protein Cancelled 6.0 L Albumin Cancelled 3.5 Globulin Cancelled 2.5 Albumin/Globulin Ratio Cancelled 1.4 Beta HCG, Quant Arterial Blood Potassium 3.9 Urine Color Urine Clarity Urine pH Ur Specific [place] Urine Protein Urine Glucose (UA) Urine Ketones Urine Blood Urine Nitrate Urine Bilirubin Urine Urobilinogen Ur Leukocyte Esterase Urine WBC (Auto) Urine RBC (Auto) Ur Squamous Epith Cells Salicylates Urine Opiates Screen Urine Methadone Screen Acetaminophen Ur Barbiturates Screen Ur Phencyclidine Scrn Ur Amphetamines Screen U Benzodiazepines Scrn U Oth Cocaine Metabols U Cannabinoids Screen Alcohol, Quantitative Blood Type Antibody Screen
--- NOTE | 2018-10-03 22:14 | PCM.PSYCH ---
Initial Psychiatric Evaluation - Initial Psychiatric Evaluation Type of Admission: Voluntary Legal Status: Capacity Chief Complaint (in patient's own words): "I took my 's gabapentin and muscle relaxer" History of Present Illness and Precipitating Events: Patient reports that she overdosed on her husbands gabapentine 60 pills and muscle relaxants 30 pills last night at abut 10:30pm. She reports that she was in her son's room when her found her with altered mental status and brought her to the hospital and intubated. Patient reports feeling depressed for a long time, she reports that her depression has been worsening in the last few days, she reports isolating herself, neglecting her personal hygiene, not cleaning her house, feeling hopeless, and helpless, and with poor sleep. She reports that she has been admitted to [facility] about 2-3 times in the past and at [facility] abut 6 times. She reports that due to her insurance, she has been unable to follow-up with a psychiatrist. She reports that she had an appointment with a psychiatrist in [place], but she could not follow-up because it was too far. Patient reports that she has been having some financial problems, they recently filled for bankruptcy, and that they are in the process of selling their house. She also reports that she is unemployed, and that her also has some medical problems. She reports irritability, anger and anxiety. She reports that her PCP treats her anxiety with Xanax 2 mg twice daily. She is not taking any psychotropic medication at this time. She reports a history of cutting, and overdose in the past. She report drinking "hard liquor" 2-3 times a week, smokes about 1 blunt of marijuana daily. She reports a history of cocaine use, last use was 12 years ago. She reports being arrested in the past for shoplifting. Patient denies any suicide ideation/plan/intent at this time. Current Medications: Active Medications Generic Name Dose Route Start Last Admin Trade Name Freq PRN Reason Stop Dose Admin Albuterol Sulfate 2.5 mg 10/03/18 12:00 10/03/18 20:38 Albuterol 0.083% Inhal Kathy (2.5 Mg/3 Ml) Ud INH 2.5 mg RQ6 OSMAR Administration Alprazolam 1 mg 10/03/18 09:49 10/03/18 10:32 Xanax PO 1 mg BID PRN Administration Anxiety Aspirin 81 mg 10/04/18 10:00 Aspirin Chewable PO DAILY OSMAR Emtricitabine/Tenofovir 1 tab 10/03/18 11:00 10/03/18 10:33 Truvada 200 Mg-300 Mg PO 1 tab DAILY [facility] Administration Protocol Fosamprenavir Calcium 700 mg 10/03/18 11:00 10/03/18 10:33 Lexiva PO 700 mg DAILY OSMAR Administration Protocol Heparin Sodium (Porcine) 5,000 units 10/03/18 10:00 10/03/18 10:31 Heparin SC 5,000 units Q12H OSMAR Administration Hydromorphone HCl 2 mg 10/03/18 12:54 10/03/18 18:42 Dilaudid PO 2 mg Q8H PRN Administration Pain, severe (8-10) Influenza Virus Vaccine 60 mcg 10/05/18 10:00 Flucelvax Quad [id number] Syr IM 10/05/18 10:01 .ONCE ONE Ketorolac Tromethamine 10 mg 10/03/18 09:49 10/03/18 10:39 Toradol PO 10 mg Q6 PRN Administration Pain, severe (8-10) Pantoprazole Sodium 40 mg 10/03/18 10:00 10/03/18 17:31 Protonix Ec Tab PO 40 mg BID OSMAR Administration Pneumococcal Polyvalent Vaccine 0.5 ml 10/05/18 10:00 Pneumovax 23 Vaccine IM 10/05/18 10:01 .ONCE ONE Potassium Chloride 20 meq 10/03/18 21:45 K-Dur 20 Meq Er Tab PO 10/04/18 03:46 Q6H OSMAR Rosuvastatin Calcium 5 mg 10/03/18 22:00 Crestor PO HS OSMAR Sucralfate 1 gm 10/03/18 10:00 10/03/18 17:32 Carafate Oral Susp PO 1 gm TID OSMAR Administration Past Psychiatric History - Past Psychiatric History Prior Psychiatric Treatment: Patient reports being admitted in [facility] about 3 times and [facility] [facility] [place] 6 Pertinent Medical Hx (Current Medical&Sleep Prob, Allergies): Allergies Allergy/AdvReac Type Severity Reaction Status Date / Time No Known Allergies Allergy Verified 10/02/18 21:42 Carisoprodol [Soma] 1 tab PO BID 10/01/17 Emtricitabine/Tenofovir (Tdf) [Truvada 200 mg-300 mg Tablet] 1 tab PO DAILY 12/03/17 Fosamprenavir Calcium [Lexiva] 2 cap PO BID 12/03/17 Alprazolam [Xanax] 2 mg PO BID #10 tablet 12/10/17 Gabapentin [Neurontin] 300 mg PO TID #90 cap 07/05/18 Mirtazapine [Remeron] 30 mg PO HS #30 tab 07/05/18 Pantoprazole [Protonix EC Tab] 20 mg PO DAILY #30 ect 07/05/18 QUEtiapine [SEROquel] 200 mg PO HS #30 tab 07/05/18 hydrOXYzine HCl [Atarax] 50 mg PO BID PRN #30 tab 07/05/18 QUEtiapine [Seroquel] 100 mg PO DAILY #30 tab 07/07/18 Review of Systems - Psychiatric Psychiatric: As Per HPI, Abnormal Sleep Pattern, Anhedonia, Anxiety, Behavioral Changes, Depression, Difficulty Concentrating, Hopelessness, Irritability, Mood Swings Mental Status Examination - Personal Presentation Personal Presentation: Looks older than stated age - Affect Affect: Constricted, Depressed - Motor Activity Motor Activity: Calm - Reliability in Providing Information Reliability in Providing Information: Poor, due to altered mood - Speech Speech: Relevant, Coherent - Mood Mood: Depressed, Anxious DSM 5 DX - DSM 5 DSM 5 Diagnosis: Bipolar Disorder, Current episode Depressed, Severe, Without Psychotic Features - Recommended/Plan of Treatment Treatment Recommendations and Plan of Treatment: All risks, benefits and alternatives of the meds discussed, and the pt agreed and understood. Attend groups and activities Individual therapy daily Psychoeducation and support daily Encourage compliance with meds and after care Refer to outpatient program Teach healthy lifestyle methods, i.e. diet, exercise, meditation Smoking cessation and patch if needed
[2018-10-03] MEDS: Potassium Chloride 20 mEq ER Tab PO SCH (22:20)
[2018-10-03] MEDS ORDERED: Petrolatum Oint Foilpak (5 gm) TOP PRN (23:30)
[2018-10-04] MEDS: Albuterol 0.083% Inhal Sol (2.5 mg/3 mL) UD INH SCH ×5 (01:35→19:25)
[2018-10-04] MEDS: Potassium Chloride 20 mEq ER Tab PO SCH (03:45)
[2018-10-04] MEDS: Sucralfate 1 gm/10 ml Oral Susp UD PO SCH ×3 (10:22→17:36)
[2018-10-04] MEDS: Emtricitabine-Tenofovir 200 mg-300 mg Tab PO SCH (10:22)
[2018-10-04] MEDS: Pantoprazole 40 mg EC Tab PO SCH ×2 (10:23→17:36)
--- NOTE | 2018-10-04 11:59 | PCM.PYCHPN ---
Psychiatric Progress Note - Psychiatric Progress Note Patient seen today, length of contact: 16 min Patient Chief Complaint: "Better but still down" Problems Identified/Issues Discussed: The pt is seen, chart reviewed, case is discussed with staff. The pt is compliant with medications and reports no side-effects. Symptoms are improving but needs more time to stabilize and to avoid relapse. Pt agreed to be transferred to Xanax will be stopped as she was NOT on it, evn though she claimed she had been taking "2 mg twice a day" [place] PSYCH TECH did not confirm this Support given, psycho-education provided. After care discussed. Medication Change: Yes (meds adjusted) Medical Record Reviewed: Yes Mental Status Examination - Cognitive Function Orientation: Person, Place, Situation, Time Memory: Impaired Attention: Poor Concentration: Poor Association: WNL Fund of Knowledge: Poor - Mood Mood: Depressed, Anxious - Affect Affect: Constricted - Speech Speech: Appropriate - Formal Thought Process Formal Thought Process: No Impairment - Suicidal Ideation Suicidal Ideation: No - Homicidal Ideation Homicidal Ideation: No Goal/Treatment Plan - Goal/Treatment Plan Need for Continued Stay: Discharge may exacerbated symptoms, Severe functional impairment Progress Toward Problem(s) and Goals/Treatment Plan: Continue medications Support and psychoeducation daily Attend groups and activities daily Individual therapy After care planning by SW and the team
[2018-10-04 12:38] VITALS: O2SAT 99
--- NOTE | 2018-10-04 13:37 | PCM.BM ---
<Emily Florezn - Last Filed: 10/04/18 13:35> Treatment Plan Problems - Problems identified on initial assessmt Ineffective Coping Date Initiated: 10/04/18 Time Initiated: 13:35 Assessment reference: NA Status: Active Suicidal Ideation Date Initiated: 10/04/18 Time Initiated: 13:35 Assessment reference: NA Status: Monitor Treatment assets and liabiliti Patient Assests: cooperative, self-reliant, ADL independent, negotiates basic needs, cognitively intact Patient Liabilities: substance abuse - Milieu Protocol Maintain good personal hygiene: daily Encourage regular showers, daily Remind patient to perform daily oral care, daily Assist patient to perform ADL's Maintain personal safety: every shift Educate patient to report safety concerns to staff, every shift Monitor environment for contraband/sharps Medication safety: Monitor for expected outcome, potential side effects: every shift, Assess barriers to learning: every shift, Assess readiness for medication education: every shift Milieu Narrative: All risks, benefits and alternatives of the meds discussed, and the pt agreed and understood. Attend groups and activities Individual therapy daily Psychoeducation and support daily Encourage compliance with meds and after care Refer to outpatient program Teach healthy lifestyle methods, i.e. diet, exercise, meditation Smoking cessation and patch if needed Discharge/Continuing Care - Treatment Team Participation Patient/Family/SO Statement: All risks, benefits and alternatives of the meds discussed, and the pt agreed and understood. Attend groups and activities Individual therapy daily Psychoeducation and support daily Encourage compliance with meds and after care Refer to outpatient program Teach healthy lifestyle methods, i.e. diet, exercise, meditation Smoking cessation and patch if needed <Soniya Nunn - Last Filed: 10/05/18 12:33> - Diagnosis (1) Bipolar disorder, current episode depressed, severe, without psychotic fe atures Status: Acute Interventions: 10/05/18 12:33 * Assess 7x/week regarding severity of withdrawal * Educate regarding risks, benefits, side effects and alternatives of medications * Use Motivational Interviewing for abstinence * Use CBT for relapse prevention * Medication management for withdrawal symptoms * Encourage medication assisted treatment * <Iraida Arce - Last Filed: 10/06/18 11:59> Family Contact Family involvement: Family/SO is involved Family contact: Patient declines to allow family contact at present - Goals for Treatment Patient goals for treatment: "I want to go to [facility]." Discharge/Continuing Care - Education Needs Education Needs: Patient Medication, Patient Diagnosis/Disease Process, Patient Coping Skills, Patient Placement options, Patient Community resources - Discharge Discharge Criteria: Free of Suicidal thoughts, Normal sleep pattern, Ability to care for self, Reduction of target symptoms Discharge to:: Home, With Family - Treatment Team Participation Discussed with Family/SO: No Was Patient/Family/SO present at Treatment Team Meeting: Yes
--- NOTE | 2018-10-04 19:34 | CP.PCM.PN ---
Subjective - Date & Time of Evaluation Date of Evaluation: 10/04/18 - Subjective Subjective: patient examined today patient is awake and alert no chest pain no nausea no vomiting Objective - Vital Signs/Intake and Output Vital Signs (last 24 hours): Temp Pulse Resp BP Pulse Ox 98.8 F 86 15 110/68 99 10/04/18 12:00 10/04/18 15:49 10/04/18 12:00 10/04/18 15:49 10/04/18 12:00 Intake and Output: 10/04/18 10/05/18 18:59 06:59 Intake Total 400 Balance 400 - Medications Medications: Current Medications Albuterol Sulfate (Albuterol 0.083% Inhal Kathy (2.5 Mg/3 Ml) Ud) 2.5 mg INH RQ6 OSMAR Last Admin: 10/04/18 19:25 Dose: Not Given Alprazolam (Xanax) 1 mg PO BID PRN PRN Reason: Anxiety Last Admin: 10/04/18 08:44 Dose: 1 mg Aspirin (Aspirin Chewable) 81 mg PO DAILY [facility] Last Admin: 10/04/18 10:22 Dose: 81 mg Emollient Ointment (Vaseline Oint) 5 gm TOP Q6 PRN PRN Reason: Dry skin Emtricitabine/Tenofovir (Truvada 200 Mg-300 Mg) 1 tab PO DAILY [facility]; Protocol Last Admin: 10/04/18 10:22 Dose: 1 tab Fosamprenavir Calcium (Lexiva) 700 mg PO DAILY [facility]; Protocol Last Admin: 10/04/18 10:22 Dose: 700 mg Heparin Sodium (Porcine) (Heparin) 5,000 units SC Q12H [facility] Last Admin: 10/04/18 10:22 Dose: Not Given Hydromorphone HCl (Dilaudid) 2 mg PO Q8H PRN PRN Reason: Pain, severe (8-10) Last Admin: 10/04/18 08:40 Dose: 2 mg Hydroxyzine HCl (Atarax) 50 mg PO Q6H PRN PRN Reason: Anxiety Last Admin: 10/04/18 16:19 Dose: 50 mg Influenza Virus Vaccine (Flucelvax Quad 5947-9700 Syr) 60 mcg IM .ONCE ONE Stop: 10/05/18 10:01 Ketorolac Tromethamine (Toradol) 10 mg PO Q6 PRN PRN Reason: Pain, severe (8-10) Last Admin: 10/04/18 17:35 Dose: 10 mg Pantoprazole Sodium (Protonix Ec Tab) 40 mg PO BID [facility] Last Admin: 10/04/18 17:36 Dose: 40 mg Pneumococcal Polyvalent Vaccine (Pneumovax 23 Vaccine) 0.5 ml IM .ONCE ONE Stop: 10/05/18 10:01 Rosuvastatin Calcium (Crestor) 5 mg PO HS [facility] Last Admin: 10/03/18 22:20 Dose: 5 mg Sucralfate (Carafate Oral Susp) 1 gm PO TID [facility] Last Admin: 10/04/18 17:36 Dose: 1 gm - Labs Labs: 10/03/18 04:05 10/03/18 09:08 PT 12.3 SECONDS (9.7-12.2) H 10/02/18 21:52 INR 1.1 10/02/18 21:52 APTT 34 SECONDS (21-34) 10/02/18 21:52 - Constitutional Appears: Well - Head Exam Head Exam: ATRAUMATIC, NORMAL INSPECTION, NORMOCEPHALIC - Eye Exam Eye Exam: EOMI, Normal appearance, PERRL Pupil Exam: NORMAL ACCOMODATION, PERRL - ENT Exam ENT Exam: Mucous Membranes Moist, Normal Exam - Neck Exam Neck Exam: Full ROM, Normal Inspection. absent: Lymphadenopathy - Respiratory Exam Respiratory Exam: Decreased Breath Sounds - Cardiovascular Exam Cardiovascular Exam: REGULAR RHYTHM, +S1, +S2 - GI/Abdominal Exam GI & Abdominal Exam: Soft, Diminished Bowel Sounds - Rectal Exam Rectal Exam: Deferred Assessment and Plan - Assessment and Plan (Free Text) Plan: Albuterol aspirin hydroxyzine hydromorphone heparin discussed plan with with staff labs and xray reviewed
--- NOTE | 2018-10-05 01:32 | CARD ---
APPROVED REPORT Date of service: 10/02/2018 EKG Measurement Heart [id number] <Conclusion> Marked sinus bradycardia Abnormal ECG
[2018-10-05] MEDS: Albuterol 0.083% Inhal Sol (2.5 mg/3 mL) UD INH SCH ×4 (02:28→20:52)
[2018-10-05] MEDS: Sucralfate 1 gm/10 ml Oral Susp UD PO SCH ×3 (09:00→17:24)
[2018-10-05] MEDS: Pantoprazole 40 mg EC Tab PO SCH ×2 (09:49→17:24)
[2018-10-05] MEDS ORDERED: Influenza Vaccine 60 mcg/0.5 mL SYR (4YR UP) IM ONE (10:00)
[2018-10-05] MEDS ORDERED: Pneumococcal 23-Valent Vaccine IM ONE (10:00)
[2018-10-05] MEDS: Emtricitabine-Tenofovir 200 mg-300 mg Tab PO SCH (10:52)
--- NOTE | 2018-10-05 11:27 | CP.PCM.PN ---
Subjective - Date & Time of Evaluation Date of Evaluation: 10/05/18 - Subjective Subjective: patient is alert and awake denies chest pain, SOB, dizziness Objective - Vital Signs/Intake and Output Vital Signs (last 24 hours): Temp Pulse Resp BP Pulse Ox 98.8 F 86 15 110/68 99 10/04/18 12:00 10/04/18 15:49 10/04/18 12:00 10/04/18 15:49 10/04/18 12:00 - Medications Medications: Current Medications Acetaminophen (Tylenol 325mg Tab) 650 mg PO Q6 PRN PRN Reason: Pain, moderate (4-7) Last Admin: 10/04/18 21:14 Dose: 650 mg Albuterol Sulfate (Albuterol 0.083% Inhal Kathy (2.5 Mg/3 Ml) Ud) 2.5 mg INH RQ6 OSMAR Last Admin: 10/05/18 07:38 Dose: Not Given Alprazolam (Xanax) 1 mg PO BID PRN PRN Reason: Anxiety Last Admin: 10/05/18 08:46 Dose: 1 mg Aspirin (Aspirin Chewable) 81 mg PO DAILY [facility] Last Admin: 10/05/18 09:50 Dose: 81 mg Emollient Ointment (Vaseline Oint) 5 gm TOP Q6 PRN PRN Reason: Dry skin Emtricitabine/Tenofovir (Truvada 200 Mg-300 Mg) 1 tab PO DAILY [facility]; Protocol Last Admin: 10/05/18 10:52 Dose: 1 tab Fosamprenavir Calcium (Lexiva) 700 mg PO DAILY [facility]; Protocol Last Admin: 10/05/18 10:52 Dose: 700 mg Hydroxyzine HCl (Atarax) 50 mg PO Q6H PRN PRN Reason: Anxiety Last Admin: 10/05/18 01:15 Dose: 50 mg Ketorolac Tromethamine (Toradol) 10 mg PO Q6 PRN PRN Reason: Pain, severe (8-10) Last Admin: 10/05/18 01:14 Dose: 10 mg Pantoprazole Sodium (Protonix Ec Tab) 40 mg PO BID [facility] Last Admin: 10/05/18 09:49 Dose: 40 mg Rosuvastatin Calcium (Crestor) 5 mg PO HS [facility] Last Admin: 10/04/18 21:14 Dose: 5 mg Sucralfate (Carafate Oral Susp) 1 gm PO TID [facility] Last Admin: 10/05/18 09:00 Dose: 1 gm - Labs Labs: 10/03/18 04:05 10/03/18 09:08 PT 12.3 SECONDS (9.7-12.2) H 10/02/18 21:52 INR 1.1 10/02/18 21:52 APTT 34 SECONDS (21-34) 10/02/18 21:52 - Constitutional Appears: Well - Head Exam Head Exam: ATRAUMATIC, NORMAL INSPECTION, NORMOCEPHALIC - Eye Exam Eye Exam: EOMI, Normal appearance, PERRL Pupil Exam: NORMAL ACCOMODATION, PERRL - ENT Exam ENT Exam: Mucous Membranes Moist, Normal Exam - Neck Exam Neck Exam: Full ROM, Normal Inspection. absent: Lymphadenopathy - Respiratory Exam Respiratory Exam: Decreased Breath Sounds - Cardiovascular Exam Cardiovascular Exam: REGULAR RHYTHM, +S1, +S2 - GI/Abdominal Exam GI & Abdominal Exam: Soft, Diminished Bowel Sounds - Rectal Exam Rectal Exam: Deferred Assessment and Plan - Assessment and Plan (Free Text) Plan: labs reviewed vitals and medications reviewed acetaminophen [tylenol] discussed treatment with staff
--- NOTE | 2018-10-05 12:33 | PCM.PYCHPN ---
Psychiatric Progress Note - Psychiatric Progress Note Patient seen today, length of contact: 16 min Patient Chief Complaint: "Better but still down" Problems Identified/Issues Discussed: The pt is seen, chart reviewed, case is discussed with staff. The pt is compliant with medications and reports no side-effects. Symptoms are improving but needs more time to stabilize and to avoid relapse. Pt agreed to be transferred to Xanax will be stopped as she was NOT on it, evn though she claimed she had been taking "2 mg twice a day" [place] [employer] ANA[employer]ST did not confirm this Support given, psycho-education provided. After care discussed. Medication Change: Yes (meds adjusted) Medical Record Reviewed: Yes Mental Status Examination - Cognitive Function Orientation: Person, Place, Situation, Time Memory: Impaired Attention: Poor Concentration: Poor Association: WNL Fund of Knowledge: Poor - Mood Mood: Depressed, Anxious - Affect Affect: Constricted - Speech Speech: Appropriate - Formal Thought Process Formal Thought Process: No Impairment - Suicidal Ideation Suicidal Ideation: No - Homicidal Ideation Homicidal Ideation: No Goal/Treatment Plan - Goal/Treatment Plan Need for Continued Stay: Discharge may exacerbated symptoms, Severe functional impairment Progress Toward Problem(s) and Goals/Treatment Plan: Continue medications Support and psychoeducation daily Attend groups and activities daily Individual therapy After care planning by SW and the team
[2018-10-05] MEDS: Aluminum Hydroxide/Magnesium Hydroxide Susp (30 mL) PO PRN (18:38)
[2018-10-06] MEDS: Albuterol 0.083% Inhal Sol (2.5 mg/3 mL) UD INH SCH (05:05)
[2018-10-06 06:46] VITALS: BP 155/106; PULSE 84; RESP 18; TEMP 98.1
[2018-10-06] MEDS: Aluminum Hydroxide/Magnesium Hydroxide Susp (30 mL) PO PRN (07:40)
[2018-10-06] MEDS: Emtricitabine-Tenofovir 200 mg-300 mg Tab PO SCH (09:52)
[2018-10-06] MEDS: Sucralfate 1 gm/10 ml Oral Susp UD PO SCH (09:52)
[2018-10-06] MEDS: Pantoprazole 40 mg EC Tab PO SCH (09:53)
== END 2018-10-06 10:10 | disposition home or self-care (01) | DRG 917 ==
LOC: C.ER 21:25 → C.9I 23:14 → C.5E 10-04 11:58
PROVIDERS: ADMIT Internal Medicine Nephrology; ATTEND Psychiatry & Neurology Psychiatry
PROC: 5A1935Z Respiratory Ventilation, Less than 24 Consecutive Hours (ICD-10-PCS; principal; 2018-10-03)
PROC: 0BH17EZ Insertion of Endotracheal Airway into Trachea, Via Natural or Artificial Opening (ICD-10-PCS; 2018-10-03)
PROC: HZ52ZZZ Individual Psychotherapy for Substance Abuse Treatment, Cognitive-Behavioral (ICD-10-PCS; 2018-10-03)
PROC: HZ59ZZZ Individual Psychotherapy for Substance Abuse Treatment, Supportive (ICD-10-PCS; 2018-10-03)
PROC: HZ56ZZZ Individual Psychotherapy for Substance Abuse Treatment, Psychoeducation (ICD-10-PCS; 2018-10-03)
PROC: HZ42ZZZ Group Counseling for Substance Abuse Treatment, Cognitive-Behavioral (ICD-10-PCS; 2018-10-03)
PROC: HZ46ZZZ Group Counseling for Substance Abuse Treatment, Psychoeducation (ICD-10-PCS; 2018-10-03)
PROC: GZHZZZZ Group Psychotherapy (ICD-10-PCS; 2018-10-03)
PROC: GZ58ZZZ Individual Psychotherapy, Cognitive-Behavioral (ICD-10-PCS; 2018-10-03)
PROC: GZ56ZZZ Individual Psychotherapy, Supportive (ICD-10-PCS; 2018-10-03)
DX: T42.6X2A Poisoning by other antiepileptic and sedative-hypnotic drugs, intentional self-harm, initial encounter (principal); J96.90 Respiratory failure, unspecified, unspecified whether with hypoxia or hypercapnia; F31.4 Bipolar disorder, current episode depressed, severe, without psychotic features; F11.20 Opioid dependence, uncomplicated; F13.20 Sedative, hypnotic or anxiolytic dependence, uncomplicated; R41.82 Altered mental status, unspecified; R00.1 Bradycardia, unspecified; Z21 Asymptomatic human immunodeficiency virus [HIV] infection status; F17.210 Nicotine dependence, cigarettes, uncomplicated; F41.9 Anxiety disorder, unspecified; I10 Essential (primary) hypertension; J44.9 Chronic obstructive pulmonary disease, unspecified; F60.9 Personality disorder, unspecified; F12.10 Cannabis abuse, uncomplicated; B19.20 Unspecified viral hepatitis C without hepatic coma; Z91.5 Personal history of self-harm; G43.909 Migraine, unspecified, not intractable, without status migrainosus

== ENCOUNTER 2018-11-17 08:56 | Outpatient (CLI) | payer BC | END 2018-11-17 08:57 | disposition home or self-care (01) | LOC: C.USIC 08:56 | DX: R19.7 Diarrhea, unspecified (principal); R10.9 Unspecified abdominal pain ==